=== PATIENT | male | born 1950 | race Caucasian/White ===

== ENCOUNTER 2024-12-15 13:05 | Emergency (ER) | payer MEDICARE, OTHER, SELFPAY ==
[2024-12-15] VITALS (7 sets, daily range): BP systolic 102–138; BP diastolic 61–87; PULSE 84–97; RESP 15–19; TEMP 36.5–36.6; O2SAT 93–97
--- NOTE | ~2024-12-15 | CT_ITS ---
EXAMINATION: CTA chest abdomen pelvis DATE: 12/15/2024 19:12 INDICATION: AAA, right hip fracture . TECHNIQUE: Computed tomography angiography of the chest, abdomen, and pelvis was performed with 100 m L Omnipaque-350 intravenous contrast in the arterial phase. Automated exposure control and iterative reconstruction technique were employed. The dose-length product was 359.92 mGy-cm. COMPARISON: None FINDINGS: CHEST: Thoracic aorta: No dissection. Moderate calcified and noncalcified plaque. Descending thoracic aortic dilation measuring up to 4.4 cm just distal to the arch. Lung parenchyma and airways: Emphysematous change. Biapical pleural scarring. Pleural scarring in the right apex. 9 mm pleural-based right lower lobe nodule over the dome of the right hemidiaphragm. Thoracic inlet, axillae and chest wall: No thyroid or soft tissue mass. No axillary lymphadenopathy. Mediastinum: Dilated central pulmonary arteries as can be seen with pulmonary hypertension. Heart and pericardium: Normal heart size. No pericardial effusion. Coronary artery calcifications: Moderate. Pleura: No effusion or mass. Thoracic bones: No acute osseous finding in the chest. ABDOMEN/PELVIS: Liver: Normal. Biliary/Gallbladder: Gallbladder is normal. No bile duct dilation. Pancreas: No mass or duct dilation. Spleen: Normal. Adrenals:Mild bilateral adrenal thickening. Kidneys: No suspicious mass, obstructing stone, or hydronephrosis. GI tract: Mild distal esophageal wall edema. Small uncomplicated duodenal diverticulum. No small or l arge bowel dilation. Normal appendix. Mesentery/Peritoneum: No ascites, mass, or free air. Retroperitoneum: No mass 11.3 cm long, large infrarenal abdominal aortic aneurysm, measuring up to 7. 8 cm in transverse diameter (greatest transverse diameter measured in the coronal view). GUILLAUME not conf idently visualized. Remaining branch vessels are patent, without dissection. There is intraluminal th rombus within the aneurysm and the suggestion of a high density crescent sign. There is also a saccul ar outpouching along the superior and right lateral margin of the upper portion of the aneurysm. Pelvis: Pelvic organs partially obscured by metal artifact. Soft Tissues: Soft tissues and body wall unremarkable. Abdominopelvic bones: Acute appearing right sacral ala. Acute appearing right obturator ring fracture s, with extension into the anterior column. Acute appearing vertically oriented fracture lines in the anterior and posterior proximal right femoral cortex, surrounding the femoral stem of the right hip hardware. IMPRESSION: Fusiform descending thoracic aortic aneurysm measuring up to 4.4 cm. 9 mm right lower lobe nodule over the dome of the right hemidiaphragm, recommend 3 month follow-up lo w-dose noncontrast CT of the chest or PET/CT. Mild distal esophagitis. Large infrarenal abdominal aortic aneurysm measuring up to 7.8 cm, concerning for impending rupture b ased on size and additional findings including focal, saccular outpouching and the high attenuation c rescent sign. Acute appearing right sacral ala, obturator ring, right anterior column, and right perihilar hardware pelvic/hip fractures. Results reported telephonically to Yanna Hilliard PA-C by Dr. Mo at 7:36 PM on 12/15/2024. Reviewed, dictated and finalized at location [facility]. IMPRESSION: Fusiform descending thoracic aortic aneurysm measuring up to 4.4 cm. 9 mm right lower lobe nodule over the dome of the right hemidiaphragm, recommen d 3 month follow-up low-dose noncontrast CT of the chest or PET/CT. Mild distal esophagitis. Large infrarenal abdominal aortic aneurysm measuring up to 7.8 cm, concerning f or impending rupture based on size and additional findings including focal, sac cular outpouching and the high attenuation crescent sign. Acute appearing right sacral ala, obturator ring, right anterior column, and ri ght perihilar hardware pelvic/hip fractures. Results reported telephonically to Yanna Hilliard PA-C by Dr. Mo at 7:36 PM on 12/15/2024.
--- OUTSIDE RECORDS SUMMARY | 2024-12-15 17:53 | XMS_ITS | Encounter Summary ---
Author Organization [facility] Address [facility] [place] [address] Care Team Providers Care Cook Room Supervisor Name Role Phone Sergei Ruff MD Primary Care Provider [phone]- [phone] Cathryn Espinoza RN Unavailable Unavailable Reason for Referral * Imaging (Urgent) - New Request Specialty Diagnoses / Procedures Referred By Essie overton Referred To Contact RADIOLOGY Procedures USV ART DUPLEX LOW PAYTON Kaitlynn Mejias MD [address] [place] [address] Phone: tel: fax: Referral ID Status Reason Start Date Expiration Date V isits Requested Visits Authorized [id number] New Request 12/12/2024 12/12/2025 1 1 * Imaging (Urgent) - Pending Review Specialty Diagnoses / Procedures Referred By Essie overton Referred To Contact RADIOLOGY Procedures USV CAROTID DUPLEX PAYTON US CAROTID DUPLEX PAYTON Lawson Grayson MD [address] [place] [address] Phone: tel: fax: Referral ID Status Reason Start Date Expiration Date V isits Requested Visits Authorized [id number] Pending Review 12/10/2024 12/10/2025 1 1 * Imaging (Urgent) - New Request Specialty Diagnoses / Procedures Referred By Contac t Referred To Contact RADIOLOGY Procedures CTA CHEST+ABD+PEL Kaitlynn Mejias MD [address], [facility] [place] [address] Phone: tel: fax: Referral ID Status Reason Start Date Expiration Date V isits Requested Visits Authorized [id number] New Request 12/10/2024 12/10/2025 1 1 * Imaging (Urgent) - New Request Specialty Diagnoses / Procedures Referred By Contac t Referred To Contact RADIOLOGY Procedures USE ECHOCARDIOGRAM Lawson Grayson MD [address] [place] [address] Phone: tel: fax: Referral ID Status Reason Start Date Expiration Date V isits Requested Visits Authorized [id number] New Request 12/10/2024 12/10/2025 1 1 * Imaging (Urgent) - New Request Specialty Diagnoses / Procedures Referred By Contac t Referred To Contact RADIOLOGY Procedures MRI BRAIN WO CON Lawson Grayson MD [address] [place] [address] Phone: tel: fax: Referral ID Status Reason Start Date Expiration Date V isits Requested Visits Authorized [id number] New Request 12/10/2024 12/10/2025 1 1 * Imaging (Urgent) - New Request Specialty Diagnoses / Procedures Referred By Contac t Referred To Contact RADIOLOGY Procedures CT HIP RT WO Tae Talley MD [address], [facility] [place] [address] Phone: tel: fax: Referral ID Status Reason Start Date Expiration Date V isits Requested Visits Authorized [id number] New Request 12/09/2024 12/09/2025 1 1 Reason for Visit * Auth/Cert Specialty Diagnoses / Procedures Referred By Contac t Referred To Contact Diagnoses Hip fx, right, closed, initial encounter ([facility]) Procedures NONE Conor Saenz MD [address] [place] [address] Phone: tel: fax: Referral ID Status Reason Start Date Expiration Date Visits Re quested Visits Authorized [id number] 1 1 Encounter Details Date Type Department Care Team (Latest Contact Info) Description 12/09/2024 6:53 PM CDT - 12/13/2024 7:21 PM CDT Hospital Encounter [facility] [address] [place] [address] Conor Saenz MD [address] [place] [id number] Lawson Grayson MD [address] [place], [place] [id number] Ada Alford MD [address] [place] [address] Discharge Disposition: Left Against Medical Advice Social History Tobacco Use Types Packs/Day Years Used Date Smoking Tobacco: Every Day Cigarettes Smokeless Tobacco: Never Alcohol Use Standard Drinks/Week Comments Yes 0 (1 standard drink = 0.6 oz pur e alcohol) monthly [facility] Utilities Answer Date Recorded In the past 12 months has [employer], gas, oil, or water company threatened to shut off services in your home? No 12/09/2024 Humiliation, Afraid, Rape, and Kick questionnair e Answer Date Recorded Within the last year, have y ou been afraid of your partner or ex-partner? No 12/09/2024 Within the last year, have y ou been humiliated or emotionally abused in other ways by your partner or ex-partner? No Within the last year, have y ou been kicked, hit, slapped, or otherwise physically hurt by your partner or ex-partner? No 12/09/2024 Within the last year, have y ou been raped or forced to have any kind of sexual activity by your partner or ex-partner? No 12/09/2024 Overall Financial Resource Strain (CARDIA) Answe r Date Recorded How hard is it for you to pa y for the very basics like food, housing, medical care, and heating? Not hard at all 12/09/2024 Hunger Vital Sign Answer Date Recorded Within the past 12 months, y ou worried that your food would run out before you got the money to buy more. Never true 12/10/19 25 Within the past 12 months, t he food you bought just didn't last and you didn't have money to get more. Never true 12/09/2024 PRAPARE - Transportation Answer Date Re corded In the past 12 months, has l ack of transportation kept you from medical appointments or from getting medications? No 11/17 In the past 12 months, has l ack of transportation kept you from meetings, work, or from getting things needed for daily living? No 12/09/2024 Housing Stability Vital Sign Answer Leonel e Recorded In the last 12 months, was t here a time when you were not able to pay the mortgage or rent on time? No 12/09/2024 In the past 12 months, how m any times have you moved where you were living? 0 12/09/2024 At any time in the past [address] [facility], were you homeless or living in a chcf (including now)? 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 Gender Identity Not on file Sexual Orientation Not on file documented as of this encounter Last Filed Vital Signs Vital Sign Reading Time Taken Comments Blood Pressure 144/76 12/13/2024 4:22 PM CDT Pulse 75 12/13/2024 4:22 PM CDT Temperature 36.7 C (98.1 F) 12/13/2024 4:22 PM CDT Respiratory Rate 16 12/13/2024 4:22 PM CDT Oxygen Saturation 94% 12/13/2024 4:22 PM CDT Inhaled Oxygen Concentration - - Weight 62.1 kg (136 lb 14.5 oz) 12/13/2024 4:20 AM CDT Height 185.4 cm (6' 0.99) 12/11/2024 9:00 AM CD T Body Mass Index 18.07 12/11/2024 9:00 AM CDT documented in this encounter Functional Status * Question Answer Date of Assessment Author Status Do you have serious difficulty walking or climbing stairs? Yes 12/09/2024 8:00 PM CDT Celine Moreau RN Act benita * Question Answer Date of Assessment Author Status Do you have difficulty dressing or bathing? No 12/09/2024 8:00 PM CDT Celine Moreau R N Active Because of a physical, mental, or emotional condition, do you have difficulty doing errands alone such as visiting a doctor's office or shopping? No 12/09/2024 8:00 PM CDT Celine Moreau RN Acti ve * Are you deaf or do you have serious difficulty hearing Answer Date of Assessment Author Status No 12/09/2024 8:00 PM CDT Celine Moreau RN Active * Are you blind or do you have serious difficulty seeing, even when wearing glasses? Answer Date of Assessment Author Status No 12/09/2024 8:00 PM CDT Celine Moreau RN Active * Do you have serious difficulty walking or climbing stairs? Answer Date of Assessment Author Status Yes 12/09/2024 8:00 PM GABRIELT Celine Moreau RN Active * Do you have difficulty dressing or bathing? Answer Date of Assessment Author Status No 12/09/2024 8:00 PM GABRIELT Celine Moreau RN Active * Because of a physical, mental, or emotional condition, do you have difficulty doing errands alone such as visiting a doctor's office or shopping? Answer Date of Assessment Author Status No 12/09/2024 8:00 PM Celine Joyce RN Active * Question Answer Date of Assessment Author Status Are you deaf or do you have serious difficulty hearing No 12/09/2024 8:00 PM Celine Joyce RN Active Are you blind or do you have serious difficulty seeing, even when wearing glasses? No 12/09/2024 8:00 PM Celine Joyce RN Acti ve * Calculated C-SSRS Risk Score (Lifetime/Recent) Answer Date of Assessment Author Status No Risk Indicated 12/09/2024 8:00 PM Mariano Joyce i, RN Active * [place] Suicide Severity Rating Scale (Screener/Recent Self-Report) Question Answer Date of Assessment Author Status 1. Wish to be (Past 1 Month) No 12/09/2024 8:00 PM Celine Joyce RN Acti ve 2. Non-Specific Active Suicidal Thoughts (Past 1 Month) No 12/09/2024 8:00 PM Celine Joyce RN Acti ve 6. Suicidal Behavior (Lifetime) No 12/09/2024 8:00 PM Celine Joyce RN Acti ve documented as of this encounter Mental Status * Question Answer Entry Date Author Status Because of a physical, mental, or emotional condition, do you have serious difficulty concentrating, remembering, or making decisions? No 12/09/2024 8:00 PM Celine Joyce RN Active * Because of a physical, mental, or emotional condition, do you have serious difficulty concentrating, remembering, or making decisions? Answer Entry Date Author Status No 12/09/2024 8:00 PM Celine Joyce RN Active documented in this encounter Medications at Time of Discharge clopidogrel (PLAVIX) 75 MG tablet Take 1 tablet (75 mg total) by mouth daily. lovastatin (MEVACOR) 40 MG tablet Take 2 tablets (80 mg total) by mouth daily. 01/26/2024 metoprolol succinate ER (TOPROL-XL) 100 MG 24 hr tablet Take 1 tablet (100 mg total) by mouth daily. traZODone (DESYREL) 100 MG tablet Take 1 tablet (100 mg total) by mouth nightly at bedtime. 06/26/2024 documented as of this encounter Progress Notes * Ada Alford MD - 12/13/2024 4:55 PM CDT Images from the original note were not included. Progress note CC:- 74-year-old man with past medical history of hypertension, hyperlipidemia, coronary artery disease status post PCI many years ago, was referred to us from outside hospital after sustaining a fall while cleaning gutter at his friend's house. Imaging studies have revealed right superior and inferior pubic ramus, right femoral and right sacral hiral fractures. Further imaging studies have revealed 7.6 cm infrarenal abdominal aortic aneurysm. 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 Orthopedics cardiology and vascular surgery have been consulted. ASSESSMENT /PLAN Abdominal aortic aneurysm: Up to 8 cm in size. Case discussed with vascular surgery. It appears that patient has complicated anatomy and aneurysm repair will need fenestrated EVAR in 4 to 6 weeks time on outpatient basis. Continue aspirin and statin. Right periprosthetic femur fracture: Communicated with orthopedic surgery. Patient's hip repair will now be done early next week. Will await definite scheduling details prior to discontinuing DVT prophylaxis. Preoperative cardiac assessment has been obtained. History of coronary artery disease: Echocardiogram reassuring. Continue aspirin atorvastatin and Toprol-XL. Patient takes Plavix at home which we are holding at this time. Old strokes on brain imaging: Continue aspirin and statin. Carotid ultrasound duplex with less than 60% stenosis. JAYME: Resolved. Tobacco dependence/substance abuse: Counseled the patient. SUBJECTIVE Patient seen and examined. Patient did not have any significant acute complaints OBJECTIVE Wt Readings from Last 3 Encounters: 12/13/24 62.1 kg (136 lb 14.5 oz) 12/09/24 68 kg (150 lb) Temp: 98.1 ??F (36.7 ??C) BP Readings from Last 3 Encounters: 12/13/24 (!) 144/76 12/09/24 125/81 Pulse Readings from Last 3 Encounters: 12/13/24 75 12/09/24 71 Review of Systems Constitutional: Negative. HENT: Negative. Eyes: Negative. Respiratory: Negative. Cardiovascular: Negative. Genitourinary: Negative. Musculoskeletal: Positive for joint pain. Skin: Negative. Neurological: Negative. PHYSICAL EXAMINATION: Physical Exam HENT: Head: Normocephalic. Nose: Nose normal. Cardiovascular: Rate and Rhythm: Normal rate. Pulses: Normal pulses. Heart sounds: Normal heart sounds. Pulmonary: Effort: Pulmonary effort is normal. Breath sounds: Normal breath sounds. Abdominal: Palpations: Abdomen is soft. Musculoskeletal: General: Normal range of motion. Skin: General: Skin is warm. Neurological: Mental Status: He is alert and oriented to person, place, and time. LABS: Recent Labs 12/11/2434312/12/24 0409 12/13/24 0416 WBC 8.31 7.37 7.41 HGB 9.1* 9.1* 9.1* HCT 27.7* 27.5* 27.1* MCV 90.5 89.0 89.7 PLT 290 310 336 RBC 3.06* 3.09* 3.02* Recent Labs 12/11/2434312/12/249 12/13/24 0416 CO2 29.5 27.6 29.0 CL 103 104 102 GLU 99 105 99 K 3.5 3.6 3.6 NA 136 136 134* BUN 25* 18 14 Intake/Output Summary (Last 24 hours) at 12/13/2024 1655 Last data filed at 12/13/2024 0745 Gross per 24 hour Intake 150 ml Output 350 ml Net -200 ml Microbiology Results (last 14 days) Procedure Component Value Units Date/Time MRSA PCR nares SCREENING [[id number]] Collected: 12/09/242144 Order Status: Completed Lab Status: Final result Updated: 12/10/24 1057 Specimen: NASAL SPECIMEN SOURCE RESPIRATORY, NOSE MRSA BY PCR NASAL METHICILLIN RESISTANT STAPH AUREUS NOT DETECTED Radiology MEDICATIONS Scheduled medications aspirin 81 mg Oral Daily atorvastatin 20 mg Oral Nightly at bedtime chlorhexidine 15 mL Mouth/Throat Once enoxaparin 40 mg Subcutaneous Nightly (enoxaparin) metoprolol succinate ER 100 mg Oral Daily traZODone 100 mg Oral Nightly at bedtime Infusion PRN acetaminophen, HYDROcodone-acetaminophen, HYDROmorphone, labetalol, ondansetron, polyethylene glycol ADA ALFORD MD 4:55 PM 12/13/2024 * Dwight Massey RN - 12/13/2024 12:42 PM CDT Problem: Reduced risk for falls/injury Goal: Reduced Risk for Falls/Injury Outcome: Progressing Goal: Reduced Risk of Confusion (Acute vs Chronic) Outcome: Progressing Goal: Reduced Risk of Symptomatic Depression Outcome: Progressing Goal: Reduced Risk of Altered Elimination Outcome: Progressing Goal: Reduced Risk of Dizziness/Vertigo/Balance Outcome: Progressing Goal: Reduced Risk of Polypharmacy Outcome: Progressing Problem: Discharge Planning Goal: Knowledge of discharge instructions Outcome: Progressing Problem: Bowel Function - Altered Goal: Bowel elimination within specified parameters Outcome: Progressing Problem: Venous Thromboembolism - Risk of Goal: Absence of venous thromboembolism Outcome: Progressing Problem: Infection - Risk of, Surgical Site Infection Goal: Absence of infection signs and symptoms Outcome: Progressing Problem: Mobility - Impaired Goal: Able to use ambulatory assistive device appropriately Outcome: Progressing Goal: Knowledge of need for increased mobility Outcome: Progressing Problem: Pain - Acute Goal: Control of acute pain Outcome: Progressing Problem: Discharge Planning Goal: Knowledge of discharge instructions Outcome: Progressing Problem: Pain control/comfort Goal: Promote pain control/comfort Outcome: Progressing Problem: Skin integrity, Impaired-wound Goal: Absence of new skin breakdown Outcome: Progressing Goal: Evidence of wound healing Outcome: Progressing Problem: Skin integrity, Impaired-pressure injury/ulcer Goal: Absence of new skin breakdown Outcome: Progressing Goal: Evidence of pressure injury/ulcer healing Outcome: Progressing Problem: Skin integrity, at risk Goal: Absence of new skin breakdown Outcome: Progressing Problem: Moisture associated skin impairment Goal: Reduce moisture exposure Outcome: Progressing Goal: Evidence of wound healing Outcome: Progressing Goal: Evidence of pressure injury/ulcer healing Outcome: Progressing Goal: Absence of new skin breakdown Outcome: Progressing Problem: Restraint Use-Violent/Self Destructive Behavior Goal: Absence of physical restraint indications Outcome: Progressing Goal: Release of restraints Outcome: Progressing * Ada Alford MD - 12/12/2024 7:18 PM CDT Images from the original note were not included. Progress note CC:- 74-year-old man with past medical history of hypertension, hyperlipidemia, coronary artery disease status post PCI many years ago, was referred to us from outside hospital after sustaining a fall while cleaning gutter at his friend's house. Imaging studies have revealed right superior and inferior pubic ramus, right femoral and right sacral hiral fractures. Further imaging studies have revealed 7.6 cm infrarenal abdominal aortic aneurysm. 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 Orthopedics cardiology and vascular surgery have been consulted. ASSESSMENT /PLAN Abdominal aortic aneurysm: Up to 8 cm in size. Case discussed with vascular surgery again today. It appears that patient has complicated anatomy and aneurysm repair will need fenestrated EVAR in 4 to 6 weeks time on outpatientbasis. Continue aspirin and statin. Right periprosthetic femur fracture: Initially the procedure was deferred by orthopedics however now given postponement of aneurysm repair, vascular surgery have reached out to orthopedics again to get the hip repair done first. History of coronary artery disease: Echocardiogram reassuring. Continue aspirin atorvastatin and Toprol-XL. Patient takes Plavix at home which we are holding at this time. Old strokes on brain imaging: Continue aspirin and statin. Carotid ultrasound duplex with less than 60% stenosis. JAYME: Resolved. Tobacco dependence/substance abuse: Counseled the patient. SUBJECTIVE Patient seen and examined. Patient without any acute complaints. OBJECTIVE Wt Readings from Last 3 Encounters: 12/12/24 61.8 kg (136 lb 3.9 oz) 12/09/24 68 kg (150 lb) Temp: 98.1 ??F (36.7 ??C) BP Readings from Last 3 Encounters: 12/12/24 139/66 12/09/24 125/81 Pulse Readings from Last 3 Encounters: 12/12/24 72 12/09/24 71 Review of Systems Constitutional: Negative. HENT: Negative. Eyes: Negative. Respiratory: Negative. Cardiovascular: Negative. Genitourinary: Negative. Musculoskeletal: Negative. Skin: Negative. Neurological: Negative. Psychiatric/Behavioral: Negative. PHYSICAL EXAMINATION: Physical Exam HENT: Head: Normocephalic. Nose: Nose normal. Mouth/Throat: Mouth: Mucous membranes are moist. Cardiovascular: Rate and Rhythm: Normal rate. Pulmonary: Effort: Pulmonary effort is normal. Breath sounds: Normal breath sounds. Abdominal: Palpations: Abdomen is soft. Musculoskeletal: General: Normal range of motion. Skin: General: Skin is warm. Neurological: Mental Status: He is alert and oriented to person, place, and time. LABS: Recent Labs 12/10/24 0551 12/11/24 0344 12/12/24 0409 WBC 9.05 8.31 7.37 HGB 9.6* 9.1* 9.1* HCT 29.6* 27.7* 27.5* MCV 91.4 90.5 89.0 PLT 266 290 310 RBC 3.24* 3.06* 3.09* Recent Labs 12/10/24 0551 12/11/244 12/12/24 0409 CO2 28.9 29.5 27.6 CL 101 103 104 GLU 101 99 105 K 4.3 3.5 3.6 NA 134* 136 136 BUN 27* 25* 18 Intake/Output Summary (Last 24 hours) at 12/12/2024 1919 Last data filed at 12/12/2024 1528 Gross per 24 hour Intake 1342 ml Output 800 ml Net 542 ml Microbiology Results (last 14 days) Procedure Component Value Units Date/Time MRSA PCR nares SCREENING [[id number]] Collected: 12/09/242144 Order Status: Completed Lab Status: Final result Updated: 12/10/24 1057 Specimen: NASAL SPECIMEN SOURCE RESPIRATORY, NOSE MRSA BY PCR NASAL METHICILLIN RESISTANT STAPH AUREUS NOT DETECTED Radiology MEDICATIONS Scheduled medications aspirin 81 mg Oral Daily atorvastatin 20 mg Oral Nightly at bedtime chlorhexidine 15 mL Mouth/Throat Once enoxaparin 40 mg Subcutaneous Nightly (enoxaparin) metoprolol succinate ER 100 mg Oral Daily traZODone 100 mg Oral Nightly at bedtime Infusion PRN acetaminophen, HYDROcodone-acetaminophen, HYDROmorphone, labetalol, ondansetron, polyethylene glycol ADA ALFORD MD 7:19 PM 12/12/2024 * Aston Cramer MD - 12/12/2024 5:18 PM CDT Electrophysiology Progress Note ID: Austin Cramer is a 74-year-old male : 1950 LOS: 3 days SUBJECTIVE Hx mi and cad/stent Hx AAA - large - f/u has been // is arranged as per pt Htn Hld Stable cardiac status REVIEW OF SYSTEMS: Review of Systems Constitutional: Negative for chills and fever. HENT: Negative for hearing loss. Respiratory: Negative for cough and hemoptysis. Cardiovascular: Negative for chest pain. Gastrointestinal: Negative for heartburn. Musculoskeletal: Positive for joint pain and myalgias. Neurological: Negative for dizziness. Endo/Heme/Allergies: Does not bruise/bleed easily. Medications: Scheduled Meds: aspirin 81 mg Oral Daily atorvastatin 20 mg Oral Nightly at bedtime chlorhexidine 15 mL Mouth/Throat Once enoxaparin 40 mg Subcutaneous Nightly (enoxaparin) metoprolol succinate ER 100 mg Oral Daily traZODone 100 mg Oral Nightly at bedtime Continuous Infusions: PRN Meds: acetaminophen, HYDROcodone-acetaminophen, HYDROmorphone, labetalol, ondansetron, polyethylene glycol OBJECTIVE Intake/Output last 3 shifts: I/O last 3 completed shifts: In: 1151 [P.O.:1151] Out: 700 [Urine:700] Today's Weight: Last Recorded Weight 12/12/24 0414 Weight: 61.8 kg (136 lb 3.9 oz) Weight change in the last 24 hours: an appropriate measurement is not found Vital signs in the last 24 hours: Temp: [97.7 ??F (36.5 ??C)-98.4 ??F (36.9 ??C)] 98.1 ??F (36.7 ??C) Pulse: [63-86] 72 Resp: [16-20] 20 BP: (128-149)/(51-66) 139/66 Physical Exam Constitutional: Appearance: Normal appearance. HENT: Nose: Nose normal. Mouth/Throat: Mouth: Mucous membranes are moist. Eyes: Pupils: Pupils are equal, round, and reactive to light. Cardiovascular: Rate and Rhythm: Normal rate and regular rhythm. Pulmonary: Effort: Pulmonary effort is normal. Breath sounds: Normal breath sounds. Abdominal: Palpations: Abdomen is soft. Musculoskeletal: Cervical back: Normal range of motion and neck supple. Comments: Right hip surgery Neurological: Mental Status: He is oriented to person, place, and time. Telemetry and 12 lead ECG: nsr No results found for this visit on 12/09/24. Labs and Cultures: Recent Results (from the past 24 hours) CBC W/DIFF AUTOMATED Collection Time: 12/12/24 4:09 AM Result Value Ref Range WBC 7.37 4.00 - 10.80 x10'3/uL RBC 3.09 (L) 4.50 - 6.10 x10'6/uL HGB 9.1 (L) 13.0 - 18.0 G/DL HCT 27.5 (L) 37.0 - 52.0 % MCV 89.0 78.0 - 100.0 FL MCH 29.4 27.0 - 31.0 PG MCHC 33.1 33.0 - 36.0 G/DL RDW 13.3 11.5 - 14.5 % PLT 310 150 - 350 x10'3/uL MPV 9.1 7.4 - 10.4 FL DIFFERENTIAL TYPE AUTOMATED DIFFERENTIAL SEG NEUTROPHILS 61.1 % LYMPHOCYTES 22.7 % MONOCYTES 9.5 % EOSINOPHILS 5.4 % BASOPHILS 0.9 % IMMATURE GRANS % 0.4 % ABS. NEUTROPHILS 4.50 1.60 - 8.30 x10'3/uL ABS. LYMPHOCYTES 1.67 0.80 - 4.70 x10'3/uL ABS. MONOCYTES 0.70 0.00 - 1.50 x10'3/uL ABS. EOSINOPHILS 0.40 0.00 - 0.40 x10'3/uL ABS. BASOPHILS 0.07 0.00 - 0.20 x10'3/uL ABS. IMMATURE GRANULOCYTES 0.03 0.00 - 0.03 x10'3/uL ABS. NUCLEATED RBC'S 0.00 0.00 - 0.01 x10'3/uL NRBC % 0.0 % BASIC METABOLIC PANEL Collection Time: 12/12/24 4:09 AM Result Value Ref Range SODIUM S/P/B 136 136 - 145 MMOL/L POTASSIUM S/P/B 3.6 3.5 - 5.1 MMOL/L CHLORIDE S/P/B 104 97 - 115 MMOL/L CO2 27.6 21.0 - 32.0 MMOL/L GLUCOSE 105 74 - 106 MG/DL BUN 18 7 - 18 MG/DL CREATININE S/P/B 0.77 0.70 - 1.30 MG/DL CALCIUM S/P/B 8.5 8.5 - 10.1 MG/DL ANION GAP 4.4 2.0 - 10.0 MMOL/L OSMOLALITY (CALC) 284 MOSM/KG GFR ESTIMATE >90 >90 ML/MIN/1.73 M2 GFR NOTES GFR REFERENCES: ASSESSMENT Patient Active Problem List Diagnosis Hip fracture, right ([facility]) PLAN Pt has f/u of AAA scheduled Cad Coronary stent and hx mi Htn Hld Signed ASTON CRAMER MD 12/12/2024 * Aryan Martinez RD - 12/12/2024 1:58 PM CDT CLINICAL DIETITIAN ASSESSMENT NUTRITION ASSESSMENT Past Medical History[1] Initial History (12/12/2024): Remote Registered Dietitian (RD) completing an initial assessment secondary to low BMI. Patient is a 74-year-old male admitted secondary to Hip fx, right, closed, initial encounter ([facility]) [S72.001A] Hip fracture, right ([facility]) [S72.001A]. Patient presented to [facility] on 12/09/24 after a fall from elevation while cleaning gutters at a friend's house. Patient was diagnosed with the above. Noted history or aortic aneurysm, CAD. Previously had JAYME during admission, but is now noted to be resolved by physician. CM following; discharge plan is pending due to AAA repair by vascular surgery, which is scheduled to be done on 12/16/24. Weight history (12/12/2024): Alternate contact reports patient's weight has been stable. Says usual body weight is around 150 lbs (68.2 kg). Per EHR, patient weighed 68 kg on 12/09/24, now weighs 61.8 kg, indicating a 6.2 kg (9.3%) loss occurring over the last 3 days. Is considered to be clinically significant; however, unsure of cause of loss. No edema was noted upon/during admission and patient is currently -0.9 L of fluid per I&Os. Suspect admission weight may be inaccurate. Will continue to monitor trends throughout admission. 12/09/24: 68 kg (standing) 12/10/24: 60.4 kg 12/11/24: 60.3 kg 12/12/24: 61.8 kg Diet history (12/12/2024): Alternate contact (fuewro-of-ptp) reports patient eats very well at home,typically consuming 100% of meals. Says patient can be a picky eater and that is why patient has not eaten everything in hospital. 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 Per EHR, patient consumed 100% of meals served yesterday and today. Patient consumed 0% of meals of 12/10/24 at lunch and dinner. Per calculations and ordered meals noted in [employer], patient is meeting <75% of estimated nutrient needs. Offered ONS, alternate contact reports patient would likely not drink Ensure due to not liking it. Will not order ONS at thistime per family preference. Food allergies/intolerances: NKFA per EHR Cultural/U[place] food preferences: None reported in EHR Food Insecurity: No Food Insecurity (12/09/2024) Hunger Vital Sign Worried About Running Out of Food in the Last Year: Never true Ran Out of Food in the Last Year: Never true Cardiorespiratory: in room air Neuro: Alert/oriented x4 per EHR Edema: no edema noted per EHR GI: abdomen WDL, soft, non-tender, and non-distended with positive bowel sounds per security systems installer; last BM documented on 12/07/24 (no BM description available; no BM documented in 5 days) Chewing/swallowing problems: None reported Skin: no breakdown noted Nutrition-focused physical findings: Unable to complete a physical exam at this time due to RDN working remotely. Labs: Reviewed. No nutrition-related concerns noted at this time. Recent Labs Lab 12/10/24 1118 GLUCOSEPOC 93 Recent Labs Lab 12/09/24 1423 12/10/24 0551 12/11/24 0344 12/12/24 0409 NA 135* 134* 136 136 K 4.2 4.3 3.5 3.6 MAGNESIUM 2.1 -- 2.2 -- PHOS -- -- 2.7 -- BUN 34* 27* 25* 18 CR 1.33* 0.89 0.84 0.77 GFREST 56* 89* >90 >90 GLU 132* 101 99 105 TRI -- 111 -- -- HGB A1C Date Value Ref Range Status 12/10/2024 5.5 <5.7 % Final Meds: Reviewed. No nutrition-related concerns noted at this time. aspirin 81 mg Oral Daily atorvastatin 20 mg Oral Nightly at bedtime chlorhexidine 15 mL Mouth/Throat Once enoxaparin 40 mg Subcutaneous Nightly (enoxaparin) metoprolol succinate ER 100 mg Oral Daily traZODone 100 mg Oral Nightly at bedtime Anthropometrics: Admission weight: 68 kg (Date: 12/09/24; Method: Not recorded) Last 5 Recorded Weights 12/09/24200012/10/24 0500 12/10/24 0700 12/11/24 0900 Weight: 68 kg (150 lb) 60.4 kg (133 lb 2.5 oz) 60.4 kg (133 lb 2.5 oz) 60.3 kg (133 lb) 12/12/24 0414 Weight: 61.8 kg (136 lb 3.9 oz) Weight status: Per EHR, patient weighed 68 kg on 12/09/24, now weighs 61.8 kg, indicating a 6.2 kg (9.3%) loss occurring over the last 3 days. Is considered to be clinically significant; however, unsure of cause of loss. No edema was noted upon/during admission and patient is currently -0.9 L of fluid per I&Os. Suspect admission weight may be inaccurate. Will continue to monitor trends throughout admission. Height: 185.4 cm Actual Body Weight (ABW): 61.8 kg [place] Body Weight (IBW): 83.4 kg (ABW is 74% of IBW) Usual Body Weight (UBW): 68.2 kg (ABW is 91% of UBW) Dosing Weight (DW): 61.8 kg Body Mass Index (BMI): 18 kg/m?? (Underweight) Estimated Nutrient Needs: Calories: 7729-4292 kcal/day based on [place]-St Jeor x 1.25-1.5 Protein: 74-93 gm/day based on 1-1.2 gm/kg, using ABW (compression fracture) Fluid: 1500 mL/day based on minimum intake recommendation for older adults Current diet order: Diet cardiac Not appropriate; Low Cholesterol; 2 GM NA Current diet appropriate? Yes Current intake sufficient to meet nutritional needs? No; Per review of recorded intake per EHR, ordered meals per [employer] and patient/RN reported intake of on average 67% of meals, it is estimated that patient consumed an average of 1128 kcal/day (64% estimated needs) and 44 gm/day protein (59% estimated needs) over the past 3 days. Fluid intake appears adequate for hydration. Pain affecting PO intake? No Nutrition Education: no needs identified at this time NUTRITION DIAGNOSIS Inadequate energy and protein intake related to limited food acceptance per family as evidenced by patient is currently meeting <75% of estimated nutrient needs. NUTRITION INTERVENTION Nutrition prescription: Cardiac diet, Low sodium diet (limit to 2 gm sodium daily), and Low Cholesterol diet Plan: 1. Continue current diet order as tolerated and encourage good PO intake of meals. 2. Weigh patient daily. Discharge nutrition plan: Discharge needs assessed. Will provide/update discharge instructions as needed. MONITORING/EVALUATION 12/12/2024 Goals: 1. PO intake will meet at least 75% of estimated kcal/protein needs based on 3- day average intake per review of EHR and [employer] at follow up. 2. Weight stable within 2% of current weight (61.8 kg) at follow up. ARYAN MARTINEZ RD, LDN [1] Past Medical History: Diagnosis Date CAD (coronary artery disease) HLD (hyperlipidemia) Hypertension * Sharonda Giron RN - 12/12/2024 9:16 AM CDT 12/12/24 0916 Interdisciplinary Group Conference Team Members Present Physician;Case/Care management;Nursing Physician present for group conference Dr Alford Patient Current Status Paient current status Inpatient Barriers to Discharge Inpatient Review Other Barriers to Discharge (Comment) Yes (ortho surgery postponed until after 12/16 vascular surgery to repair AAA) * Zonia Kendrick RN - 12/11/2024 7:14 PM CDT Problem: Reduced risk for falls/injury Goal: Reduced Risk for Falls/Injury Outcome: Progressing Goal: Reduced Risk of Confusion (Acute vs Chronic) Outcome: Progressing Goal: Reduced Risk of Symptomatic Depression Outcome: Progressing Goal: Reduced Risk of Altered Elimination Outcome: Progressing Goal: Reduced Risk of Dizziness/Vertigo/Balance Outcome: Progressing Goal: Reduced Risk of Polypharmacy Outcome: Progressing Problem: Discharge Planning Goal: Knowledge of discharge instructions Outcome: Progressing Problem: Bowel Function - Altered Goal: Bowel elimination within specified parameters Outcome: Progressing Problem: Venous Thromboembolism - Risk of Goal: Absence of venous thromboembolism Outcome: Progressing Problem: Infection - Risk of, Surgical Site Infection Goal: Absence of infection signs and symptoms Outcome: Progressing Problem: Mobility - Impaired Goal: Able to use ambulatory assistive device appropriately Outcome: Progressing Goal: Knowledge of need for increased mobility Outcome: Progressing Problem: Pain - Acute Goal: Control of acute pain Outcome: Progressing Problem: Discharge Planning Goal: Knowledge of discharge instructions Outcome: Progressing Problem: Pain control/comfort Goal: Promote pain control/comfort Outcome: Progressing Problem: Skin integrity, Impaired-wound Goal: Absence of new skin breakdown Outcome: Progressing Goal: Evidence of wound healing Outcome: Progressing Problem: Skin integrity, Impaired-pressure injury/ulcer Goal: Absence of new skin breakdown Outcome: Progressing Goal: Evidence of pressure injury/ulcer healing Outcome: Progressing Problem: Skin integrity, at risk Goal: Absence of new skin breakdown Outcome: Progressing Problem: Moisture associated skin impairment Goal: Reduce moisture exposure Outcome: Progressing Goal: Evidence of wound healing Outcome: Progressing Goal: Evidence of pressure injury/ulcer healing Outcome: Progressing Goal: Absence of new skin breakdown Outcome: Progressing * Ada Alford MD - 12/11/2024 4:27 PM CDT Images from the original note were not included. Progress note CC:- 74-year-old man with past medical history of hypertension, hyperlipidemia, coronary artery disease status post PCI many years ago, was referred to us from outside hospital after sustaining a fall while cleaning gutter at his friend's house. Imaging studies have revealed right superior and inferior pubic ramus, right femoral and right sacral hiral fractures. Further imaging studies have revealed 7.6 cm infrarenal abdominal aortic aneurysm. 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 Orthopedics cardiology and vascular surgery have been consulted. ASSESSMENT /PLAN Right periprosthetic femur fracture: In view of very large abdominal aortic aneurysm orthopedics have deferred operative intervention atthis time and will wait for aneurysm repair before repairing patient's hip. I will start DVT prophylaxis. Abdominal aortic aneurysm: Up to 8 cm in size. Repair has been scheduled for Sunday next week. History of coronary artery disease: Echocardiogram reassuring. Continue aspirin atorvastatin and Toprol-XL. Patient takes Plavix at home which we are holding at this time. JAYME: Resolved. Tobacco dependence/substance abuse: Counseled the patient. Needs inpatient repair of AAA next week, followed by repair of hip. SUBJECTIVE Patient seen and examined. No significant acute issues have been reported by the patient OBJECTIVE Wt Readings from Last 3 Encounters: 12/11/24 60.3 kg (133 lb) 12/09/24 68 kg (150 lb) Temp: 97.3 ??F (36.3 ??C) BP Readings from Last 3 Encounters: 12/11/24 128/63 12/09/24 125/81 Pulse Readings from Last 3 Encounters: 12/11/24 67 12/09/24 71 Review of Systems Constitutional: Negative. HENT: Negative. Eyes: Negative. Respiratory: Negative. Cardiovascular: Negative. Gastrointestinal: Negative. Genitourinary: Negative. Musculoskeletal: Negative. Skin: Negative. Neurological: Negative. Psychiatric/Behavioral: Negative. PHYSICAL EXAMINATION: Physical Exam HENT: Head: Normocephalic. Nose: Nose normal. Mouth/Throat: Mouth: Mucous membranes are moist. Cardiovascular: Rate and Rhythm: Normal rate. Pulses: Normal pulses. Heart sounds: Normal heart sounds. Pulmonary: Breath sounds: Normal breath sounds. Abdominal: Palpations: Abdomen is soft. Musculoskeletal: General: Normal range of motion. Skin: General: Skin is warm and dry. Neurological: Mental Status: He is alert and oriented to person, place, and time. LABS: Recent Labs 12/09/24 1423 12/10/24 0551 12/11/24 0344 WBC 11.16* 9.05 8.31 HGB 10.8* 9.6* 9.1* HCT 31.8* 29.6* 27.7* MCV 88.3 91.4 90.5 PLT 267 266 290 RBC 3.60* 3.24* 3.06* Recent Labs 12/09/24 1423 12/10/24 0551 12/11/24 0344 ALT 20 -- -- AST 24 -- -- CO2 30.0 28.9 29.5 CL 95* 101 103 GLU 132* 101 99 K 4.2 4.3 3.5 NA 135* 134* 136 BUN 34* 27* 25* Intake/Output Summary (Last 24 hours) at 12/11/2024 1627 Last data filed at 12/11/2024 1100 Gross per 24 hour Intake 0 ml Output 775 ml Net -775 ml Microbiology Results (last 14 days) Procedure Component Value Units Date/Time MRSA PCR nares SCREENING [[id number]] Collected: 12/09/242144 Order Status: Completed Lab Status: Final result Updated: 12/10/24 1057 Specimen: NASAL SPECIMEN SOURCE RESPIRATORY, NOSE MRSA BY PCR NASAL METHICILLIN RESISTANT STAPH AUREUS NOT DETECTED Radiology MEDICATIONS Scheduled medications aspirin 81 mg Oral Daily atorvastatin 20 mg Oral Nightly at bedtime chlorhexidine 15 mL Mouth/Throat Once enoxaparin 40 mg Subcutaneous Nightly (enoxaparin) metoprolol succinate ER 100 mg Oral Daily Infusion PRN acetaminophen, HYDROcodone-acetaminophen, HYDROmorphone, labetalol, ondansetron, polyethylene glycol ADA ALFORD MD 4:27 PM 12/11/2024 * Max Morrison Jr., DO - 12/11/2024 11:41 AM CDT Patient's chart was reviewed today. Originally had planned on revising his periprosthetic fracture of his right hip. However after learning that he had a nearly 8 cm aortic aneurysm we are going to postpone his surgery until he is aneurysm is repaired. Will likely schedule after that is completed. * Kaitlynn Mejias MD - 12/11/2024 10:50 AM CDT [facility] V[facility] Surgery Progress Note ASSESSMENT/PLAN: 74-year-old male with incidental, asymptomatic 7.5 cm infrarenal AAA admitted w/ R hip fracture. -Plan for inpatient endovascular repair of AAA on December 16 -2+ femoral/DP/PT pulses -Continue ASA and Statin -[facility] Vascular Surgery will continue to follow Attending: Mathew Gudino MD SUBJECTIVE: NAOE. No complaints at time of examination. . OBJECTIVE: Filed Vitals: 12/10/24 2255 12/11/24 0325 12/11/24 0727 12/11/24 0900 BP: 108/73 (!) 141/60 128/63 Pulse: 72 66 67 Resp: Temp: 97.9 ??F (36.6 ??C) 98.1 ??F (36.7 ??C) 97.3 ??F (36.3 ??C) TempSrc: Oral Oral SpO2: 99% 93% 91% Weight: 60.3 kg (133 lb) Height: 1.854 m (6' 0.99) I/O last 3 completed shifts: In: 250 [P.O.:250] Out: 1125 [Urine:1125] Physical Exam: Vitals: 12/11/24 07 BP: 128/63 Pulse: 67 Resp: Temp: 97.3 ??F (36.3 ??C) SpO2: 91% Gen: Resting comfortably in bed, NAD. Patient appears stated age. HEENT: Normocephalic, atraumatic. EOMI. Neck soft, supple. Normal hearing. CV: Globally well-perfused Resp: Airway grossly patent. Non-labored respirations, symmetric chest rise bilaterally. Abdom: soft, nontender, nondistended, no organomegaly, no masses. No guarding, no rigidity. Palpable abdominal mass. Extremities: WWP, 2+ femoral/DP/PT b/l. MSK: moves all extremities equally Integ: skin warm and intact. No wounds. Neuro: A&Ox3, no focal deficits Psych: appropriate mood and affect Labs: Recent Labs Lab 12/09/24 1423 12/10/24 0551 12/11/24 0344 NA 135* 134* 136 K 4.2 4.3 3.5 CL 95* 101 103 CO2 30.0 28.9 29.5 AGAP 10.0 4.1 3.5 BUN 34* 27* 25* CR 1.33* 0.89 0.84 GLU 132* 101 99 CA 9.3 8.7 8.4* MAGNESIUM 2.1 -- 2.2 Recent Labs Lab 12/09/24 1423 12/10/24 0551 12/11/24 0344 WBC 11.16* < > 8.31 RBC 3.60* < > 3.06* HGB 10.8* < > 9.1* HCT 31.8* < > 27.7* MCV 88.3 < > 90.5 MCH 30.0 < > 29.7 MCHC 34.0 < > 32.9* PLT 267 < > 290 RDW 12.7 < > 13.2 MPV 9.2 < > 9.1 PERNEU 73.4 -- -- PERLYM 14.6 -- -- PERMON 10.4 -- -- PEREOS 0.8 -- -- PERBASO 0.4 -- -- NEUC 8.19 < > 5.34 LYMC 1.63 < > 1.65 MONOC 1.16 < > 0.93 EOSC 0.09 < > 0.29 BASOC 0.05 < > 0.06 DTYPE -- < > AUTOMATED DIFFERENTIAL < > = values in this interval not displayed. Recent Labs Lab 12/09/24 1423 INR 1.2* Cosigned by Mathew Gudino MD at 12/11/2024 2:19 PM CDT Associated attestation - Mathew Gudino MD - 12/11/2024 2:19 PM CDT I saw and evaluated the patient, participating in the cantor portions of the service. I reviewed the resident???s note. I agree with the resident???s findings and plan. Plan for endovascular repair tentatively next Sunday. Teaching physician supervised resident in person. * Aston Cramer MD - 12/11/2024 10:40 AM CDT Electrophysiology Progress Note ID: Austin Cramer is a 74-year-old male : 1950 LOS: 2 days SUBJECTIVE Hx mi and cad/stent Hx AAA - large - f/u has been // is arranged as per pt Htn Hld Stable cardiac status REVIEW OF SYSTEMS: Review of Systems Constitutional: Negative for chills and fever. HENT: Negative for hearing loss. Respiratory: Negative for cough and hemoptysis. Cardiovascular: Negative for chest pain. Gastrointestinal: Negative for heartburn. Musculoskeletal: Positive for joint pain and myalgias. Neurological: Negative for dizziness. Endo/Heme/Allergies: Does not bruise/bleed easily. Medications: Scheduled Meds: aspirin 81 mg Oral Daily atorvastatin 20 mg Oral Nightly at bedtime chlorhexidine 15 mL Mouth/Throat Once metoprolol succinate ER 100 mg Oral Daily Continuous Infusions: PRN Meds: acetaminophen, HYDROcodone-acetaminophen, HYDROmorphone, labetalol, ondansetron, polyethylene glycol OBJECTIVE Intake/Output last 3 shifts: I/O last 3 completed shifts: In: 250 [P.O.:250] Out: 1125 [Urine:1125] Today's Weight: Last Recorded Weight 12/11/24 0900 Weight: 60.3 kg (133 lb) Weight change in the last 24 hours: an appropriate measurement is not found Vital signs in the last 24 hours: Temp: [97.3 ??F (36.3 ??C)-98.2 ??F (36.8 ??C)] 97.3 ??F (36.3 ??C) Pulse: [56-83] 67 Resp: [16-18] 18 BP: (98-141)/(58-73) 128/63 Physical Exam Constitutional: Appearance: Normal appearance. HENT: Nose: Nose normal. Mouth/Throat: Mouth: Mucous membranes are moist. Eyes: Pupils: Pupils are equal, round, and reactive to light. Cardiovascular: Rate and Rhythm: Normal rate and regular rhythm. Pulmonary: Effort: Pulmonary effort is normal. Breath sounds: Normal breath sounds. Abdominal: Palpations: Abdomen is soft. Musculoskeletal: Cervical back: Normal range of motion and neck supple. Comments: Right hip surgery Neurological: Mental Status: He is oriented to person, place, and time. Telemetry and 12 lead ECG: nsr No results found for this visit on 12/09/24. Labs and Cultures: Recent Results (from the past 24 hours) POCT glucose Collection Time: 12/10/24 11:18 AM Result Value Ref Range GLUCOSE POC 93 70 - 109 CBC W/DIFF AUTOMATED Collection Time: 12/11/24 3:44 AM Result Value Ref Range WBC 8.31 4.00 - 10.80 x10'3/uL RBC 3.06 (L) 4.50 - 6.10 x10'6/uL HGB 9.1 (L) 13.0 - 18.0 G/DL HCT 27.7 (L) 37.0 - 52.0 % MCV 90.5 78.0 - 100.0 FL MCH 29.7 27.0 - 31.0 PG MCHC 32.9 (L) 33.0 - 36.0 G/DL RDW 13.2 11.5 - 14.5 % PLT 290 150 - 350 x10'3/uL MPV 9.1 7.4 - 10.4 FL DIFFERENTIAL TYPE AUTOMATED DIFFERENTIAL SEG NEUTROPHILS 64.2 % LYMPHOCYTES 19.9 % MONOCYTES 11.2 % EOSINOPHILS 3.5 % BASOPHILS 0.7 % IMMATURE GRANS % 0.5 % ABS. NEUTROPHILS 5.34 1.60 - 8.30 x10'3/uL ABS. LYMPHOCYTES 1.65 0.80 - 4.70 x10'3/uL ABS. MONOCYTES 0.93 0.00 - 1.50 x10'3/uL ABS. EOSINOPHILS 0.29 0.00 - 0.40 x10'3/uL ABS. BASOPHILS 0.06 0.00 - 0.20 x10'3/uL ABS. IMMATURE GRANULOCYTES 0.04 (H) 0.00 - 0.03 x10'3/uL ABS. NUCLEATED RBC'S 0.00 0.00 - 0.01 x10'3/uL NRBC % 0.0 % BASIC METABOLIC PANEL Collection Time: 12/11/24 3:44 AM Result Value Ref Range SODIUM S/P/B 136 136 - 145 MMOL/L POTASSIUM S/P/B 3.5 3.5 - 5.1 MMOL/L CHLORIDE S/P/B 103 97 - 115 MMOL/L CO2 29.5 21.0 - 32.0 MMOL/L GLUCOSE 99 74 - 106 MG/DL BUN 25 (H) 7 - 18 MG/DL CREATININE S/P/B 0.84 0.70 - 1.30 MG/DL CALCIUM S/P/B 8.4 (L) 8.5 - 10.1 MG/DL ANION GAP 3.5 2.0 - 10.0 MMOL/L OSMOLALITY (CALC) 286 MOSM/KG GFR ESTIMATE >90 >90 ML/MIN/1.73 M2 GFR NOTES GFR REFERENCES: MAGNESIUM Collection Time: 12/11/24 3:44 AM Result Value Ref Range MAGNESIUM 2.2 1.6 - 2.6 MG/DL PHOSPHORUS, INORGANIC PHOSPHATE Collection Time: 12/11/24 3:44 AM Result Value Ref Range PHOSPHORUS 2.7 2.5 - 4.9 MG/DL ASSESSMENT Patient Active Problem List Diagnosis Hip fracture, right (CMS/HCC HHS/HCC) PLAN Pt has f/u of AAA scheduled Cad Coronary stent and hx mi Htn Hld Signed ASTON CRAMER MD 12/11/2024 * Sharonda Giron RN - 12/11/2024 10:32 AM CDT 12/11/24 1032 Interdisciplinary Group Conference Team Members Present Case/Care management;Nursing Patient Current Status Paient current status Inpatient Barriers to Discharge Inpatient Review Other Barriers to Discharge (Comment) Yes (scheduled for OR today) Patient expects to be discharged to: Home or Self care no new needs Ortho surgery postponed until after AAA repair, Per vascular note AAA repair is scheduled for December 16. * Madhu Gross MD - 12/11/2024 5:48 AM CDT ORTHOPAEDIC SURGERY PROGRESS NOTE S: Patient seen resting comfortably this AM. No acute events. No fevers or chills. Expressed understanding regarding the plan for surgery. Patient did obtain echocardiogram yesterday and was evaluated by vascular surgery as well. O: Physical Exam: GEN: No acute distress. Alert and oriented to person, place and time. HEART: Regular rate. Good peripheral perfusion. RESP: Airway patent. No acute respiratory distress. PSYCH: Appropriate mood and affect. Cooperative with exam. MSK: RLE: Compartments of the hip and thigh are soft and compressible. Fires EHL, FHL, TA, and GSC. Sensation intact to light touch in the sural, saphenous, superficial peroneal, deep peroneal, and tibialnerve distributions. Palpable DP pulse foot is warm and well perfused. Capillary refill <2 seconds in all digits. ASSESSMENT/PLAN: Austin Cramer is a 74-year-old male with [place] B2 periprosthetic fracture of a previous righthip hemiarthroplasty. He also has a right LC 1 fracture. Plan for right hip revision hemiarthroplasty today with Dr. Morrison today. Admitted to hospitalist [facility] consulted (Dr. Morrison) Vascular surgery consulted, noted recommendation for endovascular aortic aneurysm repair while inpatient Cardiology consulted Obtain/confirm consent for: right hip revision hemiarthroplasty with Dr. Morrison Pain: As ordered Diet: NPO Activity: Bedrest, NWB RLE Type and Screen 2 units Imaging: Noted echocardiogram obtained 12/10 2g Ancef manager of corporate communications to OR Nursing: ice as needed to right hip DVT PPx: Hold preoperatively Medical: Per hospitalist Dispo: [address] Morrison for right hip revision hemiarthroplasty pending medical clearance Madhu Gross MD Cosigned by Max Morrison Jr., DO at 12/11/2024 7:24 AM CDT * Ada Alford MD - 12/10/2024 3:33 PM CDT Images from the original note were not included. Progress note CC:- 74-year-old man with past medical history of hypertension, hyperlipidemia, coronary artery disease status post PCI many years ago, was referred to us from outside hospital after sustaining a fall while cleaning gutter at his friend's house. Imaging studies have revealed right superior and inferior pubic ramus, right femoral and right sacral hiral fractures. Further imaging studies have revealed 7.6 cm infrarenal abdominal aortic aneurysm. 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 Orthopedics cardiology and vascular surgery have been consulted. ASSESSMENT /PLAN Right periprosthetic femur fracture: Follow-up with orthopedics probably tomorrow. Hold DVT prophylaxis. Continue as needed pain medication. Continue aspirin. Needs echocardiogram and cardiology assessment prior to OR. History of coronary artery disease: Getting an echocardiogram. Continue aspirin atorvastatin and Toprol-XL. Seems to have Plavix on medication list. Will hold and in anticipation of or Chronic stroke: Does not have any significant neurodeficit. Getting an echocardiogram and carotid ultrasound. Continue aspirin and statin for now. Abdominal aortic aneurysm: Vascular surgery planning to operate on the aneurysm during this admission. Will probably be done next week. JAYME: Resolved. Tobacco dependence/substance abuse: Counseled the patient. Needs continued inpatient stay for repair of right femur fracture and AAA repair next week. SUBJECTIVE Patient seen and examined. Pain seems to be in control. No significant acute issues reported OBJECTIVE Wt Readings from Last 3 Encounters: 12/10/24 60.4 kg (133 lb 2.5 oz) 12/09/24 68 kg (150 lb) Temp: 98.2 ??F (36.8 ??C) BP Readings from Last 3 Encounters: 12/10/24 98/61 12/09/24 125/81 Pulse Readings from Last 3 Encounters: 12/10/24 (!) 59 12/09/24 71 Review of Systems Constitutional: Negative. HENT: Negative. Eyes: Negative. Respiratory: Negative. Cardiovascular: Negative. Gastrointestinal: Negative. Genitourinary: Negative. Musculoskeletal: Positive for joint pain. Skin: Negative. Neurological: Negative. Endo/Heme/Allergies: Negative. Psychiatric/Behavioral: Negative. PHYSICAL EXAMINATION: Physical Exam HENT: Head: Normocephalic. Nose: Nose normal. Mouth/Throat: Mouth: Mucous membranes are moist. Eyes: Pupils: Pupils are equal, round, and reactive to light. Cardiovascular: Rate and Rhythm: Normal rate. Pulses: Normal pulses. Heart sounds: Normal heart sounds. Pulmonary: Effort: Pulmonary effort is normal. Breath sounds: Normal breath sounds. Abdominal: Palpations: Abdomen is soft. Musculoskeletal: General: Normal range of motion. Skin: General: Skin is warm. Neurological: Mental Status: He is alert and oriented to person, place, and time. LABS: Recent Labs 12/09/24 1423 12/10/24 0551 WBC 11.16* 9.05 HGB 10.8* 9.6* HCT 31.8* 29.6* MCV 88.3 91.4 PLT 267 266 RBC 3.60* 3.24* Recent Labs 12/09/24 1423 12/10/24 0551 ALT 20 -- AST 24 -- CO2 30.0 28.9 CL 95* 101 GLU 132* 101 K 4.2 4.3 NA 135* 134* BUN 34* 27* Intake/Output Summary (Last 24 hours) at 12/10/2024 1533 Last data filed at 12/10/2024 1500 Gross per 24 hour Intake 10 ml Output 400 ml Net -390 ml Microbiology Results (last 14 days) Procedure Component Value Units Date/Time MRSA PCR nares SCREENING [[id number]] Collected: 12/09/242144 Order Status: Completed Lab Status: Final result Updated: 12/10/24 1057 Specimen: NASAL SPECIMEN SOURCE RESPIRATORY, NOSE MRSA BY PCR NASAL METHICILLIN RESISTANT STAPH AUREUS NOT DETECTED Radiology MEDICATIONS Scheduled medications aspirin 81 mg Oral Daily atorvastatin 20 mg Oral Nightly at bedtime ceFAZolin 2 g Intravenous Family Medicine Physician to OR metoprolol succinate ER 100 mg Oral Daily Infusion sodium chloride 75 mL/hr at 12/10/24 0107 PRN acetaminophen, HYDROcodone-acetaminophen, HYDROmorphone, labetalol, ondansetron, polyethylene glycol ADA ALFORD MD 3:33 PM 12/10/2024 * Sharonda Giron RN - 12/10/2024 12:16 PM CDT 12/10/24 1215 Asssesment Completed Type of Case Management assessment completed Adult Referral Data Source of Information Patient Patient Information Primary Caregiver Self Current living Situation Alone Type of Residence Private residence Support System Friends;Immediate family Are you employed? 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 The screening is to screen the patient for what services and destination would be beneficial for patient for next level of care Conversation with the patient/family Will the patient be returning to prior living situation with no new identified needs? Yes Based on the screening the DC plan for consideration is: Patient expects to be discharged to: Home or Self care no new needs Adequate Resources Available Adequate Resources Yes Met with patient to introduce self and role. Patient is independent at baseline, lives alone, has acane/2ww if needed, no active services, brother or friend will drive at d/c. PCP: [facility] Pharm: [place] Readmission score: 10 * Sharonda Giron RN - 12/10/2024 11:51 AM CDT 12/10/24 1150 Interdisciplinary Group Conference Team Members Present Case/Care management;Nursing (chart review/rounds) Patient Current Status Paient current status Inpatient Barriers to Discharge Inpatient Review Barriers to Discharge Inpatient Other (Comment) Other follow up (Comment) call taker for OR Patient expects to be discharged to Patient expects to be discharged to: Home or Self care no new needs * Marce Gibbs RN - 12/10/2024 8:53 AM CDT Problem: Reduced risk for falls/injury Goal: Reduced Risk for Falls/Injury Outcome: Progressing Goal: Reduced Risk of Confusion (Acute vs Chronic) Outcome: Progressing Goal: Reduced Risk of Symptomatic Depression Outcome: Progressing Goal: Reduced Risk of Altered Elimination Outcome: Progressing Goal: Reduced Risk of Dizziness/Vertigo/Balance Outcome: Progressing Goal: Reduced Risk of Polypharmacy Outcome: Progressing Problem: Discharge Planning Goal: Knowledge of discharge instructions Outcome: Progressing Problem: Bowel Function - Altered Goal: Bowel elimination within specified parameters Outcome: Progressing Problem: Venous Thromboembolism - Risk of Goal: Absence of venous thromboembolism Outcome: Progressing Problem: Infection - Risk of, Surgical Site Infection Goal: Absence of infection signs and symptoms Outcome: Progressing Problem: Mobility - Impaired Goal: Able to use ambulatory assistive device appropriately Outcome: Progressing Goal: Knowledge of need for increased mobility Outcome: Progressing Problem: Pain - Acute Goal: Control of acute pain Outcome: Progressing * Tae Cramer MD - 12/10/2024 6:17 AM CDT ORTHOPAEDIC SURGERY PROGRESS NOTE S: Patient seen resting comfortably this AM. No acute events. Aware plan for surgery today. No new complaints at this time. O: Physical Exam: GEN: No acute distress. Alert and oriented to person, place and time. HEART: Regular rate. Good peripheral perfusion. RESP: Airway patent. No acute respiratory distress. PSYCH: Appropriate mood and affect. Cooperative with exam. MSK: RLE: Skin is intact, no open fractures. Pain with log roll at the hip. Nontender to palpation over the thigh, hip, leg, ankle, and foot. Motion to knee is grossly intact. Fires EHL, FHL, TA, and GSC.Sensation intact to light touch in the sural, saphenous, superficial peroneal, deep peroneal, and tibial nerve distributions. 2+ DP and PT pulses. Foot is warm and well perfused. Capillary refill <2 seconds in all digits. Compartments are soft and compressible. ASSESSMENT/PLAN: Austin Cramer is a 74-year-old male with [place] B2 periprosthetic fracture of a previous righthip hemiarthroplasty. He also has a right LC 1 fracture. Plan for right hip revision hemiarthroplasty today with Dr. Morrison pending medical clearance. Admitted to hospitalist [facility] consulted (Dr. Morrison) Obtain/confirm consent for: right hip revision hemiarthroplasty with Dr. Morrison Pain: As ordered Diet: NPO Activity: Bedrest, NWB RLE Type and Screen 2 units 2g Ancef manager of corporate communications to OR CT R hip reviewed with Dr. Morrison Nursing: ice as needed to right hip DVT PPx: Hold preoperatively Medical: Per hospitalist Dispo: [address] Morrison for right hip revision hemiarthroplasty pending medical clearance Tae Cramer MD Cosigned by Max Morrison Jr., DO at 12/11/2024 7:25 AM CDT * Celine Moreau RN - 12/09/2024 8:36 PM CDT Problem: Reduced risk for falls/injury Goal: Reduced Risk for Falls/Injury Outcome: Progressing Goal: Reduced Risk of Confusion (Acute vs Chronic) Outcome: Progressing Goal: Reduced Risk of Symptomatic Depression Outcome: Progressing Goal: Reduced Risk of Altered Elimination Outcome: Progressing Goal: Reduced Risk of Dizziness/Vertigo/Balance Outcome: Progressing Goal: Reduced Risk of Polypharmacy Outcome: Progressing Problem: Bowel Function - Altered Goal: Bowel elimination within specified parameters Outcome: Progressing Problem: Discharge Planning Goal: Knowledge of discharge instructions Outcome: Progressing * Conor Sanez MD - 12/09/2024 5:28 PM CDT 74 y/o M w/ R. Hip GRACE, fell while cleaning the gutters on last Sunday. XR shows R. Pubic Ramus andR. Femoral Fractures. CTH shows chronic R. MCA infarct and CT chest/abd/pelvis shows R. Inferior/superior Pubic ramus fx,R. Femoral Fx, Non-displaced R. Sacral alar fx and indeterminate T2-T3 compression fx. 7.6 cm Infrarenal AAA and Cetrilobular/Paraseptal Emphysema. [facility] surgery consulted. documented in this encounter H&P Notes * Lawson Grayson MD - 12/09/2024 7:37 PM CDT Images from the original note were not included. [facility] Hospitalist H&P Note Attending Provider: Conor Saenz MD PCP: SERGEI RUFF MD Austin Cramer is an 74-year-old male. Reason for Admission: Hip fracture, right ([facility]HS/[facility]) HPI: 74-year-old male with past medical history of hypertension, hyperlipidemia, CAD status post PCI, who presents from outside hospital in the setting of fall from elevation while cleaning gutters at hisfriend's house. Patient reports landing on his right side noted for immediate pain difficulty with weightbearing. And was advised to go to the hospital at the direction of his family. At outside hospital patient was noted for periprosthetic femur fracture, among other fractures. Patient also noted for incidental 7.6 cm infrarenal AAA. Head CT was unremarkable for any acute findings however noted for likely prior infarct. Patient otherwise denied any chest pain, shortness of breath, fever, chills, sweats, nausea, vomiting, changes in bowel or urine. Patient endorses tobacco use, denies daily alcohol, however does not use polysubstance use on occasion what ever I can get. Past Medical History Past Medical History[1] Past Surgical History[2] Allergies: No Known Allergies Social History Social History Tobacco Use Smoking status: Every Day Current packs/day: 1.00 Types: Cigarettes Smokeless tobacco: Never Substance Use Topics Alcohol use: Yes Comment: monthly Family History Family History[3] Medications No current facility-administered medications on file prior to encounter. Current Outpatient Medications on File Prior to Encounter Medication Sig atorvastatin (LIPITOR) 40 MG tablet Take 1 tablet (40 mg total) by mouth nightly at bedtime. clopidogrel (PLAVIX) 75 MG tablet Take 1 tablet (75 mg total) by mouth daily. metoprolol succinate ER (TOPROL-XL) 100 MG 24 hr tablet Take 1 tablet (100 mg total) by mouth daily. No current facility-administered medications for this encounter. Principal Problem: Hip fracture, right ([facility] HHS/HCC) SNOMED CT(R): FRACTURE OF BONE OF HIP REGION VITAL SIGNS Blood pressure 137/59, pulse 71, temperature 98.2 ??F (36.8 ??C), SpO2 92%. Review of Systems Review of Systems Constitutional: Negative for chills, diaphoresis, fever and malaise/fatigue. HENT: Negative for congestion. Eyes: Negative for blurred vision. Respiratory: Negative for cough. Cardiovascular: Negative for chest pain, palpitations and leg swelling. Gastrointestinal: Negative for diarrhea, heartburn, nausea and vomiting. Genitourinary: Negative for frequency. Musculoskeletal: Positive for falls and joint pain. Negative for myalgias. Skin: Negative for itching and rash. Neurological: Negative for loss of consciousness, weakness and headaches. Psychiatric/Behavioral: Negative. Physical Exam Physical Exam Vitals reviewed. Constitutional: Appearance: Normal appearance. HENT: Head: Normocephalic and atraumatic. Nose: Nose normal. Mouth/Throat: Mouth: Mucous membranes are moist. Pharynx: Oropharynx is clear. Eyes: Extraocular Movements: Extraocular movements intact. Pupils: Pupils are equal, round, and reactive to light. Cardiovascular: Rate and Rhythm: Normal rate and regular rhythm. Heart sounds: No murmur heard. No friction rub. No gallop. Pulmonary: Effort: Pulmonary effort is normal. Breath sounds: No wheezing, rhonchi or rales. Abdominal: Palpations: Abdomen is soft. Tenderness: There is no abdominal tenderness. There is no guarding or rebound. Musculoskeletal: General: Tenderness present. Cervical back: Normal range of motion. Right lower leg: No edema. Left lower leg: No edema. Skin: General: Skin is warm and dry. Neurological: General: No focal deficit present. Mental Status: He is alert and oriented to person, place, and time. Psychiatric: Mood and Affect: Mood normal. Labs No results found for this visit on 12/09/24. Imaging CT CHEST+ABD+PEL W CON Result Date: 12/09/2024 [id number] [place] [address] Examination: CT of the chest, abdomen and pelvis with contrast. Exam time: 1510 hours. Clinical history: Trauma. Injured in a fall. Right femur and pelvic fractures. Prior right hip arthroplasty. Comparison: Right hip and femur radiographs, 12/09/2024. Technique: Following the administration of intravenous contrast, spiral scanningwas performed through the chest, abdomen and pelvis. Sagittal and coronal reconstructions were performed from the data set. A dose lowering technique was used for this procedure, which may include, but is not limited to, dose reduction techniques, automated exposure control, the use of iterative rec onstruction and ALARA/Image Gently techniques. Findings: CT CHEST: Calcific coronary artery diseaseand atherosclerotic calcification of the aorta and arch vessels noted. There is ectasia of the descending thoracic aorta without amadeo aneurysm. The heart and great vessels are otherwise unremarkable. There are calcified mediastinal and right hilar lymph nodes, compatible with old granulomatous disease. No hilar or mediastinal adenopathy is identified. There is minimal peripheral mucous plugging in the lower lobes. No other endobronchial abnormality is identified. Changes of centrilobular and paraseptal emphysema are noted. There is mild biapical scarring, greater on the right. There is minor scarring or dependent subsegmental atelectasis in the lower lobes. Sub-6 mm noncalcified nodule in the right upper lobe is considered benign based on current Fleischner Society guidelines, presumablya granuloma. Allowing for respiratory motion, the lungs are otherwise clear. There is no pleural effusion or pneumothorax. There is an old healed fracture of the body of the sternum, best appreciatedon sagittal reconstruction. Mild wedge compression deformity of T2 and T3 on sagittal reconstruction appears chronic but is objectively age indeterminate. Clinical correlation is required with further imaging as deemed appropriate. The chest wall structures otherwise appear intact. CT ABDOMEN AND PELVIS: There are calcified splenic granulomas. Subcentimeter hepatic and renal cortical hypodensities are too small to accurately characterize but are most likely cysts. These require no further workup or surveillance. The liver, spleen, gallbladder, pancreas, adrenals and kidneys are otherwise unremarkable. Streak artifact from right hip arthroplasty obscures the pelvic contents. The urinary bladder is nondistended. A normal-appearing appendix is visible. Colonic diverticulosis is noted withoutsigns of diverticulitis. There is no ascites, lymphadenopathy or bowel distention. There is a fusiform aortic aneurysm arising just caudal to the renal arteries and extending to but not involving theiliac bifurcation. The aneurysm measures approximately 7.6 cm in greatest diameter. There are no signs of leakage. Previously demonstrated right superior and inferior pubic ramus fractures and partially redemonstrated periprosthetic right femoral fracture noted. There is a nondisplaced fracture of the right sacral ala. No other acute bony injury is identified. IMPRESSION: 1. No acute traumatic intrathoracic, intra-abdominal or intrapelvic injury identified. 2. Redemonstrated right superior and inferior pubic ramus and right femoral fractures. 3. Nondisplaced right sacral alar fracture. 4. Suspected chronic but objectively age indeterminate T2 and T3 compression fractures. Further imaging as deemed clinically appropriate. 5. Coronary artery disease. 6. Centrilobular and paraseptal emphysema. 7. 7.6 cm infrarenal abdominal aortic aneurysm. 8. Colonic diverticulosis. 9. Additional chronic/nonurgent findings as described. Ordered By: TYE MORALES Interpreted By: Mac Herr MD, 12/09/2024 3:[address] HEAD WO CON Result Date: 12/09/2024 [id number] [place] [address] Examination: CT of the head without contrast. Exam time: 1507 hours. Clinical history: Trauma. Injured in a fall. Comparison: 08/05/2008. Technique: Noncontrast axial scans from skull base to vertex. Sagittal and coronal reconstructions were performed from the data set. A dose lowering technique was used for this procedure, which may include, but is not limited to, dose reduction techniques, automated exposure control, the use ofiterative reconstruction and ALARA/Image Gently techniques. Findings: There is prominence of the ventricles, fissures and sulci, somewhat greater than anticipated for age, compatible with mild to mode rate diffuse cortical atrophy. This is new since 2008. No shift of midline or mass effect is noted.There is new periventricular decreased attenuation, compatible with small vessel disease. There is new focal hypodensity and encephalomalacia in the right temporoparietal distribution compatible with interval but chronic MCA distribution infarct. No other new areas of abnormal x- ray attenuation areidentified. In particular, there is no mass, hemorrhage or sign of acute stroke. No extracerebral fluid collections. The skull appears intact. The mastoid air cells and visualized paranasal sinuses appear clear. IMPRESSION: 1. No acute intracranial process identified. 2. Cortical atrophy and small vessel disease, new since 2008. 3. 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 Ordered By:TYE MORALES Interpreted By: Mac Herr MD, 12/09/2024 3:23 PM ECG 12 lead Result Date: 12/09/2024 [address] [place] [address] Test Date: 2024-12-09 Pat Name: AUSTIN CRAMER Department: 3 Room: EXAM [facility] Gender: Male [employer] Former: : 1950 Requested By: TYE MORALES Order Number: [id number] Reading MD: Measurements Intervals [place] Rate: 69 P: 95 ID: [id number] QRS: -68 QRSD: 115 T: 84 QT: 403 QTc: 433 Interpretive Statements SINUS RHYTHM LEFT ANTERIOR FASCICULAR BLOCK MINIMAL ST DEPRESSION XR HIP RT 2V Result Date: 12/09/[address] [place] [address] Examination: Right hip and rightfemur. Exam time: 1327 hours. Clinical history: Pain after a fall. Comparison: Right hip, 10/25/2007.Technique: Two views each. Findings: Hip arthroplasty remains in place with the components in satisfactory alignment and position. There is a minimally displaced periprosthetic fracture near the tip of the femoral component. There are minimally displaced fractures of the superior and inferior pubicrami. No other fracture is identified. There are minor degenerative changes in the knee, not unusual for age. There is lateral meniscal chondrocalcinosis. No other significant bone or joint abnormality is noted. No acute soft tissue abnormality. IMPRESSION: Right pubic ramus and right femoral fractures as described. Ordered By: TYE MORALES Interpreted By: Mac Herr MD, 12/09/2024 2:21 PM XR FEMUR RT 2V Result Date: 12/09/2024 [address] [place] [address] Examination: Right hip and rightfemur. Exam time: 1327 hours. Clinical history: Pain after a fall. Comparison: Right hip, 10/25/2007.Technique: Two views each. Findings: Hip arthroplasty remains in place with the components in satisfactory alignment and position. There is a minimally displaced periprosthetic fracture near the tip of the femoral component. There are minimally displaced fractures of the superior and inferior pubicrami. No other fracture is identified. There are minor degenerative changes in the knee, not unusual for age. There is lateral meniscal chondrocalcinosis. No other significant bone or joint abnormality is noted. No acute soft tissue abnormality. IMPRESSION: Right pubic ramus and right femoral fractures as described. Ordered By: TYE MORALES Interpreted By: Mac Herr MD, 12/09/2024 2:21 PM XR CHEST PORTABLE Result Date: 12/09/2024 [facility] [address] [place] [address] Examination: Portable chest. Exam time: 1353 hours. Clinical history: Dyspnea. Chronic cough. Comparison: 05/26/2007. Technique: AP upright view. Findings: The heart remains within normal limits for size. Pulmonary vascularity is within normal limits. The lungs and pleural spaces appear free of any active process. The visualized bony thorax is unremarkable. IMPRESSION: No acute disease. Ordered By: TYE MORALES Interpreted By: Mac Herr MD, 12/09/2024 2:19 PM Assessment and Plan:: # Periprosthetic fracture # Right pubic ramus and right femoral fractures # Nondisplaced right sacral alar fracture - Gentle IV hydration - Pain control - Fall precautions - Vitamin D - PT OT once cleared by Ortho - Hold chemo DVT prophylaxis - N.p.o. - Follow orthopedic surgery recommendations # T2-T3 compression fracture - Pain control - Consider TLSO brace - PT OT - Consider orthospine outpatient # Infrarenal abdominal aortic aneurysm 7.6 cm - Continue BP control - As needed labetalol - Vascular consult # JAYME versus CKD - No prior baseline serum creatinine - Gentle IV hydration - UA, urine electrolytes - Avoid nephrotoxins as able # Leukocytosis - Likely reactive in the setting of above - Continue to monitor for signs and symptoms of infection # Normocytic anemia - Unclear baseline - Continue to monitor - Transfuse if less than 7 # Abnormal head CT - Evidence of likely old infarct - Will obtain nonurgent brain MRI - Carotid ultrasound - TTE - Telemetry - Continue aspirin Plavix # CAD status post PCI - Aspirin, statin # Hypertension - Continue metoprolol # Polysubstance use - Obtain UDS # Tobacco use disorder - Declined nicotine patch - Encourage cessation Code Status:DNR DVT PPX: Start once cleared by Ortho Advanced care planning: Aggregate face to face time discussing end of life advance care planning with patient and/or family Power of Photographic Laboratory Supervisor approximately 16 min. Discussed CPR/intubation/Treatment goals/quality of life/intensity of care. Patient/Family desires: DNR Plan discussed in detail. Answered all questions. LAWSON GRAYSON MD 12/09/2024 [1] Past Medical History: Diagnosis Date HLD (hyperlipidemia) Hypertension [2] Past Surgical History: Procedure Laterality Date EYE SURGERY PARTIAL HIP REPLACEMENT TRANSCATH STENT INIT VESSEL,PERCUT [3] No family history on file. documented in this encounter Procedure Notes * Mathew Gudino MD - 12/12/2024 1:14 PM CDT [facility] Vascular Surgery Progress Note MATHEW GUDINO MD ID: Austin Cramer is a 74-year-old male : 1950 LOS: 3 ASSESSMENT/PLAN 74yo M with R periprosthetic hip fracture after a fall, with concomitant 7.5cm infrarenal AAA I spoke at length to the patient, his brother and sister in law. I would favor proceeding with a fenestrated EVAR, which requires a custom made graft and takes 4-6 weeks to make. Open repair was alsodiscussed, which patient does not want to do. We discussed r/b/a of FEVAR. Would recommend proceeding with surgery for the hip and he can do rehab for it while the graft is being made. In the meantime, he needs good BP control, cont antiplatelet, statin, beta scot. In addition, pt states he is DNR, has the paperwork signed at home, and his sister in law (his POA) stated she would try to find it and bring it in. I spoke w/Dr. Morrison and Dr. Alford as well. SUBJECTIVE: Pt resting. He is anxious to get his hip fixed and out of the hospital. He does have a fair bit of R hip pain. OBJECTIVE Vital signs in the last 24 hours: Vitals: 12/12/24 1256 BP: 139/66 Pulse: 72 Resp: Temp: 98.1 ??F (36.7 ??C) SpO2: 91% Intake/Output last 3 shifts: I/O last 3 completed shifts: In: 600 [P.O.:600] Out: 700 [Urine:700] Intake/Output this shift: I/O this shift: In: 551 [P.O.:551] Out: 300 [Urine:300] Today's Weight: Last Recorded Weight 08/20/17 1300 Weight: 2344 g (5 lb 2.7 oz) Yesterday's Weight: Wt Readings from Last 1 Encounters: 08/20/17 2344 g (5 lb 2.7 oz) Weight change in the last 24 hours: an appropriate measurement is not found Examination: Head: Normocephalic. No masses, lesions, tenderness or abnormalities Eyes: PERRLA Ears: normal hearing Lungs: easy respirations, symmetric chest rise Heart: regular rate and rhythm Abdomen: Nondistended, palpable aortic pulse Extremities: Extremities normal. No deformities, edema, or skin discoloration Pulse: femoral pulses bl Neuro: AAOx3, no focal deficits Psych: appropriate mood and affect Labs and Cultures: Recent Labs Lab 12/09/24 1423 12/10/24 0551 12/11/24 0344 12/12/24 0409 NA 135* 134* 136 136 K 4.2 4.3 3.5 3.6 CL 95* 101 103 104 CO2 30.0 28.9 29.5 27.6 AGAP 10.0 4.1 3.5 4.4 BUN 34* 27* 25* 18 CR 1.33* 0.89 0.84 0.77 GLU 132* 101 99 105 CA 9.3 8.7 8.4* 8.5 MAGNESIUM 2.1 -- 2.2 -- Recent Labs Lab 12/09/24 1423 12/10/24 0551 12/12/24 0409 WBC 11.16* < > 7.37 RBC 3.60* < > 3.09* HGB 10.8* < > 9.1* HCT 31.8* < > 27.5* MCV 88.3 < > 89.0 MCH 30.0 < > 29.4 MCHC 34.0 < > 33.1 PLT 267 < > 310 RDW 12.7 < > 13.3 MPV 9.2 < > 9.1 PERNEU 73.4 -- -- PERLYM 14.6 -- -- PERMON 10.4 -- -- PEREOS 0.8 -- -- PERBASO 0.4 -- -- NEUC 8.19 < > 4.50 LYMC 1.63 < > 1.67 MONOC 1.16 < > 0.70 EOSC 0.09 < > 0.40 BASOC 0.05 < > 0.07 DTYPE -- < > AUTOMATED DIFFERENTIAL < > = values in this interval not displayed. Recent Labs Lab 12/09/24 1423 INR 1.2* All labs have been reviewed. Signed MATHEW GUDINO MD documented in this encounter Consult Notes * Aston Cramer MD - 12/10/2024 1:32 PM CDT Cardiology Consultation ID: Austin Cramer is a 74-year-old male : 1950 PCP: SERGEI RUFF MD Primary Wood Hacker: none recent, Dr Cramer consulted CC: Preop cardiovascular assessment HPI: Mr. Cramer is a 74-year-old male with a history of [place] and stenting over 10 years ago (details unknown), hypertension, hyperlipidemia and polysubstance abuse who presented to outside hospital with hip pain after a fall while cleaning gutters. He fell on December 05 but did not present to outside hospital until December 09. He was unable to ambulate. He was found to have right pubic ramus and right femoral fractures. He was transferred here for orthopedic surgery evaluation. He had incidental finding of a 7.6 cm infrarenal AAA for which vascular surgery was consulted. Cardiology has now been consulted for preoperative assessment prior to hip surgery. Patient denies any chest pain or shortness of breath at rest. He was not dizzy when he fell. No loss of consciousness or palpitations. He does have shortness of breath with activity. He thinks he could walk up a flight of steps or up to a block prior to his accident. He would be limited by dyspnea on exertion. He is independent at home. He reports that he follows up with his primary care physician regularly, Dr. Ruff. He reports taking Plavix since his coronary stent many years ago. I was unable to find any cardiac records on review of EMR. Troponin was negative. Chest x-ray clear. EKG demonstrates sinus rhythm without acute changes. He is in sinus rhythm on telemetry as well. His toxicology screen was positive for amphetamines and cannabinoids. ASSESSMENT: Hip fracture, right ([facility] PLAN: Preoperative cardiovascular assessment-patient with history of coronary artery disease, details unknown, hypertension, hyperlipidemia, polysubstance abuse. He has fair functional capacity. No recent ACS, acute heart failure, known severe valvular heart disease, unstable arrhythmia. Echocardiogram is pending to assess LVEF and valves. No absolute contraindication for planned orthopedic surgery. Heis at intermediate risk for perioperative cardiovascular events for planned intermediate risk orthopedic surgery. Would continue antiplatelet (currently on aspirin) and beta-scot. Remains on statin as well. Abdominal aortic aneurysm-being evaluated by vascular surgery. Past Medical History[1] Past Surgical History[2] Social History Tobacco Use Smoking status: Every Day Current packs/day: 1.00 Types: Cigarettes Smokeless tobacco: Never Substance Use Topics Alcohol use: Yes Comment: monthly Family History[3] Family Status Relation Name Status Brother (Not Specified) No partnership data on file No Known Allergies Medications Prior to Admission Medication Sig Dispense Refill clopidogrel (PLAVIX) 75 MG tablet Take 1 tablet (75 mg total) by mouth daily. lovastatin (MEVACOR) 40 MG tablet Take 2 tablets (80 mg total) by mouth daily. metoprolol succinate ER (TOPROL-XL) 100 MG 24 hr tablet Take 1 tablet (100 mg total) by mouth daily. traZODone (DESYREL) 100 MG tablet Take 1 tablet (100 mg total) by mouth nightly at bedtime. Medications: Scheduled Meds: aspirin 81 mg Oral Daily atorvastatin 20 mg Oral Nightly at bedtime ceFAZolin 2 g Intravenous Family Medicine Physician to OR metoprolol succinate ER 100 mg Oral Daily Continuous Infusions: sodium chloride 75 mL/hr at 12/10/24 0107 PRN Meds: acetaminophen, HYDROcodone-acetaminophen, HYDROmorphone, labetalol, ondansetron, polyethylene glycol Review of Systems Constitutional: Positive for weakness. HENT: Negative for headaches. Eyes: Negative for blurred vision. Respiratory: Positive for shortness of breath (None at rest, dyspnea on exertion). Cardiovascular: Negative for chest pain, palpitations, orthopnea, leg swelling and PND. Gastrointestinal: Negative for nausea, blood in stool and melena. Genitourinary: Negative for hematuria. Musculoskeletal: Positive for myalgias and joint stiffness/pain. Skin: Negative for rash. Neurological: Negative for dizziness and LOC. Endo/Heme/Allergies: Negative for new or significant bruising/bleeding. Psychiatric/Behavioral: Negative for nervous/anxious. OBJECTIVE: Today's Weight: Last Recorded Weight 12/10/24 0700 Weight: 60.4 kg (133 lb 2.5 oz) Weight change in the last 24 hours: an appropriate measurement is not found Vital signs in the last 24 hours: Temp: [97.7 ??F (36.5 ??C)-98.8 ??F (37.1 ??C)] 98.2 ??F (36.8 ??C) Pulse: [59-72] 59 Resp: [14-18] 16 BP: (98-145)/(52-101) 98/61 Physical Exam Constitutional: General: He is not in acute distress. Appearance: He is ill-appearing. HENT: Head: Normocephalic. Mouth/Throat: Mouth: Mucous membranes are moist. Cardiovascular: Rate and Rhythm: Normal rate and regular rhythm. Heart sounds: No murmur heard. Pulmonary: Effort: No respiratory distress. Abdominal: General: Abdomen is flat. Comments: Pulsatile abdominal mass Musculoskeletal: Cervical back: Neck supple. Right lower leg: No edema. Left lower leg: No edema. Skin: General: Skin is warm and dry. Neurological: General: No focal deficit present. Mental Status: He is alert. Comments: Cannot recall many details of history Psychiatric: Mood and Affect: Mood normal. Labs and Cultures: Lab Results Component Value Date NA 134 (L) 12/10/2024 K 4.3 12/10/2024 CL 101 12/10/2024 CO2 28.9 12/10/2024 AGAP 4.1 12/10/2024 BUN 27 (H) 12/10/2024 CR 0.89 12/10/2024 GLU 101 12/10/2024 CA 8.7 12/10/2024 Lab Results Component Value Date WBC 9.05 12/10/2024 HGB 9.6 (L) 12/10/2024 PLT 266 12/10/2024 Lab Results Component Value Date CHOL 159 12/10/2024 TRI 111 12/10/2024 HDL 39 (L) 12/10/2024 TP 7.9 12/09/2024 ALB 3.6 12/09/2024 ALT 20 12/09/2024 HGBA1C 5.5 12/10/2024 Recent Labs Lab 12/09/24 1423 TROP 9 No results found for this or any previous visit. Imaging: CT HIP RT WO CON Result Date: 12/10/[address] [address] EXAMINATION: CT Right Hip without intravenous contrast, Axial Imaging with 2-D Coronal and Sagittal Reconstructions This CT exam was performed using one or more of the following dose reduction techniques: automated exposure control, adjustment of the mA and/or kV according to patient size, the use of iterative reconstruction technique, use of ALARA (As Low As Reasonably Achievable) and/or use of Image Gently techniques. INDICATION: Periprosthetic femur fracture, evaluate for acetabular fracture. COMPARISON: Right hip x-ray 12/09/2024. FINDINGS: There is an acute fracture in the anterior partially included anterior inferior right sacral ala medial to the anterior lower right sacroiliac joint on axial series 3 image 1. Postop changes of right hip arthroplasty with the right femoral condyle well seated within the right acetabulum without loosening. There is an acute comminuted fracture of the right superior pubic ramus which extends into the anteromedial column of the right acetabulum. Slightly comminuted fracture also of the right inferior pubic ramus with slightly displaced fracture fragments of the right superior and inferior pubic rami. Posterior column of the right acetabulum appears intact. Pubic symphysis appears intact. Fracture in the subtrochanteric right femur, best seen at the medial and anterior cortical margin the distal stem of the intramedullary right femoral prosthesis with mini mal displacement. No other acute fracture or dislocation is seen. Soft tissue swelling adjacent to the right pubic rami fractures and involving the right obturator internus muscle in the right groin muscles. Excreted contrast in the bladder without or extraluminal extravasation in the included pelvis. Moderate stool in the partially included rectosigmoid colon. Prostate is normal. No significant fluid in the pelvis. No unexpected radiopaque foreign body. Mild atherosclerotic vascular calcifications in the right iliac and femoral arteries. Mild subcutaneous stranding in the medial right groin related to trauma. IMPRESSION: 1. Acute comminuted fracture of the right superior pubic ramus which extends into the anteromedial column of the right acetabulum. 2. Slightly comminuted fracture of the right inferior pubic ramus with slightly displaced fracture fragments of the right superior and inferior pubic rami. 3. Fracture in the subtrochanteric right femur, best seen at the medial cortical margin of the distal stem of the intramedullary right femoral prosthesis. 4. Acute fracture in the anterior partially included anterior inferior right sacral ala medial to the anterior lower right sacroiliac joint. 5. Postop changes of right hip arthroplasty with the right femoral condyle well seated within the right a cetabulum without loosening. 6. Soft tissue swelling in the right hemipelvis and groin as noted above. Referred By: TYE MORALES Interpreted By: Kristi Kenney MD, 12/10/2024 5:16 AM MRI BRAIN WO CON Result Date: 12/10/[address] [address] EXAMINATION: MRI BRAIN WO CON. Multiplanar, multisequence MR imaging of the brain was performed without intravenous contrast. INDICATION: Prior stroke, fell from elevation while cleaning gutters. COMPARISON: CT head without contrast 12/09/2024. FINDINGS: No acute ischemia, infarct, or intracranial hemorrhage. No mass effect, midline shift, or acute osseous abnormality. Age appropriate atrophy. Stable chronic cystic encephalomalacia and gliosis laterally in the right temporal lobe involving part of the right middle cerebral artery vascular territory, slightly extending into the posterior right insula and inferior external capsule region. Dilated Virchow-To CSF spaces and/or old lacunar infarcts and cystic change in bilateral basal ganglia/capsule/insular cortex region. Tiny old lacunar infarcts bilaterally in the shin. Moderate nonspecific confluent nodular foci of FLAIR and T2 hyperintensity in theperiventricular and deep cerebral white matter in bilateral cerebral hemispheres without edema or ma ss effect, statistically most likely nonspecific chronic microvascular disease. Stable slight ex vacuo dilatation of the right lateral ventricle related to the old right temporal lobe infarct. Ventricles are otherwise normal. 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 No significant abnormal extra-axial fluid collections. Appropriate flow-voids are seenin the major vessels of the [place]. No significant paranasal sinus or mastoid air cell disease. Postoperative changes of bilateral lens replacement surgery in the orbits. Susceptibility artifact over the lateral left orbit from both radiodensity in the anterolateral wall of the left orbitfrom prior orbital fracture repair.. IMPRESSION: 1. No acute intracranial abnormality. 2. Age-appropriate atrophy with moderate nonspecific chronic periventricular and deep cerebral white matter microvascular disease in bilateral cerebral hemispheres. 3. 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 4. Tiny old lacunar infarcts bilaterally in the shin. 5. Postoperative changes of bilateral lens replacement surgery in the orbits. Susceptibility artifact over thelateral wall of the left orbit from both radiodensity in the anterolateral wall of the left orbit from prior orbital fracture repair. Referred By: TYE MORALES Interpreted By: Kristi Kenney MD, 12/10/2024 5:02 AM USV CAROTID DUPLEX PAYTON Result Date: 12/10/2024 [facility] Report Pat.Name: AUSTIN CRAMER Pat.ID: [id number] St.Date: 12/10/2024 Refer.MD: LAWSON GRAYSON Exam Time: 10:10:00 AM Study Type:PVI CAROTID SCAN - BILATERAL Age: 12 1950,74Y Sex: M Sonogrphr: Symone White, RVT Pat. Stat.:Inpatient Room: 962 CPT - 4: 84535 Carotid Duplex Reason for Study:CVA Race: W ++++++++++++++++++++++++++++++++++++ FINDINGS: ++++++++++++++++++++++++++++++++++++ Rt Subcl: The proximal subclavian artery is patent. Rt ICA: 40-59% stenosis noted in the internal carotid artery. Mild/moderate heterogeneous plaque noted. Rt ECA: Patent with antegrade flow no janae in the external carotid artery. Rt Vert: Normal antegrade vertebral flow. Lt Subcl: The proximal subclavian artery is patent. Lt ICA: 40-59% stenosis noted in the internal carotid artery. Mild/moderate heterogeneous plaque noted. Lt ECA: Patent with antegrade flow noted in the external carotid artery. Lt Vert: Normal antegrade vertebral flow. ++++++++++++++++++++++++++++++++++++ MEASUREMENTS:++++++++++++++++++++++++++++++++++++ DOPPLER Right CCA Prox Prox CCA PSV 82.6 cm/s Prox CCA EDV 24.2 cm/s Right CCA Dist Dist CCA PSV 96.9 cm/s Dist CCA EDV 28 cm/s Right ICA Prox Prox ICA PSV 119 cm/s Prox ICA EDV 45.5 cm/s Right ICA Mid Mid ICA PSV 114 cm/s Mid ICA EDV 34.7 cm/s Right ICA Dist Dist ICA PSV 107 cm/s Dist ICA EDV 39.8 cm/s Right ECA Prox Prox ECA PSV 91.3 cm/s Right Vertebral Vertebral PSV 38.6 cm/s Vertebral EDV 8.47 cm/s Right Prox SCA Prox SCA PSV 160 cm/s Prox SCA PSV 160 cm/s Right ICA/CCA RATIO ICA/CCA RATIO P 1.23 Left CCA Prox Prox CCA PSV 108 cm/s Prox CCA EDV 26.6 cm/s Left CCA Dist Dist CCA PSV 116 cm/s Dist CCA EDV 32.2 cm/s Left ICA Prox Prox ICA PSV 127 cm/s Prox ICA EDV 38.7 cm/s Left ICA Mid Mid ICA PSV 112 cm/s Mid ICA EDV 39.7 cm/s Left ICA Dist Dist ICAPSV 81.4 cm/s Dist ICA EDV 25.6 cm/s Left ECA Prox Prox ECA PSV 96.8 cm/s Left Vertebral Vertebral PSV 44.7 cm/s Vertebral EDV 16.5 cm/s Left Prox SCA Prox SCA PSV 220 cm/s Prox SCA PSV 220 cm/s LeftICA/CCA RATIO ICA/CCA RATIO P 1.09 Unsigned Torsten Rodríguez M.D. CT CHEST+ABD+PEL W CON Result Date: 12/09/2024 [facility] [address] [address] Examination: CT of the chest, abdomen and pelvis with contrast. Exam time: 1510 hours. Clinical history: Trauma. Injured in a fall. Right femur and pelvic fractures. Prior right hip arthroplasty. Comparison: Right hip and femur radiographs, 12/09/2024. Technique: Following the administration of intravenous contrast, spiral scanningwas performed through the chest, abdomen and pelvis. Sagittal and coronal reconstructions were performed from the data set. A dose lowering technique was used for this procedure, which may include, but is not limited to, dose reduction techniques, automated exposure control, the use of iterative rec onstruction and ALARA/Image Gently techniques. Findings: CT CHEST: Calcific coronary artery diseaseand atherosclerotic calcification of the aorta and arch vessels noted. There is ectasia of the descending thoracic aorta without amadeo aneurysm. The heart and great vessels are otherwise unremarkable. There are calcified mediastinal and right hilar lymph nodes, compatible with old granulomatous disease. No hilar or mediastinal adenopathy is identified. There is minimal peripheral mucous plugging in the lower lobes. No other endobronchial abnormality is identified. Changes of centrilobular and paraseptal emphysema are noted. There is mild biapical scarring, greater on the right. There is minor scarring or dependent subsegmental atelectasis in the lower lobes. Sub-6 mm noncalcified nodule in the right upper lobe is considered benign based on current Fleischner Society guidelines, presumablya granuloma. Allowing for respiratory motion, the lungs are otherwise clear. There is no pleural effusion or pneumothorax. There is an old healed fracture of the body of the sternum, best appreciatedon sagittal reconstruction. Mild wedge compression deformity of T2 and T3 on sagittal reconstruction appears chronic but is objectively age indeterminate. Clinical correlation is required with further imaging as deemed appropriate. The chest wall structures otherwise appear intact. CT ABDOMEN AND PELVIS: There are calcified splenic granulomas. Subcentimeter hepatic and renal cortical hypodensities are too small to accurately characterize but are most likely cysts. These require no further workup or surveillance. The liver, spleen, gallbladder, pancreas, adrenals and kidneys are otherwise unremarkable. Streak artifact from right hip arthroplasty obscures the pelvic contents. The urinary bladder is nondistended. A normal-appearing appendix is visible. Colonic diverticulosis is noted withoutsigns of diverticulitis. There is no ascites, lymphadenopathy or bowel distention. There is a fusiform aortic aneurysm arising just caudal to the renal arteries and extending to but not involving theiliac bifurcation. The aneurysm measures approximately 7.6 cm in greatest diameter. There are no signs of leakage. Previously demonstrated right superior and inferior pubic ramus fractures and partially redemonstrated periprosthetic right femoral fracture noted. There is a nondisplaced fracture of the right sacral ala. No other acute bony injury is identified. IMPRESSION: 1. No acute traumatic intrathoracic, intra-abdominal or intrapelvic injury identified. 2. Redemonstrated right superior and inferior pubic ramus and right femoral fractures. 3. Nondisplaced right sacral alar fracture. 4. Suspected chronic but objectively age indeterminate T2 and T3 compression fractures. Further imaging as deemed clinically appropriate. 5. Coronary artery disease. 6. Centrilobular and paraseptal emphysema. 7. 7.6 cm infrarenal abdominal aortic aneurysm. 8. Colonic diverticulosis. 9. Additional chronic/nonurgent findings as described. Ordered By: TYE MORALES Interpreted By: Mac Herr MD, 12/09/2024 3:[address] HEAD WO CON Result Date: 12/09/2024 [place] [id number] [place] [address] Examination: CT of the head without contrast. Exam time: 1507 hours. Clinical history: Trauma. Injured in a fall. Comparison: 08/05/2008. Technique: Noncontrast axial scans from skull base to vertex. Sagittal and coronal reconstructions were performed from the data set. A dose lowering technique was used for this procedure, which may include, but is not limited to, dose reduction techniques, automated exposure control, the use ofiterative reconstruction and ALARA/Image Gently techniques. Findings: There is prominence of the ventricles, fissures and sulci, somewhat greater than anticipated for age, compatible with mild to mode rate diffuse cortical atrophy. This is new since 2008. No shift of midline or mass effect is noted.There is new periventricular decreased attenuation, compatible with small vessel disease. There is new focal hypodensity and encephalomalacia in the right temporoparietal distribution compatible with interval but chronic MCA distribution infarct. No other new areas of abnormal x- ray attenuation areidentified. In particular, there is no mass, hemorrhage or sign of acute stroke. No extracerebral fluid collections. The skull appears intact. The mastoid air cells and visualized paranasal sinuses appear clear. IMPRESSION: 1. No acute intracranial process identified. 2. Cortical atrophy and small vessel disease, new since 2008. 3. 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 Ordered By:TYE MORALES Interpreted By: Mac Herr MD, 12/09/2024 3:23 PM ECG 12 lead Result Date: 12/09/[address] [place] [address] Test Date: 2024-12-09 Pat Name: AUSTIN CRAMER Department: 3 Room: EXAM [facility] Gender: Male [employer] Former: : 1950 Requested By: TYE MORALES Order Number: [id number] Reading MD: Measurements Intervals [place] Rate: 69 P: 95 ID: [id number] QRS: -68 QRSD: 115 T: 84 QT: 403 QTc: 433 Interpretive Statements SINUS RHYTHM LEFT ANTERIOR FASCICULAR BLOCK MINIMAL ST DEPRESSION XR HIP RT 2V Result Date: 12/09/[address] [place] [address] Examination: Right hip and rightfemur. Exam time: 1327 hours. Clinical history: Pain after a fall. Comparison: Right hip, 10/25/2007.Technique: Two views each. Findings: Hip arthroplasty remains in place with the components in satisfactory alignment and position. There is a minimally displaced periprosthetic fracture near the tip of the femoral component. There are minimally displaced fractures of the superior and inferior pubicrami. No other fracture is identified. There are minor degenerative changes in the knee, not unusual for age. There is lateral meniscal chondrocalcinosis. No other significant bone or joint abnormality is noted. No acute soft tissue abnormality. IMPRESSION: Right pubic ramus and right femoral fractures as described. Ordered By: TYE MORALES Interpreted By: Mac Herr MD, 12/09/2024 2:21 PM XR FEMUR RT 2V Result Date: 12/09/[address] [place] [address] Examination: Right hip and rightfemur. Exam time: 1327 hours. Clinical history: Pain after a fall. Comparison: Right hip, 10/25/2007.Technique: Two views each. Findings: Hip arthroplasty remains in place with the components in satisfactory alignment and position. There is a minimally displaced periprosthetic fracture near the tip of the femoral component. There are minimally displaced fractures of the superior and inferior pubicrami. No other fracture is identified. There are minor degenerative changes in the knee, not unusual for age. There is lateral meniscal chondrocalcinosis. No other significant bone or joint abnormality is noted. No acute soft tissue abnormality. IMPRESSION: Right pubic ramus and right femoral fractures as described. Ordered By: TYE MORALES Interpreted By: Mac Herr MD, 12/09/2024 2:21 PM XR CHEST PORTABLE Result Date: 12/09/[address] [place] [address] Examination: Portable chest. Exam time: 1353 hours. Clinical history: Dyspnea. Chronic cough. Comparison: 05/26/2007. Technique: AP upright view. Findings: The heart remains within normal limits for size. Pulmonary vascularity is within normal limits. The lungs and pleural spaces appear free of any active process. The visualized bony thorax is unremarkable. IMPRESSION: No acute disease. Ordered By: TYE MORALES Interpreted By: Mac Herr MD, 12/09/2024 2:19 PM Tele: Sinus rhythm Signed SARAH HEART PA-C With Dr Cramer 12/10/2024 I spent 27 minutes today reviewing the patient's medical record, obtaining history, performing an exam, documenting in the medical record, and counseling and educating the patient and family . Pt seen and eval independently Aston Cramer MD [1] Past Medical History: Diagnosis Date CAD (coronary artery disease) HLD (hyperlipidemia) Hypertension [2] Past Surgical History: Procedure Laterality Date EYE SURGERY PARTIAL HIP REPLACEMENT TRANSCATH STENT INIT VESSELNANCY [3] Family History Problem Relation Name Age of Onset Heart Disease Brother 51 * Shaun Leblanc MD - 12/10/2024 12:54 AM CDT [facility] SURGERY CONSULT NOTE HPI: Austin Cramer is a 74-year-old male who was transferred to [facility] with a right hip fracture. Upon workup the patient was incidentally found to have a large AAA for which vascular surgery was consulted. The patient was a poor historian on evaluation. The patient denies any abdominal pain. He denies any numbness or parasthesias in his legs. He does smoke 1ppd of cigarettes and does have a reported history of methamphetamine use. ROS: 12-point review of systems negative except for that stated above in HPI. PMH: Past Medical History[1] PSH: Past Surgical History[2] SH: Social History[3] FMH: Family History[4] Physical Exam: GEN: No acute distress. HEENT: Normocephalic. Atraumatic. HEART: Regular rate. Good peripheral perfusion. RESP: Airway patent. No acute respiratory distress. PSYCH: Appropriate mood and affect. Cooperative with exam. ABD: Soft, non tender, no pulsatile masses felt VASC: Palpable DP and PT pulses bilaterally. Feet warm and well perfused. ASSESSMENT/PLAN: Austin Cramer is a 74-year-old male with an incidental asymptomatic infrarenal 7.6cm AAA. Currently the patient is admitted for a right hip fracture. - CT reviewed showing 7.6cm infrarenal AAA. Ordering CT-A to better assess vasculature - No abdominal pain or back pain. No tenderness on abdominal palpation - 2+ femoral and DP/PT pulses bilaterally. - Advised for cessation of tobacco and meth usage for vascular risk reduction - No urgent plans for intervention - Will follow up outpatient to discuss surgical treatment Staff: Dr. Gudino [facility] Vascular Surgery Follow-up: [facility] Vascular Surgery phone number: [phone] Our nurse will call to schedule a follow-up appointment. Your appointment will be in 2 weeks Follow-up with Dr. Mathew Gudino Follow-up imaging: (CT-A performed at [facility]) Discharge wound care: n/a Discharge medications: Continue aspirin/statin/metoprolol Louie Pacheco MD Consults [1] Past Medical History: Diagnosis Date HLD (hyperlipidemia) Hypertension [2] Past Surgical History: Procedure Laterality Date EYE SURGERY PARTIAL HIP REPLACEMENT TRANSCATH STENT INIT VESSEL,PERCUT [3] Social History Tobacco Use Smoking status: Every Day Current packs/day: 1.00 Types: Cigarettes Smokeless tobacco: Never Substance Use Topics Alcohol use: Yes Comment: monthly Drug use: Not Currently [4] No family history on file. Cosigned by Mathew Gudino MD at 12/10/2024 12:38 PM CDT Associated attestation - Mathew Gudino MD - 12/10/2024 12:38 PM CDT I saw and evaluated the patient on 12/10/24, participating in the cantor portions of the service. I reviewed the resident???s note. I agree with the resident???s findings and plan. This is a 74yo M admitted after a fall from height w/pelvic and periprosthetic fracture. We were consulted for an incidental finding of a AAA. Pt did not know about this before. Denies significant medical history but also does not see the doctor routinely. No known fam hx of aneurysms. He has HTN, HLP, CAD sp PCI about 10 yrs ago. Smokes 1.5-2ppd and has a hx of illicit drug use as well (meth). 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 On exam, he's a thin male in NAD. He is edentulous. He's on room air. Abdomen is soft with a palpable mass that is nontender. He has femoral pulses bl with a R DP pulse. Both pop pulses are palpable. I reviewed his CT CAP and CTA. This shows a 7.5cm infrarenal AAA. No signs of rupture. Iliacs are tortuous but patent. I discussed with the patient that this is a sizeable aneurysm and needs repaired. He is a candidatefor endovascular repair. He is going to the OR with ortho today. Due to the size of his aneurysm, Iwould recommend inpatient repair, hue since pt lives far away with limited means of returning to [place], and this is tentatively scheduled for early next week pending orthopedic plans. Cont antiplatelet, statin, beta scot. Would like to check an echo and CXR for preop purposes; EKG has already been done. Discussed w/Dr. Alford. Teaching physician supervised resident in person. * Tae Cramer MD - 12/09/2024 8:57 PM CDT ORTHOPAEDIC SURGERY CONSULT NOTE CC: right hip pain HPI: Austin Cramer is a 74-year-old male who was transferred to [facility] with right hip periprostheticfracture. Patient was cleaning his gutters at his friend's house last Sunday when he fell from a height of 10feet onto the right side. He did have immediate pain but was able to get up and go home. He has been intermittently putting weight on the right side walking with the use of either cane or walker. States that his family made him present to the emergency department today where imaging was obtained [facility] showing periprosthetic femur fracture around a previous hemiarthroplasty as well as pelvic fractures. Previous hemiarthroplasty done at [facility] in 2006 so was transferred to [place] for definitive care. Upon evaluation, patient primarily complaining of pain in his right hip. Denies any numbness or ting of the right lower extremity. Does not remember who did his surgery. States he does not have diabetes. States he smokes approximate 1 pack/day. Also states that he is intermittently doing methamphetamine. States he last used within the week, although unable to tell me the exact date. Previous ankle surgery many years ago. Unable to tell me exactly what he had done, states they took my ankle out and put it back on wrong. ROS: 12-point review of systems negative except for that stated above in HPI. PMH: Past Medical History[1] PSH: Past Surgical History[2] SH: Social History[3] FMH: Family History[4] Physical Exam: GEN: No acute distress. Alert and oriented to person, place, and time. HEENT: Normocephalic. Atraumatic. HEART: Regular rate. Good peripheral perfusion. RESP: Airway patent. No acute respiratory distress. PSYCH: Appropriate mood and affect. Cooperative with exam. MSK: RLE: Skin is intact, no open fractures. Pain with log roll at the hip. Nontender to palpation over the thigh, hip, leg, ankle, and foot. Motion to knee is grossly intact. Fires EHL, FHL, TA, and GSC.Sensation intact to light touch in the sural, saphenous, superficial peroneal, deep peroneal, and tibial nerve distributions. 2+ DP and PT pulses. Foot is warm and well perfused. Capillary refill <2 seconds in all digits. Compartments are soft and compressible. LLE: Skin is intact. No open fractures. Nontender to palpation over the hip, thigh, knee, leg, ankle, and foot. Motion to hip and knee is grossly intact. 5/5 strength to hip flexors, knee extensors, and knee flexors. Fires EHL, FHL, TA, and GSC. Sensation intact to light touch in the sural, saphenous, superficial peroneal, deep peroneal, and tibial nerve distributions. 2+ DP and PT pulses. Foot is warm and well perfused. Capillary refill <2 seconds in all digits. Compartments are soft and compressible. IMAGING: Imaging outlined below was independently reviewed. AP/Lateral Right Hip and Femur: There is a previous metaphyseal fitting hemiarthroplasty. There is a spiral fracture extending from the lesser trochanter to the distal tip of the femoral component. The component appears to be subsided just slightly. There is a right sided pubic root fracture as well as comminuted right superior and inferior pubic rami fractures around the pubic symphysis. CT chest abdomen pelvis obtained today and independently reviewed showing redemonstration of superior and inferior pubic rami fractures, noted around the pubic symphysis. There is also a pubic root fracture on the right side that extends medially unable to fully appreciate whether it violates the acetabulum due to noise from the metal artifact from the hemiarthroplasty. Additionally there is a nondisplaced sacral hiral fracture on the right side. redemonstration of spiral periprosthetic fractureextending from the lesser trochanter to the distal tip of the femoral component. ASSESSMENT/PLAN: Austin Cramer is a 74-year-old male with [place] B2 periprosthetic fracture of a previous righthip hemiarthroplasty. He also has a right LC 1 fracture. Plan for right hip revision hemiarthroplasty tomorrow with Dr. Morrison pending medical clearance. Admitted to hospitalist [facility] consulted (Dr. Morrison) Obtain/confirm consent for: right hip revision hemiarthroplasty with Dr. Morrison Pain: As ordered Diet: NPO at midnight Activity: Bedrest, NWB RLE Type and Screen 2 units 2g Ancef manager of corporate communications to OR CT R hip pending Nursing: ice as needed to right hip DVT PPx: Hold preoperatively Medical: Per hospitalist Dispo: [address] Morrison for right hip revision hemiarthroplasty pending medical clearance Patient discussed with Dr. Morrison who agrees with above assessment and plan, except as stated in the addendum. Tae Cramer MD Consults [1] Past Medical History: Diagnosis Date HLD (hyperlipidemia) Hypertension [2] Past Surgical History: Procedure Laterality Date EYE SURGERY PARTIAL HIP REPLACEMENT TRANSCATH STENT INIT VESSEL,PERCUT [3] Social History Tobacco Use Smoking status: Every Day Current packs/day: 1.00 Types: Cigarettes Smokeless tobacco: Never Substance Use Topics Alcohol use: Yes Comment: monthly Drug use: Not Currently [4] No family history on file. Cosigned by Max Morrison Jr., DO at 12/11/2024 11:43 AM CDT Associated attestation - Max Morrison Jr., DO - 12/11/2024 11:43 AM CDT I saw and evaluated the patient, participating in the cantor portions of the service. I reviewed the resident???s note. I agree with the resident???s findings and plan. Teaching physician supervised resident by audio video. documented in this encounter Plan of Treatment Upcoming Encounters Date Type Department Care Team (Late st Contact Info) Description 12/12/2024 11:59 PM CDT Anesthesia Event [facility] [employer] [address] [place] [address] Karen Bianchi RN Pending Results Name Type Priority Associated Diagnoses Date /Time USV ART DUPLEX LOW PAYTON US VASC Today 4:56 PM CDT documented as of this encounter Procedures Procedure Name Priority Date/Time Associated Diagnosis Comments BASIC METABOLIC PANEL Routine 12/13/2024 4:16 AM CDT CBC W/DIFF AUTOMATED Routine 12/13/2024 4:16 AM CDT USV ART DUPLEX LOW PAYTON Today 12/12/2024 4:56 PM CDT Procedure Note - 12/12/2024 4:56 PM CDTThis note is in progress. Vascular Report Pat.Name: AUSTIN CRAMER Pat.ID: [id number] .Date: 12/12/2024 Refer.MD: KAITLYNN MEJIAS Exam Time: 3:26:00 PM Study Type:PVI ART DUPLEX SCAN BILATERAL LEG Height: 72 in Age: 12 1950,74Y Sex: M Sonogrphr: Jhonny Manjarrez RVT, RDCS Pat. Stat.:Inpatient CPT - 4: 13084 Arterial Duplex LE Reason for Study:Popliteal aneurysm Race: W ++++++++++++++++++++++++++++++++++++ FINDINGS: ++++++++++++++++++++++++++++++++++++ AO: An abdominal aortic aneurysm noted in the infrarenal aorta measuring 5.90 cm x 6.58 cm. Maximum Aortic diameter is 6.58 cm. Rt Lower Ext: No evidence of popliteal artery aneurysm noted. The largest rt credit risk analyst measures 0.9 cm. The largest rt popliteal measures 0.8 cm. Turbulent flow noted in the right [employer] HAT BLOCKER with no evidence of stenosis noted in the right MAXIMUS or visualized right EIA by velocity criteria. Lt Lower Ext: The largest lt credit risk analyst measures 0.9 cm. The largest lt popliteal measures 0.8 cm. ++++++++++++++++++++++++++++++++++++ MEASUREMENTS: ++++++++++++++++++++++++++++++++++++ DOPPLER Left WESTERN [employer]ELT HAT BLOCKER WESTERN [employer] H[employer] BLOCKER PSV 130 cm/s Left Prox Pop A Prox Pop A PSV 54.9 cm/s Left Dist Pop A Dist Pop A PSV 72.8 cm/s Right WE[employer] BLOCKER WESTERN [employer] BLOCKER PSV 130 cm/s Right Prox Pop A Prox Pop A EDV 13 cm/s Prox Pop A PSV 67.7 cm/s Right Dist Pop A Dist Pop A PSV 57.6 cm/s Dist Pop A EDV 3.29 cm/s Right Mid MAXIMUS Mid MAXIMUS EDV 21.1 cm/s Mid MAXIMUS PSV 149 cm/s Right Prox MAXIMUS Prox MAXIMUS EDV 14.9 cm/s Prox MAXIMUS PSV 154 cm/s Right Mid EIA Mid EIA EDV 21.7 cm/s Mid EIA PSV 201 cm/s Right Dist EIA Dist EIA EDV 24.1 cm/s Dist EIA PSV 198 cm/s Right Dist MAXIMUS Dist MAXIMUS PSV 134 cm/s Unsigned ANGIE Vascular Surgery BASIC METABOLIC PANEL Routine 12/12/2024 4:09 AM CDT CBC W/DIFF AUTOMATED Routine 12/12/2024 4:09 AM CDT BASIC METABOLIC PANEL Routine 12/11/2024 3:44 AM CDT CBC W/DIFF AUTOMATED Routine 12/11/2024 3:44 AM CDT PHOSPHORUS, INORGANIC PHOSPHATE Routine 12/11/2024 3:44 AM CDT MAGNESIUM Routine 12/11/2024 3:44 AM CDT USE ECHOCARDIOGRAM Today 12/10/2024 3: 39 PM CDT POCT GLUCOSE - DOCKED DEVICE Routine 12/10/2024 11:18 AM CDT USV CAROTID DUPLEX PAYTON Today 12/10/2024 10:33 AM CDT CTA CHEST+ABD+PEL Today 12/10/2024 9:4 1 AM CDT SODIUM URINE RANDOM Nurse Collected Priority 12/10/2024 6:20 AM CDT POTASSIUM URINE RANDOM Nurse Collected Priority 12/10/2024 6:20 AM CDT CHLORIDE URINE RANDOM Nurse Collected Priority 12/10/2024 6:20 AM CDT DRUG SCREEN RAPID Nurse Collected Priority 12/10/2024 6:20 AM CDT HEMOGLOBIN, GLYCOSYLATED Routine 12/10/2024 5:51 AM CDT BASIC METABOLIC PANEL Routine 12/10/2024 5:51 AM CDT LIPID PANEL Routine 12/10/2024 5:51 AM CDT CBC W/DIFF AUTOMATED Routine 12/10/2024 5:51 AM CDT VITAMIN D, 25 OH Routine 12/10/2024 5:51 AM CDT CK (CPK) Routine 12/10/2024 5:51 AM CDT MRI BRAIN WO CON Today 12/10/2024 4:[address] HIP RT WO CON Today 12/10/2024 4:09 AM CDT HC MRSA AMP Nurse Collected Priority 12/09/2024 9:45 PM CDT TYPE & SCREEN Routine 12/09/2024 9:22 PM CDT documented in this encounter Results * (ABNORMAL) BASIC METABOLIC PANEL (12/13/2024 4:16 AM CDT) SODIUM S/P/B 134(L) 136 - 145 MMOL/L 12/13/2024 5:32 AM CDT [facility] POTASSIUM S/P/B 3.6 3.5 - 5.1 MMOL/L 12/13/2024 5:32 AM CDT [facility] CHLORIDE S/P/B 102 97 - 115 MMOL/L 12/13/2024 5:32 AM CDT [facility] CO2 29.0 21.0 - 32.0 MMOL/L 12/13/2024 5:32 AM CDT [facility] GLUCOSE 99 74 - 106 MG/DL 12/13/2024 5:32 AM CDT [facility] BUN 14 7 - 18 MG/DL 12/13/2024 5:32 AM CDT [facility] CREATININE S/P/B 0.74 0.70 - 1.30 MG/DL 12/13/2024 5:32 AM CDT [facility] CALCIUM S/P/B 8.6 8.5 - 10.1 MG/DL 12/13/2024 5:32 AM CDT [facility] ANION GAP 3.0 2.0 - 10.0 MMOL/L 12/13/2024 5:32 AM CDT [facility] OSMOLALITY (CALC) 278 MOSM/KG 025 5:32 AM CDT [facility] Comment:REFERENCE RANGE NOT ESTABLISHED GFR ESTIMATE >90 >90 ML/MIN/1. 73 M2 12/13/2024 5:32 AM CDT [facility] GFR NOTES GFR REFERENCE S: 12/13/2024 5:32 AM CDT [facility] Comment: THE ESTIMATED GFR IS CALCULATED USING THE 2020 CKD-EPI EQUATION. THE FOLLOWING CATEGORIES FOR GRADING RENAL FUNCTION ARE RECOMMENDED BY THE INTERNATIONAL SOCIETY OF NEPHROLOGY (KDIGO 2012 CLINICAL PRACTICE GUIDELINE). G1,NORMAL OR HIGH: >89 ml/min/1.73 m2 G2,MILDLY DECREASED: 60-89 ml/min/1.73 m2 G3A,MILDLY TO MODERATELY DECREASED: 45-59 ml/min/1.73 m2 G3B,MODERATELY TO SEVERELY DECREASED: 30-44 ml/min/1.73 m2 G4,SEVERELY DECREASED: 15-29 ml/min/1.73 m2 G5,KIDNEY FAILURE: <15 ml/min/1.73 m2 12/13/2024 4:16 AM CDT us Irfan Quang Alford MD LABORATORY Final Res ult [facility] [address] [place] [address], [id number] * (ABNORMAL) CBC W/DIFF AUTOMATED (12/13/2024 4:16 AM CDT) WBC 7.41 4.00 - 10.80 x10'3/uL 12/13/2024 5:03 AM CDT [facility] RBC 3.02(L) 4.50 - 6.10 x10'6/uL 12/13/2024 5:03 AM CDT [facility] HGB 9.1(L) 13.0 - 18.0 G/DL 12/13/2024 5:03 AM CDT [facility] HCT 27.1(L) 37.0 - 52.0 % 12/13/2024 5:03 AM CDT [facility] MCV 89.7 78.0 - 100.0 FL 12/13/2024 5:03 AM CDT [facility] MCH 30.1 27.0 - 31.0 PG 12/13/2024 5:03 AM CDT [facility] MCHC 33.6 33.0 - 36.0 G/DL 12/13/2024 5:03 AM CDT [facility] RDW 13.8 11.5 - 14.5 % 12/13/2024 5:03 AM CDT [facility] PLT 336 150 - 350 x10'3/uL 12/13/2024 5:03 AM CDT [facility] MPV 9.1 7.4 - 10.4 FL 12/13/2024 5:03 AM CDT [facility] DIFFERENTIAL TYPE AUTOMATED DIFFERENTIAL 12/13/2024 5:03 AM CDT [facility] SEG NEUTROPHILS 62.9 % 5:03 AM CDT [facility] LYMPHOCYTES 23.1 % 12/13/2024 5:03 AM CDT [facility] MONOCYTES 7.8 % 12/13/2024 5:03 AM CDT [facility] EOSINOPHILS 5.1 % 12/13/2024 5:03 AM CDT [facility] BASOPHILS 0.7 % 12/13/2024 5:03 AM CDT [facility] IMMATURE GRANS % 0.4 % 12/14/19 5:03 AM CDT [facility] ABS. NEUTROPHILS 4.66 1.60 - 8.30 x10'3/uL 12/13/2024 5:03 AM CDT [facility] ABS. LYMPHOCYTES 1.71 0.80 - 4.70 x10'3/uL 12/13/2024 5:03 AM CDT [facility] ABS. MONOCYTES 0.58 0.00 - 1.50 x10'3/uL 12/13/2024 5:03 AM CDT [facility] ABS. EOSINOPHILS 0.38 0.00 - 0.40 x10'3/uL 12/13/2024 5:03 AM CDT [facility] ABS. BASOPHILS 0.05 0.00 - 0.20 x10'3/uL 12/13/2024 5:03 AM CDT [facility] ABS. IMMATURE GRANULOCYTES 0.03 0.00 - 0.03 x10'3/uL 12/13/2024 5:03 AM CDT [facility] ABS. NUCLEATED RBC'S 0.00 0.00 - 0.01 x10'3/uL 12/13/2024 5:03 AM CDT [facility] NRBC % 0.0 % 12/13/2024 5:03 AM CDT [facility] 12/13/2024 4:16 AM CDT us Ada Alford MD LABORATORY Final Res ult [facility] [address] [place] [id number], [id number] * BASIC METABOLIC PANEL (12/12/2024 4:09 AM CDT) SODIUM S/P/B 136 136 - 145 MMOL/L 12/12/2024 5:15 AM CDT [facility] POTASSIUM S/P/B 3.6 3.5 - 5.1 MMOL/L 12/12/2024 5:15 AM CDT [facility] CHLORIDE S/P/B 104 97 - 115 MMOL/L 12/12/2024 5:15 AM CDT [facility] CO2 27.6 21.0 - 32.0 MMOL/L 12/12/2024 5:15 AM CDT [facility] GLUCOSE 105 74 - 106 MG/DL 12/12/2024 5:15 AM CDT [facility] BUN 18 7 - 18 MG/DL 12/12/2024 5:15 AM CDT [facility] CREATININE S/P/B 0.77 0.70 - 1.30 MG/DL 12/12/2024 5:15 AM CDT [facility] CALCIUM S/P/B 8.5 8.5 - 10.1 MG/DL 12/12/2024 5:15 AM CDT [facility] ANION GAP 4.4 2.0 - 10.0 MMOL/L 12/12/2024 5:15 AM CDT [facility] OSMOLALITY (CALC) 284 MOSM/KG 025 5:15 AM CDT [facility] Comment:REFERENCE RANGE NOT ESTABLISHED GFR ESTIMATE >90 >90 ML/MIN/1. 73 M2 12/12/2024 5:15 AM CDT [facility] GFR NOTES GFR REFERENCE S: 12/12/2024 5:15 AM CDT [facility] Comment: THE ESTIMATED GFR IS CALCULATED USING THE 2020 CKD-EPI EQUATION. THE FOLLOWING CATEGORIES FOR GRADING RENAL FUNCTION ARE RECOMMENDED BY THE INTERNATIONAL SOCIETY OF NEPHROLOGY (KDIGO 2012 CLINICAL PRACTICE GUIDELINE). G1,NORMAL OR HIGH: >89 ml/min/1.73 m2 G2,MILDLY DECREASED: 60-89 ml/min/1.73 m2 G3A,MILDLY TO MODERATELY DECREASED: 45-59 ml/min/1.73 m2 G3B,MODERATELY TO SEVERELY DECREASED: 30-44 ml/min/1.73 m2 G4,SEVERELY DECREASED: 15-29 ml/min/1.73 m2 G5,KIDNEY FAILURE: <15 ml/min/1.73 m2 12/12/2024 4:09 AM CDT us Irfan Ul Quang Alford MD LABORATORY Final Res ult [facility] [address] [place] [address], [phone] * (ABNORMAL) CBC W/DIFF AUTOMATED (12/12/2024 4:09 AM CDT) WBC 7.37 4.00 - 10.80 x10'3/uL 12/12/2024 4:44 AM CDT [facility] RBC 3.09(L) 4.50 - 6.10 x10'6/uL 12/12/2024 4:44 AM CDT [facility] HGB 9.1(L) 13.0 - 18.0 G/DL 12/12/2024 4:44 AM CDT [facility] HCT 27.5(L) 37.0 - 52.0 % 12/12/2024 4:44 AM CDT [facility] MCV 89.0 78.0 - 100.0 FL 12/12/2024 4:44 AM CDT [facility] MCH 29.4 27.0 - 31.0 PG 12/12/2024 4:44 AM CDT [facility] MCHC 33.1 33.0 - 36.0 G/DL 12/12/2024 4:44 AM CDT [facility] RDW 13.3 11.5 - 14.5 % 12/12/2024 4:44 AM CDT [facility] PLT 310 150 - 350 x10'3/uL 12/12/2024 4:44 AM CDT [facility] MPV 9.1 7.4 - 10.4 FL 12/12/2024 4:44 AM CDT [facility] DIFFERENTIAL TYPE AUTOMATED DIFFERENTIAL 12/12/2024 4:44 AM CDT [facility] SEG NEUTROPHILS 61.1 % 4:44 AM CDT [facility] LYMPHOCYTES 22.7 % 12/12/2024 4:44 AM CDT [facility] MONOCYTES 9.5 % 12/12/2024 4:44 AM CDT [facility] EOSINOPHILS 5.4 % 12/12/2024 4:44 AM CDT [facility] BASOPHILS 0.9 % 12/12/2024 4:44 AM CDT [facility] IMMATURE GRANS % 0.4 % 12/13/19 4:44 AM CDT [facility] ABS. NEUTROPHILS 4.50 1.60 - 8.30 x10'3/uL 12/12/2024 4:44 AM CDT [facility] ABS. LYMPHOCYTES 1.67 0.80 - 4.70 x10'3/uL 12/12/2024 4:44 AM CDT [facility] ABS. MONOCYTES 0.70 0.00 - 1.50 x10'3/uL 12/12/2024 4:44 AM CDT [facility] ABS. EOSINOPHILS 0.40 0.00 - 0.40 x10'3/uL 12/12/2024 4:44 AM CDT [facility] ABS. BASOPHILS 0.07 0.00 - 0.20 x10'3/uL 12/12/2024 4:44 AM CDT [facility] ABS. IMMATURE GRANULOCYTES 0.03 0.00 - 0.03 x10'3/uL 12/12/2024 4:44 AM CDT [facility] ABS. NUCLEATED RBC'S 0.00 0.00 - 0.01 x10'3/uL 12/12/2024 4:44 AM CDT [facility] NRBC % 0.0 % 12/12/2024 4:44 AM CDT [facility] 12/12/2024 4:09 AM CDT us Irfan Rosita Alford MD LABORATORY Final Res ult [facility] [address] [place] [address], [phone] * PHOSPHORUS, INORGANIC PHOSPHATE (12/11/2024 3:44 AM CDT) Pathologist [facility] PHOSPHORUS 2.7 2.5 - 4.9 MG/DL 12/11/2024 4:50 AM CDT [facility] 12/11/2024 3:44 AM CDT Ada Alford MD LABORATORY Final Res ult Performing Organization Address City/[facility]/ZIP Co de Phone Number [facility] [address] [place] [address], [phone] * MAGNESIUM (12/11/2024 3:44 AM CDT) MAGNESIUM 2.2 1.6 - 2.6 MG/DL 12/11/2024 4:50 AM CDT [facility] 12/11/2024 3:44 AM CDT Ada Alford MD LABORATORY Final Res ult Performing Organization Address [facility] de Phone Number [facility] [address] [place] [address], [phone] * (ABNORMAL) BASIC METABOLIC PANEL (12/11/2024 3:44 AM CDT) SODIUM S/P/B 136 136 - 145 MMOL/L 12/11/2024 4:50 AM CDT [facility] POTASSIUM S/P/B 3.5 3.5 - 5.1 MMOL/L 12/11/2024 4:50 AM CDT [facility] CHLORIDE S/P/B 103 97 - 115 MMOL/L 12/11/2024 4:50 AM CDT [facility] CO2 29.5 21.0 - 32.0 MMOL/L 12/11/2024 4:50 AM CDT [facility] GLUCOSE 99 74 - 106 MG/DL 12/11/2024 4:50 AM CDT [facility] BUN 25(H) 7 - 18 MG/DL 12/11/2024 4:50 AM CDT [facility] CREATININE S/P/B 0.84 0.70 - 1.30 MG/DL 12/11/2024 4:50 AM CDT [facility] CALCIUM S/P/B 8.4(L) 8.5 - 10.1 MG/DL 12/11/2024 4:50 AM CDT [facility] ANION GAP 3.5 2.0 - 10.0 MMOL/L 12/11/2024 4:50 AM CDT [facility] OSMOLALITY (CALC) 286 MOSM/KG 025 4:50 AM CDT [facility] Comment:REFERENCE RANGE NOT ESTABLISHED GFR ESTIMATE >90 >90 ML/MIN/1. 73 M2 12/11/2024 4:50 AM CDT [facility] GFR NOTES GFR REFERENCE S: 12/11/2024 4:50 AM CDT [facility] Comment: THE ESTIMATED GFR IS CALCULATED USING THE 2020 CKD-EPI EQUATION. THE FOLLOWING CATEGORIES FOR GRADING RENAL FUNCTION ARE RECOMMENDED BY THE [employer] OF [employer]PHROLOG[employer] (KDIGO 2012 CLINICAL PRACTICE GUIDELINE). G1,NORMAL OR HIGH: >89 ml/min/1.73 m2 G2,MILDLY DECREASED: 60-89 ml/min/1.73 m2 G3A,MILDLY TO MODERATELY DECREASED: 45-59 ml/min/1.73 m2 G3B,MODERATELY TO SEVERELY DECREASED: 30-44 ml/min/1.73 m2 G4,SEVERELY DECREASED: 15-29 ml/min/1.73 m2 G5,KIDNEY FAILURE: <15 ml/min/1.73 m2 12/11/2024 3:44 AM CDT us Irfan Ul Quang Alford MD LABORATORY Final Res ult [facility] [address] [place] [address], [id number] * (ABNORMAL) CBC W/DIFF AUTOMATED (12/11/2024 3:44 AM CDT) WBC 8.31 4.00 - 10.80 x10'3/uL 12/11/2024 4:15 AM CDT [facility] RBC 3.06(L) 4.50 - 6.10 x10'6/uL 12/11/2024 4:15 AM CDT [facility] HGB 9.1(L) 13.0 - 18.0 G/DL 12/11/2024 4:15 AM CDT [facility] HCT 27.7(L) 37.0 - 52.0 % 12/11/2024 4:15 AM CDT [facility] MCV 90.5 78.0 - 100.0 FL 12/11/2024 4:15 AM CDT [facility] MCH 29.7 27.0 - 31.0 PG 12/11/2024 4:15 AM CDT [facility] MCHC 32.9(L) 33.0 - 36.0 G/DL 12/11/2024 4:15 AM CDT [facility] RDW 13.2 11.5 - 14.5 % 12/11/2024 4:15 AM CDT [facility] PLT 290 150 - 350 x10'3/uL 12/11/2024 4:15 AM CDT [facility] MPV 9.1 7.4 - 10.4 FL 12/11/2024 4:15 AM CDT [facility] DIFFERENTIAL TYPE AUTOMATED DIFFERENTIAL 12/11/2024 4:15 AM CDT [facility] SEG NEUTROPHILS 64.2 % 4:15 AM CDT [facility] LYMPHOCYTES 19.9 % 12/11/2024 4:15 AM CDT [facility] MONOCYTES 11.2 % 12/11/2024 4:15 AM CDT [facility] EOSINOPHILS 3.5 % 12/11/2024 4:15 AM CDT [facility] BASOPHILS 0.7 % 12/11/2024 4:15 AM CDT [facility] IMMATURE GRANS % 0.5 % 12/12/19 4:15 AM CDT [facility] ABS. NEUTROPHILS 5.34 1.60 - 8.30 x10'3/uL 12/11/2024 4:15 AM CDT [facility] ABS. LYMPHOCYTES 1.65 0.80 - 4.70 x10'3/uL 12/11/2024 4:15 AM CDT [facility] ABS. MONOCYTES 0.93 0.00 - 1.50 x10'3/uL 12/11/2024 4:15 AM CDT [facility] ABS. EOSINOPHILS 0.29 0.00 - 0.40 x10'3/uL 12/11/2024 4:15 AM CDT [facility] ABS. BASOPHILS 0.06 0.00 - 0.20 x10'3/uL 12/11/2024 4:15 AM CDT [facility] ABS. IMMATURE GRANULOCYTES 0.04(H) 0.00 - 0.03 x10'3/uL 12/11/2024 4:15 AM CDT [facility] ABS. NUCLEATED RBC'S 0.00 0.00 - 0.01 x10'3/uL 12/11/2024 4:15 AM CDT [facility] NRBC % 0.0 % 12/11/2024 4:15 AM CDT [facility] 12/11/2024 3:44 AM CDT us Irfan Ul Quang Alford MD LABORATORY Final Res ult [facility] [address] [place] [address], [id number] * USE ECHOCARDIOGRAM (12/10/2024 3:39 PM CDT) Anatomical Region Laterality Modality Cardiac Echocardiogram 12/10/2024 2:08 PM CDT Narrative 12/11/2024 6:12 AM CDT Echocardiography Report Pat.Name: AUSTIN CRAMER Pat.ID: [id number] .Date: 12/10/2024 : [id number] CARMEN GAMBLE EWDPROV EWDPROV Exam Time: 2:08:00 PM Study Type:ECHO WITH CARDIAC DOPPLER COMP Height: 72 in Weight: 133 lb BSA: 1.79 m2 Age: 12 1950,74Y Sex: M HR: 68 bpm Sonogrphr: Lucia Vasquez Pat. Stat.:Inpatient Room: 962 CPT - 4: 86834 Reason for Study:Prior stroke Procedures: 2D, M-mode, Doppler, Color Flow, Intraveneous saline contrast was used to help determine presence of intracardiac shunting. Race: W ++++++++++++++++++++++++++++++++++++ SUMMARY: ++++++++++++++++++++++++++++++++++++ The left ventricular systolic function is normal. Wall motion appears normal in all segments. Right ventricular systolic function is normal. A trace of tricuspid regurgitation. The agitated saline injection showed no clear evidence of shunting into the left atrium, consistent with no patent foramen ovale. ++++++++++++++++++++++++++++++++++++ FINDINGS: ++++++++++++++++++++++++++++++++++++ LV: The left ventricular size is small. The left ventricular systolic function is normal. Estimated left ventricular ejection fraction is 50-55%. Mild asymmetrical left ventricular hypertrophy. Left ventricular diastolic function is normal. WM: Wall motion appears normal in all segments. RV: The right ventricular size is normal. Right ventricular systolic function is normal. IVS: Mild septal hypertrophy. LA: The left atrial volume is normal ( less than 34 ml/M2). RA: Right atrial size is normal. IAS: Atrial septum appears intact. The agitated saline injection showed no clear evidence of shunting into the left atrium, consistent with no patent foramen ovale. Atrial septum is thickened consistent with lipomatous hypertrophy. NED: No evidence of pericardial effusion. AO: Aorta not well visualized. PA: Estimated right atrial pressure of 3 mmHg. PVn: All four pulmonary veins are not well visualized. SVn: Inferior vena cava is normal. Inferior vena cava shows >50% collapse with respiration consistent with normal right atrial pressure. Other: Technically difficult exam due to body habitus, most images done in subcostal view. AV: Structurally normal aortic valve. No evidence of aortic valve stenosis. No evidence of aortic valve regurgitation. MV: Structurally normal mitral valve. No evidence of significant mitral regurgitation. PV: Structurally normal pulmonic valve. No evidence of pulmonic regurgitation. TV: Structurally normal tricuspid valve. A trace of tricuspid regurgitation. Right ventricular systolic pressure is 24 mmHg. ++++++++++++++++++++++++++++++++++++ MEASUREMENTS: ++++++++++++++++++++++++++++++++++++ DOPPLER LVOT LVOTpkPG 3 mmHg LVOTmnPG 1 mmHg LVOTpkVel 80.9 cm/s (70-110) LVOT SV 88 ml LVOT TVI 20.3 cm AV Forward Flow AV TVI 25.3 cm AV pkPG 7 mmHg AV pkVel 131 cm/s (100-170) Area (TVI) 3.48 cm2 (3-5) AV mnVel 81.4 cm/s Area (Jonathan) 2.68 cm2 (3-5)* AV mnPG 3 mmHg MV Forward Flow MV DeTm 195 msec MV E/A 1.2 MV mnPG 1 mmHg MV pkE 69.4 cm/s (60-130) MV pkPG 2 mmHg MV pkA 58.3 cm/s PV Forward Flow PV pkVel 99.1 cm/s (60-90)* PV pkPG 4 mmHg TV Regurg Flow TV pkPG 24 mmHg TV pkVel 243 cm/s (30-70)* Lat E' Lat e 10.1 cm/s Lat E/E' Lat E/e 6.9 Med E' Med e 8.81 cm/s Med E/E' Med E/e 7.9 Aortic Valve Aortic Valve Ar 1.94 Aortic Valve Ve 0.62 AV DI Value 0.8 STEF (VTI) Index Value 1.95 LV Mass 2D Value 108 g LV Mass Ubtpm5S Value 60.3 g/m2 RA Volume Atrial Rausch 4.59 cm Atrial Rausch 14.2 cm2 Atrial Rausch 34 ml 2D Left Ventricle LVIDd 2.86 cm (3.6-5.2)* LVIDs 2.18 cm (2.3-3.9)* LVPW LVPWd 1.18 cm Ventricular Septum IVSd 1.3 cm Aorta Ao Rtd 3.64 cm (zsc 3)* LVOT LVOT 2.35 cm Ratios IVS Inferior vena cava IVC Diam 2.13 cm Right Ventricle Right Ventricle 3.47 cm MMODE TA Tricuspid Annul 2.69 cm <Electronic Signature> 12/11/2024 06:12 AM Torsten Rodríguez M.D. Procedure Note Torsten Rodríguez MD - 12/11/2024 Echocardiography Report Pat.Name: BELA AUSTIN E Pat.ID: [id number] .Date: 12/10/2024 Refer.: [id number] CARMEN TYE EWDPROV EWDPROV Exam Time: 2:08:00 PM Study Type:ECHO WITH CARDIAC DOPPLER COMP Height: 72 in Weight: 133 lb BSA: 1.79 m2 Age: 12 1950,74Y Sex: M HR: 68 bpm Sonogrphr: Lucia Vasquez Pat. Stat.:Inpatient Room: 2 CPT - 4: 67988 Reason for Study:Prior stroke Procedures: 2D, M-mode, Doppler, Color Flow, Intraveneous saline contrast was used to help determine presence of intracardiac shunting. Race: W ++++++++++++++++++++++++++++++++++++ SUMMARY: ++++++++++++++++++++++++++++++++++++ The left ventricular systolic function is normal. Wall motion appears normal in all segments. Right ventricular systolic function is normal. A trace of tricuspid regurgitation. The agitated saline injection showed no clear evidence of shunting into the left atrium, consistent with no patent foramen ovale. ++++++++++++++++++++++++++++++++++++ FINDINGS: ++++++++++++++++++++++++++++++++++++ LV: The left ventricular size is small. The left ventricular systolic function is normal. Estimated left ventricular ejection fraction is 50-55%. Mild asymmetrical left ventricular hypertrophy. Left ventricular diastolic function is normal. WM: Wall motion appears normal in all segments. RV: The right ventricular size is normal. Right ventricular systolic function is normal. IVS: Mild septal hypertrophy. LA: The left atrial volume is normal ( less than 34 ml/M2). RA: Right atrial size is normal. IAS: Atrial septum appears intact. The agitated saline injection showed no clear evidence of shunting into the left atrium, consistent with no patent foramen ovale. Atrial septum is thickened consistent with lipomatous hypertrophy. NED: No evidence of pericardial effusion. AO: Aorta not well visualized. PA: Estimated right atrial pressure of 3 mmHg. PVn: All four pulmonary veins are not well visualized. SVn: Inferior vena cava is normal. Inferior vena cava shows >50% collapse with respiration consistent with normal right atrial pressure. Other: Technically difficult exam due to body habitus, most images done in subcostal view. AV: Structurally normal aortic valve. No evidence of aortic valve stenosis. No evidence of aortic valve regurgitation. MV: Structurally normal mitral valve. No evidence of significant mitral regurgitation. PV: Structurally normal pulmonic valve. No evidence of pulmonic regurgitation. TV: Structurally normal tricuspid valve. A trace of tricuspid regurgitation. Right ventricular systolic pressure is 24 mmHg. ++++++++++++++++++++++++++++++++++++ MEASUREMENTS: ++++++++++++++++++++++++++++++++++++ DOPPLER LVOT LVOTpkPG 3 mmHg LVOTmnPG 1 mmHg LVOTpkVel 80.9 cm/s (70-110) LVOT SV 88 ml LVOT TVI 20.3 cm AV Forward Flow AV TVI 25.3 cm AV pkPG 7 mmHg AV pkVel 131 cm/s (100-170) Area (TVI) 3.48 cm2 (3-5) AV mnVel 81.4 cm/s Area (Jonathan) 2.68 cm2 (3-5)* AV mnPG 3 mmHg MV Forward Flow MV DeTm 195 msec MV E/A 1.2 MV mnPG 1 mmHg MV pkE 69.4 cm/s (60-130) MV pkPG 2 mmHg MV pkA 58.3 cm/s PV Forward Flow PV pkVel 99.1 cm/s (60-90)* PV pkPG 4 mmHg TV Regurg Flow TV pkPG 24 mmHg TV pkVel 243 cm/s (30-70)* Lat E' Lat e 10.1 cm/s Lat E/E' Lat E/e 6.9 Med E' Med e 8.81 cm/s Med E/E' Med E/e 7.9 Aortic Valve Aortic Valve Ar 1.94 Aortic Valve Ve 0.62 AV DI Value 0.8 STEF (VTI) Index Value 1.95 LV Mass 2D Value 108 g LV Mass Dskss6W Value 60.3 g/m2 RA Volume Atrial Rausch 4.59 cm Atrial Rausch 14.2 cm2 Atrial Rausch 34 ml 2D Left Ventricle LVIDd 2.86 cm (3.6-5.2)* LVIDs 2.18 cm (2.3-3.9)* LVPW LVPWd 1.18 cm Ventricular Septum IVSd 1.3 cm Aorta Ao Rtd 3.64 cm (zsc 3)* LVOT LVOT 2.35 cm Ratios IVS Inferior vena cava IVC Diam 2.13 cm Right Ventricle Right Ventricle 3.47 cm MMODE TA Tricuspid Annul 2.69 cm <Electronic Signature> 12/11/2024 06:12 AM Torsten Rodríguez M.D. us Lawson Grayson MD ECHO Final Result * POCT glucose (12/10/2024 11:18 AM CDT) [facility] GLUCOSE POC 93 70 - 109 12/10/2024 11:22 AM CDT [facility] 12/10/2024 11:1 8 AM CDT us Irfan Ul Quang Prashanth REYES POCT ORDERABLES - DEVICE Final Result [facility] [address] [place] [address], [id number] * [facility]V CAROTID DUPLEX PAYTON (12/10/2024 10:33 AM CDT) Anatomical Region Laterality Modality Neck Ultrasound 12/10/2024 10:1 0 AM CDT Narrative 12/10/2024 6:26 PM CDT [facility] Vascular Report Pat.Name: AUSTIN CRAMER Pat.ID: [id number] .Date: 12/10/2024 Refer.MD: LAWSON GRAYSON Exam Time: 10:10:00 AM Study Type:PVI CAROTID SCAN - BILATERAL Age: 12 1950,74Y Sex: M Sonogrphr: Symone Dixon, RVT Pat. Stat.:Inpatient Room: 962 CPT - 4: 77905 Carotid Duplex Reason for Study:CVA Race: W ++++++++++++++++++++++++++++++++++++ SUMMARY: ++++++++++++++++++++++++++++++++++++ Rt ICA: 40-59% stenosis noted in the internal carotid artery. Lt ICA: 40-59% stenosis noted in the internal carotid artery. ++++++++++++++++++++++++++++++++++++ FINDINGS: ++++++++++++++++++++++++++++++++++++ Rt Subcl: The proximal subclavian artery is patent. Rt ICA: 40-59% stenosis noted in the internal carotid artery. Mild/moderate heterogeneous plaque noted. Rt ECA: Patent with antegrade flow noted in the external carotid artery. Rt Vert: Normal antegrade vertebral flow. Lt Subcl: The proximal subclavian artery is patent. Lt ICA: 40-59% stenosis noted in the internal carotid artery. Mild/moderate heterogeneous plaque noted. Lt ECA: Patent with antegrade flow noted in the external carotid artery. Lt Vert: Normal antegrade vertebral flow. ++++++++++++++++++++++++++++++++++++ MEASUREMENTS: ++++++++++++++++++++++++++++++++++++ DOPPLER Right CCA Prox Prox CCA PSV 82.6 cm/s Prox CCA EDV 24.2 cm/s Right CCA Dist Dist CCA PSV 96.9 cm/s Dist CCA EDV 28 cm/s Right ICA Prox Prox ICA PSV 119 cm/s Prox ICA EDV 45.5 cm/s Right ICA Mid Mid ICA PSV 114 cm/s Mid ICA EDV 34.7 cm/s Right ICA Dist Dist ICA PSV 107 cm/s Dist ICA EDV 39.8 cm/s Right ECA Prox Prox ECA PSV 91.3 cm/s Right Vertebral Vertebral PSV 38.6 cm/s Vertebral EDV 8.47 cm/s Right Prox SCA Prox SCA PSV 160 cm/s Prox SCA PSV 160 cm/s Right ICA/CCA RATIO ICA/CCA RATIO P 1.23 Left CCA Prox Prox CCA PSV 108 cm/s Prox CCA EDV 26.6 cm/s Left CCA Dist Dist CCA PSV 116 cm/s Dist CCA EDV 32.2 cm/s Left ICA Prox Prox ICA PSV 127 cm/s Prox ICA EDV 38.7 cm/s Left ICA Mid Mid ICA PSV 112 cm/s Mid ICA EDV 39.7 cm/s Left ICA Dist Dist ICA PSV 81.4 cm/s Dist ICA EDV 25.6 cm/s Left ECA Prox Prox ECA PSV 96.8 cm/s Left Vertebral Vertebral PSV 44.7 cm/s Vertebral EDV 16.5 cm/s Left Prox SCA Prox SCA PSV 220 cm/s Prox SCA PSV 220 cm/s Left ICA/CCA RATIO ICA/CCA RATIO P 1.09 <Electronic Signature> 12/10/2024 06:26 PM Torsten Rodríguez M.D. Procedure Note Torsten Rodríguez MD - 12/10/2024 [facility] Vascular Report Pat.Name: AUSTIN CRAMER Pat.ID: [id number] .Date: 12/10/2024 Refer.MD: LAWSON GRAYSON Exam Time: 10:10:00 AM Study Type:PVI CAROTID SCAN - BILATERAL Age: 12 1950,74Y Sex: M Sonogrphr: Symone Dixon RVT Pat. Stat.:Inpatient Room: 2 CPT - 4: 45782 Carotid Duplex Reason for Study:CVA Race: W ++++++++++++++++++++++++++++++++++++ SUMMARY: ++++++++++++++++++++++++++++++++++++ Rt ICA: 40-59% stenosis noted in the internal carotid artery. Lt ICA: 40-59% stenosis noted in the internal carotid artery. ++++++++++++++++++++++++++++++++++++ FINDINGS: ++++++++++++++++++++++++++++++++++++ Rt Subcl: The proximal subclavian artery is patent. Rt ICA: 40-59% stenosis noted in the internal carotid artery. Mild/moderate heterogeneous plaque noted. Rt ECA: Patent with antegrade flow noted in the external carotid artery. Rt Vert: Normal antegrade vertebral flow. Lt Subcl: The proximal subclavian artery is patent. Lt ICA: 40-59% stenosis noted in the internal carotid artery. Mild/moderate heterogeneous plaque noted. Lt ECA: Patent with antegrade flow noted in the external carotid artery. Lt Vert: Normal antegrade vertebral flow. ++++++++++++++++++++++++++++++++++++ MEASUREMENTS: ++++++++++++++++++++++++++++++++++++ DOPPLER Right CCA Prox Prox CCA PSV 82.6 cm/s Prox CCA EDV 24.2 cm/s Right CCA Dist Dist CCA PSV 96.9 cm/s Dist CCA EDV 28 cm/s Right ICA Prox Prox ICA PSV 119 cm/s Prox ICA EDV 45.5 cm/s Right ICA Mid Mid ICA PSV 114 cm/s Mid ICA EDV 34.7 cm/s Right ICA Dist Dist ICA PSV 107 cm/s Dist ICA EDV 39.8 cm/s Right ECA Prox Prox ECA PSV 91.3 cm/s Right Vertebral Vertebral PSV 38.6 cm/s Vertebral EDV 8.47 cm/s Right Prox SCA Prox SCA PSV 160 cm/s Prox SCA PSV 160 cm/s Right ICA/CCA RATIO ICA/CCA RATIO P 1.23 Left CCA Prox Prox CCA PSV 108 cm/s Prox CCA EDV 26.6 cm/s Left CCA Dist Dist CCA PSV 116 cm/s Dist CCA EDV 32.2 cm/s Left ICA Prox Prox ICA PSV 127 cm/s Prox ICA EDV 38.7 cm/s Left ICA Mid Mid ICA PSV 112 cm/s Mid ICA EDV 39.7 cm/s Left ICA Dist Dist ICA PSV 81.4 cm/s Dist ICA EDV 25.6 cm/s Left ECA Prox Prox ECA PSV 96.8 cm/s Left Vertebral Vertebral PSV 44.7 cm/s Vertebral EDV 16.5 cm/s Left Prox SCA Prox SCA PSV 220 cm/s Prox SCA PSV 220 cm/s Left ICA/CCA RATIO ICA/CCA RATIO P 1.09 <Electronic Signature> 12/10/2024 06:26 PM Torsten Rodríguez M.D. Lawson Grayson MD [facility] Final Result * CTA CHEST+ABD+PEL (12/10/2024 9:41 AM CDT) Anatomical Region Laterality Modality Chest, Abdomen, Pelvis Computed Tomography 12/10/2024 3:18 PM CDT Impressions 12/10/2024 3:35 PM CDT IMPRESSION: 1. Large 7.9 x 7.7 cm infrarenal abdominal aortic aneurysm. No evidence of rupture at this time. 2. Distal aortic arch/proximal descending thoracic aortic aneurysm, 4.3 cm. 3. Stenosis, proximal celiac axis and proximal SMA. 4. Probable 2 right renal arteries, with 1 approximately 1 cm proximal to aneurysm, and 1 immediately above/adjacent to aneurysm. 5. Decreased perfusion, inferior pole of RIGHT kidney. Probable acute infarct. 6. Oblique fracture, proximal shaft of right femur. 7. Comminuted fracture, right superior and inferior pubic bones. 8. Fracture through anterior column of right acetabulum. 9. Fracture through right sacral ala. 10. Small pelvic hematoma. Unchanged 11. Emphysema. 12. Coronary artery disease. Ordered By: KAITLYNN MEJIAS Interpreted By: Andrea Wolf MD, 12/10/2024 3:18 PM Narrative 12/10/2024 3:35 PM CDT [place] [id number] EXAMINATION: CTA chest, abdomen and pelvis with and without contrast DATE: 12/10/2024 9:31 AM CLINICAL HISTORY: Abdominal aortic aneurysm. COMPARISON: 12/09/2024. TECHNIQUE: Computed tomography angiography was performed of the chest, abdomen and pelvis before and after administration of intravenous contrast, 100 mL Isovue- 370, according to aneurysm protocol. Maximum intensity projection images obtained. A dose lowering technique was used for this procedure, which may include, but is not limited to, dose reduction technique, automated exposure control, the use of iterative reconstruction, and ALARA (As Low As Reasonably Achievable) / Image Gently techniques. FINDINGS: VASCULAR FINDINGS: Thoracic aorta: No dissection, penetrating atherosclerotic ulcer or rupture. Tortuous and atherosclerotic. Distal aortic arch/proximal descending thoracic aorta, 4.3 cm. Other parts of thoracic aorta. Normal caliber. Abdominal aorta: Large 7.9 x 7.7 cm infrarenal abdominal aortic aneurysm again identified, with aneurysm starting approximately 1 cm below renal arteries and extending all the way to aortic bifurcation. Celiac axis: Stenosis, proximal. Atherosclerotic. Accessory left hepatic artery arising from left gastric artery. Superior mesenteric artery: Stenosis, proximal SMA. Atherosclerosis. Inferior mesenteric artery: Unable to visualize opacification. Right renal artery: There appears to be 2 right renal arteries, with 1 approximately 1 cm proximal to aneurysm, and 1 immediately above/adjacent to aneurysm. Left renal artery: Atherosclerosis. There appears to be a single left renal artery. Pelvic arteries: Atherosclerosis. No evidence of aneurysm. NONVASCULAR FINDINGS: Chest: Mucous in the airway. No pneumothorax. No pleural effusion. Dependent atelectasis. Emphysema. Biapical pleural-parenchymal scarring. No large pericardial effusion. Coronary artery disease. No mediastinal hematoma. No pneumomediastinum. Calcified mediastinal and hilar lymph nodes. Abdomen/pelvis: Punctate splenic catheter stations. The liver, pancreas, and right adrenal gland appear normal. Nonspecific left adrenal gland thickening. Layering densities in the gallbladder. Kidneys enhance symmetrically and promptly. Decrease perfusion in the inferior pole of right kidney. No retroperitoneal hematoma. No periaortic fat stranding. Presacral edema again identified. No bowel obstruction. Normal appendix. No free air. No ascites. Small pelvic hematoma again identified. Nondistended urinary bladder. Prostate identified. Bones: Right hip prosthesis. Oblique fracture of proximal shaft of right femur again identified. Comminuted fracture of right superior and inferior pubic bones. Fracture through the anterior column of right acetabulum. Fracture through the right sacral ala. Central endplate compression deformities of the upper thoracic spine. Old fracture, sternum. Spondylosis. Procedure Note Andrea Wolf MD - 12/10/[address] [address] EXAMINATION: CTA chest, abdomen and pelvis with and without contrast DATE: 12/10/2024 9:31 AM CLINICAL HISTORY: Abdominal aortic aneurysm. COMPARISON: 12/09/2024. TECHNIQUE: Computed tomography angiography was performed of the chest,abdomen and pelvis before and after administration of intravenouscontrast, 100 mL Isovue- 370, according to aneurysm protocol. Maximumintensity projection images obtained. A dose lowering technique was usedfor this procedure, which may include, but is not limited to, dosereduction technique, automated exposure control, the use of iterativereconstruction, and ALARA (As Low As Reasonably Achievable) / Image Gentlytechniques. FINDINGS: VASCULAR FINDINGS: Thoracic aorta: No dissection, penetrating atherosclerotic ulcer orrupture. Tortuous and atherosclerotic. Distal aortic arch/proximaldescending thoracic aorta, 4.3 cm. Other parts of thoracic aorta. Normalcaliber. Abdominal aorta: Large 7.9 x 7.7 cm infrarenal abdominal aortic aneurysmagain identified, with aneurysm starting approximately 1 cm below renalarteries and extending all the way to aortic bifurcation. Celiac axis: Stenosis, proximal. Atherosclerotic. Accessory left hepaticartery arising from left gastric artery. Superior mesenteric artery: Stenosis, proximal SMA. Atherosclerosis. Inferior mesenteric artery: Unable to visualize opacification. Right renal artery: There appears to be 2 right renal arteries, with 1approximately 1 cm proximal to aneurysm, and 1 immediately above/adjacentto aneurysm. Left renal artery: Atherosclerosis. There appears to be a single leftrenal artery. Pelvic arteries: Atherosclerosis. No evidence of aneurysm. NONVASCULAR FINDINGS: Chest: Mucous in the airway. No pneumothorax. No pleural effusion. Dependentatelectasis. Emphysema. Biapical pleural-parenchymal scarring. No largepericardial effusion. Coronary artery disease. No mediastinal hematoma. Nopneumomediastinum. Calcified mediastinal and hilar lymph nodes. Abdomen/pelvis: Punctate splenic catheter stations. The liver, pancreas, and right adrenalgland appear normal. Nonspecific left adrenal gland thickening. Layeringdensities in the gallbladder. Kidneys enhance symmetrically and promptly.Decrease perfusion in the inferior pole of right kidney. No retroperitoneal hematoma. No periaortic fat stranding. Presacral edemaagain identified. No bowel obstruction. Normal appendix. No free air. Noascites. Small pelvic hematoma again identified. Nondistended urinary bladder.Prostate identified. Bones: Right hip prosthesis. Oblique fracture of proximal shaft of right femuragain identified. Comminuted fracture of right superior and inferior pubicbones. Fracture through the anterior column of right acetabulum. Fracturethrough the right sacral ala. Central endplate compression deformities ofthe upper thoracic spine. Old fracture, sternum. Spondylosis. IMPRESSION: 1. Large 7.9 x 7.7 cm infrarenal abdominal aortic aneurysm. No evidenceof rupture at this time. 2. Distal aortic arch/proximal descending thoracic aortic aneurysm, 4.3cm. 3. Stenosis, proximal celiac axis and proximal SMA. 4. Probable 2 right renal arteries, with 1 approximately 1 cm proximal toaneurysm, and 1 immediately above/adjacent to aneurysm. 5. Decreased perfusion, inferior pole of RIGHT kidney. Probable acuteinfarct. 6. Oblique fracture, proximal shaft of right femur. 7. Comminuted fracture, right superior and inferior pubic bones. 8. Fracture through anterior column of right acetabulum. 9. Fracture through right sacral ala. 10. Small pelvic hematoma. Unchanged 11. Emphysema. 12. Coronary artery disease. Ordered By: KAITLYNN MEJIAS Interpreted By: Andrea Wolf MD, 12/10/2024 3:18 PM Kaitlynn Mejias MD CT Final Resul t * POTASSIUM URINE RANDOM (12/10/2024 6:20 AM CDT) K RANDOM (U) 44.9 MMOL/L 12/10/2024 7:19 AM CDT [facility] Comment:REFERENCE RANGE NOT ESTABLISHED URINE SPECIMEN / Unknown 12/10/2024 6:20 AM CDT Lawson Grayson MD URINE ORDERABLES Final Result Performing Organization Address [facility] Co de Phone Number [facility] [address] [place] [address], [id number] * CHLORIDE URINE RANDOM (12/10/2024 6:20 AM CDT) CHLORIDE RANDOM (U) 43 MMOL/L 12/10/2024 7:19 AM CDT [facility] Comment:REFERENCE RANGE NOT ESTABLISHED URINE SPECIMEN / Unknown 12/10/2024 6:20 AM CDT Lawson Grayson MD URINE ORDERABLES Final Result Performing Organization Address [facility] Co de Phone Number [facility] [address] [place] [address], [phone] * SODIUM URINE RANDOM (12/10/2024 6:20 AM CDT) NA RANDOM (U) 33 MMOL/L 12/10/2024 7:19 AM CDT [facility] Comment:REFERENCE RANGE NOT ESTABLISHED URINE SPECIMEN / Unknown 12/10/2024 6:20 AM CDT Lawson Grayson MD URINE ORDERABLES Final Result [facility] [address] [place] [address], [phone] * (ABNORMAL) URINE DRUG SCREEN (TOXICOLOGY) (12/10/2024 6:20 AM CDT) Pathologist [facility] PHENCYCLIDINE PCP (U) NEGATIVE NEGATIVE 12/10/2024 7:31 AM CDT [facility] BENZODIAZEPINES SCREEN (U) NEGATIVE NEGATIVE 12/10/2024 7:31 AM CDT [facility] COCAINE METABOLITES (U) NEGATIVE NEGATIVE 12/10/2024 7:31 AM CDT [facility] AMPHETAMINE (U) POSITIVE SCREEN RESULT, IF CONFIRMATION DESIRED PLEASE CONTACT LAB WITHIN ONE WEEK. (A) NEGATIVE 12/10/2024 7:31 AM CDT [facility] CANNABINOIDS SCREEN (U) POSITIVE SCREEN RESULT, IF CONFIRMATION DESIRED PLEASE CONTACT LAB WITHIN ONE WEEK. (A) NEGATIVE 12/10/2024 7:31 AM CDT [facility] OPIATE SCREEN (U) POSITIVE SCREEN RESULT, IF CONFIRMATION DESIRED PLEASE CONTACT LAB WITHIN ONE WEEK. (A) NEGATIVE 12/10/2024 7:31 AM CDT [facility] BARBITURATES SCREEN (U) NEGATIVE NEGATIVE 12/10/2024 7:31 AM CDT [facility] URINE TOX COMMENT Unconfirmed screening results are to be used only for medical purposes. 12/10/2024 6:23 AM CDT [facility] CUTOFF CONCENTRATION (U) Cut-off Concentration for a positive result 12/10/2024 6:23 AM CDT [facility] Comment: Phencyclidine 25 ng/mL Benzodiazepines 200 ng/mL Cocaine 300 ng/mL Amphetamine 1000 ng/mL Cannabinoids 50 ng/mL Opiates 300 ng/mL Barbiturates 200 ng/mL URINE SPECIMEN / Unknown 12/10/2024 6:20 AM CDT us Lawson Grayson MD URINE ORDERABLES Final Result Performing Organization Address City/[facility]/ZIP Co de Phone Number [facility] [address] [place] [address], [phone] * (ABNORMAL) LIPID PANEL (12/10/2024 5:51 AM CDT) CHOLESTEROL 159 MG/DL 12/10/2024 9:06 AM CDT [facility] Comment:DESIRABLE: <200 TRIGLYCERIDES 111 MG/DL 12/10/2024 9:06 AM CDT [facility] Comment:<150 NORMAL HDL 39(L) >39 MG/DL 12/10/2024 9:06 AM CDT [facility] LDL (CALCULATED) 98 MG/DL 12/11/19 9:06 AM CDT [facility] Comment:<100 OPTIMAL VLDL CALCULATION 22 MG/DL 12/11/19 9:06 AM CDT [facility] Comment:REFERENCE RANGE NOT ESTABLISHED CHOL/HDL RATIO 4.1 12/10/2024 9:06 AM CDT [facility] Comment:REFERENCE RANGE NOT ESTABLISHED LDL/HDL 2.5 12/10/2024 9:06 AM CDT [facility] Comment:REFERENCE RANGE NOT ESTABLISHED NON HDL CHOLESTEROL 120 MG/DL 12/10/2024 9:06 AM CDT [facility] Comment:REFERENCE RANGE NOT ESTABLISHED 12/10/2024 5:51 AM CDT us Ada Alford MD LABORATORY Final Res ult Performing Organization Address City/[facility]/ZIP Co de Phone Number [facility] [address] [place] [address], [place] [phone] * HEMOGLOBIN, GLYCOSYLATED (12/10/2024 5:51 AM CDT) HGB A1C 5.5 <5.7 % 12/10/2024 9:45 AM CDT [facility] ESTIMATED AVG GLUCOSE 111 74 - 114 MG/DL 12/10/2024 9:45 AM CDT [facility] 12/10/2024 5:51 AM CDT Ada Alford MD LABORATORY Final Res ult [facility] [address] [place] [address], [id number] * CK (CPK) (12/10/2024 5:51 AM CDT) Pathologist [facility] CPK 130 39 - 308 U/L 12/10/2024 6:35 AM CDT [facility] 12/10/2024 5:51 AM CDT Lawson Grayson MD LABORATORY Final Result Performing Organization Address City/[facility]/ZIP Co de Phone Number [facility] [address] [place] [address], [phone] * VITAMIN D, 25 OH (12/10/2024 5:51 AM CDT) VITAMIN D 25 HYDROXY S/P/B 32.3 20.0 - 50.0 NG/ML 12/10/2024 7:31 AM CDT [facility] Comment: <10 ng/mL (Severe deficiency) 10 TO 19 ng/mL (Mild to Moderate deficiency) 20 TO 50 ng/mL (Optimum levels) 51 TO 80 ng/mL (Increased risk of hypercalciuria) >80 ng/mL (Toxicity possible) 12/10/2024 5:51 AM CDT Lawson Grayson MD LABORATORY Final Result [facility] [address] [place] [address], [phone] * (ABNORMAL) BASIC METABOLIC PANEL (12/10/2024 5:51 AM CDT) Pathologist [facility] SODIUM S/P/B 134(L) 136 - 145 MMOL/L 12/10/2024 6:35 AM CDT [facility] POTASSIUM S/P/B 4.3 3.5 - 5.1 MMOL/L 12/10/2024 6:35 AM CDT [facility] CHLORIDE S/P/B 101 97 - 115 MMOL/L 12/10/2024 6:35 AM CDT [facility] CO2 28.9 21.0 - 32.0 MMOL/L 12/10/2024 6:35 AM CDT [facility] GLUCOSE 101 74 - 106 MG/DL 12/10/2024 6:35 AM CDT [facility] BUN 27(H) 7 - 18 MG/DL 12/10/2024 6:35 AM CDT [facility] CREATININE S/P/B 0.89 0.70 - 1.30 MG/DL 12/10/2024 6:35 AM CDT [facility] CALCIUM S/P/B 8.7 8.5 - 10.1 MG/DL 12/10/2024 6:35 AM CDT [facility] ANION GAP 4.1 2.0 - 10.0 MMOL/L 12/10/2024 6:35 AM CDT [facility] OSMOLALITY (CALC) 283 MOSM/KG 025 6:35 AM CDT [facility] Comment:REFERENCE RANGE NOT ESTABLISHED GFR ESTIMATE 89(L) >90 ML/MIN/1. 73 M2 12/10/2024 6:35 AM CDT [facility] GFR NOTES GFR REFERENCE S: 12/10/2024 6:35 AM CDT [facility] Comment: THE ESTIMATED GFR IS CALCULATED USING THE 2020 CKD-EPI EQUATION. THE FOLLOWING CATEGORIES FOR GRADING RENAL FUNCTION ARE RECOMMENDED BY THE INTERNATIONAL SOCIETY OF NEPHROLOGY (KDIGO 2012 CLINICAL PRACTICE GUIDELINE). G1,NORMAL OR HIGH: >89 ml/min/1.73 m2 G2,MILDLY DECREASED: 60-89 ml/min/1.73 m2 G3A,MILDLY TO MODERATELY DECREASED: 45-59 ml/min/1.73 m2 G3B,MODERATELY TO SEVERELY DECREASED: 30-44 ml/min/1.73 m2 G4,SEVERELY DECREASED: 15-29 ml/min/1.73 m2 G5,KIDNEY FAILURE: <15 ml/min/1.73 m2 12/10/2024 5:51 AM CDT Lawson Grayson MD LABORATORY Final Result [facility] [address] [place] [address], [phone] * (ABNORMAL) CBC W/DIFF AUTOMATED (12/10/2024 5:51 AM CDT) WBC 9.05 4.00 - 10.80 x10'3/uL 12/10/2024 6:09 AM CDT [facility] RBC 3.24(L) 4.50 - 6.10 x10'6/uL 12/10/2024 6:09 AM CDT [facility] HGB 9.6(L) 13.0 - 18.0 G/DL 12/10/2024 6:09 AM CDT [facility] HCT 29.6(L) 37.0 - 52.0 % 12/10/2024 6:09 AM CDT [facility] MCV 91.4 78.0 - 100.0 FL 12/10/2024 6:09 AM CDT [facility] MCH 29.6 27.0 - 31.0 PG 12/10/2024 6:09 AM CDT [facility] MCHC 32.4(L) 33.0 - 36.0 G/DL 12/10/2024 6:09 AM CDT [facility] RDW 13.1 11.5 - 14.5 % 12/10/2024 6:09 AM CDT [facility] PLT 266 150 - 350 x10'3/uL 12/10/2024 6:09 AM CDT [facility] MPV 9.2 7.4 - 10.4 FL 12/10/2024 6:09 AM CDT [facility] DIFFERENTIAL TYPE AUTOMATED DIFFERENTIAL 12/10/2024 6:09 AM CDT [facility] SEG NEUTROPHILS 69.5 % 6:09 AM CDT [facility] LYMPHOCYTES 15.4 % 12/10/2024 6:09 AM CDT [facility] MONOCYTES 10.8 % 12/10/2024 6:09 AM CDT [facility] EOSINOPHILS 3.1 % 12/10/2024 6:09 AM CDT [facility] BASOPHILS 0.9 % 12/10/2024 6:09 AM CDT [facility] IMMATURE GRANS % 0.3 % 12/11/19 6:09 AM CDT [facility] ABS. NEUTROPHILS 6.29 1.60 - 8.30 x10'3/uL 12/10/2024 6:09 AM CDT [facility] ABS. LYMPHOCYTES 1.39 0.80 - 4.70 x10'3/uL 12/10/2024 6:09 AM CDT [facility] ABS. MONOCYTES 0.98 0.00 - 1.50 x10'3/uL 12/10/2024 6:09 AM CDT [facility] ABS. EOSINOPHILS 0.28 0.00 - 0.40 x10'3/uL 12/10/2024 6:09 AM CDT [facility] ABS. BASOPHILS 0.08 0.00 - 0.20 x10'3/uL 12/10/2024 6:09 AM CDT [facility] ABS. IMMATURE GRANULOCYTES 0.03 0.00 - 0.03 x10'3/uL 12/10/2024 6:09 AM CDT [facility] ABS. NUCLEATED RBC'S 0.00 0.00 - 0.01 x10'3/uL 12/10/2024 6:09 AM CDT [facility] NRBC % 0.0 % 12/10/2024 6:09 AM CDT [facility] 12/10/2024 5:51 AM CDT Lawson Grayson MD LABORATORY Final Result [facility] [address] [place] [address], [id number] * MRI BRAIN WO CON (12/10/2024 4:34 AM CDT) Anatomical Region Laterality Modality Head Magnetic Resonan ce 12/10/2024 5:02 AM CDT Impressions 12/10/2024 5:16 AM CDT IMPRESSION: 1. No acute intracranial abnormality. 2. Age-appropriate atrophy with moderate nonspecific chronic periventricular and deep cerebral white matter microvascular disease in bilateral cerebral hemispheres. 3. 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 4. Tiny old lacunar infarcts bilaterally in the shin. 5. Postoperative changes of bilateral lens replacement surgery in the orbits. Susceptibility artifact over the lateral wall of the left orbit from both radiodensity in the anterolateral wall of the left orbit from prior orbital fracture repair. Referred By: TYE MORALES Interpreted By: Kristi Kenney MD, 12/10/2024 5:02 AM Narrative 12/10/2024 5:16 AM CDT [facility] [address] [place], [place] [address] EXAMINATION: MRI BRAIN WO CON. Multiplanar, multisequence MR imaging of the brain was performed without intravenous contrast. INDICATION: Prior stroke, fell from elevation while cleaning gutters. COMPARISON: CT head without contrast 12/09/2024. FINDINGS: No acute ischemia, infarct, or intracranial hemorrhage. No mass effect, midline shift, or acute osseous abnormality. Age appropriate atrophy. Stable chronic cystic encephalomalacia and gliosis laterally in the right temporal lobe involving part of the right middle cerebral artery vascular territory, slightly extending into the posterior right insula and inferior external capsule region. Dilated Virchow-To CSF spaces and/or old lacunar infarcts and cystic change in bilateral basal ganglia/capsule/insular cortex region. Tiny old lacunar infarcts bilaterally in the shin. Moderate nonspecific confluent nodular foci of FLAIR and T2 hyperintensity in the periventricular and deep cerebral white matter in bilateral cerebral hemispheres without edema or mass effect, statistically most likely nonspecific chronic microvascular disease. Stable slight ex vacuo dilatation of the right lateral ventricle related to the old right temporal lobe infarct. Ventricles are otherwise normal. 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 No significant abnormal extra-axial fluid collections. Appropriate flow-voids are seen in the major vessels of the [place]. No significant paranasal sinus or mastoid air cell disease. Postoperative changes of bilateral lens replacement surgery in the orbits. Susceptibility artifact over the lateral left orbit from both radiodensity in the anterolateral wall of the left orbit from prior orbital fracture repair.. Procedure Note Kristi Kenney MD - 12/10/2024 [facility] [address] [place], [place] [address] EXAMINATION: MRI BRAIN WO CON. Multiplanar, multisequence MR imaging ofthe brain was performed without intravenous contrast. INDICATION: Prior stroke, fell from elevation while cleaning gutters. COMPARISON: CT head without contrast 12/09/2024. FINDINGS: No acute ischemia, infarct, or intracranial hemorrhage. No masseffect, midline shift, or acute osseous abnormality. Age appropriateatrophy. Stable chronic cystic encephalomalacia and gliosis laterally inthe right temporal lobe involving part of the right middle cerebral arteryvascular territory, slightly extending into the posterior right insula andinferior external capsule region. Dilated Virchow- To CSF spaces and/orold lacunar infarcts and cystic change in bilateral basalganglia/capsule/insular cortex region. Tiny old lacunar infarctsbilaterally in the shin. Moderate nonspecific confluent nodular foci ofFLAIR and T2 hyperintensity in the periventricular and deep cerebral whitematter in bilateral cerebral hemispheres without edema or mass effect,statistically most likely nonspecific chronic microvascular disease.Stable slight ex vacuo dilatation of the right lateral ventricle relatedto the old right temporal lobe infarct. Ventricles are otherwise normal.Incidental tiny persistent cavum septum pellucidum et vergae, adevelopmental variant. No significant abnormal extra-axial fluidcollections. Appropriate flow- voids are seen in the major vessels of the[place]. No significant paranasal sinus or mastoid air celldisease. Postoperative changes of bilateral lens replacement surgery inthe orbits. Susceptibility artifact over the lateral left orbit from bothradiodensity in the anterolateral wall of the left orbit from priororbital fracture repair.. IMPRESSION: 1. No acute intracranial abnormality. 2. Age-appropriate atrophy with moderate nonspecific chronicperiventricular and deep cerebral white matter microvascular disease inbilateral cerebral hemispheres. 3. Stable old infarct in the right temporal lobe involving part of theright middle cerebral artery vascular territory. 4. Tiny old lacunar infarcts bilaterally in the shin. 5. Postoperative changes of bilateral lens replacement surgery in theorbits. Susceptibility artifact over the lateral wall of the left orbitfrom both radiodensity in the anterolateral wall of the left orbit fromprior orbital fracture repair. Referred By: TYE MORALES Interpreted By: Kristi Kenney MD, 12/10/2024 5:02 AM Lawson Grayson MD MRI Final Result * CT HIP RT WO CON (12/10/2024 4:09 AM CDT) Anatomical Region Laterality Modality Hip Computed Tomogra phy 12/10/2024 5:16 AM CDT Impressions 12/10/2024 5:24 AM CDT IMPRESSION: 1. Acute comminuted fracture of the right superior pubic ramus which extends into the anteromedial column of the right acetabulum. 2. Slightly comminuted fracture of the right inferior pubic ramus with slightly displaced fracture fragments of the right superior and inferior pubic rami. 3. Fracture in the subtrochanteric right femur, best seen at the medial cortical margin of the distal stem of the intramedullary right femoral prosthesis. 4. Acute fracture in the anterior partially included anterior inferior right sacral ala medial to the anterior lower right sacroiliac joint. 5. Postop changes of right hip arthroplasty with the right femoral condyle well seated within the right acetabulum without loosening. 6. Soft tissue swelling in the right hemipelvis and groin as noted above. Referred By: TYE MORALES Interpreted By: Kristi Kenney MD, 12/10/2024 5:16 AM Narrative 12/10/2024 5:24 AM CDT [place] [id number] EXAMINATION: CT Right Hip without intravenous contrast, Axial Imaging with 2-D Coronal and Sagittal Reconstructions This CT exam was performed using one or more of the following dose reduction techniques: automated exposure control, adjustment of the mA and/or kV according to patient size, the use of iterative reconstruction technique, use of ALARA (As Low As Reasonably Achievable) and/or use of Image Gently techniques. INDICATION: Periprosthetic femur fracture, evaluate for acetabular fracture. COMPARISON: Right hip x-ray 12/09/2024. FINDINGS: There is an acute fracture in the anterior partially included anterior inferior right sacral ala medial to the anterior lower right sacroiliac joint on axial series 3 image 1. Postop changes of right hip arthroplasty with the right femoral condyle well seated within the right acetabulum without loosening. There is an acute comminuted fracture of the right superior pubic ramus which extends into the anteromedial column of the right acetabulum. Slightly comminuted fracture also of the right inferior pubic ramus with slightly displaced fracture fragments of the right superior and inferior pubic rami. Posterior column of the right acetabulum appears intact. Pubic symphysis appears intact. Fracture in the subtrochanteric right femur, best seen at the medial and anterior cortical margin the distal stem of the intramedullary right femoral prosthesis with minimal displacement. No other acute fracture or dislocation is seen. Soft tissue swelling adjacent to the right pubic rami fractures and involving the right obturator internus muscle in the right groin muscles. Excreted contrast in the bladder without or extraluminal extravasation in the included pelvis. Moderate stool in the partially included rectosigmoid colon. Prostate is normal. No significant fluid in the pelvis. No unexpected radiopaque foreign body. Mild atherosclerotic vascular calcifications in the right iliac and femoral arteries. Mild subcutaneous stranding in the medial right groin related to trauma. Procedure Note Kristi Kenney MD - 12/10/[address] [address] EXAMINATION: CT Right Hip without intravenous contrast, Axial Imagingwith 2-D Coronal and Sagittal Reconstructions This CT exam was performed using one or more of the following dosereduction techniques: automated exposure control, adjustment of the mAand/or kV according to patient size, the use of iterative reconstructiontechnique, use of ALARA (As Low As Reasonably Achievable) and/or use ofImage Gently techniques. INDICATION: Periprosthetic femur fracture, evaluate for acetabularfracture. COMPARISON: Right hip x-ray 12/09/2024. FINDINGS: There is an acute fracture in the anterior partially includedanterior inferior right sacral ala medial to the anterior lower rightsacroiliac joint on axial series 3 image 1. Postop changes of right hiparthroplasty with the right femoral condyle well seated within the rightacetabulum without loosening. There is an acute comminuted fracture ofthe right superior pubic ramus which extends into the anteromedial columnof the right acetabulum. Slightly comminuted fracture also of the rightinferior pubic ramus with slightly displaced fracture fragments of theright superior and inferior pubic rami. Posterior column of the rightacetabulum appears intact. Pubic symphysis appears intact. Fracture inthe subtrochanteric right femur, best seen at the medial and anteriorcortical margin the distal stem of the intramedullary right femoralprosthesis with minimal displacement. No other acute fracture ordislocation is seen. Soft tissue swelling adjacent to the right pubicrami fractures and involving the right obturator internus muscle in theright groin muscles. Excreted contrast in the bladder without orextraluminal extravasation in the included pelvis. Moderate stool in thepartially included rectosigmoid colon. Prostate is normal. Nosignificant fluid in the pelvis. No unexpected radiopaque foreign body.Mild atherosclerotic vascular calcifications in the right iliac andfemoral arteries. Mild subcutaneous stranding in the medial right groinrelated to trauma. IMPRESSION: 1. Acute comminuted fracture of the right superior pubic ramus whichextends into the anteromedial column of the right acetabulum. 2. Slightly comminuted fracture of the right inferior pubic ramus withslightly displaced fracture fragments of the right superior and inferiorpubic rami. 3. Fracture in the subtrochanteric right femur, best seen at the medialcortical margin of the distal stem of the intramedullary right femoralprosthesis. 4. Acute fracture in the anterior partially included anterior inferiorright sacral ala medial to the anterior lower right sacroiliac joint. 5. Postop changes of right hip arthroplasty with the right femoralcondyle well seated within the right acetabulum without loosening. 6. Soft tissue swelling in the right hemipelvis and groin as notedabove. Referred By: TYE MORALES Interpreted By: Kristi Kenney MD, 12/10/2024 5:16 AM us Tae Cramer MD CT Final Result * MRSA PCR nares SCREENING (12/09/2024 9:45 PM CDT) SPECIMEN SOURCE RESPIRATORY, NOSE 12/09/2024 9:48 PM CDT [facility] MRSA BY PCR NASAL METHICILLIN RESISTANT STAPH AUREUS NOT DETECTED METHICILLIN RESISTANT STAPH AUREUS NOT DETECTED 12/10/2024 10:57 AM CDT [facility] NASAL STRUCTURE / Unknown 12/09/2024 9:45 PM CDT Lawson Grayson MD MICROBIOLOGY - GENERAL ORDERABL ES Final Result Performing Organization Address [facility] de Phone Number [facility] [address] [place] [address], [phone] * TYPE & SCREEN (12/09/2024 9:22 PM CDT) ABO/RH O POSITIVE 12/09/2024 10:18 PM CDT [facility] ANTIBODY SCREEN NEGATIVE 12/09/2024 10:18 PM CDT [facility] SAMPLE EXPIRATION 12/12/2024,2 359 12/09/2024 9:36 PM CDT [facility] 12/09/2024 9:22 PM CDT Tae Cramer MD BLOOD BANK TEST ORDERABLES Fin al Result Performing Organization Address [facility] de Phone Number [facility] [address] [place] [address], [place] [phone] documented in this encounter Visit Diagnoses Diagnosis Hip fracture, right ([facility] HHS/HCC)- Primary Closed fracture of unspecified part of neck of femur Abdominal aortic aneurysm (AAA) without rupture, unspecified part documented in this encounter Admitting Diagnoses Diagnosis Hip fracture, right ([facility] H[facility]) Closed fracture of unspecified part of neck of femur documented in this encounter Administered Medications Inactive Administered Medications - up to 3 most recent administrations Medication Order MAR Action Action Date Dose Rate Site acetaminophen (TYLENOL) tablet 650 mg 650 mg, Oral, Every 4 hours PRN, Mild pain (Scale 1 - 3), Starting on Sun12/09/24 at 1945, Until 12/13/24 at 2120, Maximum dose of acetaminophen is 4000 mg from all sources in 24 hours. aspirin chewable tablet 81 mg 81 mg, Oral, Daily, First dose on Sun12/10/24 at 0900, Until Discontinued Given 12/13/2024 9:18 AM CDT 81 mg Given 12/12/2024 7:48 AM CDT 81 mg atorvastatin (LIPITOR) tablet 20 mg 20 mg, Oral, Nightly at bedtime, First dose on Sun12/10/24 at 2100, Until Discontinued, Therapeutic interchange for lovastatin Given 12/12/2024 8:18 PM CDT 20 mg Given 12/11/2024 8:33 PM CDT 20 mg Given 12/10/2024 8:15 PM CDT 20 mg chlorhexidine (PERIDEX) 0.12 % solution 15 mL 15 mL, Mouth/Throat, Once, 1 dose, On Sun12/10/24 at 0530, Patient to perform oral care first. Swish/gargle in mouth for 30 seconds, and then discard prior to going to surgery. If ventilated use saturated swab to clean oral cavity., Pre-Op Given 12/10/2024 6:03 AM CDT 15 mLs chlorhexidine (PERIDEX) 0.12 % solution 15 mL 15 mL, Mouth/Throat, Once, 1 dose, On Sun12/10/24 at 0815, Patient to perform oral care first. Swish/gargle in mouth for 30 seconds, and then discard prior to going to surgery. If ventilated use saturated swab to clean oral cavity., Pre-Op Given 12/10/2024 8:05 AM CDT 15 mLs enoxaparin (LOVENOX) 40 MG/0.4ML syringe 40 mg 40 mg, Subcutaneous, Nightly (enoxaparin), First dose on Autumn 12/11/24 at 2100, Until Discontinued, Administer by deep SubQ injection alternating between the left or right anterolateral and left or right posterolateral abdominal wall. Given 12/12/2024 8:19 PM CDT 40 mg Left Upper Abdomen Given 12/11/2024 8:33 PM CDT 40 mg Le ft Lower Abdomen HYDROcodone-acetaminophen (NORCO) 5-325 MG tablet 1 tablet 1 tablet, Oral, Every 4 hours PRN, Moderate pain (Scale 4 - 7), Starting on 12/09/24 at 1944, Until 12/13/24 at 2121, Maximum dose of acetaminophen is 4000 mg from all sources in 24 hours. Given 12/13/2024 4:28 PM CDT 1 tablet Given 12/13/2024 6:15 AM CDT 1 tablet Given 12/13/2024 12:28 AM CDT 1 tablet HYDROmorphone (DILAUDID) injection 0.2 mg 0.2 mg, Intravenous, Every 3 hours PRN, Severe pain (Scale 8 - 10), Starting on Sun12/09/24 at 1945, Until Sun12/13/24 at 2120, Administer slowly over at least 2-3 minutes. iopamidol (ISOVUE-370) 76 % injection 100 mL 100 mL, Intravenous, IMG once as needed, Contrast, 1 dose, Starting on Sun12/10/24 at 0942, Until Sun12/10/24 at 0942 Given 12/10/2024 9:42 AM CDT 100 mLs labetalol (TRANDATE) injection 20 mg 20 mg, Intravenous, Every 6 hours PRN, High blood pressure, for sBP > 160, Starting on Sun12/10/24 at 0023, Until Sun12/13/24 at 2120, Bolus may be administered by IV push at a rate of 10 mg/min. Monitor HR and BP prior to admin, 15 and 30 minutes post administration. Do not give if SBP <100mm or HR <55. Patient to stay supine during and for 30 minutes after IV administration due to potential for orthostatic hypotension. metoprolol succinate ER (TOPROL-XL) 24 hr tablet 100 mg 100 mg, Oral, Daily, First dose on Sun12/10/24 at 0900, Until Discontinued, May be split in half along the tablet score line; do not chew or crush. Given 12/13/2024 9:18 AM CDT 100 mg Given 12/12/2024 7:48 AM CDT 100 mg Given 12/11/2024 8:56 AM CDT 100 mg ondansetron (ZOFRAN) injection 4 mg 4 mg, Intravenous, Every 8 hours PRN, Nausea, Vomiting, Starting on Sun12/09/24 at 1943, Until Sun12/13/24 at 2120, IV push over 2-5 minutes. polyethylene glycol (GLYCOLAX) packet 17 g 17 g, Oral, Daily as needed, Constipation, Starting on Sun12/09/24 at 1943, Until 12/13/24 at 2120, If both senna and polyethylene glycol are ordered, use 1st; if no response by next dosing interval, go to next option. sodium chloride 0.9% infusion at 75 mL/hr, Intravenous, Continuous, Starting on Sun12/09/24 at 2014, Until Sun12/10/24 at 2013 New Bag 12/11/2024 12:12 AM CDT 75 mL/hr New Bag 12/10/2024 1:07 AM CDT 75 mL/hr Rate/Dose Change 12/09/2024 9:41 PM CDT 75 mL/h r traZODone (DESYREL) tablet 100 mg 100 mg, Oral, Nightly at bedtime, First dose on Autumn 12/11/24 at 2100, Until Discontinued Given 12/12/2024 8:18 PM CDT 1 00 mg Given 12/11/2024 8:33 PM CDT 100 mg documented in this encounter Active and Recently Administered Medications Times are shown in CDT. Scheduled Medication Order 12/11/2024 12/12/2024 12/13/2024 aspirin chewable tablet 81 mg 81 mg, Oral, Daily, First dose on Sun12/10/24 at 0900, Until Discontinued 08 (Not Given - Provider: Camille Dunlap, Nurse Internal Medicine Physician Assistant II - Reason: Contraindicated - Comment: surgery) 0748 (Given - Provider: Ladi Jimenez LPN) 0918 (Given - Provider: Dwight Massey RN) atorvastatin (LIPITOR) tablet 20 mg 20 mg, Oral, Nightly at bedtime, First dose on Sun12/10/24 at 2100, Until Discontinued, Therapeutic interchange for lovastatin 2032 (Given - Provider: Nyasia Abdalla, CABRERA) 2017 (Given - Provider: Richard Fuentes RN) 2100 (Canceled Entry - Provider: Automatic Discharge Provider - Comment: Automatically canceled at discontinue of medication order) chlorhexidine (PERIDEX) 0.12 % solution 15 mL 15 mL, Mouth/Throat, Once, 1 dose, On Autumn 12/11/24 at 0700, Patient to perform oral care first. Swish/gargle in mouth for 30 seconds, and then discard prior to going to surgery. If ventilated use saturated swab to clean oral cavity., Pre-Op 1521 (Not Given - Provider: Camille Dunlap, Nurse Internal Medicine Physician Assistant II - Reason: Contraindicated - Comment: pt not going to surg til 12/16/2024) enoxaparin (LOVENOX) 40 MG/0.4ML syringe 40 mg 40 mg, Subcutaneous, Nightly (enoxaparin), First dose on Autumn 12/11/24 at 2100, Until Discontinued, Administer by deep SubQ injection alternating between the left or right anterolateral and left or right posterolateral abdominal wall. 2032 (Given - Provider: Nyasia Abdalla RN) 2018 (Given - Provider: Richard Fuentes RN) 2099 (Canceled Entry - Provider: Automatic Discharge Provider - Comment: Automatically canceled at discontinue of medication order) metoprolol succinate ER (TOPROL-XL) 24 hr tablet 100 mg 100 mg, Oral, Daily, First dose on Sun12/10/24 at 0900, Until Discontinued, May be split in half along the tablet score line; do not chew or crush. 0856 (Given - Provider: Camille Dunlap, Nurse Internal Medicine Physician Assistant II) 0748 (Given - Provider: Ladi Jimenez LPN) 0918 (Given - Provider: Dwight Massey RN) traZODone (DESYREL) tablet 100 mg 100 mg, Oral, Nightly at bedtime, First dose on Autumn 12/11/24 at 2100, Until Discontinued 2032 (Given - Provider: Nyasia Abdalla RN) 2017 (Given - Provider: Richard Fuentes RN) 2099 (Canceled Entry - Provider: Automatic Discharge Provider - Comment: Automatically canceled at discontinue of medication order) Continuous Medication Order 12/11/2024 12/12/2024 12/13/2024 sodium chloride 0.9% infusion (CANCELED) at 75 mL/hr, Intravenous, Continuous, Starting on Sun12/09/24 at 2015, Until Sun12/10/24 at 2014 0012 (New Bag - Provider: Nyasia Abdalla RN) PRN Medication Order 12/11/2024 12/12/2024 12/13/2024 acetaminophen (TYLENOL) tablet 650 mg 650 mg, Oral, Every 4 hours PRN, Mild pain (Scale 1 - 3), Starting on Sun12/09/24 at 1945, Until 12/13/24 at 2121, Maximum dose of acetaminophen is 4000 mg from all sources in 24 hours. HYDROcodone-acetaminophen (NORCO) 5-325 MG tablet 1 tablet 1 tablet, Oral, Every 4 hours PRN, Moderate pain (Scale 4 - 7), Starting on Sun12/09/24 at 1944, Until Sun12/13/24 at 2120, Maximum dose of acetaminophen is 4000 mg from all sources in 24 hours. 0512 (Given - Provider: Nyasia Abdalla, RN)1155 (Given - Provider: Camille Dunlap, Nurse Internal Medicine Physician Assistant II)1653 (Given - Provider: Zonia Kendrick, CABRERA)2033 (Given - Provider: Nyasia Abdalla, CABRERA) 0024 (Given - Provider: Nyasia Abdalla, RN)0419 (Given - Provider: Nyasia Abdalla, CABRERA)1646 (Given - Provider: Mily Ornelas, CABRERA)2018 (Given - Provider: Richard Fuentes, CABRERA) 0028 (Given - Provider: Richard Fuentes, CABRERA)0615 (Given - Provider: Richard Fuentes, CABRERA)1628 (Given - Provider: Dwight Massey RN) HYDROmorphone (DILAUDID) injection 0.2 mg 0.2 mg, Intravenous, Every 3 hours PRN, Severe pain (Scale 8 - 10), Starting on Sun12/09/24 at 1945, Until Sun12/13/24 at 2120, Administer slowly over at least 2-3 minutes. labetalol (TRANDATE) injection 20 mg 20 mg, Intravenous, Every 6 hours PRN, High blood pressure, for sBP > 160, Starting on Sun12/10/24 at 0023, Until Sun12/13/24 at 2120, Bolus may be administered by IV push at a rate of 10 mg/min. Monitor HR and BP prior to admin, 15 and 30 minutes post administration. Do not give if SBP <100mm or HR <55. Patient to stay supine during and for 30 minutes after IV administration due to potential for orthostatic hypotension. ondansetron (ZOFRAN) injection 4 mg 4 mg, Intravenous, Every 8 hours PRN, Nausea, Vomiting, Starting on Sun12/09/24 at 1943, Until Sun12/13/24 at 2120, IV push over 2-5 minutes. polyethylene glycol (GLYCOLAX) packet 17 g 17 g, Oral, Daily as needed, Constipation, Starting on 12/09/24 at 1943, Until 12/13/24 at 2121, If both senna and polyethylene glycol are ordered, use 1st; if no response by next dosing interval, go to next option. documented in this encounter Care Teams Cook Room Supervisor Relationship Specialty Start Date End Date Sergei Ruff MD [address] [place] [address] PCP - General FAMILY PRACTICE 12/09/24 Cathryn Espinoza, training and development assistant (Ambulatory) REGISTERED NURSE 12/10/24 12/14/24 documented as of this encounter
--- OUTSIDE RECORDS SUMMARY | 2024-12-15 17:53 | XMS_ITS | Clinical Summary ---
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 Active metoprolol succinate ER (TOPROL-XL) 100 MG 24 hr tablet Take 1 tablet (100 mg total) by mouth daily. Active lovastatin (MEVACOR) 40 MG tablet Take 2 tablets (80 mg total) by mouth daily. 4 Active traZODone (DESYREL) 100 MG tablet Take 1 tablet (100 mg total) by mouth nightly at bedtime. 5 Active atorvastatin (LIPITOR) 40 MG tablet Take 1 tablet (40 mg total) by mouth nightly at bedtime. 12/10/19 25 Discontinu ed(Error) Active Problems Problem Noted Date Diagnosed Date Hip fracture, right ([facility]) 12/09/2024 Encounters Date Type Department Care Team Description 12/15/2024 Patient Outreach [address] [phone] Cathryn Espinoza RN [facility] (Left AMA 12/13/24 from S) 12/15/2024 Patient Outreach [facility] [address] [phone] Cathryn Espinoza RN Hospital Follow Up 12/15/2024 Patient Outreach [facility] [address] [place] [phone] Cathryn Espinoza RN TCM (Left AMA 12/13/2024) 12/12/2024 Hospital Orders Only [facility] Anesthesia [address] [place] [address] Karen Bianchi RN 12/10/2024 11:59 PM CDT Anesthesia Event [facility] [place] [address] [place] [address] Karen Bianchi RN 12/10/2024 [facility] [address] [place] [phone] Cathryn Espinoza RN Hospital Follow Up (Admission to [facility] 12/09/2024) 12/09/2024 6:53 PM CDT - 12/13/2024 7:21 PM CDT Hospital Encounter [facility] Orthopaedics [address] [place] [address] Conor Saenz MD Sheikh, Omer S, MD Minhas, Irfan Ul Haq, MD Discharge Disposition: Left Against Medical Advice 12/09/2024 1:23 PM CDT - 12/09/2024 5:45 PM CDT Emergency [place] [facility] [address] [place] [address] Oj Morales MD Fall; Hip Pain Discharge Disposition: Another Health Care Institution Not Defined 12/09/2024 Travel from Last 3 Months Family History Medical History Relation Comments Heart Disease Brother Relation Status Comments Brother Social History Tobacco Use Types Packs/Day Years Used Date Smoking Tobacco: Every Day Cigarettes Smokeless Tobacco: Never Tobacco Cessation:Ready to Q uit: Not Asked; Counseling Given: Not Answered Alcohol Use Standard Drinks/Week Comments Yes 0 (1 standard drink = 0.6 oz pur e alcohol) monthly [facility] Utilities Answer Date Recorded In the past 12 months has e electric, gas, oil, or water company threatened to [...] time in the past [address] [facility], were you homeless or living in a halfway (including now)? 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 [address] [place] [address] Karen Bianchi RN Health Maintenance Due Date Last Done Comments Colorectal Cancer Screening Colonoscopy (10 Years) 1950 Hepatitis C 1967 Pneumococcal Vaccine: 50+ Years (1 of 2 - PCV) 1968 Zoster Vaccines (1 of 2) 1999 Annual Medicare Wellness Visit 2014 DTaP, Tdap and Td Vaccines ( 2 - Td or Tdap) 11/22/2022 11/22/2012 COVID-19 Vaccine (1 - 2023-2 5 season) 2024 RSV Immunization or 60+ Years (1 - 1-dose 75+ series) 2024 PHQ-2 (Physician Rachel) 06/18/2024 AAA SCREENING Completed 12/10/2024, 12/09/2024 Meningococcal B Vaccine Aged Out No l onger eligible based on patient's age to complete this topic Meningococcal Vaccine Aged Out No jacob chele eligible based on patient's age to complete this topic RSV Immunizations Under 20 Months Aged Out No longer eligible b ased on patient's age to complete this topic Procedures Procedure Name Priority Date/Time Associated Diagnosis Comments BASIC METABOLIC PANEL Routine 12/13/2024 4:16 AM CDT CBC W/DIFF AUTOMATED Routine 12/13/2024 4:16 AM CDT USV ART DUPLEX LOW PAYTON Today 12/12/2024 4:56 PM CDT Procedure Note - 12/12/2024 4:56 PM CDTThis note is in progress. Vascular Report Pat.Name: AUSTIN CRAMER Pat.ID: [id number] .Date: 12/12/2024 Refer.MD: KAITLYNN MEJIAS Exam Time: 3:26:00 PM Study Type:PVI ART DUPLEX SCAN BILATERAL LEG Height: 72 in Age: 12 1950,74Y Sex: M Sonogrphr: Jhonny Manjarrez RVT, [facility] Pat. Stat.:Inpatient CPT - 4: 03864 Arterial Duplex LE Reason for Study:Popliteal aneurysm Race: W ++++++++++++++++++++++++++++++++++++ FINDINGS: ++++++++++++++++++++++++++++++++++++ AO: An abdominal aortic aneurysm noted in the infrarenal aorta measuring 5.90 cm x 6.58 cm. Maximum Aortic diameter is 6.58 cm. Rt Lower Ext: No evidence of popliteal artery aneurysm noted. The largest rt group tester measures 0.9 cm. The largest rt popliteal measures 0.8 cm. Turbulent flow noted in the right FLOOR ASSEMBLER with no evidence of stenosis noted in the right MAXIMUS or visualized right EIA by velocity criteria. Lt Lower Ext: The largest lt group tester measures 0.9 cm. The largest lt popliteal measures 0.8 cm. ++++++++++++++++++++++++++++++++++++ MEASUREMENTS: ++++++++++++++++++++++++++++++++++++ DOPPLER Left FLOOR ASSEMBLER FLOOR ASSEMBLER PSV 130 cm/s Left Prox Pop A Prox Pop A PSV 54.9 cm/s Left Dist Pop A Dist Pop A PSV 72.8 cm/s Right FLOOR ASSEMBLER FLOOR ASSEMBLER PSV 130 cm/s Right Prox Pop A [...] W/DIFF AUTOMATED Routine 12/12/2024 4:09 AM CDT PHOSPHORUS, INORGANIC PHOSPHATE Routine 12/11/2024 3:44 AM CDT MAGNESIUM Routine 12/11/2024 3:44 AM CDT BASIC METABOLIC PANEL Routine 12/11/2024 3:44 AM CDT CBC W/DIFF AUTOMATED Routine 12/11/2024 3:44 AM CDT USE ECHOCARDIOGRAM Today 12/10/2024 3: 39 PM CDT POCT GLUCOSE - DOCKED DEVICE Routine 12/10/2024 11:18 AM CDT USV CAROTID DUPLEX PAYTON Today 12/10/2024 10:33 AM CDT CTA CHEST+ABD+PEL Today 12/10/2024 9:4 1 AM CDT POTASSIUM URINE RANDOM Nurse Collected Priority 12/10/2024 6:20 AM CDT CHLORIDE URINE RANDOM Nurse Collected Priority 12/10/2024 6:20 AM CDT SODIUM URINE RANDOM Nurse Collected Priority 12/10/2024 6:20 AM CDT DRUG SCREEN RAPID Nurse Collected Priority 12/10/2024 6:20 AM CDT LIPID PANEL Routine 12/10/2024 5:51 AM CDT HEMOGLOBIN, GLYCOSYLATED Routine 12/10/2024 5:51 AM CDT CK (CPK) Routine 12/10/2024 5:51 AM CDT VITAMIN D, 25 OH Routine 12/10/2024 5:51 AM CDT BASIC METABOLIC PANEL Routine 12/10/2024 5:51 AM CDT CBC W/DIFF AUTOMATED Routine 12/10/2024 5:51 AM CDT MRI BRAIN WO CON Today 12/10/2024 4:[address] HIP RT WO CON Today 12/10/2024 4:09 AM CDT HC MRSA AMP Nurse Collected Priority 12/09/2024 9:45 PM CDT TYPE & SCREEN Routine 12/09/2024 9:[address] CHEST+ABD+PEL W CON STAT 12/09/2024 3:[address] HEAD WO CON STAT 12/09/2024 3:09 PM CDT ECG 12-LEAD STAT 12/09/2024 2:27 PM CDT CRITICAL CARE Routine 12/09/2024 2:25 PM CDT MAGNESIUM STAT 12/09/2024 2:23 PM CDT TROPONIN, QUANT STAT 12/09/2024 2:23 PM CDT PROTHROMBIN TIME, VENOUS STAT 12/09/2024 2:23 PM CDT COMPREHENSIVE METABOLIC PANEL STAT 12/09/2024 2:23 PM CDT CBC W/DIFF AUTOMATED STAT 12/09/2024 2:23 PM CDT XR CHEST PORTABLE STAT 12/09/2024 2:1 4 PM CDT XR FEMUR RT 2V STAT 12/09/2024 2:14 PM CDT XR HIP RT 2V STAT 12/09/2024 1:50 PM CDT from Last 3 Months Results * (ABNORMAL) BASIC METABOLIC PANEL (12/13/2024 4:16 AM CDT) Only the most recent of4 resultswithin the time period is included. SODIUM S/P/B 134(L) 136 - 145 MMOL/L 12/13/2024 5:32 AM CDT [facility] POTASSIUM S/P/B 3.6 3.5 - 5.1 MMOL/L 12/13/2024 5:32 AM CDT [facility] CHLORIDE S/P/B 102 97 - 115 MMOL/L 12/13/2024 5:32 AM CDT [facility] CO2 29.0 21.0 - 32.0 MMOL/L 12/13/2024 5:32 AM CDT [facility] GLUCOSE 99 74 - 106 MG/DL 12/13/2024 5:32 AM CDT [facility] BUN 14 7 - 18 MG/DL 12/13/2024 5:32 AM CDT [facility] CREATININE S/P/B 0.74 0.70 - 1.30 MG/DL 12/13/2024 5:32 AM CDT [facility] CALCIUM S/P/B 8.6 8.5 - 10.1 MG/DL 12/13/2024 5:32 AM CDT [facility] ANION GAP 3.0 2.0 - 10.0 MMOL/L 12/13/2024 5:32 AM CDT [facility] OSMOLALITY (CALC) 278 MOSM/KG 025 5:32 AM CDT [facility] Comment:REFERENCE RANGE NOT ESTABLISHED GFR ESTIMATE >90 >90 ML/MIN/1. 73 M2 12/13/2024 5:32 AM CDT [facility] GFR NOTES GFR REFERENCE S: 12/13/2024 5:32 AM CDT [facility] Comment: THE ESTIMATED GFR IS CALCULATED [...] m2 12/13/2024 4:16 AM CDT us Irfan Ul Quang Alford MD LABORATORY Final Res ult [facility] [address] [place] [address], [phone] * (ABNORMAL) CBC W/DIFF AUTOMATED (12/13/2024 4:16 AM CDT) Only the most recent of5 resultswithin the time period is included. WBC 7.41 4.00 - 10.80 x10'3/uL 12/13/2024 5:03 AM CDT [facility] RBC 3.02(L) 4.50 - 6.10 x10'6/uL 12/13/2024 5:03 AM CDT [facility] HGB 9.1(L) 13.0 - 18.0 G/DL 12/13/2024 5:03 AM CDT [facility] HCT 27.1(L) 37.0 - 52.0 % 12/13/2024 5:03 AM CDT [facility] MCV 89.7 78.0 - 100.0 FL 12/13/2024 5:03 AM CDT [facility] MCH 30.1 27.0 - 31.0 PG 12/13/2024 5:03 AM CDT [facility] MCHC 33.6 33.0 - 36.0 G/DL 12/13/2024 5:03 AM CDT [facility] RDW 13.8 11.5 - 14.5 % 12/13/2024 5:03 AM CDT [facility] PLT 336 150 - 350 x10'3/uL 12/13/2024 5:03 AM CDT [facility] MPV 9.1 7.4 - 10.4 FL 12/13/2024 5:03 AM CDT [facility] DIFFERENTIAL TYPE AUTOMATED DIFFERENTIAL 12/13/2024 5:03 AM CDT [facility] SEG NEUTROPHILS 62.9 % 5:03 AM CDT [facility] LYMPHOCYTES 23.1 % 12/13/2024 5:03 AM CDT [facility] MONOCYTES 7.8 % 12/13/2024 5:03 AM CDT [facility] EOSINOPHILS 5.1 % 12/13/2024 5:03 AM CDT [facility] BASOPHILS 0.7 % 12/13/2024 5:03 AM CDT [facility] IMMATURE GRANS % 0.4 % 12/14/19 5:03 AM CDT [facility] ABS. NEUTROPHILS 4.66 1.60 - 8.30 x10'3/uL 12/13/2024 5:03 AM CDT [facility] ABS. LYMPHOCYTES 1.71 0.80 - 4.70 x10'3/uL 12/13/2024 5:03 AM CDT [facility] ABS. MONOCYTES 0.58 0.00 - 1.50 x10'3/uL 12/13/2024 5:03 AM CDT [facility] ABS. EOSINOPHILS 0.38 0.00 - 0.40 x10'3/uL 12/13/2024 5:03 AM CDT [facility] ABS. BASOPHILS 0.05 0.00 - 0.20 x10'3/uL 12/13/2024 5:03 AM CDT [facility] ABS. IMMATURE GRANULOCYTES 0.03 0.00 - 0.03 x10'3/uL 12/13/2024 5:03 AM CDT [facility] ABS. NUCLEATED RBC'S 0.00 0.00 - 0.01 x10'3/uL 12/13/2024 5:03 AM CDT [facility] NRBC % 0.0 % 12/13/2024 5:03 AM CDT [facility] 12/13/2024 4:16 AM CDT us Irfan Rosita Alford MD LABORATORY Final Res ult [facility] [address] [place] [address], [phone] * PHOSPHORUS, INORGANIC PHOSPHATE (12/11/2024 3:44 AM CDT) [facility] PHOSPHORUS 2.7 2.5 - 4.9 MG/DL 12/11/2024 4:50 AM CDT [facility] 12/11/2024 3:44 AM CDT Ada Alford MD LABORATORY Final Res ult Performing Organization Address City/[facility]/ZIP Co de Phone Number [facility] [address] [place] [address], [phone] * MAGNESIUM (12/11/2024 3:44 AM CDT) Only the most recent of2 resultswithin the time period is included. MAGNESIUM 2.2 1.6 - 2.6 MG/DL 12/11/2024 4:50 AM CDT [facility] 12/11/2024 3:44 AM CDT Ada Alford MD LABORATORY Final Res ult Performing Organization Address [facility] de Phone Number [facility] [address] [place] [address], [phone] * USE ECHOCARDIOGRAM (12/10/2024 3:39 PM CDT) Anatomical Region Laterality Modality Cardiac Echocardiogram 12/10/2024 2:08 PM CDT Narrative 12/11/2024 6:12 AM CDT Echocardiography Report Pat.Name: AUSTIN CRAMER Lisbeth Johnson.ID: [id number] .Date: 12/10/2024 Refer.: [id number] CARMEN GAMBLE EWDPROV EWDPROV Exam Time: 2:08:00 PM Study Type:ECHO WITH CARDIAC DOPPLER COMP Height: 72 in Weight: 133 lb BSA: 1.79 m2 Age: 12 1950,74Y Sex: M HR: 68 bpm Sonogrphr: Lucia Vasquez Pat. Stat.:Inpatient Room: 962 CPT - 4: 60337 Reason for Study:Prior stroke Procedures: 2D, M-mode, [...] Mass 2D Value 108 g LV Mass Icucb6A Value 60.3 g/m2 RA Volume Atrial Rausch [...] Rodríguez MD - 12/11/2024 Echocardiography Report Pat.Name: AUSTIN CRAMER Pat.ID: [id number] .Date: 12/10/2024 Lindsey.: [id number] DARRELLALEXANDRO OJ EWDPROV EWDPROV Exam Time: 2:08:00 PM Study Type:ECHO WITH CARDIAC DOPPLER COMP Height: 72 in Weight: 133 lb BSA: 1.79 m2 Age: 12 1950,74Y Sex: M HR: 68 bpm Sonogrphr: Lucia Vasquez Pat. Stat.:Inpatient Room: 962 CPT - 4: 77405 Reason for Study:Prior stroke Procedures: 2D, M-mode, [...] Mass 2D Value 108 g LV Mass Omshw2C Value 60.3 g/m2 RA Volume Atrial Rausch [...] 12/11/2024 06:12 AM Torsten Rodríguez M.D. us Jayy Grayson MD ECHO Final Result * POCT glucose (12/10/2024 11:18 AM CDT) GLUCOSE POC 93 70 - 109 12/10/2024 11:22 AM CDT [facility] 12/10/2024 11:1 8 AM CDT us Ada Alford MD POCT ORDERABLES - DEVICE Final Result [facility] [address] [place] [address], [phone] * USV CAROTID DUPLEX PAYTON (12/10/2024 10:33 AM CDT) Anatomical Region Laterality Modality Neck Ultrasound 12/10/2024 10:1 0 AM CDT Narrative 12/10/2024 6:26 PM CDT SJS Vascular Report Pat.Name: AUSTIN CRAMER.ID: [id number] .Date: 12/10/2024 Refer.MD: JAYY GRAYSON Exam Time: 10:10:00 AM Study Type:PVI CAROTID SCAN - BILATERAL Age: 12 1950,74Y Sex: M Sonogrphr: Symone iDxon, DAVIAN Pat. Stat.:Inpatient Room: 2 CPT - 4: 21706 Carotid Duplex Reason for Study:CVA Race: W [...] SJS Vascular Report Pat.Name: AUSTIN CRAMER Pat.ID: [id number] .Date: 12/10/2024 Refer.MD: JAYY GRAYSON Exam Time: 10:10:00 AM Study Type:PVI CAROTID SCAN - BILATERAL Age: 12 1950,74Y Sex: M Sonogrphr: Symonemaximino Dixon, RVT Pat. Stat.:Inpatient Room: 2 CPT - 4: 78880 Carotid Duplex Reason for Study:CVA Race: W [...] Signature> 12/10/2024 06:26 PM Torsten Rodríguez M.D. Jayy Grayson MD [facility] Final Result * CTA CHEST+ABD+PEL (12/10/2024 9:41 [...] 3:18 PM Narrative 12/10/2024 3:[address] PM [address]T [address] [address] EXAMINATION: CTA chest, abdomen and pelvis with [...] Procedure Note Andrea Wolf MD - 12/10/[address] [address] EXAMINATION: CTA chest, abdomen and pelvis with [...] By: Andrea Wolf MD, 12/10/2024 3:18 PM us Kaitlynn Mejias MD CT Final Resul t * SODIUM URINE RANDOM (12/10/2024 6:20 AM CDT) NA RANDOM (U) 33 MMOL/L 12/10/2024 7:19 AM CDT [facility] Comment:REFERENCE RANGE NOT ESTABLISHED URINE SPECIMEN / Unknown 12/10/2024 6:20 AM CDT us Jayy Grayson MD URINE ORDERABLES Final Result Performing Organization Address [facility] de Phone Number [facility] [address] [place] [address], [phone] * POTASSIUM URINE RANDOM (12/10/2024 6:20 AM CDT) K RANDOM (U) 44.9 MMOL/L 12/10/2024 7:19 AM CDT [facility] Comment:REFERENCE RANGE NOT ESTABLISHED URINE SPECIMEN / Unknown 12/10/2024 6:20 AM CDT us Jayy Grayson MD URINE ORDERABLES Final Result Performing Organization Address [facility] de Phone Number [facility] [address] [place] [address], [phone] * CHLORIDE URINE RANDOM (12/10/2024 6:20 AM CDT) CHLORIDE RANDOM (U) 43 MMOL/L 12/10/2024 7:19 AM CDT [facility] Comment:REFERENCE RANGE NOT ESTABLISHED URINE SPECIMEN / Unknown 12/10/2024 6:20 AM CDT us Jayy Grayson MD URINE ORDERABLES Final Result Performing Organization Address [facility] de Phone Number [facility] [address] [place] [address], [place] [phone] * (ABNORMAL) URINE DRUG SCREEN (TOXICOLOGY) (12/10/2024 6:20 AM CDT) PHENCYCLIDINE PCP (U) NEGATIVE NEGATIVE 12/10/2024 7:31 AM CDT [facility] BENZODIAZEPINES SCREEN (U) NEGATIVE NEGATIVE 12/10/2024 7:31 AM CDT [facility] COCAINE METABOLITES (U) NEGATIVE NEGATIVE 12/10/2024 7:31 AM CDT [facility] AMPHETAMINE (U) POSITIVE SCREEN RESULT, IF CONFIRMATION DESIRED PLEASE CONTACT LAB WITHIN ONE WEEK. (A) NEGATIVE 12/10/2024 7:31 AM CDT [facility] CANNABINOIDS SCREEN (U) POSITIVE SCREEN RESULT, IF CONFIRMATION DESIRED PLEASE CONTACT LAB WITHIN ONE WEEK. (A) NEGATIVE 12/10/2024 7:31 AM CDT [facility] OPIATE SCREEN (U) POSITIVE SCREEN RESULT, IF CONFIRMATION DESIRED PLEASE CONTACT LAB WITHIN ONE WEEK. (A) NEGATIVE 12/10/2024 7:31 AM CDT [facility] BARBITURATES SCREEN (U) NEGATIVE NEGATIVE 12/10/2024 7:31 AM CDT [facility] URINE TOX COMMENT Unconfirmed screening results are to be used only for medical purposes. 12/10/2024 6:23 AM CDT [facility] CUTOFF CONCENTRATION (U) Cut-off Concentration for a positive result 12/10/2024 6:23 AM CDT [facility] Comment: Phencyclidine 25 ng/mL Benzodiazepines 200 ng/mL Cocaine 300 ng/mL Amphetamine 1000 ng/mL Cannabinoids 50 ng/mL Opiates 300 ng/mL Barbiturates 200 ng/mL URINE SPECIMEN / Unknown 12/10/2024 6:20 AM CDT Jayy Grayson MD URINE ORDERABLES Final Result [facility] [address] [place] [address], [phone] * HEMOGLOBIN, GLYCOSYLATED (12/10/2024 5:51 AM CDT) Pathologist [facility] HGB A1C 5.5 <5.7 % 12/10/2024 9:45 AM CDT [facility] ESTIMATED AVG GLUCOSE 111 74 - 114 MG/DL 12/10/2024 9:45 AM CDT [facility] 12/10/2024 5:51 AM CDT Ada Alford MD LABORATORY Final Res ult [facility] [address] [place] [address], [phone] * (ABNORMAL) LIPID PANEL (12/10/2024 5:51 AM CDT) CHOLESTEROL 159 MG/DL 12/10/2024 9:06 AM CDT [facility] Comment:DESIRABLE: <200 TRIGLYCERIDES 111 MG/DL 12/10/2024 9:06 AM CDT [facility] Comment:<150 NORMAL HDL 39(L) >39 MG/DL 12/10/2024 9:06 AM CDT [facility] LDL (CALCULATED) 98 MG/DL 12/11/19 9:06 AM CDT [facility] Comment:<100 OPTIMAL VLDL CALCULATION 22 MG/DL 12/11/19 9:06 AM CDT [facility] Comment:REFERENCE RANGE NOT ESTABLISHED CHOL/HDL RATIO 4.1 12/10/2024 9:06 AM CDT [facility] Comment:REFERENCE RANGE NOT ESTABLISHED LDL/HDL 2.5 12/10/2024 9:06 AM CDT [facility] Comment:REFERENCE RANGE NOT ESTABLISHED NON HDL CHOLESTEROL 120 MG/DL 12/10/2024 9:06 AM CDT [facility] Comment:REFERENCE RANGE NOT ESTABLISHED 12/10/2024 5:51 AM CDT Ada Alford MD LABORATORY Final Res ult Performing Organization Address [facility] Co de Phone Number [facility] [address] [place] [address], [phone] * VITAMIN D, 25 OH (12/10/2024 5:51 AM CDT) VITAMIN D 25 HYDROXY S/P/B 32.3 20.0 - 50.0 NG/ML 12/10/2024 7:31 AM CDT [facility] Comment: <10 ng/mL (Severe deficiency) 10 TO 19 ng/mL (Mild to Moderate deficiency) 20 TO 50 ng/mL (Optimum levels) 51 TO 80 ng/mL (Increased risk of hypercalciuria) >80 ng/mL (Toxicity possible) 12/10/2024 5:51 AM CDT us Jayy Grayson MD LABORATORY Final Result Performing Organization Address [facility] Co de Phone Number [facility] [address] [place] [address], [phone] * CK (CPK) (12/10/2024 5:51 AM CDT) CPK 130 39 - 308 U/L 12/10/2024 6:35 AM CDT [facility] 12/10/2024 5:51 AM CDT us Jayy Grayson MD LABORATORY Final Result Performing Organization Address [facility] Co de Phone Number [facility] [address] [place] [address], [phone] * MRI BRAIN WO CON (12/10/2024 4:34 [...] from prior orbital fracture repair. Referred By: OJ MORALES Interpreted By: Kristi Kenney MD, 12/10/2024 5:02 AM Narrative 12/10/2024 5:16 AM CDT [address] [address] EXAMINATION: MRI BRAIN WO CON. Multiplanar, multisequence [...] seen in the major vessels of the [place]. No significant paranasal sinus or mastoid air cell disease. Postoperative changes of bilateral lens replacement surgery in the orbits. Susceptibility artifact over the lateral left orbit from both radiodensity in the anterolateral wall of the left orbit from prior orbital fracture repair.. Procedure Note Kristi Kenney MD - 12/10/2024 [facility] [address] [place], [place] [address] EXAMINATION: MRI BRAIN WO CON. Multiplanar, multisequence [...] orbit fromprior orbital fracture repair. Referred By: OJ MORALES Interpreted By: Kristi Kenney MD, 12/10/2024 5:02 AM Jayy Grayson MD MRI Final Result * CT [...] and groin as noted above. Referred By: OJ MORALES Interpreted By: Kristi Kenney MD, 12/10/2024 5:16 AM Narrative 12/10/2024 5:24 AM CDT [address] [address] EXAMINATION: CT Right Hip without intravenous contrast, [...] Procedure Note Kristi Kenney MD - 12/10/2024 [facility] [address] [place], [place] [address] EXAMINATION: CT Right Hip without intravenous contrast, [...] hemipelvis and groin as notedabove. Referred By: OJ MORALES Interpreted By: Kristi Kenney MD, 12/10/2024 5:16 AM Tae Cramer MD CT Final Result * MRSA PCR nares SCREENING (12/09/2024 9:45 PM CDT) SPECIMEN SOURCE RESPIRATORY, NOSE 12/09/2024 9:48 PM CDT [facility] MRSA BY PCR NASAL METHICILLIN RESISTANT STAPH AUREUS NOT DETECTED METHICILLIN RESISTANT STAPH AUREUS NOT DETECTED 12/10/2024 10:57 AM CDT [facility] NASAL STRUCTURE / Unknown 12/09/2024 9:45 PM CDT Jayy Grayson MD MICROBIOLOGY - GENERAL ORDERABL ES Final Result Performing Organization Address [facility] Co de Phone Number [facility] [address] [place] [address], [id number] * TYPE & SCREEN (12/09/2024 9:22 PM CDT) ABO/RH O POSITIVE 12/09/2024 10:18 PM CDT [facility] ANTIBODY SCREEN NEGATIVE 12/09/2024 10:18 PM CDT [facility] SAMPLE EXPIRATION 12/12/2024,2 359 12/09/2024 9:36 PM CDT [facility] 12/09/2024 9:22 PM CDT us Tae Cramer MD BLOOD BANK TEST ORDERABLES Fin al Result Performing Organization Address [facility] Co de Phone Number [facility] [address] [place] [address], [phone] * CT CHEST+ABD+PEL W CON (12/09/2024 3:09 PM CDT) Anatomical Region Laterality Modality Chest, Abdomen, Pelvis Computed Tomography 12/09/2024 3:36 PM CDT Impressions 12/09/2024 3:55 PM CDT IMPRESSION: 1. No acute traumatic intrathoracic, intra-abdominal [...] Additional chronic/nonurgent findings as described. Ordered By: OJ MORALES Interpreted By: Mac Herr MD, 12/09/2024 3:36 PM Narrative 12/09/2024 3:[address] [place] [address] Examination: CT of the chest, abdomen and pelvis with contrast. Exam time: 1510 hours. Clinical history: Trauma. Injured in a fall. Right femur and pelvic fractures. Prior right hip arthroplasty. Comparison: Right hip and femur radiographs, 12/09/2024. Technique: Following the administration of intravenous contrast, spiral scanning was performed through the chest, abdomen and pelvis. Sagittal and coronal reconstructions were performed from the data set. A dose lowering technique was used for this procedure, which may include, but is not limited to, dose reduction techniques, automated exposure control, the use of iterative reconstruction and ALARA/Image Gently techniques. Findings: CT CHEST: Calcific coronary artery disease and atherosclerotic calcification of the aorta and arch vessels noted. There is ectasia of the descending thoracic aorta without manas aneurysm. The heart and great vessels are [...] benign based on current Fleischner Society guidelines, presumably a granuloma. Allowing for respiratory motion, the lungs are otherwise clear. There is no pleural effusion or pneumothorax. There is an old healed fracture of the body of the sternum, best appreciated on sagittal reconstruction. Mild wedge compression deformity of [...] appendix is visible. Colonic diverticulosis is noted without signs of diverticulitis. There is no ascites, lymphadenopathy or bowel distention. There is a fusiform aortic aneurysm arising just caudal to the renal arteries and extending to but not involving the iliac bifurcation. The aneurysm measures approximately 7.6 cm in greatest diameter. There are no signs of leakage. Previously demonstrated right superior and inferior pubic ramus fractures and partially redemonstrated periprosthetic right femoral fracture noted. There is a nondisplaced fracture of the right sacral ala. No other acute bony injury is identified. Procedure Note Mac Herr MD - 12/09/[address] [place] [address] Examination: CT of the chest, abdomen and pelvis with contrast. Exam time: 1510 hours. Clinical history: Trauma. Injured in a fall. Right femur and pelvicfractures. Prior right hip arthroplasty. Comparison: Right hip and femur radiographs, 12/09/2024. Technique: Following the administration of intravenous contrast, spiralscanning was performed through the chest, abdomen and pelvis. Sagittal andcoronal reconstructions were performed from the data set. A dose loweringtechnique was used for this procedure, which may include, but is notlimited to, dose reduction techniques, automated exposure control, the useof iterative reconstruction and ALARA/Image Gently techniques. Findings: CT CHEST: Calcific coronary artery disease and atheroscleroticcalcification of the aorta and arch vessels noted. There is ectasia of thedescending thoracic aorta without manas aneurysm. The heart and greatvessels are otherwise unremarkable. There are calcified mediastinal andright hilar lymph nodes, compatible with old granulomatous disease. Nohilar or mediastinal adenopathy is identified. There is minimal peripheralmucous plugging in the lower lobes. No other endobronchial abnormality isidentified. Changes of centrilobular and paraseptal emphysema are noted.There is mild biapical scarring, greater on the right. There is minorscarring or dependent subsegmental atelectasis in the lower lobes. Sub-6mm noncalcified nodule in the right upper lobe is considered benign basedon current Fleischner Society guidelines, presumably a granuloma. Allowingfor respiratory motion, the lungs are otherwise clear. There is no pleuraleffusion or pneumothorax. There is an old healed fracture of the body ofthe sternum, best appreciated on sagittal reconstruction. Mild wedgecompression deformity of T2 and T3 on sagittal reconstruction appearschronic but is objectively age indeterminate. Clinical correlation isrequired with further imaging as deemed appropriate. The chest wallstructures otherwise appear intact. CT ABDOMEN AND PELVIS: There are calcified splenic granulomas.Subcentimeter hepatic and renal cortical hypodensities are too small toaccurately characterize but are most likely cysts. These require nofurther workup or surveillance. The liver, spleen, gallbladder, pancreas,adrenals and kidneys are otherwise unremarkable. Streak artifact fromright hip arthroplasty obscures the pelvic contents. The urinary bladderis nondistended. A normal-appearing appendix is visible. Colonicdiverticulosis is noted without signs of diverticulitis. There is noascites, lymphadenopathy or bowel distention. There is a fusiform aorticaneurysm arising just caudal to the renal arteries and extending to butnot involving the iliac bifurcation. The aneurysm measures approximately7.6 cm in greatest diameter. There are no signs of leakage. Previouslydemonstrated right superior and inferior pubic ramus fractures andpartially redemonstrated periprosthetic right femoral fracture noted.There is a nondisplaced fracture of the right sacral ala. No other acutebony injury is identified. IMPRESSION: 1. No acute traumatic intrathoracic, intra-abdominal or intrapelvic injuryidentified. 2. Redemonstrated right superior and inferior pubic ramus and rightfemoral fractures. 3. Nondisplaced right sacral alar fracture. 4. Suspected chronic but objectively age indeterminate T2 and L3onmtvrypdzg fractures. Further imaging as deemed clinically appropriate. 5. Coronary artery disease. 6. Centrilobular and paraseptal emphysema. 7. 7.6 cm infrarenal abdominal aortic aneurysm. 8. Colonic diverticulosis. 9. Additional chronic/nonurgent findings as described. Ordered By: OJ MORALES Interpreted By: Mac Herr MD, 12/09/2024 3:36 PM Oj Morales MD CT Final Result * CT HEAD WO CON (12/09/2024 3:09 PM CDT) Anatomical Region Laterality Modality Head Computed Tomogra phy 12/09/2024 3:23 PM CDT Impressions 12/09/2024 3:31 PM CDT IMPRESSION: 1. No acute intracranial process identified. 2. Cortical atrophy and small vessel disease, new since 2008. 3. 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 Ordered By: OJ MORALES Interpreted By: Mac Herr MD, 12/09/2024 3:23 PM Narrative 12/09/2024 3:31 [address] [place] [address] Examination: CT of the head without contrast. [...] automated exposure control, the use of iterative reconstruction and ALARA/Image Gently techniques. Findings: There is prominence of the ventricles, fissures and sulci, somewhat greater than anticipated for age, compatible with mild to moderate diffuse cortical atrophy. This is new since 2008. No shift of midline or mass effect is noted. There is new periventricular decreased attenuation, compatible with small vessel disease. There is new focal hypodensity and encephalomalacia in the right temporoparietal distribution compatible with interval but chronic MCA distribution infarct. No other new areas of abnormal x-ray attenuation are identified. In particular, there is no mass, hemorrhage or sign of acute stroke. No extracerebral fluid collections. The skull appears intact. The mastoid air cells and visualized paranasal sinuses appear clear. Procedure Note Mac Herr MD - 12/09/[address] [place] [id number] [facility] [place] [address] Examination: CT of the head without contrast. Exam time: 1507 hours. Clinical history: Trauma. Injured in a fall. Comparison: 08/05/2008. Technique: Noncontrast axial scans from skull base to vertex. Sagittal andcoronal reconstructions were performed from the data set. A dose loweringtechnique was used for this procedure, which may include, but is notlimited to, dose reduction techniques, automated exposure control, the useof iterative reconstruction and ALARA/Image Gently techniques. Findings: There is prominence of the ventricles, fissures and sulci,somewhat greater than anticipated for age, compatible with mild tomoderate diffuse cortical atrophy. This is new since 2008. No shift ofmidline or mass effect is noted. There is new periventricular decreasedattenuation, compatible with small vessel disease. There is new focalhypodensity and encephalomalacia in the right temporoparietal distributioncompatible with interval but chronic MCA distribution infarct. No othernew areas of abnormal x-ray attenuation are identified. In particular,there is no mass, hemorrhage or sign of acute stroke. No extracerebralfluid collections. The skull appears intact. The mastoid air cells andvisualized paranasal sinuses appear clear. IMPRESSION: 1. No acute intracranial process identified. 2. Cortical atrophy and small vessel disease, new since 2008. 3. 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 Ordered By: OJ MORALES Interpreted By: Mac Herr MD, 12/09/2024 3:23 PM us Oj Morales MD CT Final Result * ECG 12 lead (12/09/2024 2:27 PM CDT) 12/09/2024 2:27 PM CDT Narrative [facility] - 12/11/2024 10:39 AM CDT [address] 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: : 1950 Requested By: OJ MORALES Order Number: [id number] Reading : Jam Moreno Measurements Intervals [place] Rate: 69 P: 95 AK: 159 QRS: -68 QRSD: 115 T: 84 QT: 403 QTc: 433 Interpretive Statements SINUS RHYTHM LEFT ANTERIOR FASCICULAR BLOCK MINIMAL ST DEPRESSION us Oj Morales MD ECG ORDERABLES Final Result [facility] * Critical Care (12/09/2024 2:25 PM CDT) Narrative Oj Morales MD - 12/09/2024 2:25 PM CDT Oj Morales MD 12/09/2024 3:38 PM Critical Care Performed by: Oj Morales MD Authorized by: Oj Morales MD Critical care provider statement: Critical care time (minutes): 60 Critical care start time: 12/09/2024 2:38 PM Critical care end time: 12/09/2024 3:38 PM Critical care was necessary to treat or prevent imminent or life-threatening deterioration of the following conditions: Dehydration and trauma Critical care was time spent personally by me on the following activities: Pulse oximetry, re-evaluation of patient's condition, review of old charts, ordering and review of radiographic studies and ordering and review of laboratory studies Care discussed with: admitting provider us Oj Morales MD PROCEDURE/MINOR SURGICAL ORDERAB LES Final Result * (ABNORMAL) PROTIME/INR, VENOUS (12/09/2024 2:23 PM CDT) PROTIME 13.8(H) 9.4 - 12.5 SEC 12/09/2024 2:42 PM CDT [facility] INR 1.2(H) 0.8 - 1.0 12/09/2024 2:42 PM CDT [facility] 12/09/2024 2:23 PM CDT us Oj Morales MD LABORATORY Final Result [facility] [address] [place] [address], * (ABNORMAL) COMPREHENSIVE METABOLIC PANEL (12/09/2024 2:23 PM CDT) SODIUM S/P/B 135(L) 136 - 145 MMOL/L 12/09/2024 2:53 PM CDT [facility] POTASSIUM S/P/B 4.2 3.5 - 5.1 MMOL/L 12/09/2024 2:53 PM CDT [facility] CHLORIDE S/P/B 95(L) 98 - 107 MMOL/L 12/09/2024 2:53 PM CDT [facility] CO2 30.0 21.0 - 32.0 MMOL/L 12/09/2024 2:53 PM CDT [facility] GLUCOSE 132(H) 70 - 99 MG/DL 12/09/2024 2:53 PM CDT [facility] Comment: FASTING GLUCOSE 100 TO 125 MG/DL IS CONSISTENT WITH IMPAIRED FASTING GLUCOSE. FASTING GLUCOSE >125 MG/DL IS CONSISTENT WITH DIABETES. RANDOM GLUCOSE >200 MG/DL WITH HYPERGLYCEMIC SYMPTOMS IS CONSISTENT WITH DIABETES. PER ADA GUIDELINES BUN 34(H) 6 - 24 MG/DL 12/09/2024 2:53 PM CDT [facility] CREATININE S/P/B 1.33(H) 0.70 - 1.30 MG/DL 12/09/2024 2:53 PM CDT [facility] CALCIUM S/P/B 9.3 8.4 - 10.5 MG/DL 12/09/2024 2:53 PM CDT [facility] BILIRUBIN TOTAL S/P/B 1.0 0.2 - 1.0 MG/DL 12/09/2024 2:53 PM T [facility] Comment: THIS ASSAY IS NOT RECOMMENDED FOR PATIENTS UNDERGOING TREATMENT WITH ELTROMBOPAG DUE TO THE POTENTIAL FOR FALSELY ELEVATED RESULTS. ALKALINE PHOSPHATASE S/P/B 92 45 - 115 U/L 12/09/2024 2:53 PM T [facility] AST 24 15 - 37 U/L 12/09/2024 2:53 PM CDT [facility] ALT 20 16 - 63 U/L 12/09/2024 2:53 PM CDT [facility] TOTAL PROTEIN S/P/B 7.9 6.4 - 8.2 G/DL 12/09/2024 2:53 PM CDT [facility] ALBUMIN S/P/B 3.6 3.4 - 5.0 G/DL 12/09/2024 2:53 PM CDT [facility] ANION GAP 10.0 5.0 - 15.0 MMOL/L 12/09/2024 2:53 PM CDT [facility] OSMOLALITY (CALC) 289 MOSM/KG 025 2:53 PM CDT [facility] Comment:REFERENCE RANGE NOT ESTABLISHED GFR ESTIMATE 56(L) >89 ML/MIN/1. 73 M2 12/09/2024 2:53 PM CDT [facility] GFR NOTES GFR REFERENCE S: 12/09/2024 2:53 PM CDT [facility] Comment: THE ESTIMATED GFR IS CALCULATED [...] ml/min/1.73 m2 G5,KIDNEY FAILURE: <15 ml/min/1.73 m2 12/09/2024 2:23 PM CDT us Oj Morales MD LABORATORY Final Result Performing Organization Address City/[facility]/ZIP Co de Phone Number [facility] [address] [place] [address], * TROPONIN, QUANT (12/09/2024 2:23 PM CDT) TROPONIN I HIGH SENSITIVITY 9 0 - 76 ng/L 12/09/2024 2:55 PM CDT [facility] 12/09/2024 2:23 PM CDT us Oj Morales MD LABORATORY Final Result Performing Organization Address [facility]/ZIP Co de Phone Number [facility] [address] [place] [address], [place] [phone] * XR FEMUR RT 2V (12/09/2024 2:14 PM CDT) Anatomical Region Laterality Modality Femur Radiographic Stefanie ging 12/09/2024 2:21 PM CDT Impressions 12/09/2024 2:25 PM CDT IMPRESSION: Right pubic ramus and right femoral fractures as described. Ordered By: OJ MORALES Interpreted By: Mac Herr MD, 12/09/2024 2:21 PM Narrative 12/09/2024 2:25 PM [address] [place] [address] Examination: Right hip and right femur. Exam time: 1327 hours. Clinical history: Pain after a fall. Comparison: Right hip, 10/25/2007. Technique: Two views each. Findings: Hip arthroplasty remains in place with the components in satisfactory alignment and position. There is a minimally displaced periprosthetic fracture near the tip of the femoral component. There are minimally displaced fractures of the superior and inferior pubic rami. No other fracture is identified. There are minor degenerative changes in the knee, not unusual for age. There is lateral meniscal chondrocalcinosis. No other significant bone or joint abnormality is noted. No acute soft tissue abnormality. Procedure Note Mac Herr MD - 12/09/[address] [place] [address] Examination: Right hip and right femur. Exam time: 1327 hours. Clinical history: Pain after a fall. Comparison: Right hip, 10/25/2007. Technique: Two views each. Findings: Hip arthroplasty remains in place with the components insatisfactory alignment and position. There is a minimally displacedperiprosthetic fracture near the tip of the femoral component. There areminimally displaced fractures of the superior and inferior pubic rami. Noother fracture is identified. There are minor degenerative changes in theknee, not unusual for age. There is lateral meniscal chondrocalcinosis. Noother significant bone or joint abnormality is noted. No acute soft tissueabnormality. IMPRESSION: Right pubic ramus and right femoral fractures as described. Ordered By: OJ MORALES Interpreted By: Mac Herr MD, 12/09/2024 2:21 PM Oj Morales MD GENERAL IMAGING Final Result * XR CHEST PORTABLE (12/09/2024 2:14 PM CDT) Anatomical Region Laterality Modality Chest Radiographic Stefanie ging 12/09/2024 2:19 PM CDT Impressions 12/09/2024 2:21 PM CDT IMPRESSION: No acute disease. Ordered By: OJ OMRALES Interpreted By: Mac Herr MD, 12/09/2024 2:19 PM Narrative 12/09/2024 2:21 PM CDT [address] [place] [address] Examination: Portable chest. Exam time: 1353 hours. Clinical history: Dyspnea. Chronic cough. Comparison: 05/26/2007. Technique: AP upright view. Findings: The heart remains within normal limits for size. Pulmonary vascularity is within normal limits. The lungs and pleural spaces appear free of any active process. The visualized bony thorax is unremarkable. Procedure Note Mac Herr MD - 12/09/[address] [place] [address] Examination: Portable chest. Exam time: 1353 hours. Clinical history: Dyspnea. Chronic cough. Comparison: 05/26/2007. Technique: AP upright view. Findings: The heart remains within normal limits for size. Pulmonaryvascularity is within normal limits. The lungs and pleural spaces appearfree of any active process. The visualized bony thorax is unremarkable. IMPRESSION: No acute disease. Ordered By: OJ MORALES Interpreted By: aMc Herr MD, 12/09/2024 2:19 PM Oj Morales MD GENERAL IMAGING Final Result * XR HIP RT 2V (12/09/2024 1:50 PM CDT) Anatomical Region Laterality Modality Hip Radiographic Stefanie ging 12/09/2024 2:21 PM CDT Impressions 12/09/2024 2:25 PM CDT IMPRESSION: Right pubic ramus and right femoral fractures as described. Ordered By: OJ MORALES Interpreted By: Mac Herr MD, 12/09/2024 2:21 PM Narrative 12/09/2024 2:25 PM [address] [place] [address] Examination: Right hip and right femur. Exam time: 1327 hours. Clinical history: Pain after a fall. Comparison: Right hip, 10/25/2007. Technique: Two views each. Findings: Hip arthroplasty remains in place with the components in satisfactory alignment and position. There is a minimally displaced periprosthetic fracture near the tip of the femoral component. There are minimally displaced fractures of the superior and inferior pubic rami. No other fracture is identified. There are minor degenerative changes in the knee, not unusual for age. There is lateral meniscal chondrocalcinosis. No other significant bone or joint abnormality is noted. No acute soft tissue abnormality. Procedure Note Mac Herr MD - 12/09/[address] [place] [address] Examination: Right hip and right femur. Exam time: 1327 hours. Clinical history: Pain after a fall. Comparison: Right hip, 10/25/2007. Technique: Two views each. Findings: Hip arthroplasty remains in place with the components insatisfactory alignment and position. There is a minimally displacedperiprosthetic fracture near the tip of the femoral component. There areminimally displaced fractures of the superior and inferior pubic rami. Noother fracture is identified. There are minor degenerative changes in theknee, not unusual for age. There is lateral meniscal chondrocalcinosis. Noother significant bone or joint abnormality is noted. No acute soft tissueabnormality. IMPRESSION: Right pubic ramus and right femoral fractures as described. Ordered By: OJ MORALES Interpreted By: Mac Herr MD, 12/09/2024 2:21 PM Oj Morales MD GENERAL IMAGING Final Result from Last 3 Months Insurance * Guarantor: [employer] Account Type Relation to Patient Date of Phone Billing Address Personal/Family Self 1950 [address] [place] [address] [facility] Advance Directives * DNR (Latest Code Status on File) Date Activated Date Inactivated Comments 12/10/2024 12:22 AM 12/13/2024 9:31 PM * Full Code Date Activated Date Inactivated Comments 12/09/2024 7:45 PM 12/10/2024 12:22 AM Care Teams Wallet Assembler Relationship Specialty Start Date End Date Ruff, Sergei Manas, MD [address] [place] [address] PCP - General FAMILY PRACTICE 12/09/24
--- OUTSIDE RECORDS SUMMARY | 2024-12-15 17:53 | XMS_ITS | Encounter Summary ---
Demographics Address [address] [place] [id number] Mobile Phone Home Phone Home Phone Preferred Language Botswanan Marital Status Single Methodist Affiliation Unknown Race White Ethnic Group Not or Lati no Author Organization [facility] Address [facility] [place] [address] Care Team Providers Care Herb Counselor Name Role Phone Sergei Ruff MD Primary Care Provider [phone] Cathryn Espinoza RN Unavailable Unavailable Encounter Details Date Type Department Care Team (Late st Contact Info) Description 12/12/2024 Hospital Orders Only [facility] Anesthesia [address] [place] [address] Karen Bianchi, CABRERA Anesthesia Record Procedure Summary Procedure Name Responsible Anesthesiologist Anesthesia Start Time Anesthesia Stop Time SJS CATH RM INPATIENT+ANES Events No events on file. Meds * Agents No agents on file. * Blood No blood administrations on file. Lines, Drains, and Airways No LDAs on file. documented in this encounter Social History Tobacco Use Types Packs/Day Years Used Date Smoking Tobacco: Every Day Cigarettes Smokeless Tobacco: Never Alcohol Use Standard Drinks/Week Comments Yes 0 (1 standard drink = 0.6 oz pur e alcohol) monthly [facility] Utilities Answer Date Recorded In the past 12 months has [employer], gas, oil, or water [employer] threatened to shut off services in your [...] any time in the past 12 m [facility], were you homeless or living in a [place] health care facility (including now)? 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 Answer Date of Assessment Author Status No 12/09/2024 8:00 PM CDT Celine Moreau RN Active * Because of a physical, mental, or emotional condition, do you have difficulty doing errands alone such as visiting a doctor's office or shopping? Answer Date of Assessment Author Status No 12/09/2024 8:00 PM CDT Celine Moreau RN Active documented as of this encounter Mental Status * Because of a physical, mental, or emotional condition, do you have serious difficulty concentrating, remembering, or making decisions? Answer Entry Date Author Status No 12/09/2024 8:00 PM CDT Celine Moreau RN Active documented in this encounter Plan of Treatment Upcoming Encounters Date Type Department Care Team (Late st Contact Info) Description 12/12/2024 11:59 PM CDT Anesthesia Event [facility] Cad [employer] [address] [place] [address] Karen Bianchi RN documented as of this encounter Visit Diagnoses Not on filedocumented in this encounter Care Teams Herb Counselor Relationship Specialty Start Date End Date Sergei Ruff MD [address] [facility] [place] [address] PCP - General FAMILY PRACTICE 12/09/24 Cathryn Espinoza real estate lawyer (Ambulatory) REGISTERED NURSE 12/10/24 12/14/24 documented as of this encounter
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
--- OUTSIDE RECORDS SUMMARY | 2024-12-15 17:53 | XMS_ITS | Encounter Summary ---
Demographics Address [address] [place] [address] Mobile Phone Home Phone Home Phone Preferred Language Belizean Marital Status Single Advent Affiliation Unknown Race White Ethnic Group Not or Lati no Author Organization [facility] Address [address] [place] [address] Care Team Providers Care Layout Man Name Role Phone Sergei Ruff MD Primary Care Provider [phone] Reason for Visit * Reason Onset Date Comments TCM 12/15/2024 Left AMA 12/13/24 [facility] Encounter Details Date Type Department Care Team (Late st Contact Info) Description 12/15/2024 Patient Outreach [employer] [address] [place] [phone] Cathryn Espinzoa RN [facility] (Left AMA 12/13/24 from [facility]) Social History Tobacco Use Types Packs/Day Years Used Date Smoking Tobacco: Every Day Cigarettes Smokeless Tobacco: Never Alcohol Use Standard Drinks/Week Comments Yes 0 (1 standard drink = 0.6 oz pur e alcohol) monthly [facility] Utilities Answer Date Recorded In the past 12 months has [facility] [employer], [employer], oil, or water [employer] threatened to shut off services in your [...] any time in the past 12 m [facility], were you homeless or living in a snf (including now)? 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 Sherri confirms client has a narcotic contract for NORCO 7.5-325 mg. Sherri states she will contact client and will provide current and future TCM services for this client. Sherri appreciative of CC followup call. [employer] signing off. documented in this encounter Plan of Treatment Upcoming Encounters Date Type Department Care Team (Late st Contact Info) Description 12/12/2024 11:59 PM CDT Anesthesia Event [facility] Enterprise Architect [address] [place] [address] Karen Bianchi RN documented as of this encounter Visit Diagnoses Not on filedocumented in this encounter Care Teams Layout Man Relationship Specialty Start Date End Date Sergei Ruff MD [facility] [facility] [place] [address] PCP - General FAMILY PRACTICE 12/09/24 documented as of this encounter
--- OUTSIDE RECORDS SUMMARY | 2024-12-15 17:53 | XMS_ITS | Encounter Summary ---
Demographics Address [address] [place] [address] Mobile Phone Home Phone Home Phone Preferred Language Libyan Marital Status Single Church Affiliation Unknown Race White Ethnic Group Not or Lati no Author Organization [facility] Address [facility] [place] [address] Care Team Providers Care Manager System Name Role Phone Sergei Ruff MD Primary Care Provider [phone] Reason for Visit * Reason Onset Date Comments Hospital Follow Up 12/15/2024 Encounter Details Date Type Department Care Team (Late st Contact Info) Description 12/15/2024 Patient Outreach [facility] [address] [place] [phone] Cathryn Espinoza, RN Hospital Follow Up Social History Tobacco Use Types Packs/Day Years Used Date Smoking Tobacco: Every Day Cigarettes Smokeless Tobacco: Never Alcohol Use Standard Drinks/Week Comments Yes 0 (1 standard drink = 0.6 oz pur e alcohol) monthly [facility] Utilities Answer Date Recorded In the past 12 months has [facility] [employer], gas, oil, or water [employer] threatened to shut off services in your [...] any time in the past 12 m [facility], were you homeless or living in a [facility] (including now)? 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
--- NOTE | 2024-12-15 18:04 | ED.LOWEXIN ---
HPI - Extremity Injury (Lower) General Chief Complaint: Extremity Injury, Lower <Yanna Hilliard PA-C - Last Filed: 12/15/24 22:45> Stated Complaint: Fx Rt hip, Aneurysm in stomach <Yanna Hilliard PA-C - Last Filed: 12/15/24 22:45> Time Seen by Provider: 12/15/24 17:10 <Yanna Hilliard PA-C - Last Filed: 12/15/24 22:45> Source: patient <Yanna Hilliard PA-C - Last Filed: 12/15/24 22:45> Mode of arrival: wheelchair <Yanna Hilliard PA-C - Last Filed: 12/15/24 22:45> Limitations: other (Poor historian) <Yanna Hilliard PA-C - Last Filed: 12/15/24 22:45> History of Present Illness HPI Narrative: This is a 74-year-old male that presents to the emergency department for right hip fracture. Reports he fell 10 days ago off of a tractor. Sustained a right hip fracture. He was initially seen at [facility] and transferred to [facility] in [place]. Reports on his workup there they found a AAA. He waited in the hospital for several days and had not received his surgery yet so he signed out AMA yesterday. Presents for further management. <Yanna Hilliard PA-C - Last Filed: 12/15/24 22:45> Related Data Allergies/Adverse Reactions: Allergies Allergy/AdvReac Type Severity Reaction Status Date / Time No Known Allergies Allergy Verified 12/15/24 13:07 <Yanna Hilliard PA-C - Last Filed: 12/15/24 22:45> Review of Systems Review of Systems: All systems reviewed & are unremarkable except as noted in HPI and below <Yanna Hilliard PA-C - Last Filed: 12/15/24 22:45> [facility] Past Medical History Medical History: Medical History (Updated 12/15/24 @ 22:56 by Shane Anne MD) History of coronary artery disease <Yanna Hilliard PA-C - Last Filed: 12/15/24 22:45> Surgical History Surgical History: Surgical History (Updated 12/15/24 @ 18:06 by Yanna Hilliard PA-C) History of AAA (abdominal aortic aneurysm) repair <Yanna Hilliard PA-C - Last Filed: 12/15/24 22:45> Social History Social History: Social History (Updated 12/15/24 @ 18:06 by Yanna Hilliard PA-C) Smoking status: Current every day smoker <Yanna Hilliard PA-C - Last Filed: 12/15/24 22:45> Exam Narrative: GENERAL: Elderly, thin, and in no acute distress. HEAD: Normocephalic, atraumatic. EYES: EOMI. ENT: Nares clear, no rhinorrhea or epistaxis. Mucous membranes moist. Oropharynx without tonsillar hypertrophy exudate or other lesions. CHEST: Clear to auscultation. No respiratory distress. No wheezes rales or rhonchi HEART: Regular rate and rhythm. No murmur heard. Normal peripheral pulses. ABDOMEN: Soft, nontender, nondistended, normal active bowel sounds. EXTREMITIES: Normal range of motion, except decreased active ROM in the right hip which is externally rotated. No edema. Decreased DP pulses. Normal PT pulses SKIN: Warm, dry, no rash. NEURO: No focal deficits. Alert and oriented x3. PSYCH: Normal mood and affect <Yanna Hilliard PA-C - Last Filed: 12/15/24 22:45> Course Course Emergency Course: Patient updated on his workup. He does not want to go back to [facility]. He would like to be transferred to [facility] system <Yanna Hilliard PA-C - Last Filed: 12/15/24 22:45> MARKETING PRODUCER/PA Physician Supervision This visit was performed by both a physician and an APC. I performed all aspects of the MDM as documented. Patient has a history of a known AAA and multiple pelvic fractures after a fall. Patient left AMA from outside facility and came to us. Informed him that he needs to go back to his facility for continued care and he refused to go back to original facility at [facility]. Patient very poor historian and has significant concerning findings especially as workup today revealing a large infrarenal abdominal aortic aneurysm at 7.8 cm with concern for impending rupture. He is hemodynamically stable, blood pressure at goal, vascular surgery at [facility] was made aware and recommended emergent transfer to the ER which was arranged. Given significant delays with ground transportation from multiple ambulance services and given patient's impending findings air evac and [facility] were contacted for helicopter transfer and arch as accepted. Patient transferred via helicopter at this time in guarded. <Shane Anne MD - Last Filed: 12/15/24 22:56> Consultations Consultation #1: Spoke with Dr. Escalona, vascular surgery at [facility], recommends transfer to the ER. Spoke with Dr. Garza who accepts patient as transfer <Yanna Hilliard PA-C - Last Filed: 12/15/24 22:45> Date: 12/15/24 <Yanna Hilliard PA-C - Last Filed: 12/15/24 22:45> Vital Signs Vital signs: Vital Signs Temperature 36.5 C 12/15/24 13:45 Pulse Rate 92 12/15/24 13:45 Respiratory Rate 17 12/15/24 13:45 Blood Pressure 125/62 12/15/24 13:45 Pulse Oximetry 97 12/15/24 13:45 Oxygen Delivery Room Air 12/15/24 13:45 Temperature 36.6 C 12/15/24 17:14 Pulse Rate 84 12/15/24 21:52 Respiratory Rate 19 12/15/24 21:52 Blood Pressure 129/81 12/15/24 21:52 Pulse Oximetry 93 12/15/24 21:52 Oxygen Delivery Room Air 12/15/24 17:14 <Yanna Hilliard PA-C - Last Filed: 12/15/24 22:45> Vital Signs Temperature 36.5 C 12/15/24 13:45 Pulse Rate 92 12/15/24 13:45 Respiratory Rate 17 12/15/24 13:45 Blood Pressure 125/62 12/15/24 13:45 Pulse Oximetry 97 12/15/24 13:45 Oxygen Delivery Room Air 12/15/24 13:45 Temperature 36.6 C 12/15/24 17:14 Pulse Rate 84 12/15/24 21:52 Respiratory Rate 19 12/15/24 21:52 Blood Pressure 129/81 12/15/24 21:52 Pulse Oximetry 93 12/15/24 21:52 Oxygen Delivery Room Air 12/15/24 17:14 <Shane Anne MD - Last Filed: 12/15/24 22:56> Transfer Transfered to: [facility] <Shane Anne MD - Last Filed: 12/15/24 22:56> Transportation: Air medical <Shane Anne MD - Last Filed: 12/15/24 22:56> MDM - Extremity Injury (Lower) MDM Narrative Medical decision making narrative: Patient presents the emergency department for known right hip fracture. Had a fall 10 days ago. Was initially seen which [facility], transferred to [facility] in [place] for further care of fracture. During his workup was found to have a AAA. He was hospitalized at [facility] for several days. Frustrated with his care, left AMA yesterday. Presents here for further management. His vitals are normal. Cbc with normocytic anemia with hemoglobin of 10.9. Metabolic panel without concerning findings. CTA chest abdomen and pelvis obtained for further evaluation. Shows a large infrarenal abdominal aortic aneurysm measuring 7.8 cm, concerning for impending rupture. Acute right sacral ala, obturator ring, right anterior column, right perihilar hardware pelvic/hip fractures. Patient updated on his workup. He does not want to go back to [facility]. He would like to be transferred to [facility] system. Spoke with Dr. Escalona, vascular surgery at [facility], recommends transfer to the ER. Spoke with Dr. Garza who accepts patient as transfer. Patient was transferred via helicopter due to the serious nature of his illness and prompt need for evaluation by vascular surgery <Yanna Hilliard PA-C - Last Filed: 12/15/24 22:45> Differential Diagnosis Differential diagnosis: Likely other (hip fracture, pelvic fracture, AAA) <Yanna Hilliard PA-C - Last Filed: 12/15/24 22:45> Lab Data Attestation: I reviewed the patient's lab results. <Yanna Hilliard PA-C - Last Filed: 12/15/24 22:45> Result diagrams: 12/15/24 18:15 12/15/24 18:15 <Yanna Hilliard PA-C - Last Filed: 12/15/24 22:45> Labs: Lab Results 12/15/24 Range/Units 18:15 WBC 9.7 (4.5-10.0) K/mm3 RBC 3.69 L (4.6-6.20) M/mm3 Hgb 10.9 L (14.0-18.0) g/dL Hct 33.8 L (42.0-52.0) % MCV 91.6 (80-100) fl MCH 29.5 (26-34) pg MCHC 32.2 (32-36) g/dl RDW 14.6 H (11.5-14.5) % Plt Count 501 H (150-375) k/mm3 MPV 8.5 (7.4-10.4) fl Immature Gran % (Auto) 0.6 H (0-0.5) % Neut % (Auto) 64.2 (45.5-73.1) % Lymph % (Auto) 21.0 (18.3-44.2) % [place] % (Auto) 8.2 (2.6-8.5) % Eos % (Auto) 5.4 H (0-4.4) % Baso % (Auto) 0.6 (0.2-1.2) % Lymph # (Auto) 2.03 (0.9-3.2) K/mm3 [place] # (Auto) 0.8 H (0.1-0.6) K/mm3 Eos # (Auto) 0.5 H (0-0.3) K/mm3 Baso # (Auto) 0.1 (0.0-0.1) K/mm3 Abs Immat Gran (auto) 0.06 H (0.00-0.031) K/mm3 Absolute Neuts (auto) 6.2 (1.3-6.7) K/mm3 Absolute Nucleated RBC 0.000 (0.0-0.012) K/mm3 Nucleated RBC % 0.0 (0.0-0.2) % Sodium 136 L (137-145) mmol/L Potassium 3.7 (3.4-5.0) mmol/L Chloride 96 L (98-107) mmol/L Carbon Dioxide 32 H (22-30) mmol/L Anion Gap 8 (4-12) mmol/L BUN 20 (9-20) mg/dL Creatinine 0.86 (0.7-1.3) mg/dL Estim Creat Clear Calc 62 ml/min Estimated GFR > 60 (59 - ) Glucose 112 H (65-110) mg/dL Calcium 9.1 (8.4-10.2) mg/dL Total Bilirubin 1.0 (0.2-1.3) mg/dL AST 49 (17-59) U/L ALT 26 (6-50) U/L Alkaline Phosphatase 92 (38-126) U/L Total Protein 8.1 (6.3-8.2) g/dL Albumin 4.3 (3.5-5.1) g/dL <Yanna Hilliard PA-C - Last Filed: 12/15/24 22:45> Lab Results 12/15/24 Range/Units 18:15 WBC 9.7 (4.5-10.0) K/mm3 RBC 3.69 L (4.6-6.20) M/mm3 Hgb 10.9 L (14.0-18.0) g/dL Hct 33.8 L (42.0-52.0) % MCV 91.6 (80-100) fl MCH 29.5 (26-34) pg MCHC 32.2 (32-36) g/dl RDW 14.6 H (11.5-14.5) % Plt Count 501 H (150-375) k/mm3 MPV 8.5 (7.4-10.4) fl Immature Gran % (Auto) 0.6 H (0-0.5) % Neut % (Auto) 64.2 (45.5-73.1) % Lymph % (Auto) 21.0 (18.3-44.2) % [place] % (Auto) 8.2 (2.6-8.5) % Eos % (Auto) 5.4 H (0-4.4) % Baso % (Auto) 0.6 (0.2-1.2) % Lymph # (Auto) 2.03 (0.9-3.2) K/mm3 [place] # (Auto) 0.8 H (0.1-0.6) K/mm3 Eos # (Auto) 0.5 H (0-0.3) K/mm3 Baso # (Auto) 0.1 (0.0-0.1) K/mm3 Abs Immat Gran (auto) 0.06 H (0.00-0.031) K/mm3 Absolute Neuts (auto) 6.2 (1.3-6.7) K/mm3 Absolute Nucleated RBC 0.000 (0.0-0.012) K/mm3 Nucleated RBC % 0.0 (0.0-0.2) % Sodium 136 L (137-145) mmol/L Potassium 3.7 (3.4-5.0) mmol/L Chloride 96 L (98-107) mmol/L Carbon Dioxide 32 H (22-30) mmol/L Anion Gap 8 (4-12) mmol/L BUN 20 (9-20) mg/dL Creatinine 0.86 (0.7-1.3) mg/dL Estim Creat Clear Calc 62 ml/min Estimated GFR > 60 (59 - ) Glucose 112 H (65-110) mg/dL Calcium 9.1 (8.4-10.2) mg/dL Total Bilirubin 1.0 (0.2-1.3) mg/dL AST 49 (17-59) U/L ALT 26 (6-50) U/L Alkaline Phosphatase 92 (38-126) U/L Total Protein 8.1 (6.3-8.2) g/dL Albumin 4.3 (3.5-5.1) g/dL <Shane Anne MD - Last Filed: 12/15/24 22:56> Imaging Data Radiologist's impression: ITS Impressions Chest/Abdomen/Pelvis CTA 12/15/24 19:20 IMPRESSION: Fusiform descending thoracic aortic aneurysm measuring up to 4.4 cm. 9 mm right lower lobe nodule over the dome of the right hemidiaphragm, recommend 3 month follow-up low-dose noncontrast CT of the chest or PET/CT. Mild distal esophagitis. Large infrarenal abdominal aortic aneurysm measuring up to 7.8 cm, concerning for impending rupture based on size and additional findings including focal, saccular outpouching and the high attenuation crescent sign. Acute appearing right sacral ala, obturator ring, right anterior column, and right perihilar hardware pelvic/hip fractures. Results reported telephonically to Yanna Hilliard PA-C by Dr. Mo at 7:36 PM on 12/15/2024. <Yanna Hilliard PA-C - Last Filed: 12/15/24 22:45> Critical Care Time Critical Care Time Critical Care Time: Yes <Yanna Hilliard PA-C - Last Filed: 12/15/24 22:45> Total Critical Care Time: 35 <Yanna Hilliard PA-C - Last Filed: 12/15/24 22:45> 74 <Shane Anne MD - Last Filed: 12/15/24 22:56> Discharge Plan Discharge Clinical Impression: Enlarging abdominal aortic aneurysm (AAA) AAA (abdominal aortic aneurysm) Qualifiers: Abdominal aorta location: infrarenal aorta Presence of rupture: without rupture Qualified Code(s): I71.43 - Infrarenal abdominal aortic aneurysm, without rupture Periprosthetic fracture around internal prosthetic hip joint Qualifiers: Encounter type: subsequent encounter Laterality: right Qualified Code(s): M97.01XD - Periprosthetic fracture around internal prosthetic right hip joint, subsequent encounter <Yanna Hilliard PA-C - Last Filed: 12/15/24 22:45> Patient Disposition: Acute Care Hospital <Yanna Hilliard PA-C - Last Filed: 12/15/24 22:45> Condition: Serious <Yanna Hilliard PA-C - Last Filed: 12/15/24 22:45> Patient Language: Dominican <Yanna Hilliard PA-C - Last Filed: 12/15/24 22:45> Follow-up/Referrals: Speedy,MD Sergei [Primary Care Provider] - <Yanna Hilliard PA-C - Last Filed: 12/15/24 22:45>
[2024-12-15 18:23] LABS: Basophils Absolute Auto 0.1 K/mm3 (0.0-0.1); Basophils Percent Auto 0.6 % (0.2-1.2); Eosinophils Absolute Auto 0.5 K/mm3 (0-0.3); Eosinophils Percent Auto 5.4 % (0-4.4); Hematocrit 33.8 % (42.0-52.0); Hemoglobin 10.9 g/dL (14.0-18.0); Immature Granulocyte Absolute 0.06 K/mm3 (0.00-0.031); Immature Granulocyte Percent A 0.6 % (0-0.5); Lymphocytes Absolute Auto 2.03 K/mm3 (0.9-3.2); Mean Corpuscular HGB Conc 32.2 g/dl (32-36); Mean Corpuscular Hemoglobin 29.5 pg (26-34); Mean Corpuscular Volume 91.6 fl (80-100); Mean Platelet Volume 8.5 fl (7.4-10.4); Monocytes Absolute Auto 0.8 K/mm3 (0.1-0.6); Monocytes Percent Auto 8.2 % (2.6-8.5); Neutrophils Absolute Auto 6.2 K/mm3 (1.3-6.7); Neutrophils Percent Auto 64.2 % (45.5-73.1); Platelet Count Result 501 k/mm3 (150-375); Red Blood Count 3.69 M/mm3 (4.6-6.20); Red Cell Distribution Width 14.6 % (11.5-14.5); White Blood Count 9.7 K/mm3 (4.5-10.0)
[2024-12-15 18:35] LABS: Alanine Aminotransferase 26 U/L (6-50); Albumin Level 4.3 g/dL (3.5-5.1); Alkaline Phosphatase 92 U/L (38-126); Anion Gap 8 mmol/L (4-12); Aspartate Amino Transferase 49 U/L (17-59); Blood Urea Nitrogen 20 mg/dL (9-20); Calcium 9.1 mg/dL (8.4-10.2); Carbon Dioxide 32 mmol/L (22-30); Chloride 96 mmol/L (98-107); Estimated CRCL calculation 62 ml/min; Estimated Glomerular Filt Rate > 60; Glucose 112 mg/dL (65-110); Potassium 3.7 mmol/L (3.4-5.0); Sodium 136 mmol/L (137-145); Total Protein 8.1 g/dL (6.3-8.2)
[2024-12-15] MEDS: MORPHINE SULFATE (*CRX) 4 MG/ML INJ IV PUSH (21:36)
[2024-12-15] MEDS: ONDANSETRON INJ 4 MG/2 ML VIAL IV PUSH (21:36)
== END 2024-12-15 22:15 | disposition short-term general hospital (02) ==
PROVIDERS: Emergency Provider Physician Assistant; PCP Family Medicine
DX: I71.43 Infrarenal abdominal aortic aneurysm, without rupture (principal); M97.01XD Periprosthetic fracture around internal prosthetic right hip joint, subsequent encounter; I25.10 Atherosclerotic heart disease of native coronary artery without angina pectoris; F17.210 Nicotine dependence, cigarettes, uncomplicated; W30.89XD Contact with other specified agricultural machinery, subsequent encounter
CPT/HCPCS: 36415; 71275; 74174; 80053; 85025; 96374; 96375; 99291; J2270; J2405; Q9967

== ENCOUNTER 2025-02-24 13:04 | Outpatient (CLI) | payer MEDICARE, SELFPAY ==
--- NOTE | ~2025-02-24 | XR_ITS ---
EXAMINATION: XR hip RT min 2V, 02/24/2025 13:10 CDT HISTORY: fracture of right hip COMPARISON: No comparisons available. Findings: Plate and screws fixate the proximal femur, the hardware appears intact, no acute fracture is identified. Right arthroplasty appears intact. Soft tissues unremarkable. Impression: Postsurgical changes Reviewed, dictated and finalized at location A. Impression: Postsurgical changes
--- OUTSIDE RECORDS SUMMARY | 2025-02-24 14:36 | XMS_ITS | Encounter Summary ---
Demographics Address [address] [place] [address] Mobile Phone Home Phone Home Phone Preferred Language Icelandic Marital Status Single Pentecostal Affiliation Unknown Race White Ethnic Group Not or Lati no Author Organization [facility] Address [facility] [place] [address] Care Team Providers Care Whitewasher Name Role Phone Sergei Ruff MD Primary Care Provider [phone] Cathryn Espinoza RN Unavailable Unavailable Encounter Details Date Type Department Care Team (Late st Contact Info) Description 12/12/2024 Hospital Orders Only [facility] Anesthesia [address] [place] [address] Karen Bianchi, CABRERA Anesthesia Record Procedure Summary [...] = 0.6 oz pur e alcohol) monthly [facility] Utilities Answer Date Recorded In the past 12 months has [employer], gas, oil, or water [employer] threatened to shut off services in your [...] any time in the past 12 m [facility], were you homeless or living in a halfway (including now)? No 12/09/2024 Sex and Gender Information Value Date Recorded Sex Assigned at Male 12/09/2024 2:37 PM CDT Legal Sex Male 10:31 PM [employer] Gender Identity Not on file Sexual Orientation [...] Assessment Author Status Yes 12/09/2024 8:00 PM Celine Joyce RN Active * Do you have difficulty dressing or bathing? Answer Date of Assessment Author Status No 12/09/2024 8:00 PM Celine Joyce RN Active * Because of a physical, mental, or emotional condition, do you have difficulty doing errands alone such as visiting a doctor's office or shopping? Answer Date of Assessment Author Status No 12/09/2024 8:00 PM Celine Joyce RN Active documented as of this encounter Mental Status * Because of a physical, mental, or emotional condition, do you have serious difficulty concentrating, remembering, or making decisions? Answer Entry Date Author Status No 12/09/2024 8:00 PM Celine Joyce RN Active documented in this encounter Plan of Treatment Not on file documented as of this encounter Visit Diagnoses Not on filedocumented in this encounter Care Teams Whitewasher Relationship Specialty Start Date End Date Sergei Ruff MD [address] [place] [address] PCP - General FAMILY PRACTICE 12/09/24 Cathryn Espinoza teacher hearing impaired (Ambulatory) REGISTERED NURSE 12/10/24 12/14/24 documented as of this encounter
--- OUTSIDE RECORDS SUMMARY | 2025-02-24 14:36 | XMS_ITS | Clinical Summary ---
Demographics Address [address] [place] [address] Mobile Phone Home Phone Home Phone Preferred Language Senegalese Marital Status Single Moravian Affiliation Unknown Race White Ethnic Group Not or Lati no Author Organization [facility] Address Critical access hospital[address] [place] [address] Care Team Providers Care Sheriffs Name Role Phone Sergei Ruff MD Primary Care Provider [phone] Allergies No known active allergies Medications clopidogrel (PLAVIX) 75 MG tablet Take 1 tablet (75 mg total) by mouth daily. Active metoprolol succinate ER (TOPROL-XL) 100 MG 24 hr tablet Take 1 tablet (100 mg total) by mouth daily. Active lovastatin (MEVACOR) 40 MG tablet Take 2 tablets (80 mg total) by mouth daily. 01/26/2024 Active traZODone (DESYREL) 100 MG tablet Take 1 tablet (100 mg total) by mouth nightly at bedtime. 06/26/2024 Active Active Problems Problem Noted Date Diagnosed Date Hip fracture, right ([facility]/HCC HHS/HCC) 12/09/2024 Encounters Date Type Department Care Team Description 12/15/2024 Patient Outreach [facility] [address] [phone] Cathryn Espinoza RN TCM (Left AMA 12/13/24 from [facility]) 12/15/2024 Patient Outreach [facility] [address] [phone] Cathryn Espinoza RN Hospital Follow Up 12/15/2024 Patient [facility]reach [facility] [address] [phone] Cathryn Espinoza RN TCM (Left AMA 12/13/2024) 12/12/2024 11:59 PM CDT Anesthesia Event [facility] International [employer] Analyst [address] [place] [address] Karen Bianchi RN 12/12/2024 Hospital Orders Only [facility] Anesthesia [address] [place] [address] Karen Bianchi RN 12/10/2024 11:59 PM CDT Anesthesia Event [facility] [place] [address] [place] [address] Karen Bianchi RN 12/10/2024 Patient [facility] [address] [place] [phone] Cathryn Espinoza RN Hospital Follow Up (Admission to [facility] 12/09/2024) 12/09/2024 6:53 PM CDT - 12/13/2024 7:21 PM CDT Hospital Encounter [facility] Orthopa[facility]ics [address] [place] [address] Conor Saenz MD Sheikh, Omer S, MD Minhas, Irfan Ul Haq, MD Discharge Disposition: Left Against Medical Advice 12/09/2024 1:23 PM CDT - 12/09/2024 5:45 PM CDT Emergency [facility] [address] [place] [address] [place] [address] Oj Morales MD Fall; Hip Pain Discharge [...] = 0.6 oz pur e alcohol) monthly [facility] Utilities Answer Date Recorded In the past 12 months has [employer], gas, oil, or water [employer] threatened to shut off services in your [...] any time in the past 12 m [facility], were you homeless or living in a snf (including now)? 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 Gender Identity Not on file Sexual Orientation [...] 12/11/2024 9:00 AM CDT Plan of Treatment Health Maintenance Due Date Last Done Comments Colorectal Cancer Screening Colonoscopy (10 Years) 1950 Hepatitis C 1967 Pneumococcal Vaccine: 50+ Years (1 of 2 - PCV) 1968 Zoster Vaccines (1 of 2) 1999 Annual Medicare Wellness Visit 2014 DTaP, Tdap and Td Vaccines ( 2 - Td or Tdap) 11/22/2022 11/22/2012 RSV Immunization or 60+ Years (1 - 1-dose 75+ series) 2024 PHQ-2 (Physician [place]) 06/18/2024 COVID-19 Vaccine (1 - 2023-2 5 season) 2025 AAA SCREENING Completed 12/10/2024, 12/09/2024 Meningococcal B [...] LOW PAYTON Today 12/12/2024 4:56 PM CDT BASIC METABOLIC PANEL Routine 12/12/2024 4:09 AM [...] - 145 MMOL/L 12/13/2024 5:[address] [facility] POTASSIUM S/P/B 3.6 3.5 - 5.1 MMOL/L 12/13/2024 5:[address] [facility] CHLORIDE S/P/B 102 97 - 115 MMOL/L 12/13/2024 5:[address] [facility] CO2 29.0 21.0 - 32.0 MMOL/L 12/13/2024 5:[address] [facility] GLUCOSE 99 74 - 106 MG/DL 12/13/2024 5:[address] [facility] BUN 14 7 - 18 MG/DL 12/13/2024 5:[address] [facility] CREATININE S/P/B 0.74 0.70 - 1.30 MG/DL 12/13/2024 5:[address] [facility] CALCIUM S/P/B 8.6 8.5 - 10.1 MG/DL 12/13/2024 5:[address] [facility] ANION GAP 3.0 2.0 - 10.0 MMOL/L 12/13/2024 5:[address] [facility] OSMOLALITY (CALC) 278 MOSM/KG 025 5:[address] [facility] Comment:REFERENCE RANGE NOT ESTABLISHED GFR ESTIMATE >90 >90 ML/MIN/1. 73 M2 12/13/2024 5:[address] [facility] GFR NOTES GFR REFERENCE S: 12/13/2024 5:[address] [facility] Comment: THE ESTIMATED GFR IS [...] ml/min/1.73 m2 12/13/2024 4:16 AM CDT us Irfjatin Ul Quang Alford MD LABORATORY Final Res ult [facility] [address] [place] [phone], [phone] * (ABNORMAL) CBC W/DIFF AUTOMATED (12/13/2024 4:16 AM CDT) Only the most recent of5 resultswithin the time period is included. WBC 7.41 4.00 - 10.80 x10'3/uL 12/13/2024 5:[address] [facility] RBC 3.02(L) 4.50 - 6.10 x10'6/uL 12/13/2024 5:[address] [facility] HGB 9.1(L) 13.0 - 18.0 G/DL 12/13/2024 5:[address] [facility] HCT 27.1(L) 37.0 - 52.0 % 12/13/2024 5:[address] [facility] MCV 89.7 78.0 - 100.0 FL 12/13/2024 5:[address] [facility] MCH 30.1 27.0 - 31.0 PG 12/13/2024 5:[address] [facility] MCHC 33.6 33.0 - 36.0 G/DL 12/13/2024 5:[address] [facility] RDW 13.8 11.5 - 14.5 % 12/13/2024 5:[address] [facility] PLT 336 150 - 350 x10'3/uL 12/13/2024 5:[address] [facility] MPV 9.1 7.4 - 10.4 FL 12/13/2024 5:[address] [facility] DIFFERENTIAL TYPE AUTOMATED DIFFERENTIAL 12/13/2024 5:[address] [facility] SEG NEUTROPHILS 62.9 % 5:[address] [facility] LYMPHOCYTES 23.1 % 12/13/2024 5:[address] [facility] MONOCYTES 7.8 % 12/13/2024 5:[address] [facility] EOSINOPHILS 5.1 % 12/13/2024 5:[address] [facility] BASOPHILS 0.7 % 12/13/2024 5:[address] [facility] IMMATURE GRANS % 0.4 % 12/14/19 5:[address] [facility] ABS. NEUTROPHILS 4.66 1.60 - 8.30 x10'3/uL 12/13/2024 5:[address] [facility] ABS. LYMPHOCYTES 1.71 0.80 - 4.70 x10'3/uL 12/13/2024 5:[address] [facility] ABS. MONOCYTES 0.58 0.00 - 1.50 x10'3/uL 12/13/2024 5:[address] [facility] ABS. EOSINOPHILS 0.38 0.00 - 0.40 x10'3/uL 12/13/2024 5:[address] [facility] ABS. BASOPHILS 0.05 0.00 - 0.20 x10'3/uL 12/13/2024 5:[address] [facility] ABS. IMMATURE GRANULOCYTES 0.03 0.00 - 0.03 x10'3/uL 12/13/2024 5:[address] [facility] ABS. NUCLEATED RBC'S 0.00 0.00 - 0.01 x10'3/uL 12/13/2024 5:[address] [facility] NRBC % 0.0 % 12/13/2024 5:[address] [facility] 12/13/2024 4:16 AM CDT us Irfan Ul Quang Alford MD LABORATORY Final Res ult [facility] [address] [place] [address], [phone] * USV ART DUPLEX LOW PAYTON (12/12/2024 4:56 PM CDT) Anatomical Region Laterality Modality Extremity Ultrasound 12/12/2024 3:26 PM CDT Narrative 12/14/2024 9:56 AM CDT Vascular Report Pat.Name: AUSTIN CRAMER Lisbeth Pat.ID: [id number] .Date: 12/12/2024 Refer.MD: KAITLYNN MEJIAS Exam Time: 3:26:00 PM Study Type:PVI ART DUPLEX SCAN BILATERAL LEG Height: 72 in Age: 12 1950,74Y Sex: M Sonogrphr: Jhonny Manjarrez RVT, [facility] Pat. Stat.:Inpatient CPT - 4: 79214 Arterial Duplex LE Reason for Study:Popliteal aneurysm Race: W ++++++++++++++++++++++++++++++++++++ FINDINGS: ++++++++++++++++++++++++++++++++++++ AO: An abdominal aortic aneurysm noted in the infrarenal aorta measuring 5.90 cm x 6.58 cm. Maximum Aortic diameter is 6.58 cm. Rt Lower Ext: No evidence of popliteal artery aneurysm noted. The largest rt lens mounter measures 0.9 cm. The largest rt popliteal measures 0.8 cm. Turbulent flow noted in the right EVP [employer] with no evidence of stenosis noted in the right MAXIMUS or visualized right EIA by velocity criteria. Lt Lower Ext: The largest lt lens mounter measures 0.9 cm. The largest lt popliteal measures 0.8 cm. ++++++++++++++++++++++++++++++++++++ MEASUREMENTS: ++++++++++++++++++++++++++++++++++++ DOPPLER Left EVP [employer] EVP HEAD [employer] PSV 130 cm/s Left Prox Pop A Prox Pop A PSV 54.9 cm/s Left Dist Pop A Dist Pop A PSV 72.8 cm/s Right EVP [employer] EVP HEAD OF [employer] PSV 130 cm/s Right Prox Pop A [...] Dist MAXIMUS Dist MAXIMUS PSV 134 cm/s <Electronic Signature> 12/14/2024 09:56 AM Sharita Méndez M.D. Procedure Note Sharita Méndez MD - 01/22/2025 Vascular Report Pat.Name: AUSTIN CRAMER.ID: [id number] .Date: 12/12/2024 Refer.MD: KAITLYNN MEJIAS Exam Time: 3:26:00 PM Study Type:PVI ART DUPLEX SCAN BILATERAL LEG Height: 72 in Age: 12 1950,74Y Sex: M Sonogrphr: Loki Jhonny RVT, RDCS Pat. Stat.:Inpatient CPT - 4: 99794 Arterial Duplex LE Reason for Study:Popliteal aneurysm Race: W ++++++++++++++++++++++++++++++++++++ FINDINGS: ++++++++++++++++++++++++++++++++++++ AO: An abdominal aortic aneurysm noted in the infrarenal aorta measuring 5.90 cm x 6.58 cm. Maximum Aortic diameter is 6.58 cm. Rt Lower Ext: No evidence of popliteal artery aneurysm noted. The largest rt lens mounter measures 0.9 cm. The largest rt popliteal measures 0.8 cm. Turbulent flow noted in the right EVP [employer] with no evidence of stenosis noted in the right MAXIMUS or visualized right EIA by velocity criteria. Lt Lower Ext: The largest lt lens mounter measures 0.9 cm. The largest lt popliteal measures 0.8 cm. ++++++++++++++++++++++++++++++++++++ MEASUREMENTS: ++++++++++++++++++++++++++++++++++++ DOPPLER Left EVP [employer] EVP HEAD [employer] PSV 130 cm/s Left Prox Pop A Prox Pop A PSV 54.9 cm/s Left Dist Pop A Dist Pop A PSV 72.8 cm/s Right EVP [employer] EVP HEAD [employer] PSV 130 cm/s Right Prox Pop A [...] Dist MAXIMUS Dist MAXIMUS PSV 134 cm/s <Electronic Signature> 12/14/2024 09:56 AM Sharita Méndez M.D. Kaitlynn Mejias MD [facility] Final Resul t * PHOSPHORUS, INORGANIC PHOSPHATE (12/11/2024 3:44 AM CDT) PHOSPHORUS 2.7 2.5 - 4.9 MG/DL 12/11/2024 4:[address] [facility] 12/11/2024 3:44 AM CDT Ada Alford MD LABORATORY Final Res ult Performing Organization Address [facility] Co de Phone Number [facility] [address] [place] [address], [phone] * MAGNESIUM (12/11/2024 3:44 AM CDT) Only the most recent of2 resultswithin the time period is included. MAGNESIUM 2.2 1.6 - 2.6 MG/DL 12/11/2024 4:[address] [facility] 12/11/2024 3:44 AM CDT Ada Alford MD LABORATORY Final Res ult Performing Organization Address [facility] de Phone Number [facility] [address] [place] [address], [phone] * USE ECHOCARDIOGRAM (12/10/2024 3:39 PM CDT) Anatomical Region Laterality Modality Cardiac Echocardiogram 12/10/2024 2:08 PM CDT Narrative 12/11/2024 6:12 AM CDT Echocardiography Report Pat.Name: AUSTIN CRAMER Pat.ID: [id number] .Date: 12/10/2024 Refer.: [id number] CARMEN OJ EWDPROV EWDPROV Exam Time: 2:08:00 PM Study Type:ECHO WITH CARDIAC DOPPLER COMP Height: 72 in Weight: 133 lb BSA: 1.79 m2 Age: 12 1950,74Y Sex: M HR: 68 bpm Sonogrphr: Lucia Vasquez Pat. Stat.:Inpatient Room: 2 CPT - 4: 41579 Reason for Study:Prior stroke Procedures: 2D, M-mode, [...] Mass 2D Value 108 g LV Mass [id number] Value 60.3 g/m2 RA Volume Atrial Rausch [...] Rodríguez MD - 12/11/2024 Echocardiography Report Pat.Name: CRAMER AUSTIN Lisbeth Pat.ID: [id number] .Date: 12/10/2024 Refer.: [id number] CARMEN OJ EWDPROV EWDPROV Exam Time: 2:08:00 PM Study Type:ECHO WITH CARDIAC DOPPLER COMP Height: 72 in Weight: 133 lb BSA: 1.79 m2 Age: 12 1950,74Y Sex: M HR: 68 bpm Sonogrphr: Lucia Vasquez Pat. Stat.:Inpatient Room: 962 CPT - 4: 86272 Reason for Study:Prior stroke Procedures: 2D, M-mode, [...] Mass 2D Value 108 g LV Mass [id number] Value 60.3 g/m2 RA Volume Atrial Rausch [...] Signature> 12/11/2024 06:12 AM Torsten Rodríguez M.D. Jayy Grayson MD ECHO Final Result * POCT glucose (12/10/2024 11:18 AM CDT) [facility] GLUCOSE POC 93 70 - 109 12/10/2024 11:22 AM CDT [facility] 12/10/2024 11:1 8 AM CDT [facility] Alford MD POCT ORDERABLES - DEVICE Final Result [facility] [address] [place] [address], [phone] * USV CAROTID DUPLEX PAYTON (12/10/2024 10:33 AM CDT) Anatomical Region Laterality Modality Neck Ultrasound 12/10/2024 10:1 0 AM CDT Narrative 12/10/2024 6:26 PM CDT SJS Vascular Report Pat.Name: AUSTIN CRAMER Pat.ID: [id number] .Date: 12/10/2024 Refer.MD: JAYY GRAYSON Exam Time: 10:10:00 AM Study Type:PVI CAROTID SCAN - BILATERAL Age: 12 1950,74Y Sex: M Sonogrphr: Symone Dixon RVT Pat. Stat.:Inpatient Room: 962 CPT - 4: 29846 Carotid Duplex Reason for Study:CVA Race: W [...] 1.09 <Electronic Signature> 12/10/2024 06:26 PM Torsten Marcos, M.D. Procedure Note Torsten Rodríguez MD - 12/10/2024 S Vascular Report Pat.Name: AUSTIN CRAMER Pat.ID: [id number] .Date: 12/10/2024 Refer.MD: JAYY GRAYSON Exam Time: 10:10:00 AM Study Type:PVI CAROTID SCAN - BILATERAL Age: 12 1950,74Y Sex: M Sonogrphr: Symone Dixon RVT Pat. Stat.:Inpatient Room: [facility] CPT - 4: 25759 Carotid Duplex Reason for Study:CVA Race: W [...] PM Torsten Rodríguez M.D. Jayy Grayson MD VAS Final Result * CTA CHEST+ABD+PEL (12/10/2024 9:41 [...] 3:18 PM Narrative 12/10/2024 3:35 PM CDT [place] [id number] EXAMINATION: CTA chest, abdomen and pelvis with [...] Procedure Note Andrea Wolf MD - 12/10/[address] [address] EXAMINATION: CTA chest, abdomen and pelvis with [...] (U) 33 MMOL/L 12/10/2024 7:[address] [facility] Comment:REFERENCE RANGE NOT ESTABLISHED URINE SPECIMEN / Unknown 12/10/2024 6:20 AM CDT Jayy Grayson MD URINE ORDERABLES Final Result Performing Organization Address [facility] Co de Phone Number [facility] [address] [place] [address], [phone] * POTASSIUM URINE RANDOM (12/10/2024 6:20 AM CDT) K RANDOM (U) 44.9 MMOL/L 12/10/2024 7:[address] [facility] Comment:REFERENCE RANGE NOT ESTABLISHED URINE SPECIMEN / Unknown 12/10/2024 6:20 AM CDT Jayy Grayson MD URINE ORDERABLES Final Result Performing Organization Address [facility] Co de Phone Number [facility] [address] [place] [address], [phone] * CHLORIDE URINE RANDOM (12/10/2024 6:20 AM CDT) CHLORIDE RANDOM (U) 43 MMOL/L 12/10/2024 7:[address] [facility] Comment:REFERENCE RANGE NOT ESTABLISHED URINE SPECIMEN / Unknown 12/10/2024 6:20 AM CDT Jayy Grayson MD URINE ORDERABLES Final Result [facility] [address] [place] [address], [phone] * (ABNORMAL) URINE DRUG SCREEN (TOXICOLOGY) (12/10/2024 6:20 AM CDT) PHENCYCLIDINE PCP (U) NEGATIVE NEGATIVE 12/10/2024 7:[address] [facility] BENZODIAZEPINES SCREEN (U) NEGATIVE NEGATIVE 12/10/2024 7:[address] [facility] COCAINE METABOLITES (U) NEGATIVE NEGATIVE 12/10/2024 7:[address] [facility] AMPHETAMINE (U) POSITIVE SCREEN RESULT, IF CONFIRMATION DESIRED PLEASE CONTACT LAB WITHIN ONE WEEK. (A) NEGATIVE 12/10/2024 7:[address] [facility] CANNABINOIDS SCREEN (U) POSITIVE SCREEN RESULT, IF CONFIRMATION DESIRED PLEASE CONTACT LAB WITHIN ONE WEEK. (A) NEGATIVE 12/10/2024 7:[address] [facility] OPIATE SCREEN (U) POSITIVE SCREEN RESULT, IF CONFIRMATION DESIRED PLEASE CONTACT LAB WITHIN ONE WEEK. (A) NEGATIVE 12/10/2024 7:[address] [facility] BARBITURATES SCREEN (U) NEGATIVE NEGATIVE 12/10/2024 7:[address] [facility] URINE TOX COMMENT Unconfirmed screening results are to be used only for medical purposes. 12/10/2024 6:[address] [facility] CUTOFF CONCENTRATION (U) Cut-off Concentration for a positive result 12/10/2024 6:[address] [facility] Comment: Phencyclidine 25 ng/mL Benzodiazepines 200 ng/mL Cocaine 300 ng/mL Amphetamine 1000 ng/mL Cannabinoids 50 ng/mL Opiates 300 ng/mL Barbiturates 200 ng/mL URINE SPECIMEN / Unknown 12/10/2024 6:20 AM CDT us Jayy Grayson MD URINE ORDERABLES Final Result Performing Organization Address [facility] Co de Phone Number [facility] [address] [place] [address], [place] [phone] * HEMOGLOBIN, GLYCOSYLATED (12/10/2024 5:51 AM CDT) HGB A1C 5.5 <5.7 % 12/10/2024 9:[address] [facility] ESTIMATED AVG GLUCOSE 111 74 - 114 MG/DL 12/10/2024 9:[address] [facility] 12/10/2024 5:51 AM CDT Ada Alford MD LABORATORY Final Res ult Performing Organization Address [facility] de Phone Number [facility] [address] [place] [address], [place] [phone] * (ABNORMAL) LIPID PANEL (12/10/2024 5:51 AM CDT) CHOLESTEROL 159 MG/DL 12/10/2024 9:[address] [facility] Comment:DESIRABLE: <200 TRIGLYCERIDES 111 MG/DL 12/10/2024 9:[address] [facility] Comment:<150 NORMAL HDL 39(L) >39 MG/DL 12/10/2024 9:[address] [facility] LDL (CALCULATED) 98 MG/DL 12/11/19 9:[address] [facility] Comment:<100 OPTIMAL VLDL CALCULATION 22 MG/DL 12/11/19 9:[address] [facility] Comment:REFERENCE RANGE NOT ESTABLISHED CHOL/HDL RATIO 4.1 12/10/2024 9:[address] [facility] Comment:REFERENCE RANGE NOT ESTABLISHED LDL/HDL 2.5 12/10/2024 9:[address] [facility] Comment:REFERENCE RANGE NOT ESTABLISHED NON HDL CHOLESTEROL 120 MG/DL 12/10/2024 9:[address] [facility] Comment:REFERENCE RANGE NOT ESTABLISHED 12/10/2024 5:51 AM CDT Ada Alford MD LABORATORY Final Res ult Performing Organization Address [facility] Co de Phone Number [facility] [address] [place] [address], [phone] * VITAMIN D, 25 OH (12/10/2024 5:51 AM CDT) VITAMIN D 25 HYDROXY S/P/B 32.3 20.0 - 50.0 NG/ML 12/10/2024 7:[address] [facility] Comment: <10 ng/mL (Severe deficiency) 10 TO 19 ng/mL (Mild to Moderate deficiency) 20 TO 50 ng/mL (Optimum levels) 51 TO 80 ng/mL (Increased risk of hypercalciuria) >80 ng/mL (Toxicity possible) 12/10/2024 5:51 AM CDT Jayy Grayson MD LABORATORY Final Result Performing Organization Address [facility]/ZIP Co de Phone Number [facility] [address] [place] [address], [phone] * CK (CPK) (12/10/2024 5:51 AM CDT) CPK 130 39 - 308 U/L 12/10/2024 6:[address] [facility] 12/10/2024 5:51 AM CDT Jayy Grayson MD LABORATORY Final Result [facility] [address] [place] [address], [phone] * MRI BRAIN WO CON (12/10/2024 4:34 [...] repair. Referred By: OJ MORALES Interpreted By: Kirsti Kenney MD, 12/10/2024 5:02 AM Narrative 12/10/2024 5:16 AM CDT [facility] [address] [place] [address] EXAMINATION: MRI BRAIN WO CON. Multiplanar, multisequence [...] seen in the major vessels of the [place] of [place]. No significant paranasal sinus or mastoid air cell disease. Postoperative changes of bilateral lens replacement surgery in the orbits. Susceptibility artifact over the lateral left orbit from both radiodensity in the anterolateral wall of the left orbit from prior orbital fracture repair.. Procedure Note Kristi Kenney MD - 12/10/2024 [place] [address] EXAMINATION: MRI BRAIN WO CON. Multiplanar, multisequence [...] By: Kristi Kenney MD, 12/10/2024 5:02 AM us Jayy Grayson MD MRI Final Result * [...] 5:16 AM Narrative 12/10/2024 5:24 AM CDT [address] [address] EXAMINATION: CT Right Hip without intravenous contrast, [...] MD - 12/10/2024 [facility] [address] [place], [place] [address] EXAMINATION: CT Right Hip without intravenous contrast, [...] SOURCE RESPIRATORY, NOSE 12/09/2024 9:[address] [facility] MRSA BY PCR NASAL METHICILLIN RESISTANT STAPH AUREUS NOT DETECTED METHICILLIN RESISTANT STAPH AUREUS NOT DETECTED 12/10/2024 10:[address] [facility] NASAL STRUCTURE / Unknown 12/09/2024 9:45 PM CDT Jayy Grayson MD MICROBIOLOGY - GENERAL ORDERABL ES Final Result [facility] [address] [place] [address], [phone] * TYPE & SCREEN (12/09/2024 9:22 PM CDT) ABO/RH O POSITIVE 12/09/2024 10:[address] [facility] ANTIBODY SCREEN NEGATIVE 12/09/2024 10:[address] [facility] SAMPLE EXPIRATION 12/12/2024,2 359 12/09/2024 9:[address] [facility] 12/09/2024 9:22 PM CDT us Tae Cramer MD BLOOD BANK TEST ORDERABLES Fin al Result [facility] [address] [place] [address], [phone] * CT CHEST+ABD+PEL W CON (12/09/2024 3:09 [...] 3:36 PM Narrative 12/09/2024 3:55 PM CDT [address] [place] [address] Examination: CT of the chest, abdomen and [...] Procedure Note Mac Herr MD - 12/09/2024 [facility] [address] [place] [address] Examination: CT of the chest, abdomen and [...] is ectasia of thedescending thoracic aorta without amadeo aneurysm. The heart and greatvessels are otherwise [...] chronic but objectively age indeterminate T2 and [id number] fractures. Further imaging as deemed clinically appropriate. [...] 3:23 PM Narrative 12/09/2024 3:31 PM CDT [address] [place] [address] Examination: CT of the head without contrast. [...] Procedure Note Mac Herr MD - 12/09/[address] [place] [address] Examination: CT of the head without contrast. [...] By: Mac Herr MD, 12/09/2024 3:23 PM Oj Morales MD CT Final Result * ECG 12 lead (12/09/2024 2:27 PM CDT) 12/09/2024 2:27 PM CDT Narrative [facility] - 12/11/2024 10:39 AM CDT [address] [place] [address] Test Date: 2024-12-09 Pat Name: AUSTINBUFFY CRAMER Department: 3 Room: EXAM 707 Gender: Male Manager Combination: : 1950 Requested By: OJ MORALES Order Number: [id number] Reading MD: Jam Moreno Measurements Intervals Redig Rate: 69 P: 95 MI: 159 QRS: -68 QRSD: 115 T: 84 QT: 403 QTc: 433 Interpretive Statements SINUS RHYTHM LEFT ANTERIOR FASCICULAR BLOCK MINIMAL ST DEPRESSION Procedure Note Jam Moreno MD - 12/11/[address] [place] [address] Test Date: 2024-12-09 Pat Name: AUSTIN CRAMER Department: 3 Room: EXAM 707 Gender: Male Manager Combination: : 1950 Requested By: OJ MORALES Order Number: [id number] Reading MD: Jam Moreno Measurements Intervals Redig Rate: 69 P: 95 MI: 159 QRS: -68 QRSD: 115 T: 84 QT: 403 QTc: 433 Interpretive Statements SINUS RHYTHM LEFT ANTERIOR FASCICULAR BLOCK MINIMAL ST DEPRESSION us Oj Morales MD ECG ORDERABLES Final Result [facility] * Critical Care (12/09/2024 2:25 PM CDT) [...] laboratory studies Care discussed with: admitting provider Oj Morales MD PROCEDURE/MINOR SURGICAL ORDERAB LES Final Result * (ABNORMAL) PROTIME/INR, VENOUS (12/09/2024 2:23 PM CDT) PROTIME 13.8(H) 9.4 - 12.5 SEC 12/09/2024 2:42 PM CDT [facility] INR 1.2(H) 0.8 - 1.0 12/09/2024 2:42 PM CDT [facility] 12/09/2024 2:23 PM CDT us Oj Morales MD LABORATORY Final Result [facility] [address] [place] [address], * (ABNORMAL) COMPREHENSIVE METABOLIC PANEL (12/09/2024 2:23 PM CDT) SODIUM S/P/B 135(L) 136 - 145 MMOL/L 12/09/2024 2:53 PM CDT [facility] POTASSIUM S/P/B 4.2 3.5 - 5.1 MMOL/L 12/09/2024 2:53 PM CDT [facility] CHLORIDE S/P/B 95(L) 98 - 107 MMOL/L 12/09/2024 2:53 PM CDT [facility] CO2 30.0 21.0 - 32.0 MMOL/L 12/09/2024 2:53 PM CDT [facility] GLUCOSE 132(H) 70 - 99 MG/DL 12/09/2024 2:53 PM CDT [facility] Comment: FASTING GLUCOSE 100 TO 125 MG/DL IS CONSISTENT WITH IMPAIRED FASTING GLUCOSE. FASTING GLUCOSE >125 MG/DL IS CONSISTENT WITH DIABETES. RANDOM GLUCOSE >200 MG/DL WITH HYPERGLYCEMIC SYMPTOMS IS CONSISTENT WITH DIABETES. PER ADA GUIDELINES BUN 34(H) 6 - 24 MG/DL 12/09/2024 2:53 PM CDT [facility] CREATININE S/P/B 1.33(H) 0.70 - 1.30 MG/DL 12/09/2024 2:53 PM CDT [facility] CALCIUM S/P/B 9.3 8.4 - 10.5 MG/DL 12/09/2024 2:53 PM CDT [facility] BILIRUBIN TOTAL S/P/B 1.0 0.2 - 1.0 MG/DL 12/09/2024 2:53 PM CDT [facility] Comment: THIS ASSAY IS NOT RECOMMENDED FOR PATIENTS UNDERGOING TREATMENT WITH ELTROMBOPAG DUE TO THE POTENTIAL FOR FALSELY ELEVATED RESULTS. ALKALINE PHOSPHATASE S/P/B 92 45 - 115 U/L 12/09/2024 2:53 PM CDT [facility] AST 24 15 - 37 U/L 12/09/2024 2:53 PM CDT [facility] ALT 20 16 - 63 U/L 12/09/2024 2:53 PM CDT [facility] TOTAL PROTEIN S/P/B 7.9 6.4 - 8.2 G/DL 12/09/2024 2:53 PM CDT [facility] ALBUMIN S/P/B 3.6 3.4 - 5.0 G/DL 12/09/2024 2:53 PM CDT [facility] ANION GAP 10.0 5.0 - 15.0 MMOL/L 12/09/2024 2:53 PM CDT [facility] OSMOLALITY (CALC) 289 MOSM/KG 025 2:53 PM CDT [facility] Comment:REFERENCE RANGE NOT ESTABLISHED GFR ESTIMATE 56(L) >89 ML/MIN/1. 73 M2 12/09/2024 2:53 PM CDT [facility] GFR NOTES GFR REFERENCE S: 12/09/2024 2:53 PM CDT [facility] Comment: THE ESTIMATED GFR IS [...] us Oj Morales MD LABORATORY Final Result [facility] [address] [place] [address], * TROPONIN, QUANT (12/09/2024 2:23 PM CDT) TROPONIN I HIGH SENSITIVITY 9 0 - 76 ng/L 12/09/2024 2:55 PM CDT [facility] 12/09/2024 2:23 PM CDT Oj Morales MD LABORATORY Final Result [facility] [address] [place] [address], * XR FEMUR RT 2V (12/09/2024 2:14 PM CDT) Anatomical Region Laterality Modality Femur Radiographic Stefanie ging 12/09/2024 2:21 PM CDT Impressions 12/09/2024 2:25 PM CDT IMPRESSION: Right pubic ramus and right femoral fractures as described. Ordered By: OJ MORALES Interpreted By: Mac Herr MD, 12/09/2024 2:21 PM Narrative 12/09/2024 2:25 PM CDT [place] [address] [address] [place] [address] Examination: Right hip and right femur. Exam [...] Procedure Note Mac Herr MD - 12/09/2024 [place] [address] [address] [facility] [place] [address] Examination: Right hip and right femur. Exam [...] disease. Ordered By: OJ MORALES Interpreted By: Mac Herr MD, 12/09/2024 2:19 PM Narrative 12/09/2024 2:21 PM CDT [address] [place] [id number] Examination: Portable chest. Exam time: 1353 hours. Clinical history: Dyspnea. Chronic cough. Comparison: 05/26/2007. Technique: AP upright view. Findings: The heart remains within normal limits for size. Pulmonary vascularity is within normal limits. The lungs and pleural spaces appear free of any active process. The visualized bony thorax is unremarkable. Procedure Note Mac Herr MD - 12/09/[address] [place] [address] Examination: Portable chest. Exam time: 1353 hours. Clinical history: Dyspnea. Chronic cough. Comparison: 05/26/2007. Technique: AP upright view. Findings: The heart remains within normal limits for size. Pulmonaryvascularity is within normal limits. The lungs and pleural spaces appearfree of any active process. The visualized bony thorax is unremarkable. IMPRESSION: No acute disease. Ordered By: OJ MORALES Interpreted By: Mac Herr MD, 12/09/2024 2:19 PM Oj Morales [...] 2:21 PM Narrative 12/09/2024 2:25 PM CDT [address] [place] [address] Examination: Right hip and right femur. Exam [...] Procedure Note Mac Herr MD - 12/09/2024 [facility] [address] [facility] [place] [address] Examination: Right hip and right femur. Exam [...] from Last 3 Months Insurance * Guarantor: Austin Cramer Account Type Relation to Patient Date of Phone Billing Address Personal/Family Self 1950 [address] [place] [address] [facility] PENDING SALE TO [facility] Advance Directives * DNR (Latest Code Status on File) Date Activated Date Inactivated Comments 12/10/2024 12:22 AM 12/13/2024 9:31 PM * Full Code Date Activated Date Inactivated Comments 12/09/2024 7:45 PM 12/10/2024 12:22 AM Care Teams Sheriffs Relationship Specialty Start Date End Date Sergei Ruff MD [address] [place] [address] PCP - General FAMILY PRACTICE 12/09/24
--- OUTSIDE RECORDS SUMMARY | 2025-02-24 14:36 | XMS_ITS | Clinical Summary ---
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 Role Phone Sergei Ruff MD Primary Care Provider Allergies No known active allergies Medications aspirin 81 mg chewable tablet Take 1 tablet (81 mg total) by mouth daily Active lovastatin ER (ALTOPREV) 40 mg 24 hr tablet Take 1 tablet (40 mg total) by mouth nightly Please confirm dose again Active acetaminophen 500 mg capsuleIndicati ons:Fever,Pain Take 2 capsules (1,000 mg total) by mouth every 6 (six) hours as needed for pain 30 tablet 5 Active carvediloL (COREG) 12.5 mg tablet Take 1 tablet (12.5 mg total) by mouth 2 (two) times a day with meals 60 tablet 5 12/25/19 26 Active methocarbamoL (ROBAXIN) 750 mg tablet Take 1 tablet (750 mg total) by mouth 3 (three) times a day as needed for muscle spasms 15 tablet 5 Active Additional Information Patient not taking.Reported on 02/09/2025 polyethylene glycol (MIRALAX) 17 gram/dose bulk powderIndicatio ns:constipation Take 17 g by mouth daily 100 g 5 Active Additional Information Patient not taking.Reported on 02/09/2025 senna-docusate (PERICOLACE) 8.6-50 mg Take 1 tablet by mouth 2 (two) times a day 30 tablet 5 Active Additional Information Patient not taking.Reported on 02/09/2025 clopidogreL (PLAVIX) 75 mg tablet Take 1 tablet (75 mg total) by mouth daily Active HYDROcodone-ginna taminophen (NORCO) 7.5-325 mg per tablet 5 Active metoprolol XL (TOPROL-XL) 100 mg 24 hr tablet Take 1 tablet (100 mg total) by mouth daily Active traZODone (DESYREL) 100 mg tablet Take 1 tablet (100 mg total) by mouth daily 5 Active Active Problems Problem Noted Date Diagnosed Date Infrarenal abdominal aortic aneurysm (AAA) witho ut rupture 12/17/2024 Pararenal abdominal aortic aneurysm (AAA) withou t rupture 12/16/2024 Assessment & Plan (12/23/2024 1:39 PM CDT): Incidental finding of 7.8 cm AAA on imaging following fall. - TTE completed for pre-op eval. See CAD - Continue impulse control with goal SBP 110-140. Patient had not been taking medications at home following leaving AMA from OSH. - 12/19: Metoprolol, off nicardipine. - 12/20: Metoprolol changed to carvedilol - Holding home Plavix (cardiac stent). - 12/23: s/p OR for EVAR -Bedrest overnight -ADAT -PT/OT POD #1 CAD (coronary artery disease) 12/16/2024 Assessment & Plan (12/23/2024 1:40 PM CDT): Patient reports cardiac hx of stenting around 20 years ago. Has been on Asa and Plavix since then. Refill hx also includes metoprolol XL 100mg. - Holding Plavix for OR - TTE 12/17 EF 60% Normal diastolic function. There is no significant valvular heart disease. - 12/20: Metoprolol changed to coreg for improved BP controlled. Periprosthetic fracture arou nd internal prosthetic right hip joint 12/15/2024 Assessment & Plan (12/20/2024 2:11 AM CDT): Patient fell around 12/09 and presented to OSH, where he was found to have right periprosthetic femur fracture. Left AMA from OSH and returned with ongoing pain. Ortho consulted in ED. - OR 12/16 for open reduction internal fixation of right femur by Ortho - WBAT. PT/OT ordered. Recommend inpatient rehab. - Pain control. - Wound Care: Ortho signed off, deferred dressing changes to nursing staff. - Sutures/[place]: Will be removed 3 weeks after surgical date. Please include on discharge orders if patient is going to a facility. If the patient is still in the hospital at that time they will be removed by the orthopedic team. - Follow up scheduled on 01/29/[address] Mendez located at [facility] 6A Hip fracture, right 12/09/2024 Encounters Date Type Department Care Team Description 02/09/2025 1:45 PM CDT Office Visit [facility] Medicine Surgery Critical access hospital1 [facility] 8th [place] [address] [place] [address] Aletha Mathias MD PhD Infrarenal abdominal aortic aneurysm (AAA) without rupture (Primary Dx); Aftercare following surgery of the circulatory system 02/09/2025 12:19 PM CDT - 02/09/2025 11:59 PM CDT Hospital Encounter [facility] Radiology [facility] ([facility]) [address] [place] [address] Aletha Mathias MD PhD Pararenal abdominal aortic aneurysm (AAA) without rupture; Aftercare following surgery of the circulatory system Discharge Disposition: Discharge to home or self care 01/15/2025 1:10 PM CDT Office Visit [facility] Medicine Orthopaedic Surgery Critical access hospital1 [facility] 6th [place] [address] [place] [address] Berenice Mendez MD Periprosthetic fracture around internal prosthetic right hip joint, subsequent encounter (Primary Dx) 01/07/2025 Telephone [facility] Medicine Surgery [address] [facility] Floor [address] [place] [phone] Lula Meek Appointment 12/29/2024 Orders Only [facility] Medicine Surgery [address] [facility] [address] [place] [address] Aletha Mathias MD PhD Pararenal abdominal aortic aneurysm (AAA) without rupture (Primary Dx); Aftercare following surgery of the circulatory system 12/23/2024 7:30 AM CDT - 12/23/2024 11:35 AM CDT Surgery [facility] Operating Room [address] [place] [address] Aletha Mathias MD PhD ENDOVASCULAR REPAIR - AORTIC- WITH ENDOANCHORS 12/23/2024 7:24 AM CDT Anesthesia Event [facility] Operating Room [address] [place] [phone] Lee Raphael MD Montgomery, Andrea J., NP 12/17/2024 Documentation [facility] Orthopaedic Surgery [address] [facility] 6th [place] [address] [place] [phone] Olivia Ambrosio RN 12/16/2024 1:09 PM CDT Anesthesia Event [facility] Operating Room [address] [place] [phone] Jack Braxton MD Brake, Barbara E., NP 12/16/2024 12:33 PM CDT - 12/16/2024 3:58 PM CDT Surgery [facility] Operating Room [address] [place] [phone] Berenice Mendez MD OPEN REDUCTION INTERNAL FIXATION - FEMUR 12/15/2024 10:25 PM CDT - 12/24/2024 3:12 PM CDT Hospital Encounter [address] [phone] Opal Garza MD Kroll, MD Stew Siu Mohamed Adel, MD PhD Infrarenal abdominal aortic aneurysm (AAA) without rupture (Primary Dx); Fall, subsequent encounter; Periprosthetic fracture around internal prosthetic right hip joint, initial encounter (HCC); Pararenal abdominal aortic aneurysm (AAA) without rupture Discharge Disposition: Discharge to home, home health skilled care 12/15/2024 Documentation [facility] Medicine Surgery [facility] Medical Office Building [address] [place] [phone] Aletha Mathias MD PhD from Last 3 Months Surgical History Surgery Date Site/Laterality Comments CARDIAC STENT PLACEMENT x1 in HIP FRACTURE SURGERY Right per patient 20 years ago ANKLE SURGERY Right per patient 1985 ENDOVASCULAR REPAIR - AORTIC 12/23/2024 Chest/N/A Procedure: ENDOVASCULAR REPAIR - AORTIC- WITH ENDOANCHORS; Surgeon: Aletha Mathias MD PhD; Location: [facility] OR POD 3; Service: Vascular; Laterality: N/A; Medical devices from this surgery are in the Medical Devices section. Social History Tobacco Use Types Packs/Day Years Used Date Smoking Tobacco: Every Day Cigarettes Tobacco Cessation:Ready to Q uit: Not Asked; Counseling Given: Not Answered AUDIT-C Answer Date Recorded Q1: How often do you have a drink containing alc ohol? Monthly or less 12/16/2024 Q2: How many drinks containi ng alcohol do you have on a typical day when you are drinking? 1 or 2 12/16/2024 Q3: How often do you have si x or more drinks on one occasion? Never 12/16/2024 Personal Safety Answer Date Recorded Have you ever been in or are you currently in a harmful physical or emotional relationship or is someone making you feel afraid or unsafe? 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 Gender Identity Not on file Sexual Orientation Not on file Obstetrics History Last Filed Vital Signs Vital Sign Reading Time Taken Comments Blood Pressure 150/64 02/09/2025 2:25 PM CDT Pulse 56 02/09/2025 2:25 PM CDT Temperature 36.8 C (98.2 F) 12/24/2024 11:28 AM CDT Respiratory Rate 17 12/24/2024 11:28 AM CDT Oxygen Saturation 92% 02/09/2025 2:25 PM CDT Inhaled Oxygen Concentration - - Weight 59.9 kg (132 lb) 02/09/2025 2:25 PM CDT Height 185.4 cm (6' 1) 02/09/2025 2:25 PM CDT Body Mass Index 17.42 02/09/2025 2:25 PM CDT Plan of Treatment Health Maintenance Due Date Last Done Comments Colon Cancer Screening-Colonoscopy 1950 Depression Screening 1950 Hepatitis C Screening 1949 Hepatitis B Screening 1967 Zoster Vaccine (1 of 2) 1999 Well Visit 65+ 2014 Pneumococcal vaccine 65+ (2 of 2 - PPSV23, PCV20, or PCV21) 09/15/2016 07/21/2016 Influenza Vaccine (#1) 2025 Fall Risk Assessment 12/24/2025 12/24/2024 DTaP/Tdap/Td Vaccine (3 - Td or Tdap) 07/21/2026 07/21/2016, 11/22/2012 Abdominal Aortic Aneurysm (A AA) Screen Completed 02/09/2025, 02/09/2025, 02/09/2025, Additional history exists Medical Devices Implanted Type Area Cotton Classer Device Identifier Shelf Expiration Date Model / Serial / Lot Synthes 1.7mm 750mm Crimp Cerclage Cable Orthopedic Stainless Steel 298.801.01s - Sna - [id number] Implanted:Qty: 2 on 12/16/2024 by Berenice Mendez MD at [facility] Cable Right: Femur Synthes [id number] 08/15/2029 298.801. 01S / NA / Medtr[employer] Clip Supervisor Doping Internal Use Abdominal Aortic Aneurysm With Cassette Julita Fx Endoanchor [id number] - [id number] Implanted:Qty: 1 on 12/23/2024 by Aletha Mathias MD PhD at [facility] Other - see comments N/A: Aorta [employer] [id number] 07/16/2026 / / [id number] Description:EndoAnchors Synthes 3.5mm 85mm Self Tap Lock Variable Angle Stardrive T15 Screw Bone 02.127.185 - Sna - [id number] Implanted:Qty: 1 on 12/16/2024 by Berenice Mendez MD at [facility] Screw Right: Femur Synthes 02.127.1 85 / NA / Synthes 4.5mm 8mm 38mm Self Tap Large Hexagonal Socket Cortex Screw Bone 214.838 - Sna - [id number] Implanted:Qty: 1 on 12/16/2024 by Berenice Mendez MD at [facility] Screw Right: Femur Synthes 214.838 / NA / Synthes 3.5mm 90mm Self Tap Lock Variable Angle Stardrive T15 Screw Bone 02.127.190 - Sna - [id number] Implanted:Qty: 1 on 12/16/2024 by Berenice Mendez MD at [facility] Screw Right: Femur Synthes I 02.127.1 90 / NA / Synthes 3.5mm 70mm Self Tap Lock Variable Angle Stardrive T15 Screw Bone 02.127.170 - Sna - [id number] Implanted:Qty: 1 on 12/16/2024 by Berenice Mendez MD at [facility] Screw Right: Femur Synthes 02.127.1 70 / NA / Synthes 3.5mm 60mm Self Tap Lock Variable Angle Stardrive T15 Screw Bone 02.127.160 - Sna - [id number] Implanted:Qty: 1 on 12/16/2024 by Berenice Mendez MD at [facility] Screw Right: Femur Synthes 02.127.1 60 / NA / Synthes Screw Bone Compression St Full Thread Locking Lcp Va 3.5x44mm Ss 02.127.144 - Sna - [id number] Implanted:Qty: 1 on 12/16/2024 by Berenice Mendez MD at [facility] Screw Right: Femur Synthes 02.127.1 44 / NA / Synthes 3.5mm 34mm Self Tap Lock Variable Angle Stardrive T15 Screw Bone 02.127.134 - Sna - [id number] Implanted:Qty: 1 on 12/16/2024 by Berenice Mendez MD at [facility] Screw Right: Femur Synthes 02.127.1 34 / NA / Synthes Screw Bone Compression St Full Thread Locking Optilink 5.0x34mm Ss 42.231.234 - Sna - [id number] Implanted:Qty: 1 on 12/16/2024 by Berenice Mendez MD at [facility] Screw Right: Femur Synthes 42.231.2 34 / NA / Synthes Screw Bone Compression St Full Thread Locking Optilink 5.0x40mm Ss 42.231.240 - Sna - [id number] Implanted:Qty: 1 on 12/16/2024 by Berenice Mendez MD at [facility] Screw Right: Femur Synthes 42.231.2 40 / NA / Wl [employer]utan Viabahn 10mm 13mm 8fr 29mm 135cm Balloon Expandable [id number] - [id number] - [id number] Implanted:Qty: 1 on 12/23/2024 by Aletha Mathias MD PhD at [facility] Stent Right: Iliac Wl [employer] [id number] 01/10/2026 [id number] / [id number] / Wl [employer]an Viabahn 10mm 13mm 8fr 29mm 135cm Balloon Expandable [id number] - [id number] - [id number] Implanted:Qty: 1 on 12/23/2024 by Aletha Mathias MD PhD at [facility] Stent Left: Iliac Wl [employer] [id number] 05/07/2027 [id number] / [id number] / [employer] Closure Repair Femoral Artery Suture Mediated Perclose Prostyle 40738-37 - [id number] Implanted:Qty: 2 on 12/23/2024 by Aletha Mathias MD PhD at [facility] Vascular Closure Device Left: Femoral [employer] [id number] 11/15/2025 22448-16 / / [id number] [employer] Closure Repair Femoral Artery Suture Mediated Perclose Prostyle 91111-20 - [id number] Implanted:Qty: 2 on 12/23/2024 by Aletha Mathias MD PhD at [facility] Vascular Closure Device Right: Femoral [employer] [id number] 11/15/2025 34758-55 / / [id number] Synthes Implant Plate Bone Hook 10 Hole Large Right 3.5/4.5mm 02.221.094s - [id number] Implanted:Qty: 1 on 12/16/2024 by Berenice Mendez MD at [facility] Right: Femur Synthes I 02.221.0 94S / / Synthes Plate Bone 4 Hole Span Attachment Large Right 3.5mm 02.221.152s - [id number] Implanted:Qty: 1 on 12/16/2024 by Berenice Mendez MD at [facility] Right: Femur Synthes I 02.221.1 52S / / Synthes 4.5mm 2 Part Connect Stardrive T15 Screw Bone Stainless Steel 02.120.606s - [id number] Implanted:Qty: 2 on 12/16/2024 by Berenice Menedz MD at [facility] Right: Femur Synthes I 02.120.6 06S / / [employer] Closure Repair Femoral Artery Suture Mediated Perclose Prostyle 07398-28 - [id number] Implanted:Qty: 1 on 12/23/2024 by Aletha Mathias MD PhD at [facility] Left: Femoral [employer] [id number] 11/15/2025 36417-59 / / [id number] Medtronic Inc Stent Graft Iliac Bifurcated [id number] Endurant Ii Polyester Nitinol [id number] - [id number] - [id number] Implanted:Qty: 1 on 12/23/2024 by Aletha Mathias MD PhD at [facility] Left: Iliac [employer] Inc 01/31/2026 [id number] / [id number] / Med[employer] Inc Stent Graft Abdominal Aortic Aneurysm Bifurcated Main Body [id number] Endurant Ii Polyester Nitinol [id number] - [id number] - [id number] Implanted:Qty: 1 on 12/23/2024 by Aletha Mathias MD PhD at [facility] [employer] Inc 06/02/2026 [id number] C103E / [id number] / Med[employer]onic Inc Stent Graft Iliac Bifurcated [id number] Endurant Ii Polyester Nitinol [id number] - [id number] - [id number] Implanted:Qty: 1 on 12/23/2024 by Aletha Mathias MD PhD at [facility] [employer] 06/03/2026 [id number] C156E / [id number] / Procedures Procedure Name Priority Date/Time Associated Diagnosis Comments CTA ABDOMEN PELVIS W WO CONTRAST Schedule Routine, Read Routine (OP Routine) 02/09/2025 2:08 PM CDT Pararenal abdominal aortic aneurysm (AAA) without rupture Aftercare following surgery of the circulatory system EGFR Routine 12/23/2024 10:25 PM CDT DIFFERENTIAL AUTO Routine 12/23/2024 10: 25 PM CDT CBC WITH AUTO DIFFERENTIAL Routine 12/23/2024 10:25 PM CDT BASIC METABOLIC PANEL Routine 12/23/2024 10:25 PM CDT CV HYBRID ROOM (DEFAULT ORDERABLE) Routine 12/23/2024 11:32 AM CDT Pararenal abdominal aortic aneurysm (AAA) without rupture VASCULAR SURGERY PROCEDURE Routine 12/23/2024 11:32 AM CDT Pararenal abdominal aortic aneurysm (AAA) without rupture POCT ACTIVATED CLOTTING TIME, LOW RANGE Routine 12/23/2024 10:54 AM CDT FL FLUOROSCOPY < 1 HOUR IP Routine 12/23/2024 10:53 AM CDT POCT ACTIVATED CLOTTING TIME, LOW RANGE Routine 12/23/2024 10:32 AM CDT POCT ACTIVATED CLOTTING TIME, LOW RANGE Routine 12/23/2024 10:11 AM CDT POCT ACTIVATED CLOTTING TIME, LOW RANGE Routine 12/23/2024 9:48 AM CDT POCT ACTIVATED CLOTTING TIME, LOW RANGE Routine 12/23/2024 9:26 AM CDT POCT ACTIVATED CLOTTING TIME, LOW RANGE Routine 12/23/2024 9:14 AM CDT POCT ACTIVATED CLOTTING TIME, LOW RANGE Routine 12/23/2024 9:06 AM CDT POC BLOOD GAS AND CHEMISTRIES, ARTERIAL Routine 12/23/2024 8:28 AM CDT [place] AN PROCEDURE PLACEHOLDER Routine 12/23/2024 8:17 AM CDT NJ AN PROCEDURE PLACEHOLDER Routine 12/23/2024 8:16 AM CDT NJ AN PROCEDURE PLACEHOLDER Routine 12/23/2024 8:16 AM CDT NJ AN ELECTIVE ENDOTRACHEAL AIRWAY Routine 12/23/2024 8:16 AM CDT PREPARE RBC Timed 12/23/2024 6:04 AM CDT EGFR Routine 12/22/2024 11:35 PM CDT DIFFERENTIAL AUTO Routine 12/22/2024 11: 35 PM CDT MAGNESIUM Routine 12/22/2024 11:35 PM CDT APTT Routine 12/22/2024 11:35 PM CDT PROTIME-INR Routine 12/22/2024 11:35 PM CDT TYPE AND SCREEN Timed 12/22/2024 11:35 PM CDT CBC WITH AUTO DIFFERENTIAL Routine 12/22/2024 11:35 PM CDT BASIC METABOLIC PANEL Routine 12/22/2024 11:35 PM CDT EGFR Routine 12/22/2024 4:08 AM CDT DIFFERENTIAL AUTO Routine 12/22/2024 4:0 8 AM CDT CBC WITH AUTO DIFFERENTIAL Routine 12/22/2024 4:08 AM CDT BASIC METABOLIC PANEL Routine 12/22/2024 4:08 AM CDT EGFR Routine 12/20/2024 9:03 PM CDT DIFFERENTIAL AUTO Routine 12/20/2024 9:0 3 PM CDT CBC WITH AUTO DIFFERENTIAL Routine 12/20/2024 9:03 PM CDT BASIC METABOLIC PANEL Routine 12/20/2024 9:[address] BODY OUTSIDE REFERENCE Routine 12/20/2024 8:34 AM CDT EGFR Routine 12/19/2024 8:01 PM CDT DIFFERENTIAL AUTO Routine 12/19/2024 8:0 1 PM CDT PROTIME-INR Timed 12/19/2024 8:01 PM CDT APTT Timed 12/19/2024 8:01 PM CDT CBC WITH AUTO DIFFERENTIAL Routine 12/19/2024 8:01 PM CDT BASIC METABOLIC PANEL Routine 12/19/2024 8:01 PM CDT EGFR Routine 12/19/2024 3:50 AM CDT DIFFERENTIAL AUTO Routine 12/19/2024 3:5 0 AM CDT CBC WITH AUTO DIFFERENTIAL Routine 12/19/2024 3:50 AM CDT BASIC METABOLIC PANEL Routine 12/19/2024 3:50 AM CDT TYPE AND SCREEN STAT 12/19/2024 3:50 AM CDT EGFR Routine 12/17/2024 10:40 PM CDT DIFFERENTIAL AUTO Routine 12/17/2024 10: 40 PM CDT CBC WITH AUTO DIFFERENTIAL Routine 12/17/2024 10:40 PM CDT BASIC METABOLIC PANEL Routine 12/17/2024 10:40 PM CDT TRANSTHORACIC ECHO (TTE) COMPLETE W DOPPLER/CF W CONTRAST ED Urgent/IP Urgent 12/17/2024 2:05 PM CDT EGFR Routine 12/16/2024 10:39 PM CDT DIFFERENTIAL AUTO Routine 12/16/2024 10: 39 PM CDT CBC WITH AUTO DIFFERENTIAL Routine 12/16/2024 10:39 PM CDT BASIC METABOLIC PANEL Routine 12/16/2024 10:39 PM CDT XR FEMUR RIGHT 2 OR MORE VIEWS IP Routine 12/16/2024 4:20 PM CDT FL FLUOROSCOPY < 1 HOUR IP Routine 12/16/2024 3:34 PM CDT NJ AN PROCEDURE PLACEHOLDER Routine 12/16/2024 1:39 PM CDT NJ AN ELECTIVE ENDOTRACHEAL AIRWAY Routine 12/16/2024 1:39 PM CDT OPEN REDUCTION INTERNAL FIXATION - FEMUR 12/16/2024 1:14 PM CDT Periprosthetic fracture around internal prosthetic right hip joint, initial encounter ([facility]) [place] AN PROCEDURE PLACEHOLDER Routine 12/16/2024 12:[address] HIP RIGHT WO CONTRAST ED 12/16/2024 4:07 AM CDT XR HIPS BILATERAL W PELVIS 2 VIEW ED 12/16/2024 4:04 AM CDT XR ANKLE RIGHT 3 OR MORE VIEWS ED 12/16/2024 4:04 AM CDT XR KNEE RIGHT 1 OR 2 VIEWS ED 12/16/2024 4:04 AM CDT XR FEMUR RIGHT 2 OR MORE VIEWS ED 12/16/2024 4:04 AM CDT B CHECK SAMPLE STAT 12/15/2024 11:41 PM CDT NJ CRITICAL CARE ILL/INJURED PATIENT INIT 30-74 MIN Routine 12/15/2024 10:52 PM CDT EGFR STAT 12/15/2024 10:48 PM CDT DIFFERENTIAL AUTO STAT 12/15/2024 10: 48 PM CDT CBC WITH AUTO DIFFERENTIAL STAT 12/15/2024 10:48 PM CDT COMPREHENSIVE METABOLIC PANEL STAT 12/15/2024 10:48 PM CDT APTT STAT 12/15/2024 10:48 PM CDT PROTIME-INR STAT 12/15/2024 10:48 PM CDT TYPE AND SCREEN STAT 12/15/2024 10:48 PM CDT from Last 3 Months Results * CTA Abdomen Pelvis (02/09/2025 2:08 PM CDT) Anatomical Region Laterality Modality Body N/A Computed Tomogra phy 02/09/2025 4:43 PM CDT Impressions 02/09/2025 8:03 PM CDT IMPRESSION: 1. 74 mm x 78 mm infrarenal abdominal aortic aneurysm with interval placement of an aortobiiliac stent graft. There has been no significant interval change in the size of the aneurysm since the prior examination. Unchanged hyperdense crescent within the periphery of the aneurysm sac, without new findings of aneurysm instability. 2. AAA volume: 370 cc. This was not previously measured on the prior study. 3. No evidence of endoleak. 4. 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 Dictated by: Taco Bray MD The radiology attending physician has personally reviewed this study, and had reviewed and/or edited this written report and agrees with it. Electronically signed by: Neel Sebastian M.D. Narrative 02/09/2025 8:03 PM CDT EXAMINATION: CT ANGIOGRAPHY OF THE ABDOMEN AND PELVIS WITH AND WITHOUT CONTRAST HISTORY: Pararenal abdominal aortic aneurysm without rupture status post endovascular repair on 12/23/2024.. TECHNIQUE: CT angiography of the abdomen and pelvis was performed prior to and following the uneventful intravenous administration of 70 ml Optiray-350 using the post-endoluminal stent graft protocol. Vascular 3D images were generated on a dedicated workstation and also reviewed. COMPARISON: 12/15/2024. FINDINGS: VASCULAR FINDINGS: There is an infrarenal abdominal aortic aneurysm with an yxuge-ud-blafv stent graft in place. The proximal attachment site is abdominal aorta at the level of renal arteries, and the distal attachment sites are in the distal common iliac arteries. There is no perigraft flow to suggest an endoleak. [place] peripheral hyperdensity within the excluded aneurysmal sac appears stable compared to 12/15/24. No visceral stents are present. 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 No significant stenosis of superior mesenteric artery. Bilateral renal arteries are patent with mild atherosclerosis. Proximal accessory right renal artery is not visualized and may be occluded, new from 12/15/2024. AAA volume (lowest renal artery to aortic bifurcation): 370 cc. This was not measured on the prior exam. The maximum diameter of the aneurysm is 74 mm AP x 78 mm [id number]. This is stable since the prior exam. The maximum diameter of the graft is 35 mm AP x 33 mm [id number]. . Moderate right greater than left stenosis of the external iliac artery. Mild stenosis of bilateral internal iliac artery. Patent bilateral common femoral artery, proximal superficial and deep femoral arteries unchanged. NON-VASCULAR FINDINGS: No pleural effusion or pericardial effusion. Normal liver, spleen with calcified granulomas. No intrahepatic or extrahepatic biliary ductal dilatation. Normal gallbladder. Mild thickening of bilateral adrenal glands without focal nodularity likely hyperplasia. Normal pancreas. Delayed nephrogram of the right kidney inferior pole with persistent focal atrophy. No hydronephrosis or renal stone. Normal urinary bladder. Enlarged prostate. No bowel obstruction, pneumoperitoneum, ascites, drainable fluid collection. Healing fracture of the right pubic body and superior and inferior rami. Right total hip arthroplasty. No additional acute osseous lesion. Procedure Note Neel Sebastian MD - 02/09/2025 EXAMINATION: CT ANGIOGRAPHY OF THE ABDOMEN AND PELVIS WITH AND WITHOUT CONTRAST HISTORY: Pararenal abdominal aortic aneurysm without rupture status post endovascular repair on 12/23/2024.. TECHNIQUE: CT angiography of the abdomen and pelvis was performed prior to and following the uneventful intravenous administration of 70 ml Optiray-350 using the post-endoluminal stent graft protocol. Vascular 3D images were generated on a dedicated workstation and also reviewed. COMPARISON: 12/15/2024. FINDINGS: VASCULAR FINDINGS: There is an infrarenal abdominal aortic aneurysm with an qjakh-zt-xdjlm stent graft in place. The proximal attachment site is abdominal aorta at the level of renal arteries, and the distal attachment sites are in the distal common iliac arteries. There is no perigraft flow to suggest an endoleak. [place] peripheral hyperdensity within the excluded aneurysmal sac appears stable compared to 12/15/24. No visceral stents are present. 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 No significant stenosis of superior mesenteric artery. Bilateral renal arteries are patent with mild atherosclerosis. Proximal accessory right renal artery is not visualized and may be occluded, new from 12/15/2024. AAA volume (lowest renal artery to aortic bifurcation): 370 cc. This was not measured on the prior exam. The maximum diameter of the aneurysm is 74 mm AP x 78 mm [id number]. This is stable since the prior exam. The maximum diameter of the graft is 35 mm AP x 33 mm [id number]. . Moderate right greater than left stenosis of the external iliac artery. Mild stenosis of bilateral internal iliac artery. Patent bilateral common femoral artery, proximal superficial and deep femoral arteries unchanged. NON-VASCULAR FINDINGS: No pleural effusion or pericardial effusion. Normal liver, spleen with calcified granulomas. No intrahepatic or extrahepatic biliary ductal dilatation. Normal gallbladder. Mild thickening of bilateral adrenal glands without focal nodularity likely hyperplasia. Normal pancreas. Delayed nephrogram of the right kidney inferior pole with persistent focal atrophy. No hydronephrosis or renal stone. Normal urinary bladder. Enlarged prostate. No bowel obstruction, pneumoperitoneum, ascites, drainable fluid collection. Healing fracture of the right pubic body and superior and inferior rami. Right total hip arthroplasty. No additional acute osseous lesion. IMPRESSION: IMPRESSION: 1. 74 mm x 78 mm infrarenal abdominal aortic aneurysm with interval placement of an aortobiiliac stent graft. There has been no significant interval change in the size of the aneurysm since the prior examination. Unchanged hyperdense crescent within the periphery of the aneurysm sac, without new findings of aneurysm instability. 2. AAA volume: 370 cc. This was not previously measured on the prior study. 3. No evidence of endoleak. 4. 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 Dictated by: Taco Bray MD The radiology attending physician has personally reviewed this study, and had reviewed and/or edited this written report and agrees with it. Electronically signed by: Neel Sebastian M.D. Aletha Mathias MD PhD IMG CT PROCEDURES Laura l Result * eGFR (12/23/2024 10:25 PM CDT) eGFR >90 >=60 mL/min/1. 73 m2 Comment: Interpretive Data Reference Interval Normal >/= 90 mL/min/1.73m2 Mildly decreased* 60 - 89 mL/min/1.73m2 Mildly to moderately decreased 45 - 59 mL/min/1.73m2 Moderately to severely decreased 30 - 44 mL/min/1.73m2 Severely decreased 15 - 29 mL/min/1.73m2 Kidney Failure < 15 mL/min/1.73m2 *Relative to young adult level Estimated glomerular filtration rate is determined by the 2020 CKD-EPI equation recommended by the National Kidney Foundation (A Unifying Approach to GFR Estimation: Recommendations of the NKF-ASK Task Force on Reassessing the Inclusion of Race in Diagnosing Kidney Disease, JASN 2020). The CKD-EPI equation should not be used for patients with unstable renal function and has not been validated in children and those over 70. Current interpretive data was last reviewed 2021. Blood 12/23/2024 10:2 5 PM CDT 12/23/2024 10:42 PM CDT us Aletha Mathias MD PhD LAB BLOOD ORDERABLES F inal Result [facility] [place] [address] * (ABNORMAL) Differential, auto (12/23/2024 10:25 PM CDT) Neutrophil abs 5.72 1.50 - 6.50 K/cumm Imm gran abs 0.07 0.00 - 0.10 K/cumm [facility] Lymphocyte abs 0.76(L) 0.80 - 3.30 K/cumm [facility] Monocyte abs 0.52 0.20 - 0.80 K/cumm [facility] Eosinophil abs 0.15 0.00 - 0.50 K/cumm [facility] Basophil abs 0.04 0.00 - 0.10 K/cumm [facility] Neutrophil pct 78.6 % [facility] Comment: Interpretive Data Percent cell count reference ranges are not reported, since discordance with absolute values may lead to misinterpretation of CBC data. Current Interpretive Data was last revised on 2017. Imm gran pct 1.0 % [facility] Comment: Interpretive Data Percent cell count reference ranges are not reported, since discordance with absolute values may lead to misinterpretation of CBC data. Current Interpretive Data was last revised on 2017. Lymphocyte pct 10.5 % [facility] Comment: Interpretive Data Percent cell count reference ranges are not reported, since discordance with absolute values may lead to misinterpretation of CBC data. Current Interpretive Data was last revised on 2017. Monocyte pct 7.2 % [facility] Comment: Interpretive Data Percent cell count reference ranges are not reported, since discordance with absolute values may lead to misinterpretation of CBC data. Current Interpretive Data was last revised on 2017. Eosinophil pct 2.1 % [facility] Comment: Interpretive Data Percent cell count reference ranges are not reported, since discordance with absolute values may lead to misinterpretation of CBC data. Current Interpretive Data was last revised on 2017. Basophil pct 0.6 % [facility] Comment: Interpretive Data Percent cell count reference ranges are not reported, since discordance with absolute values may lead to misinterpretation of CBC data. Current Interpretive Data was last revised on 2017. Blood 12/23/2024 10:2 5 PM CDT 12/23/2024 10:41 PM CDT us Aletha Mathias MD PhD LAB BLOOD ORDERABLES F inal Result [facility] Department [place] [address] * (ABNORMAL) CBC with auto differential (12/23/2024 10:25 PM CDT) WBC 7.26 3.80 - 9.90 K/cumm Hgb 7.6(L) 13.0 - 17.5 g/dL [facility] Hct 23.2(L) 38.9 - 50.3 % [facility] Plt 416(H) 150 - 400 K/cumm [facility] MPV 8.5(L) 9.1 - 12.3 fL [facility] RBC 2.49(L) 4.30 - 5.80 M/cumm [facility] MCV 93.2 81.3 - 96.4 fL [facility] MCH 30.5 27.1 - 33.3 pg [facility] MCHC 32.8 32.3 - 35.7 g/dL [facility] RDW CV 15.6(H) 11.1 - 14.9 % [facility] RDW SD 52.3(H) 35.7 - 48.1 fL [facility] NRBC abs 0.00 0.00 - 0.01 K/cumm [facility] Blood 12/23/2024 10:2 5 PM CDT 12/23/2024 10:41 PM CDT Aletha Mathias MD PhD LAB BLOOD ORDERABLES F inal Result [facility] Department [place] [address] * (ABNORMAL) Basic metabolic panel (12/23/2024 10:25 PM CDT) [facility] Sodium 133(L) 135 - 145 mmol/L Potassium, pl 4.3 3.3 - 4.9 mmol/L [facility] Chloride 99 97 - 110 mmol/L [facility] CO2 28 22 - 32 mmol/L [facility] Anion gap 6 2 - 15 mmol/L [facility] BUN 13 6 - 25 mg/dL [facility] Creatinine 0.83 0.80 - 1.30 mg/dL [facility] Glucose 119 70 - 199 mg/dL [facility] Comment: Interpretive Data Fasting glucose >/= 126 mg/dl is diagnostic for diabetes. Fasting is defined as no caloric intake for at least 8 hours. Fasting glucose between 100 mg/dl to 125 mg/dl is diagnostic of prediabetes. In a patient with classic symptoms of hyperglycemia or hyperglycemic crisis, a random glucose >/= 200 mg/dl is diagnostic for diabetes. In the absence of unequivocal hyperglycemia, results should be confirmed by repeat testing. The classification and Diagnosis of Diabetes Diabetes Care 2021; 46: S19-S40. Current interpretive data was last revised 2022. Calcium 8.3(L) 8.5 - 10.3 mg/dL [facility] Blood 12/23/2024 10:2 5 PM CDT 12/23/2024 10:42 PM CDT Aletha Mathias MD PhD LAB BLOOD ORDERABLES F inal Result Performing Organization Address City/[facility]/ZIP Co de Phone Number [facility] Department [place] [address] * ENDOVASCULAR REPAIR - AORTIC (12/23/2024 11:32 AM CDT) Anatomical Region Laterality Modality X-Ray Angiograph y Narrative 12/23/2024 3:23 PM CDT Please see OpNote for result. Aletha Mathias MD PhD SURGICAL CASE ORDERS F inal Result * ANGIOPLASTY BALLOON/STENT PLACEMENT (12/23/2024 11:32 AM CDT) Anatomical Region Laterality Modality X-Ray Angiograph y Narrative 12/23/2024 3:23 PM CDT Please see OpNote for result. Aletha Mathias MD PhD CV CARDIAC CATH PROCED URES Final Result * POCT Activated clotting time, low range (12/23/2024 10:54 AM CDT) Pathologist [facility] ACT 133 123 - 168 sec POC Performer [id number] [facility] POC Device Number [id number] [facility] Blood 12/23/2024 10:5 4 AM CDT 12/23/2024 10:54 AM CDT Result [facility] Aletha Mathias MD PhD LAB POCT ORDERABLES - DEVICE Final Result Performing Organization Address City/[facility] Co de Phone Number [facility] Department [place] [address] * FL Fluoroscopy < 1 Hour (12/23/2024 10:53 AM CDT) Narrative [facility] - 12/23/2024 10:55 AM CDT The images from this study are not interpreted by Radiology. Please refer to the physician's procedure / OR operative note. Aletha Mathias MD PhD IMG FLUOROSCOPY PROCED URES Final Result Performing Organization Address City/[facility]/ZIP Co de Phone Number [email or web address] * (ABNORMAL) POCT Activated clotting time, low range (12/23/2024 10:32 AM CDT) ACT 245(H) 123 - 168 sec POC Performer [id number] [facility] POC Device Number [id number] [facility] Blood 12/23/2024 10:3 2 AM CDT 12/23/2024 10:32 AM CDT us Aletha Mathias MD PhD LAB POCT ORDERABLES - DEVICE Final Result Performing Organization Address [facility] Co de Phone Number [facility] Department [place] [address] * (ABNORMAL) POCT Activated clotting time, low range (12/23/2024 10:11 AM CDT) ACT 266(H) 123 - 168 sec POC Performer [id number] [facility] POC Device Number [id number] [facility] Blood 12/23/2024 10:1 1 AM CDT 12/23/2024 10:11 AM CDT us Aletha Mathias MD PhD LAB POCT ORDERABLES - DEVICE Final Result Performing Organization Address [facility] Co de Phone Number [facility] Department [place] [address] * (ABNORMAL) POCT Activated clotting time, low range (12/23/2024 9:48 AM CDT) ACT 261(H) 123 - 168 sec POC Performer [id number] [facility] POC Device Number [id number] [facility] Blood 12/23/2024 9:48 AM CDT 12/23/2024 9:48 AM CDT Aletha Mathias MD PhD LAB POCT ORDERABLES - DEVICE Final Result Performing Organization Address City/[facility] Co de Phone Number [facility] [place] [address] * (ABNORMAL) POCT Activated clotting time, low range (12/23/2024 9:26 AM CDT) ACT 258(H) 123 - 168 sec POC Performer [id number] [facility] POC Device Number [id number] [facility] Blood 12/23/2024 9:26 AM CDT 12/23/2024 9:26 AM CDT Aletha Mathias MD PhD LAB POCT ORDERABLES - DEVICE Final Result Performing Organization Address City/[facility]/[place] [address] * (ABNORMAL) POCT Activated clotting time, low range (12/23/2024 9:14 AM CDT) ACT 237(H) 123 - 168 sec POC Performer [id number] [facility] POC Device Number [id number] [facility] Blood 12/23/2024 9:14 AM CDT 12/23/2024 9:14 AM CDT us Aletha Mathias MD PhD LAB POCT ORDERABLES - DEVICE Final Result [facility] [place] [address] * (ABNORMAL) POCT Activated clotting time, low range (12/23/2024 9:06 AM CDT) ACT 219(H) 123 - 168 sec POC Performer [id number] [facility] POC Device Number [id number] [facility] Blood 12/23/2024 9:06 AM CDT 12/23/2024 9:06 AM CDT us Aletha Mathias MD PhD LAB POCT ORDERABLES - DEVICE Final Result Performing Organization Address City/[facility]/ZIP Co de Phone Number [facility] Department [place] [address] * (ABNORMAL) POC Blood Gas and Chemistries, Arterial - (12/23/2024 8:28 AM CDT) pH, Art POC 7.41 7.35 - 7.45 pCO2, Art POC 45 35 - 45 mmHg [facility] pO2, Art POC 222(H) 83 - 108 mmHg [facility] Na, POC 135 135 - 145 mmol/L [facility] K POC 4.4 3.3 - 4.9 mmol/L [facility] Comment: Interpretive Data Not all point of care methods assess for hemolysis. Confirm with instrument and retest K+ if not consistent with clinical signs and symptoms. Current Interpretive Data was last revised on 2023. Cl, POC 104 97 - 110 mmol/L [facility] Ionized Ca, POC 4.60 4.50 - 5.10 mg/dL [facility] Glucose, POC 127 70 - 199 mg/dL [facility] Lactate POC 1.3 0.7 - 2.0 mmol/L [facility] SO2 (roosevelt) arterial 100(H) 90 - 95 % [facility] Base excess, POC 3.4 mmol/L [facility] HCO3, Art POC 28 20 - 30 mmol/L [facility] Hct, POC 30.0(L) 41.4 - 51.6 % [facility] Total Hb, POC 10.1(L) 13.8 - 17.2 g/dL [facility] Blood 12/23/2024 8:28 AM CDT 12/23/2024 8:28 AM CDT us Aletha Mathias MD PhD LAB POCT ORDERABLES - DEVICE Final Result [facility] Department [place] [address] * [place] AN PROCEDURE PLACEHOLDER (12/23/2024 8:17 AM CDT) Aneta Levine RN - 12/23/2024 8:17 AM CDT Aneta Downing RN 12/23/2024 8:17 AM Peripheral IV Catheter Patient location: OR Staff: Placed by: Other staff: Aneta Downing RN Preprocedure prep: Prep solution: chlorhexadine PPE: provider hat/mask and gloves PIV line: Laterality: right Site: hand Catheter size: 16 g Technique: anatomical landmarks and direct visualization Procedure details: occlusive dressing applied and good blood return Number of attempts: 1 Assessment: Events: patient tolerated procedure well with no complications us Lee Raphael MD ANESTHESIA ORDERABL ES Final Result * [place] AN PROCEDURE PLACEHOLDER (12/23/2024 8:16 AM CDT) Aneta Levine RN - 12/23/2024 8:16 AM CDT Aneta Downing RN 12/23/2024 8:17 AM Arterial Line Patient location: pre-op holding Indication: continuous blood pressure monitoring and blood sampling needed Ultrasound assisted: yes Staff: Supervising provider: Lee Raphael MD Placed by: Other staff: Aneta Downing RN Procedure prep: Prep solution: chlorhexadine/alcohol Prep: provider hat/mask and sterile gloves Arterial line: Catheter size: 20 gauge Catheter length: 1 and 3/4 inch Catheter type: wire-guided catheter Seldinger technique: yes Laterality: left Site: radial artery Line secured: Tegaderm and tape Results: good waveform and good blood return Number of attempts: 2 Assessment: Events: patient tolerated procedure well with no complications us Lee Raphael MD ANESTHESIA ORDERABL ES Final Result * NJ AN ELECTIVE ENDOTRACHEAL AIRWAY, [place] AN PROCEDURE PLACEHOLDER (12/23/2024 8:16 AM CDT) Aneta Levine RN - 12/23/2024 8:16 AM CDT Aneta Downing RN 12/23/2024 8:16 AM Airway Patient location: OR Urgency: elective Indications for airway management: anesthesia and airway protection Difficult airway: no Staff: Supervising provider: Lee Raphael MD Placed by: Other staff: Aneta Downing RN Emergent airway documentation: Risks and benefits discussed: yes Consent obtained: yes Consent given by: patient Airway prep: Preoxygenated: yes Patient position: sniffing Mask difficulty assessment: 0 - not attempted Spontaneous ventilation during airway: absent Sedation level during airway: GA Final airway details: Final airway type: endotracheal airway Tube type: ETT ETT size: 8.0 mm Cuffed: yes Technique used for successful ETT placement: video laryngoscopy Devices/Methods used in placement: stylet Insertion site: oral Blade type: Marcos Video blade type: Douglas Blade size: 4 Cormack-Lehane (video): grade I - full view of glottis Cuff volume: 8 mL Cuff inflated with: air ETT to gums: 24 cm Placement verified by: auscultation and CO2 detection Airway secured with: silk tape Number of attempts: 1 us Lee Raphael MD ANESTHESIA ORDERABL ES Final Result * Prepare RBC: 4 Units (12/23/2024 6:04 AM CDT) Pathologist [facility] Product code [id number] Unit Number [id number] [facility] Product Blood Type OPOS [facility] Dispense Status RETURNED [facility] Product [facility] [id number] [facility] Unit Number [id number] [facility] Product Blood Type OPOS [facility] Dispense Status RETURNED [facility] Blood 12/23/2024 6:04 AM CDT 12/23/2024 6:04 AM CDT Narrative [facility] - 12/23/2024 10:58 AM CDT Specify Procedure:->EVAR Are special requirements needed? (All products are leukoreduced and CMV- safe)- >No Date required:-[id number] LRRBC # of [id number] Reasons:-Hold for procedure (specify procedure)} us Aletha Mathias MD PhD BLOOD BANK PRODUCT ORD ERABLES Final Result [facility] Department [place] [address] * eGFR (12/22/2024 11:35 PM CDT) Pathologist [facility] eGFR >90 >=60 mL/min/1. 73 m2 Comment: Interpretive Data Reference Interval Normal >/= 90 mL/min/1.73m2 Mildly decreased* 60 - 89 mL/min/1.73m2 Mildly to moderately decreased 45 - 59 mL/min/1.73m2 Moderately to severely decreased 30 - 44 mL/min/1.73m2 Severely decreased 15 - 29 mL/min/1.73m2 Kidney Failure < 15 mL/min/1.73m2 *Relative to young adult level Estimated glomerular filtration rate is determined by the 2020 CKD-EPI equation recommended by the National Kidney Foundation (A Unifying Approach to GFR Estimation: Recommendations of the NKF-ASK Task Force on Reassessing the Inclusion of Race in Diagnosing Kidney Disease, JASN 2020). The CKD-EPI equation should not be used for patients with unstable renal function and has not been validated in children and those over 70. Current interpretive data was last reviewed 2021. Blood 12/22/2024 11:3 5 PM CDT 12/23/2024 12:34 AM CDT Aletha Mathias MD PhD LAB BLOOD ORDERABLES F inal Result [facility] Department [place] [address] * Differential, auto (12/22/2024 11:35 PM CDT) Pathologist [facility] Neutrophil abs 3.98 1.50 - 6.50 K/cumm Imm gran abs 0.06 0.00 - 0.10 K/cumm [facility] Lymphocyte abs 1.51 0.80 - 3.30 K/cumm [facility] Monocyte abs 0.76 0.20 - 0.80 K/cumm [facility] Eosinophil abs 0.25 0.00 - 0.50 K/cumm [facility] Basophil abs 0.05 0.00 - 0.10 K/cumm [facility] Neutrophil pct 60.2 % [facility] Comment: Interpretive Data Percent cell count reference ranges are not reported, since discordance with absolute values may lead to misinterpretation of CBC data. Current Interpretive Data was last revised on 2017. Imm gran pct 0.9 % [facility] Comment: Interpretive Data Percent cell count reference ranges are not reported, since discordance with absolute values may lead to misinterpretation of CBC data. Current Interpretive Data was last revised on 2017. Lymphocyte pct 22.8 % [facility] Comment: Interpretive Data Percent cell count reference ranges are not reported, since discordance with absolute values may lead to misinterpretation of CBC data. Current Interpretive Data was last revised on 2017. Monocyte pct 11.5 % [facility] Comment: Interpretive Data Percent cell count reference ranges are not reported, since discordance with absolute values may lead to misinterpretation of CBC data. Current Interpretive Data was last revised on 2017. Eosinophil pct 3.8 % [facility] Comment: Interpretive Data Percent cell count reference ranges are not reported, since discordance with absolute values may lead to misinterpretation of CBC data. Current Interpretive Data was last revised on 2017. Basophil pct 0.8 % [facility] Comment: Interpretive Data Percent cell count reference ranges are not reported, since discordance with absolute values may lead to misinterpretation of CBC data. Current Interpretive Data was last revised on 2017. Blood 12/22/2024 11:3 5 PM CDT 12/23/2024 12:35 AM CDT us Aletha Mathias MD PhD LAB BLOOD ORDERABLES F inal Result [facility] Department [place] [address] * (ABNORMAL) CBC with auto differential (12/22/2024 11:35 PM CDT) WBC 6.61 3.80 - 9.90 K/cumm Hgb 8.7(L) 13.0 - 17.5 g/dL [facility] Hct 27.4(L) 38.9 - 50.3 % [facility] Plt 633(H) 150 - 400 K/cumm [facility] MPV 8.6(L) 9.1 - 12.3 fL [facility] RBC 2.95(L) 4.30 - 5.80 M/cumm [facility] MCV 92.9 81.3 - 96.4 fL [facility] MCH 29.5 27.1 - 33.3 pg [facility] MCHC 31.8(L) 32.3 - 35.7 g/dL [facility] RDW CV 15.2(H) 11.1 - 14.9 % [facility] RDW SD 49.1(H) 35.7 - 48.1 fL [facility] NRBC abs 0.00 0.00 - 0.01 K/cumm [facility] Blood 12/22/2024 11:3 5 PM CDT 12/23/2024 12:35 AM CDT Aletha Mathias MD PhD LAB BLOOD ORDERABLES F inal Result Performing Organization Address [facility] Co de Phone Number [facility] [place] [place] [address] * (ABNORMAL) aPTT (12/22/2024 11:35 PM CDT) aPTT 40(H) 28 - 38 sec Comment: Interpretive Data Heparin therapeutic range: 66.0 - 100.0 seconds. Range based on correlation with therapeutic heparin activity range of 0.3 - 0.7 Units/mL. Current interpretive data was last revised on 2023. Blood 12/22/2024 11:3 5 PM CDT 12/23/2024 12:37 AM CDT Yamileth Jenkins [employer]ATIONAL [employer] OFFIC[employer] LAB BLOOD ORDERABLES Laura l Result Performing Organization Address City/[facility]/ZIP Co de Phone Number [facility] [place] [place] [address] * Protime-INR (12/22/2024 11:35 PM CDT) PT 11.8 9.7 - 13.0 sec INR 1.09 0.90 - 1.20 [facility] Comment: Interpretive data Oral anticoagulant therapeutic ranges: Venous thromboembolism prophylaxis or treatment: 2.0-3.0 CARDIOLOGY Standard range: 2.0-3.0 High-intensity range: 2.5-3.5 Refer to indication-specific guidelines for appropriate target ranges for prosthetic heart valve replacement. Current interpretive data was last revised on 2019. Blood 12/22/2024 11:3 5 PM CDT 12/23/2024 12:37 AM CDT Yamileth Jenkins NP LAB BLOOD ORDERABLES Laura l Result Performing Organization Address City/[facility] Co de Phone Number [facility] [place] [place] [address] * Type and screen (12/22/2024 11:35 PM CDT) ABO Rh O Positive Chaitanya, indirect Negative [facility] Blood 12/22/2024 11:3 5 PM CDT 12/23/2024 12:39 AM CDT Narrative [facility] - 12/23/2024 1:41 AM CDT Has the patient had Daratumumab or Isatuximab in the past 6 months?->Unknown Yamileth Jenkins NP LAB BLOOD BANK TEST ORDER [place] Final Result Performing Organization Address City/[facility]/ZIP Co de Phone Number [facility] [place] [address] * Magnesium (12/22/2024 11:35 PM CDT) Magnesium 2.0 1.4 - 2.5 mg/dL Blood 12/22/2024 11:3 5 PM CDT 12/23/2024 12:34 AM CDT Yamileth Jenkins [employer] LAB BLOOD ORDERABLES Laura thornton Result [facility] [place] [address] * Basic metabolic panel (12/22/2024 11:35 PM CDT) [facility] Sodium 137 135 - 145 mmol/L Potassium, pl 4.4 3.3 - 4.9 mmol/L [facility] Chloride 100 97 - 110 mmol/L [facility] CO2 29 22 - 32 mmol/L [facility] Anion gap 8 2 - 15 mmol/L [facility] BUN 14 6 - 25 mg/dL [facility] Creatinine 0.80 0.80 - 1.30 mg/dL [facility] Glucose 112 70 - 199 mg/dL [facility] Comment: Interpretive Data Fasting glucose >/= 126 mg/dl is diagnostic for diabetes. Fasting is defined as no caloric intake for at least 8 hours. Fasting glucose between 100 mg/dl to 125 mg/dl is diagnostic of prediabetes. In a patient with classic symptoms of hyperglycemia or hyperglycemic crisis, a random glucose >/= 200 mg/dl is diagnostic for diabetes. In the absence of unequivocal hyperglycemia, results should be confirmed by repeat testing. The classification and Diagnosis of Diabetes Diabetes Care 202; 46: S19-S40. Current interpretive data was last revised 2022. Calcium 8.8 8.5 - 10.3 mg/dL [facility] Blood 12/22/2024 11:3 5 PM CDT 12/23/2024 12:34 AM CDT us Aletha Mathias MD PhD LAB BLOOD ORDERABLES F inal Result Performing Organization Address [facility]/ZIP Co de Phone Number [facility] Department [place] [address] * eGFR (12/22/2024 4:08 AM CDT) eGFR >90 >=60 mL/min/1. 73 m2 Comment: Interpretive Data Reference Interval Normal >/= 90 mL/min/1.73m2 Mildly decreased* 60 - 89 mL/min/1.73m2 Mildly to moderately decreased 45 - 59 mL/min/1.73m2 Moderately to severely decreased 30 - 44 mL/min/1.73m2 Severely decreased 15 - 29 mL/min/1.73m2 Kidney Failure < 15 mL/min/1.73m2 *Relative to young adult level Estimated glomerular filtration rate is determined by the 2020 CKD-EPI equation recommended by the National Kidney Foundation (A Unifying Approach to GFR Estimation: Recommendations of the NKF-ASK Task Force on Reassessing the Inclusion of Race in Diagnosing Kidney Disease, JASN 2020). The CKD-EPI equation should not be used for patients with unstable renal function and has not been validated in children and those over 70. Current interpretive data was last reviewed 2021. Blood 12/22/2024 4:08 AM CDT 12/22/2024 6:02 AM CDT us Aletha Mathias MD PhD LAB BLOOD ORDERABLES F inal Result [facility] [place] [address] * Differential, auto (12/22/2024 4:08 AM CDT) Pathologist [facility] Neutrophil abs 5.81 1.50 - 6.50 K/cumm Imm gran abs 0.05 0.00 - 0.10 K/cumm [facility] Lymphocyte abs 1.08 0.80 - 3.30 K/cumm [facility] Monocyte abs 0.46 0.20 - 0.80 K/cumm [facility] Eosinophil abs 0.30 0.00 - 0.50 K/cumm [facility] Basophil abs 0.07 0.00 - 0.10 K/cumm [facility] Neutrophil pct 74.8 % [facility] Comment: Interpretive Data Percent cell count reference ranges are not reported, since discordance with absolute values may lead to misinterpretation of CBC data. Current Interpretive Data was last revised on 2017. Imm gran pct 0.6 % [facility] Comment: Interpretive Data Percent cell count reference ranges are not reported, since discordance with absolute values may lead to misinterpretation of CBC data. Current Interpretive Data was last revised on 2017. Lymphocyte pct 13.9 % [facility] Comment: Interpretive Data Percent cell count reference ranges are not reported, since discordance with absolute values may lead to misinterpretation of CBC data. Current Interpretive Data was last revised on 2017. Monocyte pct 5.9 % [facility] Comment: Interpretive Data Percent cell count reference ranges are not reported, since discordance with absolute values may lead to misinterpretation of CBC data. Current Interpretive Data was last revised on 2017. Eosinophil pct 3.9 % [facility] Comment: Interpretive Data Percent cell count reference ranges are not reported, since discordance with absolute values may lead to misinterpretation of CBC data. Current Interpretive Data was last revised on 2017. Basophil pct 0.9 % [facility] Comment: Interpretive Data Percent cell count reference ranges are not reported, since discordance with absolute values may lead to misinterpretation of CBC data. Current Interpretive Data was last revised on 2017. Blood 12/22/2024 4:08 AM CDT 12/22/2024 6:03 AM CDT us Aletha Mathias MD PhD LAB BLOOD ORDERABLES F inal Result [facility] Department [place] [address] * (ABNORMAL) CBC with auto differential (12/22/2024 4:08 AM CDT) WBC 7.77 3.80 - 9.90 K/cumm Hgb 9.0(L) 13.0 - 17.5 g/dL [facility] Hct 27.6(L) 38.9 - 50.3 % [facility] Plt 602(H) 150 - 400 K/cumm [facility] MPV 8.6(L) 9.1 - 12.3 fL [facility] RBC 3.02(L) 4.30 - 5.80 M/cumm [facility] MCV 91.4 81.3 - 96.4 fL [facility] MCH 29.8 27.1 - 33.3 pg [facility] MCHC 32.6 32.3 - 35.7 g/dL [facility] RDW CV 14.9 11.1 - 14.9 % [facility] RDW SD 48.1 35.7 - 48.1 fL [facility] NRBC abs 0.00 0.00 - 0.01 K/cumm [facility] Blood 12/22/2024 4:08 AM CDT 12/22/2024 6:03 AM CDT us Aletha Mathias MD PhD LAB BLOOD ORDERABLES F inal Result [facility] [place] [address] * (ABNORMAL) Basic metabolic panel (12/22/2024 4:08 AM CDT) Sodium 135 135 - 145 mmol/L Potassium, pl 4.1 3.3 - 4.9 mmol/L [facility] Chloride 99 97 - 110 mmol/L [facility] CO2 29 22 - 32 mmol/L [facility] Anion gap 7 2 - 15 mmol/L [facility] BUN 13 6 - 25 mg/dL [facility] Creatinine 0.74(L) 0.80 - 1.30 mg/dL [facility] Glucose 108 70 - 199 mg/dL [facility] Comment: Interpretive Data Fasting glucose >/= 126 mg/dl is diagnostic for diabetes. Fasting is defined as no caloric intake for at least 8 hours. Fasting glucose between 100 mg/dl to 125 mg/dl is diagnostic of prediabetes. In a patient with classic symptoms of hyperglycemia or hyperglycemic crisis, a random glucose >/= 200 mg/dl is diagnostic for diabetes. In the absence of unequivocal hyperglycemia, results should be confirmed by repeat testing. The classification and Diagnosis of Diabetes Diabetes Care 2021; 46: S19-S40. Current interpretive data was last revised 2022. Calcium 9.0 8.5 - 10.3 mg/dL [facility] Blood 12/22/2024 4:08 AM CDT 12/22/2024 6:02 AM CDT Aletha Mathias MD PhD LAB BLOOD ORDERABLES F inal Result Performing Organization Address City/[facility] Co de Phone Number [facility] [place] [place] [address] * eGFR (12/20/2024 9:03 PM CDT) eGFR >90 >=60 mL/min/1. 73 m2 Comment: Interpretive Data Reference Interval Normal >/= 90 mL/min/1.73m2 Mildly decreased* 60 - 89 mL/min/1.73m2 Mildly to moderately decreased 45 - 59 mL/min/1.73m2 Moderately to severely decreased 30 - 44 mL/min/1.73m2 Severely decreased 15 - 29 mL/min/1.73m2 Kidney Failure < 15 mL/min/1.73m2 *Relative to young adult level Estimated glomerular filtration rate is determined by the 2020 CKD-EPI equation recommended by the National Kidney Foundation (A Unifying Approach to GFR Estimation: Recommendations of the NKF-ASK Task Force on Reassessing the Inclusion of Race in Diagnosing Kidney Disease, JASN 2020). The CKD-EPI equation should not be used for patients with unstable renal function and has not been validated in children and those over 70. Current interpretive data was last reviewed 2021. Blood 12/20/2024 9:03 PM CDT 12/20/2024 9:39 PM CDT Aletha Mathias MD PhD LAB BLOOD ORDERABLES F inal Result Performing Organization Address City/[facility]/ZIP Co de Phone Number [facility] Department [place] [address] * Differential, auto (12/20/2024 9:03 PM CDT) Neutrophil abs 5.47 1.50 - 6.50 K/cumm Imm gran abs 0.04 0.00 - 0.10 K/cumm [facility] Lymphocyte abs 1.52 0.80 - 3.30 K/cumm [facility] Monocyte abs 0.55 0.20 - 0.80 K/cumm [facility] Eosinophil abs 0.43 0.00 - 0.50 K/cumm [facility] Basophil abs 0.08 0.00 - 0.10 K/cumm [facility] Neutrophil pct 67.6 % [facility] Comment: Interpretive Data Percent cell count reference ranges are not reported, since discordance with absolute values may lead to misinterpretation of CBC data. Current Interpretive Data was last revised on 2017. Imm gran pct 0.5 % [facility] Comment: Interpretive Data Percent cell count reference ranges are not reported, since discordance with absolute values may lead to misinterpretation of CBC data. Current Interpretive Data was last revised on 2017. Lymphocyte pct 18.8 % [facility] Comment: Interpretive Data Percent cell count reference ranges are not reported, since discordance with absolute values may lead to misinterpretation of CBC data. Current Interpretive Data was last revised on 2017. Monocyte pct 6.8 % [facility] Comment: Interpretive Data Percent cell count reference ranges are not reported, since discordance with absolute values may lead to misinterpretation of CBC data. Current Interpretive Data was last revised on 2017. Eosinophil pct 5.3 % [facility] Comment: Interpretive Data Percent cell count reference ranges are not reported, since discordance with absolute values may lead to misinterpretation of CBC data. Current Interpretive Data was last revised on 2017. Basophil pct 1.0 % [facility] Comment: Interpretive Data Percent cell count reference ranges are not reported, since discordance with absolute values may lead to misinterpretation of CBC data. Current Interpretive Data was last revised on 2017. Blood 12/20/2024 9:03 PM CDT 12/20/2024 9:39 PM CDT Aletha Mathias MD PhD LAB BLOOD ORDERABLES F inal Result Performing Organization Address City/[facility]/ZIP Co de Phone Number [facility] [place] [address] * (ABNORMAL) CBC with auto differential (12/20/2024 9:03 PM CDT) Pathologist [facility] WBC 8.09 3.80 - 9.90 K/cumm Hgb 8.6(L) 13.0 - 17.5 g/dL [facility] Hct 25.7(L) 38.9 - 50.3 % [facility] Plt 612(H) 150 - 400 K/cumm [facility] MPV 8.6(L) 9.1 - 12.3 fL [facility] RBC 2.86(L) 4.30 - 5.80 M/cumm [facility] MCV 89.9 81.3 - 96.4 fL [facility] MCH 30.1 27.1 - 33.3 pg [facility] MCHC 33.5 32.3 - 35.7 g/dL [facility] RDW CV 14.4 11.1 - 14.9 % [facility] RDW SD 46.6 35.7 - 48.1 fL [facility] NRBC abs 0.00 0.00 - 0.01 K/cumm [facility] Blood 12/20/2024 9:03 PM CDT 12/20/2024 9:39 PM CDT Aletha Mathias MD PhD LAB BLOOD ORDERABLES F inal Result [facility] [place] [place] [address] * (ABNORMAL) Basic metabolic panel (12/20/2024 9:03 PM CDT) Pathologist [facility] Sodium 137 135 - 145 mmol/L Potassium, pl 3.7 3.3 - 4.9 mmol/L [facility] Chloride 99 97 - 110 mmol/L [facility] CO2 31 22 - 32 mmol/L [facility] Anion gap 7 2 - 15 mmol/L [facility] BUN 15 6 - 25 mg/dL [facility] Creatinine 0.74(L) 0.80 - 1.30 mg/dL [facility] Glucose 133 70 - 199 mg/dL [facility] Comment: Interpretive Data Fasting glucose >/= 126 mg/dl is diagnostic for diabetes. Fasting is defined as no caloric intake for at least 8 hours. Fasting glucose between 100 mg/dl to 125 mg/dl is diagnostic of prediabetes. In a patient with classic symptoms of hyperglycemia or hyperglycemic crisis, a random glucose >/= 200 mg/dl is diagnostic for diabetes. In the absence of unequivocal hyperglycemia, results should be confirmed by repeat testing. The classification and Diagnosis of Diabetes Diabetes Care 2021; 46: S19-S40. Current interpretive data was last revised 2022. Calcium 8.6 8.5 - 10.3 mg/dL [facility] Blood 12/20/2024 9:03 PM CDT 12/20/2024 9:39 PM CDT us Aletha Mathias MD PhD LAB BLOOD ORDERABLES F inal Result Performing Organization Address City/[facility]/ZIP Co de Phone Number [facility] [place] [address] * CT Body Outside Reference (12/20/2024 8:34 AM CDT) Impressions RAD_PACS_[facility] - 12/20/2024 8:34 AM CDT These images are for Reference purposes only and have not been reviewed by [facility]. There will be no report generated by a [facility] Radiologist. Narrative [facility] - 12/20/2024 8:34 AM CDT EXAMINATION: Images For Reference Purposes Only us Aletha Mathias MD PhD IMG CT PROCEDURES Laura l Result Performing Organization Address City/[facility]/ZIP Co de Phone Number [facility] * eGFR (12/19/2024 8:01 PM CDT) [facility] eGFR >90 >=60 mL/min/1. 73 m2 Comment: Interpretive Data Reference Interval Normal >/= 90 mL/min/1.73m2 Mildly decreased* 60 - 89 mL/min/1.73m2 Mildly to moderately decreased 45 - 59 mL/min/1.73m2 Moderately to severely decreased 30 - 44 mL/min/1.73m2 Severely decreased 15 - 29 mL/min/1.73m2 Kidney Failure < 15 mL/min/1.73m2 *Relative to young adult level Estimated glomerular filtration rate is determined by the 2020 CKD-EPI equation recommended by the National Kidney Foundation (A Unifying Approach to GFR Estimation: Recommendations of the NKF-ASK Task Force on Reassessing the Inclusion of Race in Diagnosing Kidney Disease, JASN 2020). The CKD-EPI equation should not be used for patients with unstable renal function and has not been validated in children and those over 70. Current interpretive data was last reviewed 2021. Blood 12/19/2024 8:01 PM CDT 12/19/2024 8:55 PM CDT us Aletha Mathias MD PhD LAB BLOOD ORDERABLES F inal Result [facility] Department [place] [address] * (ABNORMAL) Differential, auto (12/19/2024 8:01 PM CDT) [facility] Neutrophil abs 10.71(H) 1.50 - 6.50 K/cumm Imm gran abs 0.06 0.00 - 0.10 K/cumm [facility] Lymphocyte abs 1.17 0.80 - 3.30 K/cumm [facility] Monocyte abs 0.75 0.20 - 0.80 K/cumm [facility] Eosinophil abs 0.22 0.00 - 0.50 K/cumm [facility] Basophil abs 0.06 0.00 - 0.10 K/cumm [facility] Neutrophil pct 82.5 % [facility] Comment: Interpretive Data Percent cell count reference ranges are not reported, since discordance with absolute values may lead to misinterpretation of CBC data. Current Interpretive Data was last revised on 2017. Imm gran pct 0.5 % [facility] Comment: Interpretive Data Percent cell count reference ranges are not reported, since discordance with absolute values may lead to misinterpretation of CBC data. Current Interpretive Data was last revised on 2017. Lymphocyte pct 9.0 % [facility] Comment: Interpretive Data Percent cell count reference ranges are not reported, since discordance with absolute values may lead to misinterpretation of CBC data. Current Interpretive Data was last revised on 2017. Monocyte pct 5.8 % [facility] Comment: Interpretive Data Percent cell count reference ranges are not reported, since discordance with absolute values may lead to misinterpretation of CBC data. Current Interpretive Data was last revised on 2017. Eosinophil pct 1.7 % [facility] Comment: Interpretive Data Percent cell count reference ranges are not reported, since discordance with absolute values may lead to misinterpretation of CBC data. Current Interpretive Data was last revised on 2017. Basophil pct 0.5 % [facility] Comment: Interpretive Data Percent cell count reference ranges are not reported, since discordance with absolute values may lead to misinterpretation of CBC data. Current Interpretive Data was last revised on 2017. Blood 12/19/2024 8:01 PM CDT 12/19/2024 8:55 PM CDT us Aletha Mathias MD PhD LAB BLOOD ORDERABLES F inal Result [facility] [place] [address] * (ABNORMAL) CBC with auto differential (12/19/2024 8:01 PM CDT) WBC 12.97(H) 3.80 - 9.90 K/cumm Hgb 8.9(L) 13.0 - 17.5 g/dL [facility] Hct 26.9(L) 38.9 - 50.3 % [facility] Plt 622(H) 150 - 400 K/cumm [facility] MPV 9.0(L) 9.1 - 12.3 fL [facility] RBC 2.97(L) 4.30 - 5.80 M/cumm [facility] MCV 90.6 81.3 - 96.4 fL [facility] MCH 30.0 27.1 - 33.3 pg [facility] MCHC 33.1 32.3 - 35.7 g/dL [facility] RDW CV 14.4 11.1 - 14.9 % [facility] RDW SD 46.8 35.7 - 48.1 fL [facility] NRBC abs 0.00 0.00 - 0.01 K/cumm [facility] Blood 12/19/2024 8:01 PM CDT 12/19/2024 8:55 PM CDT Result [facility] Aletha Mathias MD PhD LAB BLOOD ORDERABLES F inal Result Performing Organization Address City/[facility] Co de Phone Number [facility] [place] [place] [address] * aPTT (12/19/2024 8:01 PM CDT) [facility] Signature aPTT 35 28 - 38 sec Comment: Interpretive Data Heparin therapeutic range: 66.0 - 100.0 seconds. Range based on correlation with therapeutic heparin activity range of 0.3 - 0.7 Units/mL. Current interpretive data was last revised on 2023. Blood 12/19/2024 8:01 PM CDT 12/19/2024 9:00 PM CDT Aletha Mathias MD PhD LAB BLOOD ORDERABLES F inal Result Performing Organization Address City/[facility]/ZIP Co de Phone Number [facility] [place] [address] * Protime-INR (12/19/2024 8:01 PM CDT) PT 11.9 9.7 - 13.0 sec INR 1.10 0.90 - 1.20 [facility] Comment: Interpretive data Oral anticoagulant therapeutic ranges: Venous thromboembolism prophylaxis or treatment: 2.0-3.0 CARDIOLOGY Standard range: 2.0-3.0 High-intensity range: 2.5-3.5 Refer to indication-specific guidelines for appropriate target ranges for prosthetic heart valve replacement. Current interpretive data was last revised on 2019. Blood 12/19/2024 8:01 PM CDT 12/19/2024 9:00 PM CDT us Aletha Mathias MD PhD LAB BLOOD ORDERABLES F inal Result [facility] [place] [address] * (ABNORMAL) Basic metabolic panel (12/19/2024 8:01 PM CDT) Sodium 138 135 - 145 mmol/L Potassium, pl 3.6 3.3 - 4.9 mmol/L [facility] Chloride 96(L) 97 - 110 mmol/L [facility] CO2 30 22 - 32 mmol/L [facility] Anion gap 12 2 - 15 mmol/L [facility] BUN 14 6 - 25 mg/dL [facility] Creatinine 0.77(L) 0.80 - 1.30 mg/dL [facility] Glucose 110 70 - 199 mg/dL [facility] Comment: Interpretive Data Fasting glucose >/= 126 mg/dl is diagnostic for diabetes. Fasting is defined as no caloric intake for at least 8 hours. Fasting glucose between 100 mg/dl to 125 mg/dl is diagnostic of prediabetes. In a patient with classic symptoms of hyperglycemia or hyperglycemic crisis, a random glucose >/= 200 mg/dl is diagnostic for diabetes. In the absence of unequivocal hyperglycemia, results should be confirmed by repeat testing. The classification and Diagnosis of Diabetes Diabetes Care 202; 46: S19-S40. Current interpretive data was last revised 2022. Calcium 9.1 8.5 - 10.3 mg/dL [facility] Blood 12/19/2024 8:01 PM CDT 12/19/2024 8:55 PM CDT Aletha Mathias MD PhD LAB BLOOD ORDERABLES F inal Result Performing Organization Address City/[facility]/ZIP Co de Phone Number [facility] Department [place] [address] * eGFR (12/19/2024 3:50 AM CDT) Pathologist [facility] eGFR >90 >=60 mL/min/1. 73 m2 Comment: Interpretive Data Reference Interval Normal >/= 90 mL/min/1.73m2 Mildly decreased* 60 - 89 mL/min/1.73m2 Mildly to moderately decreased 45 - 59 mL/min/1.73m2 Moderately to severely decreased 30 - 44 mL/min/1.73m2 Severely decreased 15 - 29 mL/min/1.73m2 Kidney Failure < 15 mL/min/1.73m2 *Relative to young adult level Estimated glomerular filtration rate is determined by the 2020 CKD-EPI equation recommended by the National Kidney Foundation (A Unifying Approach to GFR Estimation: Recommendations of the NKF-ASK Task Force on Reassessing the Inclusion of Race in Diagnosing Kidney Disease, JASN 2020). The CKD-EPI equation should not be used for patients with unstable renal function and has not been validated in children and those over 70. Current interpretive data was last reviewed 2021. Blood 12/19/2024 3:50 AM CDT 12/19/2024 4:46 AM CDT Aletha Mathias MD PhD LAB BLOOD ORDERABLES F inal Result Performing Organization Address City/[facility]/ZIP Co de Phone Number [facility] [place] [address] * (ABNORMAL) Differential, auto (12/19/2024 3:50 AM CDT) Neutrophil abs 9.94(H) 1.50 - 6.50 K/cumm Imm gran abs 0.05 0.00 - 0.10 K/cumm [facility] Lymphocyte abs 1.53 0.80 - 3.30 K/cumm [facility] Monocyte abs 0.77 0.20 - 0.80 K/cumm [facility] Eosinophil abs 0.30 0.00 - 0.50 K/cumm [facility] Basophil abs 0.07 0.00 - 0.10 K/cumm [facility] Neutrophil pct 78.4 % [facility] Comment: Interpretive Data Percent cell count reference ranges are not reported, since discordance with absolute values may lead to misinterpretation of CBC data. Current Interpretive Data was last revised on 2017. Imm gran pct 0.4 % [facility] Comment: Interpretive Data Percent cell count reference ranges are not reported, since discordance with absolute values may lead to misinterpretation of CBC data. Current Interpretive Data was last revised on 2017. Lymphocyte pct 12.1 % [facility] Comment: Interpretive Data Percent cell count reference ranges are not reported, since discordance with absolute values may lead to misinterpretation of CBC data. Current Interpretive Data was last revised on 2017. Monocyte pct 6.1 % [facility] Comment: Interpretive Data Percent cell count reference ranges are not reported, since discordance with absolute values may lead to misinterpretation of CBC data. Current Interpretive Data was last revised on 2017. Eosinophil pct 2.4 % [facility] Comment: Interpretive Data Percent cell count reference ranges are not reported, since discordance with absolute values may lead to misinterpretation of CBC data. Current Interpretive Data was last revised on 2017. Basophil pct 0.6 % [facility] Comment: Interpretive Data Percent cell count reference ranges are not reported, since discordance with absolute values may lead to misinterpretation of CBC data. Current Interpretive Data was last revised on 2017. Blood 12/19/2024 3:50 AM CDT 12/19/2024 4:47 AM CDT us Aletha Mathias MD PhD LAB BLOOD ORDERABLES F inal Result Performing Organization Address [facility] Co de Phone Number [facility] [place] [address] * (ABNORMAL) CBC with auto differential (12/19/2024 3:50 AM CDT) WBC 12.66(H) 3.80 - 9.90 K/cumm Hgb 8.7(L) 13.0 - 17.5 g/dL [facility] Hct 26.3(L) 38.9 - 50.3 % [facility] Plt 589(H) 150 - 400 K/cumm [facility] MPV 8.9(L) 9.1 - 12.3 fL [facility] RBC 2.93(L) 4.30 - 5.80 M/cumm [facility] MCV 89.8 81.3 - 96.4 fL [facility] MCH 29.7 27.1 - 33.3 pg [facility] MCHC 33.1 32.3 - 35.7 g/dL [facility] RDW CV 14.3 11.1 - 14.9 % [facility] RDW SD 46.3 35.7 - 48.1 fL [facility] NRBC abs 0.00 0.00 - 0.01 K/cumm [facility] Blood 12/19/2024 3:50 AM CDT 12/19/2024 4:47 AM CDT Aletha Mathias MD PhD LAB BLOOD ORDERABLES F inal Result [facility] Department [place] [address] * Type and screen (12/19/2024 3:50 AM CDT) Chaitanya, indirect Negative ABO Rh O Positive [facility] Blood 12/19/2024 3:50 AM CDT 12/19/2024 4:51 AM CDT Narrative [facility] - 12/19/2024 5:43 AM CDT Has the patient had Daratumumab or Isatuximab in the past 6 months?->Unknown Aletha Mathias MD PhD LAB BLOOD BANK TEST OR DERABLES Final Result Performing Organization Address City/[facility]/ZIP Co de Phone Number [facility] Department [place] [address] * (ABNORMAL) Basic metabolic panel (12/19/2024 3:50 AM CDT) [facility] Sodium 136 135 - 145 mmol/L Potassium, pl 4.1 3.3 - 4.9 mmol/L [facility] Chloride 99 97 - 110 mmol/L [facility] CO2 30 22 - 32 mmol/L [facility] Anion gap 7 2 - 15 mmol/L [facility] BUN 16 6 - 25 mg/dL [facility] Creatinine 0.77(L) 0.80 - 1.30 mg/dL [facility] Glucose 107 70 - 199 mg/dL [facility] Comment: Interpretive Data Fasting glucose >/= 126 mg/dl is diagnostic for diabetes. Fasting is defined as no caloric intake for at least 8 hours. Fasting glucose between 100 mg/dl to 125 mg/dl is diagnostic of prediabetes. In a patient with classic symptoms of hyperglycemia or hyperglycemic crisis, a random glucose >/= 200 mg/dl is diagnostic for diabetes. In the absence of unequivocal hyperglycemia, results should be confirmed by repeat testing. The classification and Diagnosis of Diabetes Diabetes Care 2021; 46: S19-S40. Current interpretive data was last revised 2022. Calcium 8.6 8.5 - 10.3 mg/dL [facility] Blood 12/19/2024 3:50 AM CDT 12/19/2024 4:46 AM CDT Aletha Mathias MD PhD LAB BLOOD ORDERABLES F inal Result Performing Organization Address City/[facility]/ZIP Co de Phone Number [facility] [place] [address] * eGFR (12/17/2024 10:40 PM CDT) eGFR 81 >=60 mL/min/1. 73 m2 Comment: Interpretive Data Reference Interval Normal >/= 90 mL/min/1.73m2 Mildly decreased* 60 - 89 mL/min/1.73m2 Mildly to moderately decreased 45 - 59 mL/min/1.73m2 Moderately to severely decreased 30 - 44 mL/min/1.73m2 Severely decreased 15 - 29 mL/min/1.73m2 Kidney Failure < 15 mL/min/1.73m2 *Relative to young adult level Estimated glomerular filtration rate is determined by the 2020 CKD-EPI equation recommended by the National Kidney Foundation (A Unifying Approach to GFR Estimation: Recommendations of the NKF-ASK Task Force on Reassessing the Inclusion of Race in Diagnosing Kidney Disease, JASN 2020). The CKD-EPI equation should not be used for patients with unstable renal function and has not been validated in children and those over 70. Current interpretive data was last reviewed 2021. Blood 12/17/2024 10:4 0 PM CDT 12/17/2024 11:43 PM CDT us Aletha Mathias MD PhD LAB BLOOD ORDERABLES F inal Result [facility] Department [place] [address] * (ABNORMAL) Differential, auto (12/17/2024 10:40 PM CDT) Pathologist [facility] Neutrophil abs 9.34(H) 1.50 - 6.50 K/cumm Imm gran abs 0.06 0.00 - 0.10 K/cumm [facility] Lymphocyte abs 1.82 0.80 - 3.30 K/cumm [facility] Monocyte abs 1.06(H) 0.20 - 0.80 K/cumm [facility] Eosinophil abs 0.24 0.00 - 0.50 K/cumm [facility] Basophil abs 0.07 0.00 - 0.10 K/cumm [facility] Neutrophil pct 74.1 % [facility] Comment: Interpretive Data Percent cell count reference ranges are not reported, since discordance with absolute values may lead to misinterpretation of CBC data. Current Interpretive Data was last revised on 2017. Imm gran pct 0.5 % [facility] Comment: Interpretive Data Percent cell count reference ranges are not reported, since discordance with absolute values may lead to misinterpretation of CBC data. Current Interpretive Data was last revised on 2017. Lymphocyte pct 14.5 % [facility] Comment: Interpretive Data Percent cell count reference ranges are not reported, since discordance with absolute values may lead to misinterpretation of CBC data. Current Interpretive Data was last revised on 2017. Monocyte pct 8.4 % [facility] Comment: Interpretive Data Percent cell count reference ranges are not reported, since discordance with absolute values may lead to misinterpretation of CBC data. Current Interpretive Data was last revised on 2017. Eosinophil pct 1.9 % [facility] Comment: Interpretive Data Percent cell count reference ranges are not reported, since discordance with absolute values may lead to misinterpretation of CBC data. Current Interpretive Data was last revised on 2017. Basophil pct 0.6 % [facility] Comment: Interpretive Data Percent cell count reference ranges are not reported, since discordance with absolute values may lead to misinterpretation of CBC data. Current Interpretive Data was last revised on 2017. Blood 12/17/2024 10:4 0 PM CDT 12/17/2024 11:36 PM CDT us Aletha Mathias MD PhD LAB BLOOD ORDERABLES F inal Result [facility] Department [place] [address] * (ABNORMAL) CBC with auto differential (12/17/2024 10:40 PM CDT) WBC 12.59(H) 3.80 - 9.90 K/cumm Hgb 9.7(L) 13.0 - 17.5 g/dL [facility] Hct 28.7(L) 38.9 - 50.3 % [facility] Plt 651(H) 150 - 400 K/cumm [facility] MPV 9.1 9.1 - 12.3 fL [facility] RBC 3.22(L) 4.30 - 5.80 M/cumm [facility] MCV 89.1 81.3 - 96.4 fL [facility] MCH 30.1 27.1 - 33.3 pg [facility] MCHC 33.8 32.3 - 35.7 g/dL [facility] RDW CV 14.3 11.1 - 14.9 % [facility] RDW SD 46.2 35.7 - 48.1 fL [facility] NRBC abs 0.00 0.00 - 0.01 K/cumm [facility] Blood 12/17/2024 10:4 0 PM CDT 12/17/2024 11:36 PM CDT Aletha Mathias MD PhD LAB BLOOD ORDERABLES F inal Result [facility] [place] [address] * (ABNORMAL) Basic metabolic panel (12/17/2024 10:40 PM CDT) Sodium 133(L) 135 - 145 mmol/L Potassium, pl 4.0 3.3 - 4.9 mmol/L [facility] Chloride 94(L) 97 - 110 mmol/L [facility] CO2 31 22 - 32 mmol/L [facility] Anion gap 8 2 - 15 mmol/L [facility] BUN 20 6 - 25 mg/dL [facility] Creatinine 0.97 0.80 - 1.30 mg/dL [facility] Glucose 144 70 - 199 mg/dL [facility] Comment: Interpretive Data Fasting glucose >/= 126 mg/dl is diagnostic for diabetes. Fasting is defined as no caloric intake for at least 8 hours. Fasting glucose between 100 mg/dl to 125 mg/dl is diagnostic of prediabetes. In a patient with classic symptoms of hyperglycemia or hyperglycemic crisis, a random glucose >/= 200 mg/dl is diagnostic for diabetes. In the absence of unequivocal hyperglycemia, results should be confirmed by repeat testing. The classification and Diagnosis of Diabetes Diabetes Care 202; 46: S19-S40. Current interpretive data was last revised 2022. Calcium 9.0 8.5 - 10.3 mg/dL [facility] Blood 12/17/2024 10:4 0 PM CDT 12/17/2024 11:43 PM CDT us Aletha Mathias MD PhD LAB BLOOD ORDERABLES F inal Result [facility] Department [place] [address] * TRANSTHORACIC ECHO (TTE) COMPLETE W DOPPLER/CF W CONTRAST (12/17/2024 2:05 PM CDT) Estimated EF 60 % CONS SCIMAGE Anatomical Region Laterality Modality Ultrasound 12/17/2024 1:28 PM CDT Narrative 12/17/2024 2:12 PM CDT [facility] [place] [address] Transthoracic Echocardiographic Report Patient Name: AUSTIN BOB : 1950 (74y 6m) Gender: M Study Date: 12/17/2024 01:28:09 PM Ht(Inch): 73 Wt(Lb): 132.06 BSA: 1.76 Casey Saw Operator: Lolly Carrington RDCS [facility] Location: [id number] Order Provider: ALETHA MATIHAS Heart Rate: 80 BMI: 17.42 BP: 114 / 43 Ref Provider: ALETHA MATHIAS PROCEDURES: Echocardiographic Report: Transthoracic complete echo with contrast, 2D, spectral and tissue Doppler, color flow Doppler, M-mode. Contrast: Contrast Enhancement was Employed: After initial imaging due to sub- optimal quality related to co-morbidity defined by patient's body habitus and due to suboptimal image quality with inadequate visualization of at least 2 of 16 LV wall segments in any view after initial imaging. Perflutren contrast was administered using the volume necessary to obtain adequate images. 1.5 ml Optison Administered, (1.5 ml wasted). Technically difficult study due to: Poor acoustic windows. Limited visualization of some cardiac structures precludes the ability to obtain complete measurements - INDICATIONS: Pre non-cardiac procedure/surgery. CONCLUSIONS: 1. Normal left ventricular size based on volume index. Normal LV wall thickness. The Ejection Fraction is visually estimated to be 60 %. Normal diastolic function. 2. Normal right ventricular size. Normal right ventricular systolic function. 3. There is no significant valvular heart disease. 4. Normal pericardium without pericardial effusion. 5. The ascending aorta is normal in size when indexed. 6. IVC is normal in size. 7. Unable to determine PASP due to inadequate TR jet. ATTESTATION: I have personally reviewed and interpreted this study without fellow or resident. - DISCLAIMER: The study images and the final report will be retained in the patient chart by the Echo Laboratory for the legally required time period. This chart constitutes the legal record of any testing performed. FINDINGS: Study Quality: Poor with limited visualization of cardiac structures. Left Ventricle: Normal left ventricular size based on volume index. Normal LV wall thickness. The Ejection Fraction is visually estimated to be 60 %. Normal diastolic function. Unable to assess global longitudinal strain due to image quality. Right Ventricle: Normal right ventricular size. Normal right ventricular systolic function. The right ventricular strain is more negative than -17%. Left Atrium: The left atrium is normal in size. Right Atrium: The right atrium is normal in size. Mitral Valve: Normal mitral valve structure. No mitral regurgitation. No stenosis present. Aortic Valve: Normal trileaflet aortic valve. No aortic regurgitation. No aortic valve stenosis. Tricuspid Valve: Normal tricuspid valve structure. Mild tricuspid regurgitation. No tricuspid valve stenosis. Pulmonic Valve: Normal pulmonic valve structure. No pulmonic regurgitation. No pulmonic valve stenosis present. Pericardium: Normal pericardium without pericardial effusion. Aorta: The ascending aorta is normal in size when indexed. IVC: IVC is normal in size. PASP: Unable to determine PASP due to inadequate TR jet. Rhythm: Normal Sinus rhythm was seen during the study. MEASUREMENTS: 2D/MM Value Range Doppler Value Range LVIDd 2D 3.64 cm [ 4.20 - 5.80 ] AV Peak Jonathan 1.2 m/s [ 1.0 - 1.7 ] LVIDs 2D 2.23 cm [ 2.50 - 4.00 ] AV Peak PG 5.76 mmHg IVSd 2D 1.34 cm [ 0.60 - 1.00 ] AV Mean PG 3 mmHg LVPWd 2D 1.22 cm [ 0.60 - 1.00 ] AV VTI 23.0 cm LV Thickness Ratio 1.1 LVOT Peak Jonathan 1.2 m/s [ 0.7 - 1.1 ] LV FS 2D 38.61 % [ 25.00 - 43.00 ] LVOT Peak PG 5.76 mmHg LV Mass 2D 160.31 g LVOT Mean PG 3 mmHg LV Mass Index 2D 91.09 g/m2 LVOT VTI 21.8 cm RWT 0.67 LVOT Diam 2.27 cm Visually Estimated EF 60 % STEF VTI 3.83 cm2 AoR Diam 2D 4.27 cm [ 3.10 - 3.70 ] LVOT/AV VTI 0.95 - Dimensionless index (DVI) Ao Root Index 2.43 cm/m2 [ 1.00 - 2.00 ] MV E Peak Jonathan 0.6 m/s [ 0.6 - 1.3 ] Asc Ao Diam 2D 2.75 cm MV A Peak Jonathan 0.7 m/s [ 1.0 - 1.2 ] Asc Ao Index 1.56 cm/m2 MV E/A 0.8 ratio [ 0.8 - 1.5 ] MV Decel Time 338.48 msec [ 104.00 - 258.00 ] Med E` Jonathan 9.3 cm/sec [ 8.0 - 25.0 ] Lat E` Jonathan 9.8 cm/sec [ 10.0 - 25.0 ] Average E/E` 6.28 RV S` 17.42 cm/sec PV Peak Jonathan 1.3 m/s [ 0.4 - 0.8 ] PV Peak PG 6.76 mmHg Electronically Signed By: Steven French MD 12/17/2024 2:11:44 PM CDT Procedure Note Steven French MD - 12/17/2024 [facility] [place] [address] Transthoracic Echocardiographic Report Patient Name: AUSTIN BOB : 1950 (74y 6m) Gender: M Study Date: 12/17/2024 01:28:09 PM Ht(Inch): 73 Wt(Lb): 132.06 BSA: 1.76 Casey Saw Operator: Lolly Carrington RDCS [facility] Location: [id number] OrderProvider: ALETHA MATHIAS Heart Rate: 80 BMI: 17.42 BP: 114 / 43 Ref Provider: ALETHA MATHIAS PROCEDURES: Echocardiographic Report: Transthoracic complete echo with contrast, 2D,spectral and tissue Doppler, color flow Doppler, M-mode. Contrast: Contrast Enhancement was Employed: After initial imaging due tosub- optimal quality related to co-morbidity defined by patient's body habitus and dueto suboptimal image quality with inadequate visualization of at least 2 of 16 LV wallsegments in any view after initial imaging. Perflutren contrast was administered using thevolume necessary to obtain adequate images. 1.5 ml Optison Administered, (1.5 mlwasted). Technically difficult study due to: Poor acoustic windows. Limitedvisualization of some cardiac structures precludes the ability to obtain complete measurements - INDICATIONS: Pre non-cardiac procedure/surgery. CONCLUSIONS: 1. Normal left ventricular size based on volume index. Normal LV wallthickness. The Ejection Fraction is visually estimated to be 60 %. Normal diastolicfunction. 2. Normal right ventricular size. Normal right ventricular systolicfunction. 3. There is no significant valvular heart disease. 4. Normal pericardium without pericardial effusion. 5. The ascending aorta is normal in size when indexed. 6. IVC is normal in size. 7. Unable to determine PASP due to inadequate TR jet. ATTESTATION: I have personally reviewed and interpreted this study without fellow orresident. - DISCLAIMER: The study images and the final report will be retained in the patientchart by the Echo Laboratory for the legally required time period. This chart constitutesthe legal record of any testing performed. FINDINGS: Study Quality: Poor with limited visualization of cardiac structures. Left Ventricle: Normal left ventricular size based on volume index. NormalLV wall thickness. The Ejection Fraction is visually estimated to be 60 %. Normaldiastolic function. Unable to assess global longitudinal strain due to imagequality. Right Ventricle: Normal right ventricular size. Normal right ventricularsystolic function. The right ventricular strain is more negative than -17%. Left Atrium: The left atrium is normal in size. Right Atrium: The right atrium is normal in size. Mitral Valve: Normal mitral valve structure. No mitral regurgitation. Nostenosis present. Aortic Valve: Normal trileaflet aortic valve. No aortic regurgitation. Noaortic valve stenosis. Tricuspid Valve: Normal tricuspid valve structure. Mild tricuspidregurgitation. No tricuspid valve stenosis. Pulmonic Valve: Normal pulmonic valve structure. No pulmonicregurgitation. No pulmonic valve stenosis present. Pericardium: Normal pericardium without pericardial effusion. Aorta: The ascending aorta is normal in size when indexed. IVC: IVC is normal in size. PASP: Unable to determine PASP due to inadequate TR jet. Rhythm: Normal Sinus rhythm was seen during the study. MEASUREMENTS: 2D/MM Value Range DopplerValue Range LVIDd 2D 3.64 cm [ 4.20 - 5.80 ] AV Peak Vel1.2 m/s [ 1.0 - 1.7 ] LVIDs 2D 2.23 cm [ 2.50 - 4.00 ] AV Peak PG5.76 mmHg IVSd 2D 1.34 cm [ 0.60 - 1.00 ] AV Mean PG3 mmHg LVPWd 2D 1.22 cm [ 0.60 - 1.00 ] AV VTI23.0 cm LV Thickness Ratio 1.1 LVOT Peak Vel1.2 m/s [ 0.7 - 1.1 ] LV FS 2D 38.61 % [ 25.00 - 43.00 ] LVOT Peak PG5.76 mmHg LV Mass 2D 160.31 g LVOT Mean PG3 mmHg LV Mass Index 2D 91.09 g/m2 LVOT VTI21.8 cm RWT 0.67 LVOT Diam2.27 cm Visually Estimated EF 60 % STEF VTI3.83 cm2 AoR Diam 2D 4.27 cm [ 3.10 - 3.70 ] LVOT/AV VTI0.95 - Dimensionless index (DVI) Ao Root Index 2.43 cm/m2 [ 1.00 - 2.00 ] MV E Peak Vel0.6 m/s [ 0.6 - 1.3 ] Asc Ao Diam 2D 2.75 cm MV A Peak Vel0.7 m/s [ 1.0 - 1.2 ] Asc Ao Index 1.56 cm/m2 MV E/A0.8 ratio [ 0.8 - 1.5 ] MV Decel Time 338.48 msec [ 104.00 - 258.00 ] Med E` Jonathan 9.3 cm/sec [ 8.0 - 25.0 ] Lat E` Jonathan 9.8 cm/sec [ 10.0 - 25.0 ] Average E/E` 6.28 RV S` 17.42 cm/sec PV Peak Jonathan 1.3 m/s [ 0.4 - 0.8 ] PV Peak PG 6.76 mmHg Electronically Signed By: Steven French MD 12/17/2024 2:11:44 PM CDT us Aletha Mathias MD PhD CV ECHO PROCEDURES Fin al Result * eGFR (12/16/2024 10:39 PM CDT) Pathologist [facility] eGFR >90 >=60 mL/min/1. 73 m2 Comment: Interpretive Data Reference Interval Normal >/= 90 mL/min/1.73m2 Mildly decreased* 60 - 89 mL/min/1.73m2 Mildly to moderately decreased 45 - 59 mL/min/1.73m2 Moderately to severely decreased 30 - 44 mL/min/1.73m2 Severely decreased 15 - 29 mL/min/1.73m2 Kidney Failure < 15 mL/min/1.73m2 *Relative to young adult level Estimated glomerular filtration rate is determined by the 2020 CKD-EPI equation recommended by the National Kidney Foundation (A Unifying Approach to GFR Estimation: Recommendations of the NKF-ASK Task Force on Reassessing the Inclusion of Race in Diagnosing Kidney Disease, JASN 2020). The CKD-EPI equation should not be used for patients with unstable renal function and has not been validated in children and those over 70. Current interpretive data was last reviewed 2021. Blood 12/16/2024 10:3 9 PM CDT 12/16/2024 11:26 PM CDT Niharika Bravo NP LAB BLOOD ORDERABLES F inal Result [facility] [place] [address] * (ABNORMAL) Differential, auto (12/16/2024 10:39 PM CDT) Pathologist [facility] Neutrophil abs 15.48(H) 1.50 - 6.50 K/cumm Imm gran abs 0.15(H) 0.00 - 0.10 K/cumm [facility] Lymphocyte abs 0.92 0.80 - 3.30 K/cumm [facility] Monocyte abs 1.00(H) 0.20 - 0.80 K/cumm [facility] Eosinophil abs 0.11 0.00 - 0.50 K/cumm [facility] Basophil abs 0.06 0.00 - 0.10 K/cumm [facility] Neutrophil pct 87.5 % [facility] Comment: Interpretive Data Percent cell count reference ranges are not reported, since discordance with absolute values may lead to misinterpretation of CBC data. Current Interpretive Data was last revised on 2017. Imm gran pct 0.8 % [facility] Comment: Interpretive Data Percent cell count reference ranges are not reported, since discordance with absolute values may lead to misinterpretation of CBC data. Current Interpretive Data was last revised on 2017. Lymphocyte pct 5.2 % [facility] Comment: Interpretive Data Percent cell count reference ranges are not reported, since discordance with absolute values may lead to misinterpretation of CBC data. Current Interpretive Data was last revised on 2017. Monocyte pct 5.6 % [facility] Comment: Interpretive Data Percent cell count reference ranges are not reported, since discordance with absolute values may lead to misinterpretation of CBC data. Current Interpretive Data was last revised on 2017. Eosinophil pct 0.6 % [facility] Comment: Interpretive Data Percent cell count reference ranges are not reported, since discordance with absolute values may lead to misinterpretation of CBC data. Current Interpretive Data was last revised on 2017. Basophil pct 0.3 % [facility] Comment: Interpretive Data Percent cell count reference ranges are not reported, since discordance with absolute values may lead to misinterpretation of CBC data. Current Interpretive Data was last revised on 2017. Blood 12/16/2024 10:3 9 PM CDT 12/16/2024 11:25 PM CDT us Niharika Bravo NP LAB BLOOD ORDERABLES F inal Result [facility] Department [place] [address] * (ABNORMAL) CBC with auto differential (12/16/2024 10:39 PM CDT) WBC 17.72(H) 3.80 - 9.90 K/cumm Hgb 10.0(L) 13.0 - 17.5 g/dL [facility] Hct 29.9(L) 38.9 - 50.3 % [facility] Plt 587(H) 150 - 400 K/cumm [facility] MPV 8.9(L) 9.1 - 12.3 fL [facility] RBC 3.35(L) 4.30 - 5.80 M/cumm [facility] MCV 89.3 81.3 - 96.4 fL [facility] MCH 29.9 27.1 - 33.3 pg [facility] MCHC 33.4 32.3 - 35.7 g/dL [facility] RDW CV 14.4 11.1 - 14.9 % [facility] RDW SD 46.2 35.7 - 48.1 fL [facility] NRBC abs 0.00 0.00 - 0.01 K/cumm [facility] Blood 12/16/2024 10:3 9 PM CDT 12/16/2024 11:25 PM CDT us Aletha Mathias MD PhD LAB BLOOD ORDERABLES F inal Result [facility] [place] [address] * (ABNORMAL) Basic metabolic panel (12/16/2024 10:39 PM CDT) Sodium 134(L) 135 - 145 mmol/L Potassium, pl 4.1 3.3 - 4.9 mmol/L [facility] Chloride 97 97 - 110 mmol/L [facility] CO2 28 22 - 32 mmol/L [facility] Anion gap 9 2 - 15 mmol/L [facility] BUN 13 6 - 25 mg/dL [facility] Creatinine 0.77(L) 0.80 - 1.30 mg/dL [facility] Glucose 107 70 - 199 mg/dL [facility] Comment: Interpretive Data Fasting glucose >/= 126 mg/dl is diagnostic for diabetes. Fasting is defined as no caloric intake for at least 8 hours. Fasting glucose between 100 mg/dl to 125 mg/dl is diagnostic of prediabetes. In a patient with classic symptoms of hyperglycemia or hyperglycemic crisis, a random glucose >/= 200 mg/dl is diagnostic for diabetes. In the absence of unequivocal hyperglycemia, results should be confirmed by repeat testing. The classification and Diagnosis of Diabetes Diabetes Care 2021; 46: S19-S40. Current interpretive data was last revised 2022. Calcium 8.6 8.5 - 10.3 mg/dL [facility] Blood 12/16/2024 10:3 9 PM CDT 12/16/2024 11:26 PM CDT us Aletha Mathias MD PhD LAB BLOOD ORDERABLES F inal Result [facility] Department [place] [address] * XR Femur Right 2 or More Views (12/16/2024 4:20 PM CDT) Anatomical Region Laterality Modality Lower Extremities, Thigh, Femur Right Computed Radiography 12/16/2024 4:57 PM CDT Impressions 12/16/2024 4:57 PM CDT Reduced and internally fixated periprosthetic proximal right femur fracture in expected position. Electronically signed by: Noe Parekh M.D. Narrative 12/16/2024 4:57 PM CDT XR FEMUR RIGHT 2 OR MORE VIEWS HISTORY: Femur fracture. FINDINGS: 2 views of the right femur are obtained and compared with 12/16/2024. There is interval reduction and internal fixation of periprosthetic proximal right femur shaft fracture with lateral hook plate, screw, and cerclage wire fixation construct. Unchanged right hip hemiarthroplasty in expected position. Overlying soft tissue gas and skin jennifer are present. Procedure Note Noe Parekh MD - 12/16/2024 XR FEMUR RIGHT 2 OR MORE VIEWS HISTORY: Femur fracture. FINDINGS: 2 views of the right femur are obtained and compared with 12/16/2024. There is interval reduction and internal fixation of periprosthetic proximal right femur shaft fracture with lateral hook plate, screw, and cerclage wire fixation construct. Unchanged right hip hemiarthroplasty in expected position. Overlying soft tissue gas and skin jennifer are present. IMPRESSION: Reduced and internally fixated periprosthetic proximal right femur fracture in expected position. Electronically signed by: Noe Parekh M.D. Aletha Mathias MD PhD IMG XR PROCEDURES Laura l Result * [place] Fluoroscopy < 1 Hour (12/16/2024 3:34 PM CDT) Narrative [facility] - 12/16/2024 3:35 PM CDT The images from this study are not interpreted by Radiology. Please refer to the physician's procedure / OR operative note. Berenice Mendez MD IMG FLUOROSCOPY [place] OCEDURES Final Result [facility] * [place] AN ELECTIVE ENDOTRACHEAL AIRWAY, [place] AN PROCEDURE PLACEHOLDER (12/16/2024 1:39 PM CDT) Narrative Rodo Connell III, CRNA - 12/16/2024 1:39 PM CDT Rodo Connell III, CRNA 12/16/2024 1:39 PM Airway Patient location: OR Urgency: elective Indications for airway management: anesthesia Difficult airway: no Staff: Placed by: BOARD CERTIFIED MUSIC THERAPIST: Rodo Connell III, CRNA Emergent airway documentation: Risks and benefits discussed: yes Consent obtained: yes Consent given by: patient Airway prep: Preoxygenated: yes Patient position: sniffing MILS maintained throughout: yes Mask difficulty assessment: 1 - vent by mask Spontaneous ventilation during airway: absent Sedation level during airway: GA Final airway details: Final airway type: endotracheal airway Tube type: ETT ETT size: 7.5 mm Cuffed: yes Technique used for successful ETT placement: video laryngoscopy Insertion site: oral Blade type: Marcos Video blade type: Douglas Blade size: 3 Cormack-Lehane (video): grade I - full view of glottis Cuff volume: 10 mL Cuff inflated with: air ETT to lips: 24 cm Placement verified by: auscultation Airway secured with: silk tape Number of attempts: 1 Jack Braxton MD ANESTHESIA ORDERABLES Final Res ult * [place] AN PROCEDURE PLACEHOLDER (12/16/2024 12:24 PM CDT) Narrative Lan Laws MD - 12/16/2024 12:24 PM CDT Lan Laws MD 12/16/2024 3:04 PM Peripheral Block Patient location during procedure: pre-op holding Reason for block: post-op pain management per surgeon request Ultrasound image in chart or stored: yes Block type: single shot Laterality: right Block type: fascia iliaca nerve block Staff: Supervising provider: Lan Laws MD Placed by: Resident: Bhavna Carr DO Procedure prep: Preprocedure checklist: patient identified, procedure contraindications assessed, site marked, procedure consent, surgical consent, IV checked, risks, benefits and alternatives discussed, monitors and equipment checked and timeout performed Patient position: supine Procedure performed while patient: sedate with meaningful contact Monitoring: ECG, oximetry and blood pressure Supplemental O2: nasal cannula Prep solution: chlorhexidine/alcohol PPE: provider hat/mask, sterile gloves and sterile probe cover and gel Peripheral nerve block: Technique: ultrasound guided Needle type: echogenic and short-bevel Needle gauge: 22 G Needle length: 80 mm Injection assessment: injection made incrementally with constant monitoring, negative aspiration for heme, no paresthesias noted, normal resistance to injection, local visualized surrounding nerve on ultrasound and see flowsheet for medication details Assessment: Block success: full evaluation pending Events: patient tolerated procedure well with no complications Jack Braxton MD ANESTHESIA ORDERABLES Final Res ult * CT Hip Right WO Contrast (12/16/2024 4:07 AM CDT) Anatomical Region Laterality Modality Lower Extremities Right Computed Tomog gavi 12/16/2024 7:52 AM CDT Impressions 12/16/2024 7:52 AM CDT 1. Right hip hemiarthroplasty with mildly displaced periprosthetic fracture extending from the intertrochanteric femur to the level of the tip of the femoral stem. Additional fractures of the right superior and inferior pubic rami as well as the pubic body and the right sacral ala. 2. Large infrarenal abdominal aortic aneurysm measuring at least 7.6 cm, incompletely imaged. Electronically signed by: Stanley Andrews M.D. Narrative 12/16/2024 7:52 AM CDT EXAMINATION: CT HIP RIGHT WO CONTRAST HISTORY: Right hip fracture FINDINGS: CT of the right hip was performed without intravenous contrast. Comparison is made to radiographs dated 12/16/2024. There is a large infrarenal aortic aneurysm measuring 7.6 x 7.1 cm with diffuse atherosclerosis. Colonic diverticulosis is noted. There is no pelvic lymphadenopathy. There is a mildly displaced fracture of the right sacral ala with extension into the lateral aspect of the S1 and S2 foramina. There is partially imaged lower lumbar spine degenerative disc disease. There is a nondisplaced fracture through the right superior pubic ramus at the acetabular root. There is a mildly displaced fracture through the pubic body. There is a mildly displaced comminuted inferior pubic ramus fracture. There is a bipolar right hip hemiarthroplasty with a periprosthetic fracture extending to the level of the tip of the femoral stem along the medial cortex. Portions of the fracture extends through the intertrochanteric femur. Procedure Note Stanley Andrews MD PhD - 12/16/2024 EXAMINATION: CT HIP RIGHT WO CONTRAST HISTORY: Right hip fracture FINDINGS: CT of the right hip was performed without intravenous contrast. Comparison is made to radiographs dated 12/16/2024. There is a large infrarenal aortic aneurysm measuring 7.6 x 7.1 cm with diffuse atherosclerosis. Colonic diverticulosis is noted. There is no pelvic lymphadenopathy. There is a mildly displaced fracture of the right sacral ala with extension into the lateral aspect of the S1 and S2 foramina. There is partially imaged lower lumbar spine degenerative disc disease. There is a nondisplaced fracture through the right superior pubic ramus at the acetabular root. There is a mildly displaced fracture through the pubic body. There is a mildly displaced comminuted inferior pubic ramus fracture. There is a bipolar right hip hemiarthroplasty with a periprosthetic fracture extending to the level of the tip of the femoral stem along the medial cortex. Portions of the fracture extends through the intertrochanteric femur. IMPRESSION: 1. Right hip hemiarthroplasty with mildly displaced periprosthetic fracture extending from the intertrochanteric femur to the level of the tip of the femoral stem. Additional fractures of the right superior and inferior pubic rami as well as the pubic body and the right sacral ala. 2. Large infrarenal abdominal aortic aneurysm measuring at least 7.6 cm, incompletely imaged. Electronically signed by: Stanley Andrews M.D. Susan White MD IMG CT PROCEDURES Final Result * XR Hips Bilateral W Pelvis 2 View (12/16/2024 4:04 AM CDT) Anatomical Region Laterality Modality Lower Extremities, Hip, Pelvis Bilateral C omputed Radiography 12/16/2024 4:21 AM CDT Impressions 12/16/2024 10:08 AM CDT FINDINGS/IMPRESSION: Comparison is made to concurrent head CT. Right hip arthroplasty with mildly displaced periprosthetic fracture involving the right proximal femur with distal fracture margin extending through the medial femoral shaft. Comminuted fracture of the right superior-inferior pubic ramus, better characterized on contemporaneous CT. Left femoral head is well-seated without acute fracture. Contrast is noted within the urinary bladder. Sequelae of distal fibular osteotomy and tibiotalar fusion. Lucencies within the distal tibia and expected position of the talus on lateral view compatible with ghost tracks. No acute fracture. Dictated by: Sergey Oliveros M.D. The radiology attending physician has personally reviewed this study, and had reviewed and/or edited this written report and agrees with it. Electronically signed by: Jayesh Wei M.D. Narrative 12/16/2024 10:08 AM CDT EXAMINATION: XR FEMUR RIGHT 2 OR MORE VIEWS, XR HIPS BILATERAL 2 VIEWS W PELVIS, XR KNEE RIGHT 1 OR 2 VIEWS, XR ANKLE RIGHT 3 OR MORE VIEWS HISTORY: Periprosthetic fracture Procedure Note Jayesh Wei MD - 12/16/2024 EXAMINATION: XR FEMUR RIGHT 2 OR MORE VIEWS, XR HIPS BILATERAL 2 VIEWS W PELVIS, XR KNEE RIGHT 1 OR 2 VIEWS, XR ANKLE RIGHT 3 OR MORE VIEWS HISTORY: Periprosthetic fracture IMPRESSION: FINDINGS/IMPRESSION: Comparison is made to concurrent head CT. Right hip arthroplasty with mildly displaced periprosthetic fracture involving the right proximal femur with distal fracture margin extending through the medial femoral shaft. Comminuted fracture of the right superior-inferior pubic ramus, better characterized on contemporaneous CT. Left femoral head is well-seated without acute fracture. Contrast is noted within the urinary bladder. Sequelae of distal fibular osteotomy and tibiotalar fusion. Lucencies within the distal tibia and expected position of the talus on lateral view compatible with ghost tracks. No acute fracture. Dictated by: Sergey Oliveros M.D. The radiology attending physician has personally reviewed this study, and had reviewed and/or edited this written report and agrees with it. Electronically signed by: Jayesh Wei M.D. Susan White MD IMG XR PROCEDURES Final Result * XR Ankle Right 3 or More Views (12/16/2024 4:04 AM CDT) Anatomical Region Laterality Modality Lower Extremities, Ankle Right Compute d Radiography 12/16/2024 4:21 AM CDT Impressions 12/16/2024 10:08 AM CDT FINDINGS/IMPRESSION: Comparison is made to concurrent head CT. Right hip arthroplasty with mildly displaced periprosthetic fracture involving the right proximal femur with distal fracture margin extending through the medial femoral shaft. Comminuted fracture of the right superior-inferior pubic ramus, better characterized on contemporaneous CT. Left femoral head is well-seated without acute fracture. Contrast is noted within the urinary bladder. Sequelae of distal fibular osteotomy and tibiotalar fusion. Lucencies within the distal tibia and expected position of the talus on lateral view compatible with ghost tracks. No acute fracture. Dictated by: Sergey Oliveros M.D. The radiology attending physician has personally reviewed this study, and had reviewed and/or edited this written report and agrees with it. Electronically signed by: Jayesh Wei M.D. Narrative 12/16/2024 10:08 AM CDT EXAMINATION: XR FEMUR RIGHT 2 OR MORE VIEWS, XR HIPS BILATERAL 2 VIEWS W PELVIS, XR KNEE RIGHT 1 OR 2 VIEWS, XR ANKLE RIGHT 3 OR MORE VIEWS HISTORY: Periprosthetic fracture Procedure Note Jayesh Wei MD - 12/16/2024 EXAMINATION: XR FEMUR RIGHT 2 OR MORE VIEWS, XR HIPS BILATERAL 2 VIEWS W PELVIS, XR KNEE RIGHT 1 OR 2 VIEWS, XR ANKLE RIGHT 3 OR MORE VIEWS HISTORY: Periprosthetic fracture IMPRESSION: FINDINGS/IMPRESSION: Comparison is made to concurrent head CT. Right hip arthroplasty with mildly displaced periprosthetic fracture involving the right proximal femur with distal fracture margin extending through the medial femoral shaft. Comminuted fracture of the right superior-inferior pubic ramus, better characterized on contemporaneous CT. Left femoral head is well-seated without acute fracture. Contrast is noted within the urinary bladder. Sequelae of distal fibular osteotomy and tibiotalar fusion. Lucencies within the distal tibia and expected position of the talus on lateral view compatible with ghost tracks. No acute fracture. Dictated by: Sergey Oliveros M.D. The radiology attending physician has personally reviewed this study, and had reviewed and/or edited this written report and agrees with it. Electronically signed by: Jayesh Wei M.D. Susan White MD IMG XR PROCEDURES Final Result * XR Knee Right 1 or 2 Views (12/16/2024 4:04 AM CDT) Anatomical Region Laterality Modality Lower Extremities, Knee Right Computed Radiography 12/16/2024 4:21 AM CDT Impressions 12/16/2024 10:08 AM CDT FINDINGS/IMPRESSION: Comparison is made to concurrent head CT. Right hip arthroplasty with mildly displaced periprosthetic fracture involving the right proximal femur with distal fracture margin extending through the medial femoral shaft. Comminuted fracture of the right superior-inferior pubic ramus, better characterized on contemporaneous CT. Left femoral head is well-seated without acute fracture. Contrast is noted within the urinary bladder. Sequelae of distal fibular osteotomy and tibiotalar fusion. Lucencies within the distal tibia and expected position of the talus on lateral view compatible with ghost tracks. No acute fracture. Dictated by: Sergey Oliveros M.D. The radiology attending physician has personally reviewed this study, and had reviewed and/or edited this written report and agrees with it. Electronically signed by: Jayesh Wei M.D. Narrative 12/16/2024 10:08 AM CDT EXAMINATION: XR FEMUR RIGHT 2 OR MORE VIEWS, XR HIPS BILATERAL 2 VIEWS W PELVIS, XR KNEE RIGHT 1 OR 2 VIEWS, XR ANKLE RIGHT 3 OR MORE VIEWS HISTORY: Periprosthetic fracture Procedure Note Jayesh Wei MD - 12/16/2024 EXAMINATION: XR FEMUR RIGHT 2 OR MORE VIEWS, XR HIPS BILATERAL 2 VIEWS W PELVIS, XR KNEE RIGHT 1 OR 2 VIEWS, XR ANKLE RIGHT 3 OR MORE VIEWS HISTORY: Periprosthetic fracture IMPRESSION: FINDINGS/IMPRESSION: Comparison is made to concurrent head CT. Right hip arthroplasty with mildly displaced periprosthetic fracture involving the right proximal femur with distal fracture margin extending through the medial femoral shaft. Comminuted fracture of the right superior-inferior pubic ramus, better characterized on contemporaneous CT. Left femoral head is well-seated without acute fracture. Contrast is noted within the urinary bladder. Sequelae of distal fibular osteotomy and tibiotalar fusion. Lucencies within the distal tibia and expected position of the talus on lateral view compatible with ghost tracks. No acute fracture. Dictated by: Sergey Oliveros M.D. The radiology attending physician has personally reviewed this study, and had reviewed and/or edited this written report and agrees with it. Electronically signed by: Jayesh Wei M.D. us Susan White MD IMG XR PROCEDURES Final Result * XR Femur Right 2 or More Views (12/16/2024 4:04 AM CDT) Anatomical Region Laterality Modality Lower Extremities, Thigh, Femur Right Computed Radiography 12/16/2024 4:21 AM CDT Impressions 12/16/2024 10:08 AM CDT FINDINGS/IMPRESSION: Comparison is made to concurrent head CT. Right hip arthroplasty with mildly displaced periprosthetic fracture involving the right proximal femur with distal fracture margin extending through the medial femoral shaft. Comminuted fracture of the right superior-inferior pubic ramus, better characterized on contemporaneous CT. Left femoral head is well-seated without acute fracture. Contrast is noted within the urinary bladder. Sequelae of distal fibular osteotomy and tibiotalar fusion. Lucencies within the distal tibia and expected position of the talus on lateral view compatible with ghost tracks. No acute fracture. Dictated by: Sergey Oliveros M.D. The radiology attending physician has personally reviewed this study, and had reviewed and/or edited this written report and agrees with it. Electronically signed by: Jayesh Wei M.D. Narrative 12/16/2024 10:08 AM CDT EXAMINATION: XR FEMUR RIGHT 2 OR MORE VIEWS, XR HIPS BILATERAL 2 VIEWS W PELVIS, XR KNEE RIGHT 1 OR 2 VIEWS, XR ANKLE RIGHT 3 OR MORE VIEWS HISTORY: Periprosthetic fracture Procedure Note Jayesh Wei MD - 12/16/2024 EXAMINATION: XR FEMUR RIGHT 2 OR MORE VIEWS, XR HIPS BILATERAL 2 VIEWS W PELVIS, XR KNEE RIGHT 1 OR 2 VIEWS, XR ANKLE RIGHT 3 OR MORE VIEWS HISTORY: Periprosthetic fracture IMPRESSION: FINDINGS/IMPRESSION: Comparison is made to concurrent head CT. Right hip arthroplasty with mildly displaced periprosthetic fracture involving the right proximal femur with distal fracture margin extending through the medial femoral shaft. Comminuted fracture of the right superior-inferior pubic ramus, better characterized on contemporaneous CT. Left femoral head is well-seated without acute fracture. Contrast is noted within the urinary bladder. Sequelae of distal fibular osteotomy and tibiotalar fusion. Lucencies within the distal tibia and expected position of the talus on lateral view compatible with ghost tracks. No acute fracture. Dictated by: Sergey Oliveros M.D. The radiology attending physician has personally reviewed this study, and had reviewed and/or edited this written report and agrees with it. Electronically signed by: Jayesh Wei M.D. Susan White MD IMG XR PROCEDURES Final Result * Check Sample (12/15/2024 11:41 PM CDT) ABO Rh O Positive [facility] HCLL OTHER 12/15/2024 11:4 1 PM CDT 12/15/2024 11:54 PM CDT us Opal Garza MD LAB BLOOD ORDERABLES Fin al Result [facility] [place] [address] [facility] * [place] CRITICAL CARE ILL/INJURED PATIENT INIT 30-74 MIN (12/15/2024 10:52 PM CDT) Narrative Opal Garza MD - 12/15/2024 10:52 PM CDT Opal Garza MD 12/15/2024 10:55 PM Critical Care Performed by: Opal Garza MD Authorized by: Opal Garza MD Critical care provider statement: As reflected in the history, physical exam, orders, notes, and/or MDM, I was personally present while the patient was critically ill and provided critical care services for 32 minutes, excluding time involved in separately billable procedures. Critical care was necessary to treat or prevent imminent or life-threatening deterioration of the following condition(s): aortic dissection/aneurysm Critical care was time spent by me providing the following: continuous telemetry, continuous pulse oximetry and interpretation of bedside monitors, imaging, and arterial/venous lab draws initiation and active titration of vasoactive medications I provided emergent necessary critical care medicine services to this patient. I ordered and reviewed test results and/or imaging studies. I spent time discussing the management of this critically ill patient with consultants and the medical staff. I spent time discussing the management and therapeutic options for this critically ill patient with the patient themselves or with the appropriate designated surrogate decision-maker. I spent time documenting in the medical record. us Opal Garza MD IN CLINIC/BEDSIDE ORDERA BLES Final Result * eGFR (12/15/2024 10:48 PM CDT) eGFR >90 >=60 mL/min/1. 73 m2 Comment: Interpretive Data Reference Interval Normal >/= 90 mL/min/1.73m2 Mildly decreased* 60 - 89 mL/min/1.73m2 Mildly to moderately decreased 45 - 59 mL/min/1.73m2 Moderately to severely decreased 30 - 44 mL/min/1.73m2 Severely decreased 15 - 29 mL/min/1.73m2 Kidney Failure < 15 mL/min/1.73m2 *Relative to young adult level Estimated glomerular filtration rate is determined by the 2020 CKD-EPI equation recommended by the [employer] (A Unifying Approach to GFR Estimation: Recommendations of the NKF-ASK Task Force on Reassessing the Inclusion of Race in Diagnosing Kidney Disease, JASN 2020). The CKD-EPI equation should not be used for patients with unstable renal function and has not been validated in children and those over 70. Current interpretive data was last reviewed 2021. Blood 12/15/2024 10:4 8 PM CDT 12/15/2024 11:00 PM CDT Susan Bloom MD LAB BLOOD ORDERABLES Final Resul t [facility] [place] [address] * (ABNORMAL) Differential, auto (12/15/2024 10:48 PM CDT) Neutrophil abs 5.63 1.50 - 6.50 K/cumm Imm gran abs 0.07 0.00 - 0.10 K/cumm [facility] Lymphocyte abs 2.04 0.80 - 3.30 K/cumm [facility] Monocyte abs 0.71 0.20 - 0.80 K/cumm [facility] Eosinophil abs 0.64(H) 0.00 - 0.50 K/cumm [facility] Basophil abs 0.07 0.00 - 0.10 K/cumm [facility] Neutrophil pct 61.3 % [facility] Comment: Interpretive Data Percent cell count reference ranges are not reported, since discordance with absolute values may lead to misinterpretation of CBC data. Current Interpretive Data was last revised on 2017. Imm gran pct 0.8 % [facility] Comment: Interpretive Data Percent cell count reference ranges are not reported, since discordance with absolute values may lead to misinterpretation of CBC data. Current Interpretive Data was last revised on 2017. Lymphocyte pct 22.3 % [facility] Comment: Interpretive Data Percent cell count reference ranges are not reported, since discordance with absolute values may lead to misinterpretation of CBC data. Current Interpretive Data was last revised on 2017. Monocyte pct 7.8 % [facility] Comment: Interpretive Data Percent cell count reference ranges are not reported, since discordance with absolute values may lead to misinterpretation of CBC data. Current Interpretive Data was last revised on 2017. Eosinophil pct 7.0 % [facility] Comment: Interpretive Data Percent cell count reference ranges are not reported, since discordance with absolute values may lead to misinterpretation of CBC data. Current Interpretive Data was last revised on 2017. Basophil pct 0.8 % [facility] Comment: Interpretive Data Percent cell count reference ranges are not reported, since discordance with absolute values may lead to misinterpretation of CBC data. Current Interpretive Data was last revised on 2017. Blood 12/15/2024 10:4 8 PM CDT 12/15/2024 11:00 PM CDT Susan Bloom MD LAB BLOOD ORDERABLES Final Resul t [facility] [place] [address] * (ABNORMAL) CBC with auto differential (12/15/2024 10:48 PM CDT) WBC 9.16 3.80 - 9.90 K/cumm Hgb 9.9(L) 13.0 - 17.5 g/dL [facility] Hct 29.7(L) 38.9 - 50.3 % [facility] Plt 455(H) 150 - 400 K/cumm [facility] MPV 9.2 9.1 - 12.3 fL [facility] RBC 3.35(L) 4.30 - 5.80 M/cumm [facility] MCV 88.7 81.3 - 96.4 fL [facility] MCH 29.6 27.1 - 33.3 pg [facility] MCHC 33.3 32.3 - 35.7 g/dL [facility] RDW CV 14.5 11.1 - 14.9 % [facility] RDW SD 45.6 35.7 - 48.1 fL [facility] NRBC abs 0.00 0.00 - 0.01 K/cumm [facility] Blood 12/15/2024 10:4 8 PM CDT 12/15/2024 11:00 PM CDT Result [facility] Susan Bloom MD LAB BLOOD ORDERABLES Final Resul t Performing Organization Address [facility] de Phone Number [facility] [place] [address] * aPTT (12/15/2024 10:48 PM CDT) aPTT 28 28 - 38 sec Comment: Interpretive Data Heparin therapeutic range: 66.0 - 100.0 seconds. Range based on correlation with therapeutic heparin activity range of 0.3 - 0.7 Units/mL. Current interpretive data was last revised on 2023. Blood 12/15/2024 10:4 8 PM CDT 12/15/2024 11:04 PM CDT Susan Bloom MD LAB BLOOD ORDERABLES Final Resul t Performing Organization Address [facility] de Phone Number [facility] [place] [address] * Protime-INR (12/15/2024 10:48 PM CDT) PT 13.0 9.7 - 13.0 sec INR 1.20 0.90 - 1.20 [facility] Comment: Interpretive data Oral anticoagulant therapeutic ranges: Venous thromboembolism prophylaxis or treatment: 2.0-3.0 CARDIOLOGY Standard range: 2.0-3.0 High-intensity range: 2.5-3.5 Refer to indication-specific guidelines for appropriate target ranges for prosthetic heart valve replacement. Current interpretive data was last revised on 2019. Blood 12/15/2024 10:4 8 PM CDT 12/15/2024 11:04 PM CDT Susan Bloom MD LAB BLOOD ORDERABLES Final Resul t Performing Organization Address [facility] Co de Phone Number [facility] [place] [address] * Type and screen (12/15/2024 10:48 PM CDT) [facility] ABO Rh O Positive Chaitanya, indirect Negative [facility] Blood 12/15/2024 10:4 8 PM CDT 12/15/2024 11:01 PM CDT Narrative [facility] - 12/16/2024 4:23 AM CDT Has the patient had Daratumumab or Isatuximab in the past 6 months?->Unknown Susan Bloom MD LAB BLOOD BANK TEST ORDERABLES F inal Result Performing Organization Address [facility] de Phone Number [facility] [place] [address] * (ABNORMAL) Comprehensive metabolic panel (12/15/2024 10:48 PM CDT) [facility] Sodium 135 135 - 145 mmol/L Potassium, pl 4.8 3.3 - 4.9 mmol/L [facility] Comment:Hemolyzed; Potassium value may be falsely elevated by as much as 0.6-1.0 mmol/L. Suggest redraw and reanalysis. Chloride 98 97 - 110 mmol/L [facility] CO2 28 22 - 32 mmol/L [facility] Anion gap 9 2 - 15 mmol/L [facility] BUN 16 6 - 25 mg/dL [facility] Creatinine 0.78(L) 0.80 - 1.30 mg/dL [facility] Glucose 111 70 - 199 mg/dL [facility] Comment: Interpretive Data Fasting glucose >/= 126 mg/dl is diagnostic for diabetes. Fasting is defined as no caloric intake for at least 8 hours. Fasting glucose between 100 mg/dl to 125 mg/dl is diagnostic of prediabetes. In a patient with classic symptoms of hyperglycemia or hyperglycemic crisis, a random glucose >/= 200 mg/dl is diagnostic for diabetes. In the absence of unequivocal hyperglycemia, results should be confirmed by repeat testing. The classification and Diagnosis of Diabetes Diabetes Care 2021; 46: S19-S40. Current interpretive data was last revised 2022. Calcium 8.6 8.5 - 10.3 mg/dL [facility] Bilirubin, total 0.6 0.1 - 1.2 mg/dL [facility] Protein, pl 6.7 6.5 - 8.5 g/dL [facility] Albumin 3.4(L) 3.5 - 5.0 g/dL [facility] Alk phos 101 40 - 130 Units/L [facility] ALT 18 7 - 55 Units/L [facility] AST 53(H) 10 - 50 Units/L [facility] Comment:Hemolyzed; result ma y be falsely elevated Blood 12/15/2024 10:4 8 PM CDT 12/15/2024 11:00 PM CDT Susan Bloom MD LAB BLOOD ORDERABLES Final Resul t [facility] [place] [address] from Last 3 Months Insurance [facility] Advance Directives For more information, please contact: [phone] * Full Code (Latest Code Status on File) Date Activated Date Inactivated Comments 12/16/2024 8:18 PM 12/24/2024 7:17 PM * Full Code Date Activated Date Inactivated Comments 12/16/2024 5:49 AM 12/16/2024 8:18 PM 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
--- OUTSIDE RECORDS SUMMARY | 2025-02-24 19:00 | XMS_ITS | Clinical Summary ---
Author Organization Unknown Care Team Providers Care Engineering Design Supervisor Name Role Phone MOHSEN REYES, MARCIA Unavailable Unavailable RA REGISTERED NURSE, VICKI Unavailable Unavailable CALIN PHYSICAL THERAPIST, GINA Unavailabl e Unavailable TENNILLE DIRECTOR INTERNAL CONTROL, ANAID Unavail able Unavailable Payers Payer Name Policy Type Policy Number Effective Date Expira tion Date [employer] MEDICARE ADVANTAGE - EPISODIC Problems Condition Name Condition Details Condition Category Status Onset Date Resolution Date Last Treatment Date Treating Clinician Comments PERIPROSTH FRACTURE AROUND INTERNAL PROSTH R HIP JT, SUBS Active 06-18 00:00: 00 ENCNTR FOR SURGICAL AFTCR FOLLOWING SURGERY ON THE CIRC SYS Active 12-15 00:00: 00 INFRARENAL ABDOMINAL AORTIC ANEURYSM, WITHOUT RUPTURE Active 06-18 00:00: 00 FX SUPERIOR RIM OF RIGHT PUBIS, SUBS FOR FX W ROUTN HEAL Active 06-18 00:00: 00 OTH FRACTURE OF RIGHT PUBIS, SUBS FOR FX W ROUTN HEAL Active 06-18 00:00: 00 EMPHYSEMA, UNSPECIFIED Active 06-18 00:00: 00 ESSENTIAL (PRIMARY) HYPERTENSION Active 06-18 00:00: 00 ATHSCL HEART DISEASE OF [place] CORONARY ARTERY W/O ANG PCTRS Active 06-18 00:00: 00 NICOTINE DEPENDENCE, UNSPECIFIED, UNCOMPLICATE D Active 06-18 00:00: 00 PRESENCE OF OTHER VASCULAR IMPLANTS AND GRAFTS Active 06-18 00:00: 00 PRESENCE OF CORONARY ANGIOPLASTY IMPLANT AND GRAFT Active 06-18 00:00: 00 MCC (CURRENT) USE OF ASPIRIN Active 06-18 00:00: 00 HISTORY OF FALLING Active 06-18 00:00: 00 Allergies, Adverse Reactions, Alerts Allergy Name Allergy Type Status Severity Reaction(s) Onset Date Inactive Date Treating Clinician Comments NO KNOWN ALLERGIES Propensity to adverse reactions Active 12-28 12:38: 52 Medications Ordered Medication Name Filled Medication Name Start Date Stop Date Current Medication? Ordering Clinician Indication Dosage Frequency Signature (SIG) Comments Components Aspirin Childrens 81 mg chewable tablet 12-24 00:00: 00 Yes [id number] CIRCULATION 1 tablet ONCE DAILY 1 tablet ONCE DAILY (route: oral) Med Classific ation: Hematolog ical Agents carvedilol 12.5 mg tablet 12-24 00:00: 00 Yes [id number] HIGH BLOOD PRESSURE 1 tablet TWICE DAILY 1 tablet TWICE DAILY (route: oral) Med Classific ation: Cardiovas cular Therapy Agents Combivent Respimat 20 mcg-100 mcg/actuati on solution for inhalation 12-24 00:00: 00 Yes [id number] WHEEZING/SH ORTNESS OF BREATH 2 puff EVERY 4 HOURS 2 puff EVERY 4 HOURS (route: inhalation ) Med Classific ation: Respirato ry Therapy Agents hydrocodone 7.5 mg-acetamin ophen 325 mg tablet 12-24 00:00: 00 Yes [id number] RIGHT HIP PAIN 1 tablet 4 TIMES DAILY 1 tablet 4 TIMES DAILY (route: oral) Med Classific ation: Analgesic , Anti-infl ammatory or Antipyret ic methocarbam ol 750 mg tablet 12-24 00:00: 00 Yes [id number] MUSCLE SPASMS 1 tablet 3 TIMES DAILY 1 tablet 3 TIMES DAILY (route: oral) Med Classific ation: Locomotor System Miralax 17 gram oral powder packet 12-24 00:00: 00 Yes [id number] CONSTIPATIO N 1 packet ONCE DAILY 1 packet ONCE DAILY (route: oral) Med Classific ation: Gastroint estinal Therapy Agents Senna Plus 8.6 mg-50 mg capsule 12-24 00:00: 00 Yes [id number] CONSTIPATIO N 1 capsule TWICE DAILY 1 capsule TWICE DAILY (route: oral) Med Classific ation: Gastroint estinal Therapy Agents Tylenol Extra Strength 500 mg tablet 12-24 00:00: 00 Yes [id number] RIGHT HIP PAIN 1-2 tablet EVERY 6 HOURS 1-2 tablet EVERY 6 HOURS (route: oral) Med Classific ation: Analgesic , Anti-infl ammatory or Antipyret ic Immunizations Ordered Immunization Name Filled Immunization Name Date Status Comments Refusal Reason COVID-19 DISCUSSED AND DECLINED, N/A 2024-12-28 00:00:00 INFLUENZA OFFERED AND DECLINED, TIV (INACTIVATED) 2024-12-28 00:00:00 PNEUMOCOCCAL (PPV), PPV 2018-03-27 00:00:00 Vital Signs Vital Name Observation Time Observation Value Commen ts Temperature 2025-02-23 11:15:00.000 97.6 [degF] Temperature 2025-02-17 14:19:00.000 97.6 [degF] Temperature 2025-02-12 14:23:00.000 97.6 [degF] Temperature 2025-02-11 11:24:00.000 97.6 [degF] Temperature 2025-02-02 13:19:00.000 97.3 [degF] Temperature 2025-01-27 12:49:00.000 97.6 [degF] Temperature 2025-01-26 13:30:00.000 97.3 [degF] Temperature 2025-01-19 11:12:00.000 97.5 [degF] Temperature 2025-01-13 12:39:00.000 97.4 [degF] Temperature 2025-01-13 12:29:00.000 97.4 [degF] Temperature 2025-01-07 11:19:00.000 97.8 [degF] Temperature 2025-01-02 11:18:00.000 97.3 [degF] Temperature 2024-12-29 11:03:00.000 97 [degF] Temperature 2024-12-28 12:58:00.000 97.7 [degF] BMI (%) 2024-12-28 12:58:00.000 17 kg/m2 Height 2024-12-28 12:58:00.000 73 [in_us] Pulse 2025-02-23 11:15:00.000 76 /min Pulse 2025-02-17 14:19:00.000 68 /min Pulse 2025-02-12 14:23:00.000 60 /min Pulse 2025-02-11 11:24:00.000 68 /min Pulse 2025-02-02 13:19:00.000 64 /min Pulse 2025-01-27 12:49:00.000 82 /min Pulse 2025-01-26 13:30:00.000 72 /min Pulse 2025-01-19 11:12:00.000 72 /min Pulse 2025-01-13 12:39:00.000 76 /min Pulse 2025-01-13 12:29:00.000 76 /min Pulse 2025-01-07 11:19:00.000 68 /min Pulse 2025-01-02 11:18:00.000 62 /min Pulse 2024-12-29 11:03:00.000 75 /min Pulse 2024-12-28 12:58:00.000 66 /min O2 Saturation (%) 2025-02-23 11:15:00.000 95 % O2 Saturation (%) 2025-02-17 14:19:00.000 95 % O2 Saturation (%) 2025-02-12 14:23:00.000 94 % O2 Saturation (%) 2025-02-11 11:24:00.000 96 % O2 Saturation (%) 2025-02-02 13:19:00.000 95 % O2 Saturation (%) 2025-01-27 12:49:00.000 93 % O2 Saturation (%) 2025-01-26 13:30:00.000 94 % O2 Saturation (%) 2025-01-19 11:12:00.000 93 % O2 Saturation (%) 2025-01-13 12:39:00.000 93 % O2 Saturation (%) 2025-01-13 12:29:00.000 93 % O2 Saturation (%) 2025-01-07 11:19:00.000 94 % O2 Saturation (%) 2025-01-02 11:18:00.000 94 % O2 Saturation (%) 2024-12-29 11:03:00.000 95 % O2 Saturation (%) 2024-12-28 12:58:00.000 95 % Respirations 2025-02-23 11:15:00.000 20 /min Respirations 2025-02-17 14:19:00.000 17 /min Respirations 2025-02-12 14:23:00.000 18 /min Respirations 2025-02-11 11:24:00.000 18 /min Respirations 2025-02-02 13:19:00.000 19 /min Respirations 2025-01-27 12:49:00.000 18 /min Respirations 2025-01-26 13:30:00.000 20 /min Respirations 2025-01-19 11:12:00.000 19 /min Respirations 2025-01-13 12:39:00.000 18 /min Respirations 2025-01-13 12:29:00.000 20 /min Respirations 2025-01-07 11:19:00.000 18 /min Respirations 2025-01-02 11:18:00.000 20 /min Respirations 2024-12-29 11:03:00.000 18 /min Respirations 2024-12-28 12:58:00.000 20 /min Weight (lbs) 2024-12-28 12:58:00.000 132 [lb_av] Systolic Blood Pressure 2025-02-23 11:15:00.000 108 mm [Hg] Systolic Blood Pressure 2025-02-17 14:19:00.000 136 mm [Hg] Systolic Blood Pressure 2025-02-12 14:23:00.000 140 mm [Hg] Systolic Blood Pressure 2025-02-11 11:24:00.000 134 mm [Hg] Systolic Blood Pressure 2025-02-02 13:19:00.000 122 mm [Hg] Systolic Blood Pressure 2025-01-27 12:49:00.000 132 mm [Hg] Systolic Blood Pressure 2025-01-26 13:30:00.000 120 mm [Hg] Systolic Blood Pressure 2025-01-19 11:12:00.000 120 mm [Hg] Systolic Blood Pressure 2025-01-13 12:39:00.000 136 mm [Hg] Systolic Blood Pressure 2025-01-13 12:29:00.000 136 mm [Hg] Systolic Blood Pressure 2025-01-07 11:19:00.000 116 mm [Hg] Systolic Blood Pressure 2025-01-02 11:18:00.000 134 mm [Hg] Systolic Blood Pressure 2024-12-29 11:03:00.000 118 mm [Hg] Systolic Blood Pressure 2024-12-28 12:58:00.000 122 mm [Hg] Diastolic Blood Pressure 2025-02-23 11:15:00.000 64 mm [Hg] Diastolic Blood Pressure 2025-02-17 14:19:00.000 70 mm [Hg] Diastolic Blood Pressure 2025-02-12 14:23:00.000 80 mm [Hg] Diastolic Blood Pressure 2025-02-11 11:24:00.000 76 mm [Hg] Diastolic Blood Pressure 2025-02-02 13:19:00.000 70 mm [Hg] Diastolic Blood Pressure 2025-01-27 12:49:00.000 74 mm [Hg] Diastolic Blood Pressure 2025-01-26 13:30:00.000 62 mm [Hg] Diastolic Blood Pressure 2025-01-19 11:12:00.000 72 mm [Hg] Diastolic Blood Pressure 2025-01-13 12:39:00.000 64 mm [Hg] Diastolic Blood Pressure 2025-01-13 12:29:00.000 64 mm [Hg] Diastolic Blood Pressure 2025-01-07 11:19:00.000 64 mm [Hg] Diastolic Blood Pressure 2025-01-02 11:18:00.000 70 mm [Hg] Diastolic Blood Pressure 2024-12-29 11:03:00.000 62 mm [Hg] Diastolic Blood Pressure 2024-12-28 12:58:00.000 54 mm [Hg] Plan of Treatment Planned Activity Planned Date Details Comments Future Scheduled Test SKILLED NU RSE/THERAPY TO ADMINISTER AND INSTRUCT PATIENT/CAREGIVER ON SURGICAL INCISION CARE TO RIGHT THIGH. PER CLEAN/ASEPTIC TECHNIQUE. REMOVE OLD DRESSING. CLEANSE WITH NORMAL SALINE OR WOUND CLEANSER OR SOAP AND WATER. PAT DRY WITH GAUZE OR ALLOW TO AIR DRY. APPLY DRY DRESSING TO WOUND BED WHILE JAYDA IN PLACE. AFTER JAYDA HAVE BEEN REMOVED, LEAVE OPEN TO AIR AND MONITOR DAILY FOR SIGNS AND SYMPTOMS OF INFECTION. WOUND CARE TO BE PERFORMED EVERY DAY AND PRN FOR SOILAGE OR DISLODGEMENT. DISCONTINUE WOUND CARE, ASSESSMENT AND SUPPLIES WHEN WOUND HEALS. PATIENT/CAREGIVER TO PERFORM WOUND CARE IN AGENCY ABSENCE AFTER APPROPRIATE RETURN DEMONSTRATION. JAYDA TO BE REMOVED BY ORION RUANO WITH DR. NILE CONNOLLY ON 12/30/24 USING NECESSARY SUPPLIES. DISCONTINUE WOUND CARE, ASSESSMENT, AND SUPPLIES WHEN WOUND HEALS. PATIENT/CAREGIVER TO PERFORM WOUND CARE IN AGENCY ABSENCE AFTER APPROPRIATE RETURN DEMONSTRATION. [code = SKILLED NURSE/THERAPY TO ADMINISTER AND INSTRUCT PATIENT/CAREGIVER ON SURGICAL INCISION CARE TO RIGHT THIGH. PER CLEAN/ASEPTIC TECHNIQUE. REMOVE OLD DRESSING. CLEANSE WITH NORMAL SALINE OR WOUND CLEANSER OR SOAP AND WATER. PAT DRY WITH GAUZE OR ALLOW TO AIR DRY. APPLY DRY DRESSING TO WOUND BED WHILE AJYDA IN PLACE. AFTER JAYDA HAVE BEEN REMOVED, LEAVE OPEN TO AIR AND MONITOR DAILY FOR SIGNS AND SYMPTOMS OF INFECTION. WOUND CARE TO BE PERFORMED EVERY DAY AND PRN FOR SOILAGE OR DISLODGEMENT. DISCONTINUE WOUND CARE, ASSESSMENT AND SUPPLIES WHEN WOUND HEALS. PATIENT/CAREGIVER TO PERFORM WOUND CARE IN AGENCY ABSENCE AFTER APPROPRIATE RETURN DEMONSTRATION. JAYDA TO BE REMOVED BY ORION RUANO WITH DR. NILE CONNOLLY ON 12/30/24 USING NECESSARY SUPPLIES. DISCONTINUE WOUND CARE, ASSESSMENT, AND SUPPLIES WHEN WOUND HEALS. PATIENT/CAREGIVER TO PERFORM WOUND CARE IN AGENCY ABSENCE AFTER APPROPRIATE RETURN DEMONSTRATION.] Future Scheduled Test THE [facility] TIFYING PHYSICIAN, ASSOCIATED PHYSICIAN, NPP OR PA WITHIN THE SAME GROUP MAY APPROVE AND SIGN THE ORDER (ON ANY PAGE) ATTESTING THAT THE COMPREHENSIVE OUTCOME ASSESSMENTS, EVALUATIONS, AND HOME HEALTH CERTIFICATION PLANS SUPPORT HOMEBOUND STATUS. HOME HEALTH WEB-PORTAL DOCUMENTATION ACCESSED BY THE PHYSICIAN MUST BE INCORPORATED INTO THE MEDICAL RECORD TO CORROBORATE THE PHYSICIAN, NPP, OR PA S F2F ENCOUNTER TO SUPPORT ELIGIBILITY FOR HOME HEALTH SERVICES. [code = THE CERTIFYING PHYSICIAN, ASSOCIATED PHYSICIAN, NPP OR PA WITHIN THE SAME GROUP MAY APPROVE AND SIGN THE ORDER (ON ANY PAGE) ATTESTING THAT THE COMPREHENSIVE OUTCOME ASSESSMENTS, EVALUATIONS, AND HOME HEALTH CERTIFICATION PLANS SUPPORT HOMEBOUND STATUS. HOME HEALTH WEB-PORTAL DOCUMENTATION ACCESSED BY THE PHYSICIAN MUST BE INCORPORATED INTO THE MEDICAL RECORD TO CORROBORATE THE PHYSICIAN, NPP, OR PA S F2F ENCOUNTER TO SUPPORT ELIGIBILITY FOR HOME HEALTH SERVICES.] Future Scheduled Test EACH ORDER ED IN-HOME OR TELEHEALTH VISIT, THE SKILLED NURSE WILL CONDUCT A COMPREHENSIVE ASSESSMENT INCLUDING VITAL SIGNS, PAIN, SAFETY, MENTAL/COGNITIVE/PSYCHOSOCIAL STATUS, MED MANAGEMENT, NUTRITION, SKIN INTEGRITY, PRESSURE ULCER PREVENTION, AND PATIENT/CAREGIVER ABILITY TO SUPPORT ORDERED CARE. SKILLED NURSE WILL INSTRUCT ON DISEASE PROCESS, MED MGMT., FALL PREVENTION AND SAFETY, INFECTION CONTROL AND PREVENTION, WARNING SIGNS, ADDRESS RESULTS OUTSIDE OF ORDERED PARAMETERS LISTED ON CARE PLAN, AND COORDINATE DISCHARGE WITH THE TREATING PROVIDER. MAY ACCEPT ORDERS FROM THE FOLLOWING PROVIDER(S) WHO WILL BE CONSULTING ON THE CERTIFIED CARE PLAN: DR. MARCIA CONNOLLY, DR. KORY SEGUNDO, DR. JADEN GONCALVES, AND ANYONE COVERING IN THEIR ABSENCE. [code = EACH ORDERED IN-HOME OR TELEHEALTH VISIT, THE SKILLED NURSE WILL CONDUCT A COMPREHENSIVE ASSESSMENT INCLUDING VITAL SIGNS, PAIN, SAFETY, MENTAL/COGNITIVE/PSYCHOSOCIAL STATUS, MED MANAGEMENT, NUTRITION, SKIN INTEGRITY, PRESSURE ULCER PREVENTION, AND PATIENT/CAREGIVER ABILITY TO SUPPORT ORDERED CARE. SKILLED NURSE WILL INSTRUCT ON DISEASE PROCESS, MED MGMT., FALL PREVENTION AND SAFETY, INFECTION CONTROL AND PREVENTION, WARNING SIGNS, ADDRESS RESULTS OUTSIDE OF ORDERED PARAMETERS LISTED ON CARE PLAN, AND COORDINATE DISCHARGE WITH THE TREATING PROVIDER. MAY ACCEPT ORDERS FROM THE FOLLOWING PROVIDER(S) WHO WILL BE CONSULTING ON THE CERTIFIED CARE PLAN: DR. MARCIA CONNOLLY, DR. KORY SEGUNDO, DR. JADEN GONCALVES, AND ANYONE COVERING IN THEIR ABSENCE.] Future Scheduled Test PATIENT RE QUIRED A DELAY IN THE HOME HEALTH START OF CARE/RESUMPTION OF CARE. THE DELAY(S) REQUIRED A NOTIFICATION AND APPROVAL BY THE PHYSICIAN OR ALLOWABLE PRACTITIONER WHICH WAS DONE ON 12/25/24 THE NEW PHYSICIAN ORDERED START OF CARE/RESUMPTION OF CARE DATE(S) 12/28/24 PATIENT S REASON(S) TO DELAY HOME HEALTH INCLUDED PTNT REQUEST [code = PATIENT REQUIRED A DELAY IN THE HOME HEALTH START OF CARE/RESUMPTION OF CARE. THE DELAY(S) REQUIRED A NOTIFICATION AND APPROVAL BY THE PHYSICIAN OR ALLOWABLE PRACTITIONER WHICH WAS DONE ON 12/25/24 THE NEW PHYSICIAN ORDERED START OF CARE/RESUMPTION OF CARE DATE(S) 12/28/24 PATIENT S REASON(S) TO DELAY HOME HEALTH INCLUDED PTNT REQUEST] Future Scheduled Test HOME HEALT H NURSE WILL INSTRUCT THE PATIENT/CAREGIVER ON POST OP JOINT REPLACEMENT MANAGEMENT INCLUDING TAKING TEMPERATURES DAILY, USE OF A SYMPTOM LOG, ELEVATING LOWER EXTREMITIES, USE OF SUPPORT STOCKINGS, ACTIVITY LIMITATIONS, AND SYMPTOMS TO CALL THE AGENCY OR SURGEON. [code = HOME HEALTH NURSE WILL INSTRUCT THE PATIENT/CAREGIVER ON POST OP JOINT REPLACEMENT MANAGEMENT INCLUDING TAKING TEMPERATURES DAILY, USE OF A SYMPTOM LOG, ELEVATING LOWER EXTREMITIES, USE OF SUPPORT STOCKINGS, ACTIVITY LIMITATIONS, AND SYMPTOMS TO CALL THE AGENCY OR SURGEON.] Future Scheduled Test HOME HEALT H NURSE WILL INSTRUCT ABOUT COPD, APPROPRIATE BREATHING TECHNIQUES, STRATEGIES TO MANAGE COPD TO PREVENT EXACERBATIONS, STRATEGIES TO PROMOTE SLEEP, USE OF A COPD ACTION PLAN, AND WARNING SIGNS TO CALL THE AGENCY, TREATING PROVIDER, OR 911. [code = HOME HEALTH NURSE WILL INSTRUCT ABOUT COPD, APPROPRIATE BREATHING TECHNIQUES, STRATEGIES TO MANAGE COPD TO PREVENT EXACERBATIONS, STRATEGIES TO PROMOTE SLEEP, USE OF A COPD ACTION PLAN, AND WARNING SIGNS TO CALL THE AGENCY, TREATING PROVIDER, OR 911.] Future Scheduled Test SKILLED NU RSE TO INSTRUCT PATIENT/CAREGIVER ON WHAT IS HYPERTENSION, HOW TO CHECK HIS/HER BLOOD PRESSURE, AND STRATEGIES TO USE TO CONTROL BLOOD PRESSURE SUCH MONITORING BP, SMOKING CESSATION, ENGAGING IN PHYSICAL ACTIVITY AIMING FOR 150 MINUTES SPREAD THROUGHOUT THE WEEK. [code = SKILLED NURSE TO INSTRUCT PATIENT/CAREGIVER ON WHAT IS HYPERTENSION, HOW TO CHECK HIS/HER BLOOD PRESSURE, AND STRATEGIES TO USE TO CONTROL BLOOD PRESSURE SUCH MONITORING BP, SMOKING CESSATION, ENGAGING IN PHYSICAL ACTIVITY AIMING FOR 150 MINUTES SPREAD THROUGHOUT THE WEEK.] Future Scheduled Test HOME HEALT H NURSE WILL ASSESS FOR COMPLICATIONS RELATED TO ANTICOAGULATION ANTIPLATELET USE AND INSTRUCT PATIENT/CAREGIVER ABOUT PRECAUTIONS TO FOLLOW AND SIGNS/SYMPTOMS TO REPORT. [code = HOME HEALTH NURSE WILL ASSESS FOR COMPLICATIONS RELATED TO ANTICOAGULATION ANTIPLATELET USE AND INSTRUCT PATIENT/CAREGIVER ABOUT PRECAUTIONS TO FOLLOW AND SIGNS/SYMPTOMS TO REPORT.] Future Scheduled Test PHYSICAL T HERAPIST TO EVALUATE AND TREAT [code = PHYSICAL THERAPIST TO EVALUATE AND TREAT] Goal Patient Goal - S OC 12/28/24: TO GET BACK WALKING GOOD. TO HEAL INCISIONS AND REMAIN FREE FROM FALLS AND HOSPITALIZATIONS. Goal Provider Goal - PATIENT/CAREGIVER WILL DEMONSTRATE APPROPRIATE INCISIONAL CARE. INCISION / SUTURE LINE IMPROVE EVIDENCED BY DECREASE IN SIZE / DRAINAGE OF WOUND, NO SIGNS AND SYMPTOMS OF INFECTION, DECREASED PAIN, HEALING IS PROGRESSING BY 01/30/25 Goal Provider Goal - A PLAN OF CARE WILL BE ESTABLISHED THAT MEETS ALL PATIENT'S NURSING HOME NEEDS AND COUNTER SIGNED BY PHYSICIAN. Goal Provider Goal - PATIENT WILL BE FREE OF FALLS AND HOSPITALIZATIONS THROUGHOUT EPISODE OF CARE. PATIENT/CAREGIVER WILL UNDERSTAND AND ADHERE TO ORDERED DIET. PATIENT/CAREGIVER WILL INDEPENDENTLY MANAGE MEDICATIONS, UNDERSTAND ANY CHANGES, SIDE EFFECTS TO REPORT BY EOE. PATIENT WILL BE FREE OF INFECTION AND UNDERSTAND MEASURES OF PREVENTION. PATIENT/CAREGIVER WILL COLLABORATE WITH SKILLED NURSE TO DEVELOP POC AT SOC AND ON AN ONGOING BASIS UPDATES ARE NEEDED. UNDERSTAND PROGRESS MADE/DISCHARGE PLANNING. ADDITIONAL ORDERS WILL BE RECEIVED FROM ALTERNATE PHYSICIANS IN A TIMELY MANNER. Goal Provider Goal - PATIENT WILL RECEIVE HOME HEALTH SERVICES ON ORDERED START DATE. Goal Provider Goal - PATIENT/CAREGIVER WILL DEMONSTRATE THE USE OF THE SYMPTOM LOG, VITAL SIGN LOGS, AND ADHERENCE TO ORDERED STRATEGIES THAT PREVENT BLOOD CLOTS, INFECTIONS, AND COMPLICATIONS BY THE END OF HOME HEALTH SERVICES. Goal Provider Goal - PATIENT/CAREGIVER WILL DEMONSTRATE WILLINGNESS TO COLLABORATE AND CREATE A COPD ACTION PLAN, VERBALIZE UNDERSTANDING OF STRATEGIES TO PREVENT EXACERBATIONS, AND VERBALIZE WARNING SIGNS AND WHEN TO CONTACT THE TREATING PROVIDER OR 911 UPON THE END OF HOME HEALTH SERVICES. Goal Provider Goal - PATIENT/CAREGIVER WILL INDEPENDENTLY DEMONSTRATE HOW TO CHECK HIS/HER OWN BP AND VERBALIZE WHAT STRATEGIES CAN ASSIST TO CONTROL BLOOD PRESSURE. Goal Provider Goal - PATIENT/CAREGIVER WILL VERBALIZE UNDERSTANDING OF ANTICOAGULATION ANTIPLATELET COMPLICATIONS TO REPORT AND PRECAUTIONS TO FOLLOW BY END OF HOME HEALTH SERVICES. Goal Provider Goal - Progress Notes Progress Notes <paragraph>[Visit Date: 2024 by VICKI KNAPP REGISTERED NURSE]:</paragraph><paragraph>DISCHARGE COMPLETED THIS VISIT</paragraph><paragraph>PTNT BEING SEEN BY SN FOR RIGHT HIP/PELVIS FX WITH SURGICAL REPAIR. INCIDENTAL FINDING OF LARGE AAA WITH REPAIR WELL. PMH: EMPHYSEMA, HTN, CAD, CABG, [place], FALLS, NICOTINE DEPENDENCE.</paragraph><paragraph>SN GREETED AT DOOR BY PTNT CGPATEL. ENTERED HOME TO FIND PTNT RESTING AT KITCHEN TABLE WITH RLE ELEVATED ON STOOL. PTNT CG PRESENT DURING VISIT. PTNT LIVES ALONE. CG/FRIEND, PATEL, PROVIDES CARE PRN. PTNT CHAIN SMOKES IN HOME.</paragraph><paragraph>PTNT ALERT AND ORIENTED ACTIVELY PARTICIPATING IN CARE. COMPREHENSIVE ASSESSMENT COMPLETED. VSS, HR REG, LUNGS CTA, BSX4, ABD SOFT AND NONTENDER, +2 RLE EDEMA +2 PEDAL PULSES. SKIN CHECK PERFORMED. PTNT HAS RIGHT THIGH INCISION WELL APPROXIMATED AND CLOSED WITH JAYDA. WOUND PICS AND MEASUREMENTS COMPLETED. WOUND CARE PROVIDED DOCUMENTED IN ICC. STAPLED TO BE REMOVED IN OFFICE ON 12/30. PTNT DENIES CHEST PAIN, FEVER, CHILLS, SOB, NEW COUGH, OR DYSURIA.</paragraph><paragraph>PTNT/CG INSTRUCTED ON POST-OP COMPLICATIONS: DVT/PE, INFECTION, CONSTIPATION, AND PNA. INSTRUCTED ON WARNING SIGNS AND PREVENTION FOR EACH. PTNT RESISTANT TO EDUCATION, STATING I DON'T CARE AFTER SN FINISHED EXPLAINING. SN INSTRUCTED PTNT ON HOME SAFETY AND FALL PREVENTION: CLEAR PATHWAYS, GOOD LIGHTING, NONSKID SHOES, SLOW POSITION CHANGES, REMOVING CLUTTER.</paragraph><paragraph>MEDICATION RECONCILLIATION COMPLETED. SN EDUCATED PTNT ON EACH MEDICATION TAKING INCLUDING ROUTE, PURPOSE, DOSE, TIME, AND POTENTIAL SIDE EFFECTS. PTNT VERBALIZED UNDERSTANDING. SIGNIFICANT MEDICATION ISSUES FOUND DURING REVIEW (SEE NOTE).</paragraph><paragraph>PTNT APT 12/30/24 DR. MARCIA CONNOLLY (PCP), 01/29 DR. SEGUNDO (SURGEON) SN INSTRUCTED PTNT TO BRING MEDICATION LIST AND ARRIVE 15 MIN EARLY FOR CHECK-IN. PTNT VERBALIZED UNDERSTANDING.</paragraph><paragraph>INSTRUCTED ON SIGNS AND SYMPTOMS OF COVID-19 AND HOW IT IS TRANSMITTED. INSTRUCTED ON NEED FOR WEARING MASK, MAINTAINING SOCIAL DISTANCING, ADEQUATE HAND WASHING, NOT TOUCHING THEIR FACE, AND AVOIDING CROWDS. INSTRUCTED TO NOTIFY SN WITH ANY FEVER, CHILLS, BODY ACHES, SINUS DRAINAGE, HEADACHE, WORSENING SOB, COUGH, LOSS OF SENSE OF TASTE, AND DIARRHEA.</paragraph><paragraph>INSTRUCTED ON PAIN RELIEF, FALL PRECAUTIONS, INFECTION CONTROL, PRESSURE RELIEF, AND SX OF UTI AND WHEN TO CALL AGENCY. REVIEWED START OF CARE PACKET INFORMATION WITH PATIENT/CG (AGENCY NUMBER, PATIENT BILL OF RIGHTS, GRIEVANCE PROCEDURE, EMERGENCY PREPAREDNESS, GOALS, AND STATE HOTLINE NUMBER). FOR FURTHER PATIENT REFERENCE AND REMINDERS, THIS INFORMATION WAS CIRCLED/HIGHLIGHTED AT THIS TIME. VERBALIZES UNDERSTANDING OF ALL INSTRUCTIONS. PTNT IN STABLE CONDITION UPON DEPARTURE FROM [facility] COMPLETED THIS VISIT.</paragraph><paragraph>PTNT SITTING IN CHAIR IN KITCHEN UPON ARRIVAL SMOKING. PTNTS FRIENDS IS PRESENT FOR VISIT. SHE ALSO SETS UP HIS MEDICATIONS FOR HIM. PTNT HOME IS VERY CLUTTERED AND HAS SMALL PATHWAYS TO GET FROM ROOM TO ROOM. PTNT CONTINUES WALKING WITHOUT HIS ROLLATOR/CANE MOST OF THE TIME. INSTRCUETTED ON THE IMPORTANCE OF LIMITING WHAT HE IS DOING TO ENSURE PROPER HEALING OF THE SURGICAL SITE. PTNT STATES OVER THE LAST COULE OF DAYS HIS RIGHT LEG HAS BEEN GIVING HIM SOME MORE PAIN. PTNT IS TAKING PTNT MEDS DIRECTED. PTNT DID AGREE TO GO SEE MD TODAY FOR HIS PAIN BUT STILL REQUESTED A DISCHARGE FROM NURSING. PTNT DENIES ANY FALLS, OR INJUIRES TO SURGICAL SITE. PTNT SCHEDULED TO SEE DR CONNOLLY AT 3 PM TODAY. NO OPEK SKIN AREAS NOTED. SURGICAL INCISION HEALED WITH NO REDNESS OR WARMTH NOTED. LTOS OF EDUCATION GIVEN DURING NURSING VISIT AND PTNT STATES HE IS JUST GOING TO DO WHAT HE WANTS TO DO. PT WILL F/U WITH PTNT THIS WEEK. INSTRUCTED PTNT ON FALL AND SAFETY PREVENTION, PAIN MANAGEMENT, PU PREVENTION, PURPOSE DOSE NAD SIDE EFFECTS, WOUND CARE AND S/S OF INFECTION.</paragraph> Encounters Start Date/Time End Date/Time Encounter Type Admission Type Attending [facility] Care Department Encounter ID Discharge Date Discharge Status Discharge Condition Discharge Reason Percent Goals Met 2024-12-28 00:00:00 2025-02-25 00:00:00 Outpatient NEW ADMISSION VICKI KNAPP [facility] [id number]
== END 2025-02-24 13:05 | disposition home or self-care (01) ==
LOC: CHSIMG 13:08
PROVIDERS: PCP Family Medicine; Visit Provider Family Medicine
DX: S72.001S Fracture of unspecified part of neck of right femur, sequela (principal); Z98.890 Other specified postprocedural states
CPT/HCPCS: 73502